=== PATIENT | female | born 1990 | race Two or more races ===

== ENCOUNTER 2020-10-04 15:09 | Emergency (ER) | payer OTHER, SELFPAY ==
[2020-10-04 15:13] VITALS: BP 160/100; PULSE 127; RESP 18; TEMP 36.7; O2SAT 100; BMI 36.6
--- NOTE | 2020-10-04 16:27 | ED.GENADULT ---
HPI - General Adult General Chief complaint: General Medical Stated complaint: High blood pressure/Headache Time Seen by Provider: 10/04/20 16:17 Source: patient Mode of arrival: ambulatory Limitations: no limitations History of Present Illness HPI narrative: Patient history of anxiety does not have any medication for last 1 month feeling anxious today checked her blood pressure was 160/100 usual blood pressure is 120/80 also patient drinks coffee which she had prior to arrival Patient denies any palpitation or chest pain has mild headache no nausea or vomiting or shortness of breath Onset (ago): day(s) Related Data Previous Rx's Medication Instructions Recorded lorazepam [Ativan] 0.5 mg PO BEDTIME PRN #14 tab 10/04/20 Allergies Allergy/AdvReac Type Severity Reaction Status Date / Time No Known Allergies Allergy Unverified 05/02/20 19:40 [No Known Allergies*] Review of Systems Review of Systems: Constitutional : No Weight loss, No Fever, No Chills ENT/Mouth : No sore throat, No Rhinorrhea Eyes: No Eye Pain, No Swelling Cardiovascular : No Chest Pain, no palpitations Respiratory : No Cough, No Sputum, no shortness of breath Gastrointestinal : no Nausea, No Vomiting, No Diarrhea, No abdominal Pain, no black stools Genitourinary : No Dysuria, No Urinary Frequency Musculoskeletal : No joint pain, No Myalgias, No Joint Swelling Skin : No Skin Lesions, No rash Neuro : No Weakness, No Numbness, No Dizziness, + Headache Psych : + Anxiety/Panic, No Depression Heme/Lymph: No Bruising, No Lymphadenopathy Endocrine : No Polyuria, No Polydipsia All other systems reviewed and are negative [facility] Past Medical History Medical History (Updated 10/04/20 @ 17:03 by Sylvain Ramos MD) Anxiety Hypothyroidism Social History Social History Advance Directives: No Advance Directives Information Provided: No Physical Exam Vital Signs: Vital Signs: Last Vital Signs Temp 98.9 F 10/04/20 16:43 Pulse 90 10/04/20 16:43 Resp 18 10/04/20 16:43 BP 158/103 H 10/04/20 16:43 Pulse Ox 99 10/04/20 16:43 Body Mass Index 36.6 Appearance: Alert. Oriented X3. No acute distress. Anxious+ Eyes: Pupils equal, round and reactive to light. ENT: Pharynx normal. Neck: Normal inspection. Neck supple. CVS: Normal heart rate and rhythm. Pulses normal. Respiratory: No respiratory distress. Breath sounds normal. Abdomen: Soft and nontender. Bowel sounds are present, no mass palpable, no CVA tenderness Skin: Skin warm and dry. Normal skin color. Normal skin turgor. Extremities: No lower extremity edema. Neuro: Oriented X 3. No motor deficit. No sensory deficit. Medical Decision Making MDM Narrative Medical decision making narrative: Patient with anxiety transient increased blood pressure 158/103 patient does not have any history of hypertension usual blood pressure is 120/80 when she is at home elevated blood pressures likely from anxiety and white coat hypertension. Patient advised to check her blood pressure daily at home and follow with PCP will give a prescription for Ativan for anxiety which she used to take before Discharge Plan Discharge Clinical Impression: Anxiety Patient Disposition: Home, Self-Care Instructions: Anxiety (ED) Prescriptions: New lorazepam [Ativan] 0.5 mg tablet 0.5 mg PO BEDTIME PRN (Reason: anxiety) Qty: 14 RF: 0 Stand Alone Forms: Work/School Release Interventions: ED Discharge Assessment Last Done: 10/04/20 16:57 Discharge Date/Time: 10/04/20 16:58
--- NOTE | 2020-10-04 16:35 | PC.NURSE ---
upon enterning the main ed, pt saying, i do feel a lot better than when i first came in today. no c/o chest pain, sob, or diff breathing.
[2020-10-04 16:43] VITALS: BP 158/103; PULSE 90; RESP 18; TEMP 37.2; O2SAT 99
== END 2020-10-04 16:58 | disposition home or self-care (01) ==
PROVIDERS: Emergency Provider Internal Medicine; PCP Internal Medicine
DX: R51.9 Headache, unspecified (principal); F41.1 Generalized anxiety disorder; F43.0 Acute stress reaction; Z79.899 Other long term (current) drug therapy
CPT/HCPCS: 99283

== ENCOUNTER 2021-12-06 05:55 | Emergency (ER) | payer OTHER, SELFPAY ==
--- NOTE | ~2021-12-06 | XR_ITS ---
EXAMINATION: XR CHEST CLINICAL INFORMATION: Palpitations COMPARISON: None TECHNIQUE: Frontal view of the chest was obtained. FINDINGS: The lungs are well expanded. There is no focal consolidation, edema, or effusion. No pneumothorax. The cardiomediastinal silhouette is within normal limits. No acute osseous abnormality. XR/XR chest 1V IMPRESSION: Clear lungs.
--- NOTE | 2021-12-06 06:04 | ECG_ITS ---
Test Reason : TACHY Blood Pressure : / mmHG Vent. Rate : 126 BPM Atrial Rate : 126 BPM P-R Int : 150 ms QRS Dur : 086 ms QT Int : 300 ms P-R-T Axes : 059 008 008 degrees QTc Int : 434 ms Sinus tachycardia Septal infarct , age undetermined Possible Inferior infarct , age undetermined Abnormal ECG No previous ECGs available Referred By: Generic ED Physician Electronically Signed By:JUAREZ PANIAGUA MD
[2021-12-06 06:19] VITALS: BP 171/94; PULSE 131; RESP 20; TEMP 36.3; O2SAT 100; BMI 34.9
--- NOTE | 2021-12-06 06:53 | ED_ITS ---
HPI - General Adult General Chief complaint: Arrhythmia/Palpitations Stated complaint: gen med Time Seen by Provider: 12/06/21 06:00 Source: patient Mode of arrival: ambulatory Limitations: no limitations History of Present Illness HPI narrative: Very pleasant 37 years old female presented to the emergency department with a chief complaining of anxiety feeling. She states she had few beers last night and this morning she feels palpitation and very anxious. denies any chest pain shortness of breath any vomiting. Patient has history of hypertension but she states that she is not taking her blood pressure medication, she is supposed to be on amlodipine. Onset (ago): hour(s) (4) Location: chest Radiation: non-radiation Severity: mild Pain Consistency: constant Relieving factors: none Exacerbating factors: none Associated symptoms: denies other symptoms Related Data Previous Rx's Medication Instructions Recorded lorazepam 0.5 mg tablet (Ativan) 0.5 mg PO BEDTIME PRN #14 tab 10/04/20 Allergies Allergy/AdvReac Type Severity Reaction Status Date / Time No Known Allergies Allergy Verified 12/06/21 06:19 [No Known Allergies*] Review of Systems Review of Systems: Yes all other systems are reviewed and are negative Constitutional: Constitutional: Denies chills and Denies fatigue Cardiovascular: Cardiovascular: Reports no additional cardiovascular complaints and Denies chest pain Respiratory: Respiratory: Reports no additional respiratory complaints Gastrointestinal: Gastrointestinal: Denies abdominal pain Neurologic: Reports system reviewed and no additional complaints, except as documented Endocrine: Endocrine: Denies fatigue [facility] Past Medical History [facility] Narrative: HTN Medical History Anxiety Hypothyroidism Social History Social History Alcohol intake: current Alcohol intake frequency: holidays/special occasions only Patient Tobacco Use Status: Never used Tobacco Use of substances other than those prescribed or required for medical reasons: No Advance Directives: No Advance Directives Information Provided: Yes Patient : No Physical Exam ED Vital Signs: Vital Signs - 24 hr 12/06/21 06:19 12/06/21 08:00 Temperature 97.3 F Pulse Rate 131 H 105 H Respiratory Rate 20 13 Blood Pressure 171/94 H 161/88 H Pulse Oximetry 100 100 BMI result Body Mass Index 34.9 Const General: cooperative, comfortable, no acute distress, well developed, alert and awake Nutritional Appearance: average body habitus Orientation/consciousness: patient oriented x3 Limitations: no limitations HENMT Head: Yes normal to inspection and Yes normocephalic Ears: hearing grossly normal bilaterally General nose exam: Normal external nose present Face and sinus: Yes normal facial exam Mouth: Normal oral and palatal mucosa present and tongue normal Throat: Yes posterior oropharynx normal Neck Neck: Yes normal visual inspection, Yes full ROM and Yes no lymphadenopathy Chest Chest palpation & inspection: normal inspection of the chest Resp Effort & Inspection: normal respiratory effort, no audible wheezes and not labored Auscultation: clear to auscultation bilaterally Cardio Jugular venous distension: no JVD Rate: regular rate Rhythm: regular rhythm GI Inspection: Yes normal to inspection Palpation (GI): Soft to palpation, not firm, nontender and no guarding Auscultation: normal bowel sounds Skin General skin exam: no rashes or lesions noted Neuro General: patient oriented x3 Cranial nerves: Yes CN's II-XII intact bilaterally Gait exam (Neuro): Normal gait present Course Reevaluation(s) Reevaluation #1: I re-examined the patient this time she is feeling much better urine pending anticipate discharge home Medical Decision Making MDM Narrative Medical decision making narrative: this is a 32 years old female presented to the ED with palpitations/anxiety will check baseline blood work and will do an EKG Lab Data Result diagrams: 12/06/21 06:45 12/06/21 06:45 Labs: Lab Results 12/06/21 12/06/21 12/06/21 Range/Units 06:45 06:45 06:45 WBC 8.5 (4.8-10.8) X10*3/uL RBC 4.45 (4.20-5.50) X10*6/uL Hgb 13.3 (12.0-16.0) g/dl Hct 40.5 (37.0-47.0) % MCV 91.0 (80.0-98.0) fL MCH 29.9 (27.0-33.0) pg MCHC 32.8 (31.0-35.0) g/dl RDW 12.9 (11.0-16.0) % Plt Count 359 (160-400) X10*3/uL MPV 8.5 L (9.4-12.3) fL Immature Gran % (Auto) 0.4 (0.0-0.4) % Neut % (Auto) 59.1 (45-73) % Lymph % (Auto) 35.2 (20-40) % [place] % (Auto) 4.5 (2-11) % Eos % (Auto) 0.7 (0-4) % Baso % (Auto) 0.1 (0-2) % Lymph # (Auto) 3.0 (1.2-4.9) X10*3/uL [place] # (Auto) 0.4 (0.1-1.2) X10*3/uL Eos # (Auto) 0.1 (0.0-0.4) X10*3/uL Baso # (Auto) 0.0 (0.0-0.2) X10*3/uL Abs Immat Gran (auto) 0.03 (0.00-0.03) X10*3/uL Absolute Neuts (auto) 5.0 (2.0-8.3) x10*3/uL Absolute Nucleated RBC 0.000 (0.0-0.012) X10*3/uL Nucleated RBC % (auto) 0.0 (0.0-0.2) /100WBC Sodium 140 (135-145) mmol/L Potassium 4.0 (3.3-5.1) mmol/L Chloride 105 (96-108) mmol/L Carbon Dioxide 25 (22-29) mmol/L Anion Gap 14 (12-20) BUN 16 (9-16) mg/dL Creatinine 0.80 (0.5-1.4) mg/dL Estim Creat Clear Calc 107.1 Estimated GFR > 60 Random Glucose 110 (60-115) mg/dL Calcium 10.3 H (8.4-10.2) mg/dL Troponin I High Sens < 3.5 (<3.5-17.0) ng/L Urine Color Urine Appearance Urine pH (5.0-8.0) Ur Specific [place] (1.005-1.025) Urine Protein (NEG-TRACE) MG/DL Urine Glucose (UA) (NEG) MG/DL Urine Ketones (NEG) MG/DL Urine Blood (NEG) Urine Nitrite (NEG) Ur Leukocyte Esterase (NEG) Urine RBC (0) /HPF Urine WBC (0-4) /HPF Ur Squamous Epith Cells /LPF Urine Bacteria /LPF Urine Mucus /LPF Urine Test (NEGATIVE) Urine Opiates Screen (Not Detect) Urine Fentanyl Screen (Not Detect) Ur Barbiturates Screen (Not Detect) Ur Phencyclidine Scrn (Not Detect) Ur Amphetamines Screen (Not Detect) U Benzodiazepines Scrn (Not Detect) Urine Cocaine Screen (Not Detect) U Marijuana (THC) Screen (Not Detect) Ethyl Alcohol mg/dL 12/06/21 12/06/21 12/06/21 Range/Units 06:45 08:58 08:58 WBC (4.8-10.8) X10*3/uL RBC (4.20-5.50) X10*6/uL Hgb (12.0-16.0) g/dl Hct (37.0-47.0) % MCV (80.0-98.0) fL MCH (27.0-33.0) pg MCHC (31.0-35.0) g/dl RDW (11.0-16.0) % Plt Count (160-400) X10*3/uL MPV (9.4-12.3) fL Immature Gran % (Auto) (0.0-0.4) % Neut % (Auto) (45-73) % Lymph % (Auto) (20-40) % [place] % (Auto) (2-11) % Eos % (Auto) (0-4) % Baso % (Auto) (0-2) % Lymph # (Auto) (1.2-4.9) X10*3/uL [place] # (Auto) (0.1-1.2) X10*3/uL Eos # (Auto) (0.0-0.4) X10*3/uL Baso # (Auto) (0.0-0.2) X10*3/uL Abs Immat Gran (auto) (0.00-0.03) X10*3/uL Absolute Neuts (auto) (2.0-8.3) x10*3/uL Absolute Nucleated RBC (0.0-0.012) X10*3/uL Nucleated RBC % (auto) (0.0-0.2) /100WBC Sodium (135-145) mmol/L Potassium (3.3-5.1) mmol/L Chloride (96-108) mmol/L Carbon Dioxide (22-29) mmol/L Anion Gap (12-20) BUN (9-16) mg/dL Creatinine (0.5-1.4) mg/dL Estim Creat Clear Calc Estimated GFR Random Glucose (60-115) mg/dL Calcium (8.4-10.2) mg/dL Troponin I High Sens (<3.5-17.0) ng/L Urine Color YELLOW Urine Appearance HAZY Urine pH 6.0 (5.0-8.0) Ur Specific [place] 1.010 (1.005-1.025) Urine Protein NEG (NEG-TRACE) MG/DL Urine Glucose (UA) NEG (NEG) MG/DL Urine Ketones NEG (NEG) MG/DL Urine Blood 3+ H (NEG) Urine Nitrite NEG (NEG) Ur Leukocyte Esterase NEG (NEG) Urine RBC 1-4 (0) /HPF Urine WBC 0 (0-4) /HPF Ur Squamous Epith Cells TRACE /LPF Urine Bacteria NONE /LPF Urine Mucus TRACE /LPF Urine Test NEGATIVE (NEGATIVE) Urine Opiates Screen (Not Detect) Urine Fentanyl Screen (Not Detect) Ur Barbiturates Screen (Not Detect) Ur Phencyclidine Scrn (Not Detect) Ur Amphetamines Screen (Not Detect) U Benzodiazepines Scrn (Not Detect) Urine Cocaine Screen (Not Detect) U Marijuana (THC) Screen (Not Detect) Ethyl Alcohol < 10 mg/dL 12/06/21 Range/Units 08:58 WBC (4.8-10.8) X10*3/uL RBC (4.20-5.50) X10*6/uL Hgb (12.0-16.0) g/dl Hct (37.0-47.0) % MCV (80.0-98.0) fL MCH (27.0-33.0) pg MCHC (31.0-35.0) g/dl RDW (11.0-16.0) % Plt Count (160-400) X10*3/uL MPV (9.4-12.3) fL Immature Gran % (Auto) (0.0-0.4) % Neut % (Auto) (45-73) % Lymph % (Auto) (20-40) % [place] % (Auto) (2-11) % Eos % (Auto) (0-4) % Baso % (Auto) (0-2) % Lymph # (Auto) (1.2-4.9) X10*3/uL [place] # (Auto) (0.1-1.2) X10*3/uL Eos # (Auto) (0.0-0.4) X10*3/uL Baso # (Auto) (0.0-0.2) X10*3/uL Abs Immat Gran (auto) (0.00-0.03) X10*3/uL Absolute Neuts (auto) (2.0-8.3) x10*3/uL Absolute Nucleated RBC (0.0-0.012) X10*3/uL Nucleated RBC % (auto) (0.0-0.2) /100WBC Sodium (135-145) mmol/L Potassium (3.3-5.1) mmol/L Chloride (96-108) mmol/L Carbon Dioxide (22-29) mmol/L Anion Gap (12-20) BUN (9-16) mg/dL Creatinine (0.5-1.4) mg/dL Estim Creat Clear Calc Estimated GFR Random Glucose (60-115) mg/dL Calcium (8.4-10.2) mg/dL Troponin I High Sens (<3.5-17.0) ng/L Urine Color Urine Appearance Urine pH (5.0-8.0) Ur Specific [place] (1.005-1.025) Urine Protein (NEG-TRACE) MG/DL Urine Glucose (UA) (NEG) MG/DL Urine Ketones (NEG) MG/DL Urine Blood (NEG) Urine Nitrite (NEG) Ur Leukocyte Esterase (NEG) Urine RBC (0) /HPF Urine WBC (0-4) /HPF Ur Squamous Epith Cells /LPF Urine Bacteria /LPF Urine Mucus /LPF Urine Test (NEGATIVE) Urine Opiates Screen Not Detected (Not Detect) Urine Fentanyl Screen Not Detected (Not Detect) Ur Barbiturates Screen Not Detected (Not Detect) Ur Phencyclidine Scrn Not Detected (Not Detect) Ur Amphetamines Screen Not Detected (Not Detect) U Benzodiazepines Scrn Not Detected (Not Detect) Urine Cocaine Screen Not Detected (Not Detect) U Marijuana (THC) Screen Not Detected (Not Detect) Ethyl Alcohol mg/dL ECG Data Attestation: I personally reviewed and interpreted this ECG as follows: Pacemaker model: EKG shows an sinus tachycardia with a rate of [address]-T changes Discharge Plan Discharge Clinical Impression: Palpitations, Anxiety Patient Disposition: Home, Self-Care Instructions: Heart Palpitations (DC), Anxiety (ED) Additional Instructions: follow-up with your primary care physician return if you worse any concern Prescriptions: No Action lorazepam [Ativan] 0.5 mg tablet 0.5 mg PO BEDTIME PRN (Reason: anxiety) Qty: 14 0RF Referrals: Physician,Unknown J [Primary Care Provider] - Stand Alone Forms: Work/School Release Interventions: ED Discharge Assessment Last Done: 12/06/21 09:57 Discharge Date/Time: 12/06/21 09:58
[2021-12-06 06:56] LABS: MANUAL DIFF FLAG NO
[2021-12-06] MEDS: Ondansetron ODT 4 MG TAB.RAPDIS TRANSLINGU (07:06)
[2021-12-06] MEDS: LORazepam 1 MG TABLET PO (07:06)
[2021-12-06 07:11] LABS: Ethanol < 10 mg/dL
[2021-12-06 07:12] LABS: Anion Gap 14 (12-20); Blood Urea Nitrogen 16 mg/dL (9-16); Calcium 10.3 mg/dL (8.4-10.2); Carbon Dioxide 25 mmol/L (22-29); Chloride 105 mmol/L (96-108); Creatinine Clr Calc Pharmacy 107.1; Estimated Glomerular Filt Rate > 60; Glucose Random 110 mg/dL (60-115); Sodium 140 mmol/L (135-145)
[2021-12-06 07:16] LABS: Basophils Percent Auto 0.1 % (0-2); Eosinophils Absolute Auto 0.1 X10*3/uL (0.0-0.4); Eosinophils Percent Auto 0.7 % (0-4); Hematocrit 40.5 % (37.0-47.0); Hemoglobin 13.3 g/dl (12.0-16.0); Imm Gran Abs Auto 0.03 X10*3/uL (0.00-0.03); Imm Gran Pct Auto 0.4 % (0.0-0.4); Lymphocytes Percent Auto 35.2 % (20-40); Mean Corpuscular HGB Conc 32.8 g/dl (31.0-35.0); Mean Corpuscular Hemoglobin 29.9 pg (27.0-33.0); Mean Platelet Volume 8.5 fL (9.4-12.3); Monocytes Absolute Auto 0.4 X10*3/uL (0.1-1.2); Monocytes Percent Auto 4.5 % (2-11); Neutrophils Percent Auto 59.1 % (45-73); Platelet Count 359 X10*3/uL (160-400); Red Blood Count 4.45 X10*6/uL (4.20-5.50); Red Cell Distribution Width 12.9 % (11.0-16.0); White Blood Count 8.5 X10*3/uL (4.8-10.8)
[2021-12-06 07:43] LABS: Troponin-I High Sensitivity < 3.5 ng/L (<3.5-17.0)
[2021-12-06 08:00] VITALS: BP 161/88; PULSE 105; RESP 13; O2SAT 100
[2021-12-06 09:07] LABS: Appearance Urine HAZY; Color Urine YELLOW; Glucose Urine UA NEG (NEG); Leukocyte Esterase Urine NEG (NEG); Nitrite Urine NEG (NEG); UACC Culture Trigger NO; Urine Blood 3+ (NEG); Urine Ketones NEG (NEG); Urine Protein NEG (NEG-TRACE)
[2021-12-06 09:08] LABS: Urine Pregnancy NEGATIVE (NEGATIVE)
[2021-12-06 09:09] LABS: UPreg QC Valid YES
[2021-12-06 09:21] LABS: Mucus Urine TRACE /LPF; Squamous Epithelial Cell Urine TRACE /LPF; WBC Urine 0 /HPF (0-4)
[2021-12-06 09:23] LABS: Amphetamine Screen Urine Not Detected (Not Detect); Barbiturates, Urine Not Detected (Not Detect); Benzodiazepines Screen Urine Not Detected (Not Detect); Cannabinoid Screen Urine Not Detected (Not Detect); Cocaine Screen Urine Not Detected (Not Detect); Fentanyl, urine Not Detected (Not Detect); Opiate Screen Urine Not Detected (Not Detect); Phencyclidine Screen Urine Not Detected (Not Detect)
== END 2021-12-06 09:58 | disposition home or self-care (01) ==
PROVIDERS: Emergency Provider Emergency Medicine
DX: R00.2 Palpitations (principal); F41.1 Generalized anxiety disorder; F43.0 Acute stress reaction; Z79.899 Other long term (current) drug therapy
CPT/HCPCS: 36415; 71045; 80048; 80307; 81001; 81025; 82077; 84484; 85025; 93005; 99285

== ENCOUNTER → 2022-09-09 10:30 | Outpatient (BNVA) | payer OTHER, SELFPAY | PROVIDERS: PCP Internal Medicine; Visit Provider Physician Assistant Surgical | DX: Z13.89 Encounter for screening for other disorder (principal) ==

== ENCOUNTER → 2022-09-18 14:13 | Outpatient (BNVA) | payer OTHER, SELFPAY | PROVIDERS: PCP Internal Medicine; Visit Provider Physician Assistant Surgical | DX: Z13.89 Encounter for screening for other disorder (principal) ==

== ENCOUNTER → 2022-09-22 14:56 | Outpatient (BNVA) | payer OTHER, SELFPAY | PROVIDERS: PCP Internal Medicine; Visit Provider Physician Assistant Surgical | DX: Z13.89 Encounter for screening for other disorder (principal) ==

== ENCOUNTER 2022-09-22 15:47 | Outpatient (REF) | payer OTHER, SELFPAY ==
[2022-09-23 10:57] LABS: H Pylori Breath Test Negative (Negative)
== END 2022-09-22 15:48 | disposition home or self-care (01) ==
LOC: HO.LNP 15:47
PROVIDERS: Visit Provider Surgery
DX: E66.9 Obesity, unspecified (principal); I10 Essential (primary) hypertension; E03.9 Hypothyroidism, unspecified; Z68.35 Body mass index [BMI] 35.0-35.9, adult; Z11.0 Encounter for screening for intestinal infectious diseases
CPT/HCPCS: 83013

== ENCOUNTER 2022-09-23 08:42 | Outpatient (REF) | payer OTHER, SELFPAY ==
--- NOTE | ~2022-09-23 | XR_ITS ---
EXAMINATION: XR CHEST CLINICAL INFORMATION: Obesity. COMPARISON: Prior chest November 2021 TECHNIQUE: 2 views of the chest were obtained. FINDINGS: No significant abnormality is noted involving the heart, lungs, mediastinum, bony thorax or soft tissues. XR/XR chest 2V IMPRESSION: Unremarkable examination.
--- NOTE | 2022-09-23 08:48 | ECG_ITS ---
Test Reason : e66.9 Blood Pressure : / mmHG Vent. Rate : 078 BPM Atrial Rate : 078 BPM P-R Int : 150 ms QRS Dur : 092 ms QT Int : 360 ms P-R-T Axes : 014 029 010 degrees QTc Int : 410 ms Normal sinus rhythm Normal ECG When compared with ECG of 06-DEC-2021 06:09, Vent. rate has decreased BY 48 BPM Criteria for Septal infarct are no longer Present Borderline criteria for Inferior infarct are no longer Present Referred By: Alfie Stewart Electronically Signed By:JUAREZ PANIAGUA MD
== END 2022-09-23 08:43 | disposition home or self-care (01) ==
LOC: HO.XRAY 08:42
PROVIDERS: PCP Internal Medicine; Visit Provider Surgery
DX: E66.9 Obesity, unspecified (principal); Z68.35 Body mass index [BMI] 35.0-35.9, adult; E03.9 Hypothyroidism, unspecified; I10 Essential (primary) hypertension
CPT/HCPCS: 71046; 93005

== ENCOUNTER 2022-09-28 07:23 | Outpatient (REF) | payer OTHER, SELFPAY ==
[2022-09-28 07:35] LABS: MANUAL DIFF FLAG NO
[2022-09-28 07:59] LABS: Estimated Average Glucose 105 mg/dL; Hemoglobin A1c % 5.3 %
[2022-09-28 08:06] LABS: Basophils Percent Auto 0.2 % (0-2); Eosinophils Absolute Auto 0.1 X10*3/uL (0.0-0.4); Eosinophils Percent Auto 0.9 % (0-4); Hematocrit 37.7 % (37.0-47.0); Hemoglobin 12.5 g/dl (12.0-16.0); Imm Gran Abs Auto 0.04 X10*3/uL (0.00-0.03); Imm Gran Pct Auto 0.5 % (0.0-0.4); Lymphocytes Absolute Auto 3.3 X10*3/uL (1.2-4.9); Mean Corpuscular HGB Conc 33.2 g/dl (31.0-35.0); Mean Corpuscular Hemoglobin 30.2 pg (27.0-33.0); Mean Corpuscular Volume 91.1 fL (80.0-98.0); Mean Platelet Volume 8.8 fL (9.4-12.3); Monocytes Absolute Auto 0.5 X10*3/uL (0.1-1.2); Monocytes Percent Auto 6.3 % (2-11); Neutrophils Absolute Auto 4.6 x10*3/uL (2.0-8.3); Neutrophils Percent Auto 54.1 % (45-73); Platelet Count 390 X10*3/uL (160-400); Red Blood Count 4.14 X10*6/uL (4.20-5.50); White Blood Count 8.6 X10*3/uL (4.8-10.8)
[2022-09-28 08:34] LABS: Alanine Aminotransferase 45 U/L (0-31); Alkaline Phosphatase 102 U/L (39-117); Anion Gap 13 (12-20); Aspartate Amino Transferase 28 U/L (5-31); Bilirubin Total 0.3 mg/dL (0.0-1.0); Blood Urea Nitrogen 13 mg/dL (9-16); C Reactive Protein 0.83 mg/dL (< or = 0.50); Calcium 9.3 mg/dL (8.4-10.2); Carbon Dioxide 25 mmol/L (22-29); Chloride 107 mmol/L (96-108); Cholesterol 151 mg/dL; Estimated Glomerular Filt Rate > 60; Glucose Random 102 mg/dL (60-115); HDL Cholesterol 38 mg/dL; Iron 63 mcg/dL (30-160); LDL Cholesterol Calculated 94 mg/dl; Percent Iron Saturation 19 % (15-50); Potassium 4.3 mmol/L (3.3-5.1); Sodium 141 mmol/L (135-145); Total Iron Binding Capacity 333 mcg/dL (228-428); Total Protein 7.5 g/dL (6.5-8.0); Triglycerides 95 mg/dL; Unsaturated Iron Binding 270 ug/dL
[2022-09-28 08:54] LABS: Ferritin 52 ng/mL (10-122); Folate 9.2 ng/mL (> or = 4.0); Insulin 20 uU/mL (2-29); TSH reflex Free T4 1.42 uIU/mL (0.32-4.0); Vitamin B12 633 pg/mL (200-900); Vitamin D 25-OH Total 22.3 ng/mL (>30)
[2022-09-29 13:39] LABS: Calcium (PTHI) 9.3 mg/dL (8.6-10.2); PTHI 68 pg/mL (16-77)
[2022-10-01 05:49] LABS: Zinc 86 mcg/dL (60-130)
[2022-10-01 17:29] LABS: Vitamin A 36 mcg/dL (38-98)
[2022-10-05 05:13] LABS: Vitamin B1 7 nmol/L (8-30)
== END 2022-09-28 07:24 | disposition home or self-care (01) ==
LOC: HO.LAB 07:23
PROVIDERS: PCP Internal Medicine; Visit Provider Surgery
DX: E66.9 Obesity, unspecified (principal); Z68.35 Body mass index [BMI] 35.0-35.9, adult; E03.9 Hypothyroidism, unspecified; I10 Essential (primary) hypertension
CPT/HCPCS: 36415; 80053; 80061; 82306; 82607; 82728; 82746; 83036; 83525; 83540; 83970; 84425; 84443; 84590; 84630; 85025; 86140

== ENCOUNTER → 2022-10-12 15:05 | Outpatient (BNVA) | payer OTHER, SELFPAY | PROVIDERS: PCP Internal Medicine; Referring Provider Internal Medicine; Visit Provider Physician Assistant Surgical | DX: Z13.89 Encounter for screening for other disorder (principal) ==

== ENCOUNTER → 2022-10-22 15:00 | Outpatient (BNVA) | payer OTHER, SELFPAY | PROVIDERS: Visit Provider Counselor Mental Health | DX: F41.9 Anxiety disorder, unspecified (principal); E66.9 Obesity, unspecified | CPT/HCPCS: 90791 ==

== ENCOUNTER → 2022-10-27 13:08 | Outpatient (BNVA) | payer OTHER, SELFPAY | PROVIDERS: PCP Internal Medicine; Visit Provider Dietitian, Registered | DX: E66.9 Obesity, unspecified (principal); Z68.33 Body mass index [BMI] 33.0-33.9, adult | CPT/HCPCS: 97802 ==

== ENCOUNTER → 2022-11-02 13:12 | Outpatient (BNVA) | payer OTHER, SELFPAY | PROVIDERS: PCP Internal Medicine; Visit Provider Physician Assistant Surgical | DX: Z13.89 Encounter for screening for other disorder (principal) ==

== ENCOUNTER 2023-03-02 10:31 | Outpatient (AMB) | payer OTHER, SELFPAY ==
[2023-03-02 10:33] VITALS: BP 146/80; PULSE 102; TEMP 36.7; O2SAT 99; BMI 35.2
--- NOTE | 2023-03-02 10:33 | A.OFFVIS_ITS ---
Intake VS Expanded 03/02/23 10:33 Height 5 ft 3 in Weight 198 lb 12.8 oz BMI 35.2 BP 146/80 H Blood Pressure Location Lt brachial Blood Pressure Position Sitting Pulse 102 H Pulse Source Pulse Oximeter Temp 98.1 F Temperature Source Temporal Artery Scan Pulse Oximetry 99 Oxygen Delivery Method Room Air Body Fat 75.4 Body Fat Percentage 38.0 Free Fat Mass 123.2 Muscle Mass 117.0 Visceral Mass 8.0 Water Mass 88.4 BMR 1,710 Intake Visit Reasons: (OV) F/U [employer] Res[employer]cher Required: No Allergies No Known Allergies [No Known Allergies*] Allergy (Verified 03/02/23 10:35) Medication List - Last Reconciled 03/02/23 by MECHE Vergara amlodipine 10 mg PO DAILY cholecalciferol (vitamin D3) 125 mcg PO DAILY levothyroxine 75 mcg PO DAILY lorazepam (Ativan) 0.5 mg PO BEDTIME PRN thiamine HCl (vitamin B1) 100 mg PO DAILY vitamin A 1 cap PO DAILY HPI HPI Comments History of Present Illness Details The patient is a pleasant 32 year old female who returns to the clinic for pre-operative surgical weight loss management. They were last seen in the office on 11/02/22, recorded weight at that time was 190.6 pounds, with a BMI of 33.7. Today's weight is 198.8 pounds and BMI is 35.2. There has been a weight loss of 2.6 pounds since initiating the surgical weight loss program on 02/02/22 with a total body weight loss of 1.2 %. She has not been seen in 4 months as she states appts had to be re-scheduled. RD/US/UGI not re-scheduled. She states she had changed jobs and insurance changed too. Currently not following any meal plan. Wants to re-commit Pre op work up completed as follows: SWL classes:? 03/23 BH appts: 10/22/22-needs to be seen again ? ? RD appts: f/u 12/08/22-missed Labs: 09/28/22-low A, B1, D H. pylori: 09/22/22-neg CXR: 09/23/22-nad EK09/23/22-normal ABD U/S: 11/04/22-missed UGI: 11/04/22-missed Current meal plan includes: 2 [employer] shakes, (1 scoop in 8-10 oz low fat unsweetened almond milk each). First shake at 630am-930am Second shake at 11am-1pm 1 protein bar ([employer] bars at [employer], [employer], or [employer]) at 3pm-5pm. Dinner at 7pm (7 forks of protein and 7 forks of salad/vegetables). 96 oz daily Current exercise plan includes: walking 5 days per week, not tracking calories. PFSH Surgical History History of bilateral breast reduction surgery Family History Mother Hypertension Acquired scoliosis Breast cancer Father Hypertension Prostate cancer Brother No problems noted. Sister Hypertension Social History Alcohol intake: current Alcohol intake frequency: holidays/special occasions only Patient Tobacco Use Status: Never used Tobacco Review of Systems Const All systems reviewed & are unremarkable except as noted in HPI and below Physical Exam Vital Signs: BMI result Body Mass Index 35.2 Const General: healthy appearing and no acute distress Resp Effort & Inspection: normal respiratory effort Auscultation: clear to auscultation bilaterally Cardio Rate: regular rate Rhythm: regular rhythm GI Auscultation: normal bowel sounds Extrem General: Yes normal to inspection Assessment & Plan Assessment & Plan (1) Obesity: Code(s): E66.9 - Obesity, unspecified Plan: Given plan to re-start and also encouraged to return to [employer] RTC 1 month and if able to demonstrate commitment then will re-schedule RD/US/UGI. Coding Level of Care Code Est Pt Level 3 (07371) Diagnoses Obesity E66.9
== END 2023-03-02 10:58 | disposition home or self-care (01) ==
PROVIDERS: Visit Provider Physician Assistant Surgical
DX: E66.9 Obesity, unspecified (principal); Z68.35 Body mass index [BMI] 35.0-35.9, adult
CPT/HCPCS: 99213

== ENCOUNTER → 2023-03-02 10:31 | Outpatient (BNVA) | payer SELFPAY | PROVIDERS: Visit Provider Physician Assistant Surgical ==

== ENCOUNTER 2023-03-20 02:34 | Emergency (ER) | payer OTHER, SELFPAY ==
--- NOTE | ~2023-03-20 | CT_ITS ---
EXAMINATION: CT FACIAL BONES CLINICAL INFORMATION: Abscess right face COMPARISON: None TECHNIQUE: CT facial bones axial sagittal and coronal, department's standard protocol. This CT examination was performed using dose optimization techniques as appropriate, variously including the following: *Automated exposure control *Adjustment of mA and/or kV according to patient size (this includes techniques or standardized protocols for targeted exams where dose is matched to indication/reason for exam; i.e. extremities or head) *Use of iterative reconstruction technique FINDINGS : SKULL BASE: Included structures at skull base are normal. BONES: Skull base, orbital bones, nasal bones, maxillary bones, mandibles, zygomatic arches, and included cervical vertebrae are normal. ORBITS: Globes are symmetric. Orbital structures are normal. SALIVARY GLANDS: Unremarkable SINUSES: There is a small retention cyst of the floor of the right maxillary sinus 0.6 cm, sinuses otherwise are clear. There is nasal septal deviation to the left. Lymph nodes: There are enlarged right cervical lymph nodes right side measuring up to 1.7 x 1.5 cm right submandibular lymph node. Other lymph nodes are slightly prominent. This is of uncertain etiology. There is no evidence of abscess. CT/CT facial bones w IV con IMPRESSION: * No CT evidence of abscess. * Enlarged right cervical lymph nodes, largest right submandibular lymph node 1.7 x 1.5 cm. This is of uncertain etiology. Please correlate clinically, follow-up as clinically indicated. * Small retention cyst right maxillary sinus. * Nasal septal deviation to the left.
[2023-03-20 02:49] VITALS: BP 145/85; PULSE 117; RESP 16; TEMP 37.1; O2SAT 99; BMI 34.7
--- NOTE | 2023-03-20 06:53 | ED_ITS ---
HPI - Dental/Oral General Chief complaint: Dental/Oral Stated complaint: Dental Pain Time Seen by Provider: 03/20/23 06:40 Source: patient Mode of arrival: ambulatory Limitations: no limitations History of Present Illness HPI Narrative: 32 yo female with history of anxiety, HTN, hypothyroidism here with complaints of right lower dental pain. Patient reports Wednesday she had a molar removed. She woke up the next day with right sided facial swelling, increasing pain and is having difficulty with opening her mouth. No fevers, chills. Has not notified her dentist. Not currently on antibiotics Related Data Home Medications Medication Instructions Recorded Confirmed levothyroxine 75 mcg tablet 75 mcg PO DAILY 01/29/22 03/02/23 amlodipine 5 mg tablet 10 mg PO DAILY 09/18/22 03/02/23 Previous Rx's Medication Instructions Recorded lorazepam 0.5 mg tablet (Ativan) 0.5 mg PO BEDTIME PRN anxiety #14 10/04/20 tabs thiamine HCl (vitamin B1) 100 mg 100 mg PO DAILY #90 tabs 01/04/23 tablet cholecalciferol (vitamin D3) 125 125 mcg PO DAILY #90 caps 01/07/23 mcg (5,000 unit) capsule vitamin A 3,000 mcg (10,000 unit) 1 cap PO DAILY #90 caps 01/07/23 capsule clindamycin HCl 150 mg capsule 150 mg PO TID #21 caps 03/20/23 ibuprofen 600 mg tablet 600 mg PO Q8H PRN pain #30 tabs 03/20/23 Allergies Allergy/AdvReac Type Severity Reaction Status Date / Time No Known Allergies Allergy Verified 03/02/23 10:35 [No Known Allergies*] Review of Systems Review of Systems: Yes all other systems are reviewed and are negative Constitutional: Constitutional: Reports no additional constitutional complaints, Denies body ache(s), Denies chills, Denies fever(s), Denies headache(s) and Denies weakness Eyes: Eyes: Reports no additional eye complaints and Denies change in vision ENT: Reports system reviewed and no additional complaints, except as documented, Reports dental pain, Denies dizziness, Denies headache(s), Denies nasal congestion, Denies nasal discharge and Denies neck pain Cardiovascular: Cardiovascular: Reports no additional cardiovascular complaints, Denies chest pain, Denies leg edema and Denies dyspnea Respiratory: Respiratory: Reports no additional respiratory complaints, Denies cough and Denies dyspnea Gastrointestinal: Gastrointestinal: Reports no additional gastrointestinal complaints, Denies abdominal pain, Denies diarrhea, Denies nausea and Denies vomiting Genitourinary: Genitourinary: Reports no additional female genitourinary complaints and Denies urinary incontinence Musculoskeletal: Musculoskeletal: Reports no additional musculoskeletal complaints, Denies back pain, Denies arthralgias, Denies joint swelling, Denies neck pain, Denies numbness and Denies tingling Integumentary/Breasts: Skin/Breast: Reports system reviewed and no additional complaints, except as docu and Denies rash Neurologic: Reports system reviewed and no additional complaints, except as documented, Denies Abnormal speech present, Denies dizziness, Denies headache(s), Denies numbness, Denies tingling and Denies weakness PMFSH Past Medical History Attestation statement: The following information was validated with the patient. Source: old records reviewed and nursing notes reviewed Surgical History History of bilateral breast reduction surgery Family History Family History Mother Hypertension Acquired scoliosis Breast cancer Father Hypertension Prostate cancer Brother No problems noted. Sister Hypertension Social History Social History Alcohol intake: current Alcohol intake frequency: does not drink Patient Tobacco Use Status: Never used Tobacco Smoked in Last 30 Days: No Use of substances other than those prescribed or required for medical reasons: No Advance Directives: No Advance Directives Information Provided: No Physical Exam Vital Signs: Vital Signs: Last Vital Signs Temp 98 F 03/20/23 07:15 Pulse 109 H 03/20/23 07:15 Resp 18 03/20/23 07:15 BP 135/87 03/20/23 07:15 Pulse Ox 99 03/20/23 07:15 O2 Del Method Room Air 03/20/23 07:15 BMI result Body Mass Index 34.7 Const: General: cooperative, healthy appearing, comfortable and no acute distress Orientation/consciousness: patient oriented x3 Limitations: no limitations HEENT: Other: Difficulty with opening her mouth, unable to visualize entire dental area There is no obvious abscess seen at the gum line No swelling under the tongue Right facial swelling (lower) with no palpable induration/abscess Head: Yes normal to inspection Ears: hearing grossly normal bilaterally and TM's normal bilaterally General nose exam: Normal external nose present Mouth: Normal oral and palatal mucosa present, lip normal and tongue normal Throat: Yes posterior oropharynx normal, Yes tonsils normal and Yes uvula midline Eyes: General: appearance normal, both eyes and all related structures Pupils: Equal, round and reactive pupils present Neck: Neck: Yes normal visual inspection, Yes full ROM, Yes no lymphadenopathy and Yes no meningeal signs Chest: Chest palpation & inspection: normal inspection of the chest Resp: Effort & Inspection: normal respiratory effort Auscultation: clear to auscultation bilaterally Cardio: Rate: regular rate Rhythm: regular rhythm Peripheral pulses: Peripheral pulses 2+ throughout GI: Inspection: Yes normal to inspection Palpation (GI): Soft to palpation and nontender Auscultation: normal bowel sounds Back/Spine/Pelvis: Thoracic/Lumbar Spine: thoracic and lumbar spine normal to inspection Skin: General skin exam: no rashes or lesions noted Neuro: General: patient oriented x3, no meningeal signs, no focal motor deficits and normal sensation to monofilament Cranial nerves: Yes Equal, round and reactive pupils present Cognition (Neuro): normal cognition Speech: No Abnormal speech present Gait exam (Neuro): Normal gait present Motor exam (neuro): 5/5 motor strength present throughout Extrem: General: Yes normal to inspection Course Course Course Narrative: CT shows no evidence of dental abscess or osteomyelitis. Patient feels improved and is tolerating p.o. with no difficulty. Will discharge home with clindamycin, ibuprofen as needed and dental follow-up. Reviewed worrisome signs and symptoms of when to return to the emergency room. Comfortable plan for discharge home Medications Administered Discontinued Medications Generic Name Dose Route Start Last Admin Trade Name Freq PRN Reason Stop Dose Admin Clindamycin Phosphate 600 mg in 50 mls @ 100 mls/hr 03/20/23 06:44 03/20/23 08:20 Cleocin IV 03/20/23 07:13 100 mls/hr ONCE ONE Administration Iohexol 85 ml 03/20/23 08:16 03/20/23 08:17 Iohexol 350 Mg/Ml 100 Ml Infus..Btl IV 03/20/23 08:17 85 ml ONCE ONE Administration Ketorolac Tromethamine 30 mg 03/20/23 06:44 03/20/23 07:44 Ketorolac Tromethamine 30 Mg/Ml Vial IVPUSH 03/20/23 06:45 30 mg ONCE ONE Administration Medical Decision Making Medical Decision Making [facility] Narrative: 32 yo female here with right facial swelling/pain with waking Wednesday morning after having a right lower molar extracted on Wednesday. On exam patient has right sided facial swelling with mild trismus. Tolerating secrtions well. Posterior oropharynx normal. Unable to visualize the entire dental area but I do not appreciate any obvious dental abscess. No submental swelling. No lymphadenopathy. Will obtain labs, CT facial bones. Will give clindamycin IV, toradol for analgesia, IVF and re-assess. Differential Diagnosis Differential Diagnoses: The differential diagnosis associated with the presentation includes facial cellulitis, dental abscess Low concern for osteomyeltiis, ludwigs angina Lab Data [facility] Lab Attestation statement: I reviewed the patient's lab results. Labs show mild leukocytosis otherwise unremarkable 03/20/23 07:13 03/20/23 07:13 Labs: Lab Results 03/20/23 03/20/23 Range/Units 07:13 07:13 WBC 15.7 H (4.8-10.8) X10*3/uL RBC 4.58 (4.20-5.50) X10*6/uL Hgb 13.3 (12.0-16.0) g/dl Hct 40.8 (37.0-47.0) % MCV 89.1 (80.0-98.0) fL MCH 29.0 (27.0-33.0) pg MCHC 32.6 (31.0-35.0) g/dl RDW 13.3 (11.0-16.0) % Plt Count 426 H (160-400) X10*3/uL MPV 8.5 L (9.4-12.3) fL Immature Gran % (Auto) 0.4 (0.0-0.4) % Neut % (Auto) 76.5 H (45-73) % Lymph % (Auto) 18.6 L (20-40) % [place] % (Auto) 4.3 (2-11) % Eos % (Auto) 0.1 (0-4) % Baso % (Auto) 0.1 (0-2) % Lymph # (Auto) 2.9 (1.2-4.9) X10*3/uL [place] # (Auto) 0.7 (0.1-1.2) X10*3/uL Eos # (Auto) 0.0 (0.0-0.4) X10*3/uL Baso # (Auto) 0.0 (0.0-0.2) X10*3/uL Abs Immat Gran (auto) 0.06 H (0.00-0.03) X10*3/uL Absolute Neuts (auto) 12.0 H (2.0-8.3) x10*3/uL Absolute Nucleated RBC 0.000 (0.0-0.012) X10*3/uL Nucleated RBC % (auto) 0.0 (0.0-0.2) /100WBC Sodium 140 (135-145) mmol/L Potassium 3.9 (3.3-5.1) mmol/L Chloride 105 (96-108) mmol/L Carbon Dioxide 21 L (22-29) mmol/L Anion Gap 18 (12-20) BUN 9 (9-16) mg/dL Creatinine 0.77 (0.5-1.4) mg/dL Estim Creat Clear Calc 105.8 Estimated GFR > 60 Random Glucose 111 (60-115) mg/dL Calcium 10.3 H D (8.4-10.2) mg/dL Beta HCG, Quant < 2 mIU/mL Independent Interpretation I performed an independent interpretation of an: CT Scan Interpretation: I independently reviewed the CT scan with radiology report Radiology Impression Discussion of test interpretation with radiology: I have reviewed the radiologist's reading. Radiologist Impression: [address] [address] [address] Scan Report Signed Patient: Kaylin Tejada MR#: [id number] : 1990 Acct:[id number] Age/Sex: 32 / F ADM Date: 03/20/23 Loc: .ED Attending Dr: Ordering Physician: Katie Ontiveros NP Date of Service: 03/20/23 Procedure(s): CT facial bones w IV con Accession Number(s): [id number] cc: Katie Ontiveros NP~ EXAMINATION: CT FACIAL BONES CLINICAL INFORMATION: Abscess right face COMPARISON: None TECHNIQUE: CT facial bones axial sagittal and coronal, department's standard protocol. This CT examination was performed using dose optimization techniques as appropriate, variously including the following: *Automated exposure control *Adjustment of mA and/or kV according to patient size (this includes techniques or standardized protocols for targeted exams where dose is matched to indication/reason for exam; i.e. extremities or head) *Use of iterative reconstruction technique FINDINGS : SKULL BASE: Included structures at skull base are normal. BONES: Skull base, orbital bones, nasal bones, maxillary bones, mandibles, zygomatic arches, and included cervical vertebrae are normal. ORBITS: Globes are symmetric. Orbital structures are normal. SALIVARY GLANDS: Unremarkable SINUSES: There is a small retention cyst of the floor of the right maxillary sinus 0.6 cm, sinuses otherwise are clear. There is nasal septal deviation to the left. Lymph nodes: There are enlarged right cervical lymph nodes right side measuring up to 1.7 x 1.5 cm right submandibular lymph node. Other lymph nodes are slightly prominent. This is of uncertain etiology. There is no evidence of abscess. CT/CT facial bones w IV con IMPRESSION: ? *? No CT evidence of abscess. ? *? Enlarged right cervical lymph nodes, largest right submandibular lymph node 1.7 x 1.5 cm. This is of uncertain etiology. Please correlate clinically, follow-up as clinically indicated. ? *? Small retention cyst right maxillary sinus. ? *? Nasal septal deviation to the left. ? Discharge Plan Discharge Clinical Impression: Dental infection Patient Disposition: Home, Self-Care Instructions: Dental Abscess (ED) Additional Instructions: Salt water gargle Soft foods Follow-up with your dentist next week Return for worsening symptoms Start your antibiotic tomorrow Prescriptions: New clindamycin HCl 150 mg capsule 150 mg PO TID Qty: 21 0RF ibuprofen 600 mg tablet 600 mg PO Q8H PRN (Reason: pain) Qty: 30 0RF No Action thiamine HCl (vitamin B1) 100 mg tablet 100 mg PO DAILY Qty: 90 0RF cholecalciferol (vitamin D3) 125 mcg (5,000 unit) capsule 125 mcg PO DAILY Qty: 90 0RF vitamin A 3,000 mcg (10,000 unit) capsule 1 cap PO DAILY Qty: 90 0RF lorazepam [Ativan] 0.5 mg tablet 0.5 mg PO BEDTIME PRN (Reason: anxiety) Qty: 14 0RF levothyroxine 75 mcg tablet 75 mcg PO DAILY amlodipine 5 mg tablet 10 mg PO DAILY Referrals: Kalia Sears MD [Primary Care Provider] - 1 week (as needed) Stand Alone Forms: Work/School Release
[2023-03-20 07:15] VITALS: BP 135/87; PULSE 109; RESP 18; TEMP 36.6; O2SAT 99
[2023-03-20 07:20] LABS: MANUAL DIFF FLAG NO
[2023-03-20 07:21] LABS: Basophils Percent Auto 0.1 % (0-2); Eosinophils Percent Auto 0.1 % (0-4); Hematocrit 40.8 % (37.0-47.0); Hemoglobin 13.3 g/dl (12.0-16.0); Imm Gran Abs Auto 0.06 X10*3/uL (0.00-0.03); Imm Gran Pct Auto 0.4 % (0.0-0.4); Lymphocytes Absolute Auto 2.9 X10*3/uL (1.2-4.9); Lymphocytes Percent Auto 18.6 % (20-40); Mean Corpuscular HGB Conc 32.6 g/dl (31.0-35.0); Mean Corpuscular Volume 89.1 fL (80.0-98.0); Mean Platelet Volume 8.5 fL (9.4-12.3); Monocytes Absolute Auto 0.7 X10*3/uL (0.1-1.2); Monocytes Percent Auto 4.3 % (2-11); Neutrophils Percent Auto 76.5 % (45-73); Platelet Count 426 X10*3/uL (160-400); Red Blood Count 4.58 X10*6/uL (4.20-5.50); Red Cell Distribution Width 13.3 % (11.0-16.0); White Blood Count 15.7 X10*3/uL (4.8-10.8)
[2023-03-20 07:40] LABS: Anion Gap 18 (12-20); Blood Urea Nitrogen 9 mg/dL (9-16); Calcium 10.3 mg/dL (8.4-10.2); Carbon Dioxide 21 mmol/L (22-29); Chloride 105 mmol/L (96-108); Creatinine Clr Calc Pharmacy 105.8; Estimated Glomerular Filt Rate > 60; Glucose Random 111 mg/dL (60-115); Potassium 3.9 mmol/L (3.3-5.1); Sodium 140 mmol/L (135-145)
[2023-03-20 07:43] LABS: HCG Quantitative < 2 mIU/mL
[2023-03-20] MEDS: Ketorolac Tromethamine 30 MG/ML VIAL IVPUSH (07:44)
--- NOTE | 2023-03-20 07:50 | PC.NURSE ---
Antibiotic pending for pharmacy to bring up.
[2023-03-20] MEDS: iohexoL 350 MG/ML 100 ML INFUS..BTL 85 ML IV (08:17)
[2023-03-20] MEDS: Clindamycin Phosphate/D5W 600 MG/50 ML PIGGYBACK 100 MG IV (08:20)
== END 2023-03-20 09:15 | disposition home or self-care (01) ==
PROVIDERS: Nurse Practitioner Family; Emergency Provider Emergency Medicine; PCP Internal Medicine
DX: K04.7 Periapical abscess without sinus (principal); K08.89 Other specified disorders of teeth and supporting structures; I10 Essential (primary) hypertension; E03.9 Hypothyroidism, unspecified; Z79.899 Other long term (current) drug therapy
CPT/HCPCS: 36415; 70487; 80048; 84702; 85025; 96374; 99284; J1885; Q9967

== ENCOUNTER 2024-03-18 12:37 | Outpatient (AMB) | payer OTHER, SELFPAY ==
--- OUTSIDE RECORDS SUMMARY | 2024-03-18 12:38 | XMS_ITS | Continuity of Care Document ---
Author Organization [facility] Address [address] [place] [id number]- Care Team Providers Care Tubing Mill Setter Name Role Phone Orion TAPIA, Kalia Primary Care Physician [place]counter [facility] [place] Date(s): 12/30/22 - 01/29/[address] [address]- Allergies, Adverse Reactions, Alerts No Known Medication Allergies Immunizations Given and Recorded Vaccine Date Status Refusal Reason influenza virus vaccine, inactivated 06/30/22 Lopez rded influenza virus vaccine, inactivated 06/26/21 Lopez rded influenza virus vaccine, inactivated 06/14/20 Lopez rded SARS-CoV-2 (COVID-19) mRNA BNT-162b2 vac 01/30/21 Recorded SARS-CoV-2 (COVID-19) mRNA BNT-162b2 vac 01/07/21 Recorded Influenza Virus Vaccine (oldterm) 05/30/20 Recorde d Influenza Virus Vaccine (oldterm) 05/15/20 Recorde d tetanus/diphtheria/pertussis, acel(Tdap) 1 09/01/19 Given Varicella Virus Vaccine 11/09/16 Recorded Varicella Virus Vaccine 10/12/16 Recorded Hepatitis B Vaccine (old term) 03/24/09 Recorded Hepatitis B Vaccine (old term) 02/23/01 Recorded Hepatitis B Vaccine (old term) 01/24/01 Recorded tetanus-diphtheria toxoids (Td) 12/27/05 Recorded Measles/Mumps/Rubella Virus Vaccine 08/08/93 Recor ded Measles/Mumps/Rubella Virus Vaccine 02/11/90 Recor ded Measles/Mumps/Rubella Virus Vaccine 89 Recor ded diphtheria/tetanus/pertussis, acel(DTaP) 07/29/93 Recorded diphtheria/tetanus/pertussis, acel(DTaP) 11/14/90 Recorded diphtheria/tetanus/pertussis, acel(DTaP) 02/11/90 Recorded diphtheria/tetanus/pertussis, acel(DTaP) 89 Recorded diphtheria/tetanus/pertussis, acel(DTaP) 89 Recorded Poliovirus Vaccine, Inactivated 11/14/90 Recorded Poliovirus Vaccine, Inactivated 02/11/90 Recorded Poliovirus Vaccine, Inactivated 89 Recorded Poliovirus Vaccine, Inactivated 89 Recorded Haemophilus B Conj Vaccine (oldterm) 89 Lopez rded 1Result Comment: [facility] [place] [id number] Medications amLODIPine 10 mg oral tablet 10 mg, 1, tablet, By Mouth, Daily, # 90 tablet, Refills 3, Tot. Refills 3, Maintenance, 09/10/22 14:46:00 EST, Route to Pharmacy Electronically, [facility]/pharmacy #[id number], Partial fill upon patient request if the prescription is for a schedule II opioid drug... Start Date: 09/10/22 Status: Ordered levothyroxine 75 mcg (0.075 mg) oral tablet 1 tablet, By Mouth, Daily, # 90 tablet, 1 Refills, Maintenance, 11/10/22 6:54:00 EDT, [facility] STORE [id number], 157, cm, 09/10/22 14:50:00 EST, Height Start Date: 11/10/22 Status: Ordered LORazepam 0.5 mg oral tablet See Instructions, PRN as needed for anxiety, 1/2 tablet By Mouth Daily as needed for anxiety CAREER CENTER ADVISOR reviewed, # 5 tablet, 0 Refills, Maintenance, 08/03/22 17:00:00 EST, Tablet, [facility]/pharmacy #[id number], Partial fill upon patient request if the prescription... Start Date: 08/03/22 Status: Ordered Problem List Condition Confirmation Course Effective Dates Status H ealth Status Informant HTN (hypertension) Confirmed Active Hypothyroidism Confirmed Active Severe obesity (BMI 35.0-39.9) with comorbidity Confirmed Active Social History Social History Type Response Tobacco Other: quit age 27, previously 1/2 ppd x 1 yr. Sex Patient Care team information Care Team Personnel Name: Priti Abraham MD Position: [facility] STUDENT ADMISSIONS CLERK MD Member Role: Lifetime STUDENT ADMISSIONS CLERK Physician Address: Address: [address] [place] [address]- [place] Name: Kalia Sears MD Position: [facility] Physician - Primary Care Member Role: PCP Address: Address: [address] [place] [address] [address] [place] [address]- Care Team Related Persons Name: EUN HOLDEN Address: home [address] [place] [id number]
--- OUTSIDE RECORDS SUMMARY | 2024-03-18 12:38 | XMS_ITS | Continuity of Care Document ---
Author Organization [facility] Address [address] [place] [address]- Care Team Providers Care Panel Cutter Name Role Phone Orion TAPIA, Kalia Primary Care Physician [phone] Encounter [facility] Date(s): 04/09/21 - 05/09/21 [facility] [address] [place] [id number] Allergies, Adverse Reactions, Alerts No Known Medication Allergies Immunizations Given and Recorded Vaccine Date Status Refusal Reason Influenza Virus Vaccine (oldterm) 05/30/20 Recorde d [...] Vaccine (oldterm) 89 Lopez rded 1Result Comment: [facility] [id number] Medications amLODIPine 5 mg oral tablet 5 mg, 1, tablet, By Mouth, Daily, # 90 tablet, Refills 3, Tot. Refills 3, Maintenance, 11/04/20 13:56:00 EDT, Route to Pharmacy Electronically, [facility]/pharmacy #[id number], Partial fill upon patient request if the prescription is for a schedule II opioid drug.... Start Date: 11/04/20 Status: Ordered levothyroxine 75 mcg (0.075 mg) oral tablet 1 tablet = 75 mcg, By Mouth, Daily, # 90 tablet, 1 Refills, Maintenance, 12/06/20 10:08:00 EDT, Tablet, [facility]/pharmacy #[id number], Partial fill upon patient request if the prescription is for a schedule II opioid drug., 158.4, cm, 11/04/20 8:59:00 EDT, Height Start Date: 12/06/20 Stop Date: 06/04/21 Status: Ordered LORazepam 0.5 mg oral tablet 1 tablet = 0.5 mg, By Mouth, Daily, PRN as needed for anxiety, international exchange coordinator reviewed, # 7 tablet, 0 Refills,Maintenance, 12/12/20 14:00:00 EDT, Tablet, [facility]/pharmacy #[id number], Partial fill upon patient request if the prescription is for a schedule II opioid drug.... Start Date: 12/12/20 Status: Ordered Problem List Condition Effective Dates Status Health Status Inform ant HTN (hypertension)(Confirmed) Active Hypothyroidism(Confirmed) Active Social History Social History Type Response Tobacco Other: quit age 27, previously 1/2 ppd x 1 yr. Sex
--- OUTSIDE RECORDS SUMMARY | 2024-03-18 12:38 | XMS_ITS | Continuity of Care Document ---
Author Organization [facility] Address [address] [place] [address] [address] [place] [address]- Care Team Providers Care Pre Sales Systems Engineer Name Role Phone Orion TAPIA, Kalia Primary Care Physician Encounter [facility] Date(s): 06/06/20 - 08/08/[address] [place] [address]- Attending Physician: Radha Salinas MD Referring Physician: Nancy Chaudhry NP Allergies, Adverse Reactions, Alerts No Known Medication Allergies Immunizations Given and Recorded Vaccine Date Status Refusal Reason Influenza Virus Vaccine (oldterm) 05/15/20 Recorde d [...] Vaccine (oldterm) 89 Lopez rded 1Result Comment: [facility] [id number] Medications cyclobenzaprine 10 mg oral tablet See Instructions, # 30 tablet, 1 TABLET BY MOUTH DAILY, NEEDED FOR MUSCLE SPASM, [facility]/pharmacy #[id number] Start Date: 04/28/19 Status: Ordered levothyroxine 75 mcg (0.075 mg) oral tablet 1 tablet = 75 mcg, By Mouth, Daily, # 30 tablet, 1 Refills, Maintenance, 02/14/20 18:12:00 EDT, Tablet Start Date: 02/14/20 Status: Ordered Multivitamins with Folic Acid 1 mg oral tablet 1 tablet, By Mouth, Daily, # 30 tablet, 10 Refills, Maintenance, 08/15/19 10:35:00 EST, Tablet, [facility]/pharmacy #[id number], 1 tablet By Mouth Daily, 158.4, cm, 08/15/19 9:53:00 EST, Height Start Date: 08/15/19 Status: Ordered Social History Social History Type Response Tobacco Other: quit age 27, previously 1/2 ppd x 1 yr. Sex
--- OUTSIDE RECORDS SUMMARY | 2024-03-18 12:38 | XMS_ITS | Continuity of Care Document ---
Author Organization [facility] Address Unknown Care Team Providers Care Facilities Painter Name Role Phone Orion TAPIA, Kalia Primary Care Physician Encounter [facility] Date(s): 09/20/21 - 01/18/22 [facility] Attending Physician: Francisca Mclean MD Allergies, Adverse Reactions, Alerts No Known Medication Allergies Immunizations Given and Recorded Vaccine Date Status Refusal Reason influenza virus vaccine, inactivated 06/26/21 Lopez rded [...] Vaccine (oldterm) 89 Lopez rded 1Result Comment: [facility] [id number] Medications amLODIPine 5 mg oral tablet 1 TABLET BY MOUTH DAILY Start Date: 12/10/21 Status: Ordered amLODIPine 5 mg oral tablet 5 mg, 1, tablet, By Mouth, Daily, # 90 tablet, Refills 3, Tot. Refills 3, Maintenance, 12/10/21 16:44:00 EDT, Route to Pharmacy Electronically, [facility]/pharmacy #[id number], Partial fill upon patient request if the prescription is for a schedule II opioid drug.... Start Date: 12/10/21 Status: Ordered levothyroxine 75 mcg (0.075 mg) oral tablet 1 tablet, By Mouth, Daily, # 90 tablet, 1 Refills, [facility] STORE [id number], 158, cm, 08/29/21 15:54:00 EST,Height Start Date: 11/23/21 Status: Ordered LORazepam 0.5 mg oral tablet See Instructions, PRN as needed for anxiety, 1/2 tablet By Mouth Daily as needed for anxiety DIRECTOR OF FOOD AND NUTRITION SERVICES reviewed, # 5 tablet, 0 Refills, Maintenance, 06/19/21 14:19:00 EDT, Tablet, [facility]/pharmacy #[id number], Partial fill upon patient request if the prescription... Start Date: 06/19/21 Status: Ordered Problem List Condition Effective Dates Status Health Status Inform ant HTN (hypertension)(Confirmed) Active Hypothyroidism(Confirmed) Active Obese class II(Confirmed) Active Social History Social History Type Response Tobacco Other: quit age 27, previously 1/2 ppd x 1 yr. Sex
--- OUTSIDE RECORDS SUMMARY | 2024-03-18 12:39 | XMS_ITS | Continuity of Care Document ---
Author Organization [facility] Adult Address [address] [place] [address]- Care Team Providers Care Spoilage Worker Name Role Phone Kalia Sears MD Primary Care Physician [facility] Date[facility]s): 04/26/20 - 05/26/[address] [facility] Adult [address] [place] [address]- [facility] Allergies, Adverse Reactions, Alerts No Known Medication Allergies Immunizations Given and Recorded Vaccine Date Status Refusal Reason tetanus/diphtheria/pertussis, acel(Tdap) 1 09/01/19 Given Varicella Virus [...] Vaccine (oldterm) 89 Lopez rded 1Result Comment: [facility] [id number] Medications cyclobenzaprine 10 mg oral tablet See Instructions, # 30 tablet, 1 TABLET BY MOUTH DAILY, NEEDED FOR MUSCLE SPASM, [facility]/pharmacy #[id number] Start Date: 04/28/19 Status: Ordered levothyroxine 75 mcg (0.075 mg) oral tablet 1 tablet = 75 mcg, By Mouth, Daily, # 30 tablet, 1 Refills, Maintenance, 02/14/20 18:12:00 EDT, Tablet Start Date: 02/14/20 Status: Ordered Multivitamins with Folic Acid 1 mg oral tablet 1 tablet, By Mouth, Daily, # 30 tablet, 10 Refills, Maintenance, 08/15/19 10:35:00 EST, Tablet, [facility]/pharmacy #2339, 1 tablet By Mouth Daily, 158.4, cm, 08/15/19 9:53:00 EST, Height Start Date: 08/15/19 Status: Ordered Problem List Condition Effective Dates Status Health Status Inform ant COVID-19 virus infection(Confirmed) Active Social History Social History Type Response Tobacco Other: quit age 27, previously 1/2 ppd x 1 yr. Sex
--- OUTSIDE RECORDS SUMMARY | 2024-03-18 12:39 | XMS_ITS | Continuity of Care Document ---
Author Organization [facility] Adult Address [address] [place] [address]- Care Team Providers Care Knit Goods Mender Name Role Phone Orion TAPIA, Ashleymikayla Primary Care Physician [phone] [place] [facility] 09/01/19 - 09/08/19 [facility] Adult [address] [place] [address]- [facility] Attending Physician: Not on Staff, Attending MD Allergies, Adverse Reactions, Alerts No Known Medication Allergies Immunizations Given and Recorded Vaccine Date Status Refusal Reason tetanus/diphtheria/pertussis, acel(Tdap) 1 09/01/19 Given 1Result Comment: [facility] 20085-264-88 Medications cyclobenzaprine 10 mg oral tablet See Instructions, # 30 tablet, 1 TABLET BY MOUTH DAILY, NEEDED FOR MUSCLE SPASM, [id number] Start Date: 04/28/19 Status: Ordered levothyroxine 0.05 mg oral tablet 1 tablet = 50 mcg, By Mouth, Daily, # 30 tablet, 6 Refills, Maintenance, 08/15/19 10:36:00 EST, Tablet, [facility], 158.4, cm, 08/15/19 9:53:00 EST, Height Start Date: 08/15/19 Status: Ordered Multivitamins with Folic Acid 1 mg oral tablet 1 tablet, By Mouth, Daily, # 30 tablet, 10 Refills, Maintenance, 08/15/19 10:35:00 EST, Tablet, [facility], 1 tablet By Mouth Daily, 158.4, cm, 08/15/19 9:53:00 EST, Height Start Date: 08/15/19 Status: Ordered Social History Social History Type Response Tobacco Other: quit age 27, previously 1/2 ppd x 1 yr. Sex
--- OUTSIDE RECORDS SUMMARY | 2024-03-18 12:39 | XMS_ITS | Continuity of Care Document ---
Author Organization [facility] Address [address] [place] [address]- Care Team Providers Care Private Investigator Name Role Phone Orion TAPIA, Kalia Primary Care Physician Encounter [facility] Date(s): 05/04/23 - 06/30/23 [facility] [address] [place] [address]- Attending Physician: Alma TAPIA, Tena Bradshaw Allergies, Adverse Reactions, Alerts No Known Medication Allergies Immunizations Given and Recorded Vaccine Date Status Refusal Reason influenza virus vaccine, inactivated 05/25/23 Give n influenza virus vaccine, inactivated 06/30/22 Lopez rded influenza virus vaccine, inactivated 06/26/21 Lopez rded influenza virus vaccine, inactivated 06/14/20 Lopez rded [id number] 12y+ bivalent booster vax 09/14/22 Recorded SARS-CoV-2 (COVID-19) mRNA BNT-162b2 vac 01/30/21 Recorded [...] Vaccine (oldterm) 89 Lopez rded 1Result Comment: [facility] 67245-389-33 Medications labetalol 200 mg oral tablet 1 tablet = 200 mg, By Mouth, 2 times a day, # 180 tablet, 1 Refills, Maintenance, 06/08/23 11:10:00EDT, Tablet, [facility]/pharmacy #2339, Partial fill upon patient request if the prescription is for a schedule II opioid drug., 157, cm, 06/08/23 10:54:00 ED... Start Date: 06/08/23 Status: Ordered levothyroxine 75 mcg (0.075 mg) oral tablet 1 tablet, By Mouth, Daily, # 90 tablet, 1 Refills, Maintenance, 03/31/23 12:03:00 EDT, [facility], 157, cm, 03/31/23 11:44:00 EDT, Height Start Date: 03/31/23 Status: Ordered LORazepam 0.5 mg oral tablet See Instructions, PRN as needed for anxiety, 1/2 tablet By Mouth Daily as needed for anxiety ADVERTISING WRITER reviewed, # 5 tablet, 0 Refills, Maintenance, 08/03/22 17:00:00 EST, Tablet, [facility], Partial fill upon patient request if the prescription... Start Date: 08/03/22 Status: Ordered Multivitamin 0 Refills, Maintenance, 06/29/23 10:40:00 EST, Partial fill upon patient request if the prescription is for a schedule II opioid drug. Start Date: 06/29/23 Status: Ordered Problem List Condition Confirmation Course Effective Dates Status H ealth Status Informant HTN (hypertension) Confirmed Active Hypothyroidism Confirmed Active Severe obesity (BMI 35.0-39.9) with comorbidity Confirmed Active Social History Social History Type Response Tobacco Other: quit age 27, previously 1/2 ppd x 1 yr. Sex Patient Care team information Care Team Personnel Name: Jarad TAPIA, Priti Gamez Position: [facility] ORDER CALLER MD Member Role: Lifetime ORDER CALLER Physician Address: Address: [address] [place] [address]'s [facility] [employer] [place] [address]- Name: Kalia Sears MD Position: [facility] Physician - Primary Care Member Role: PCP Address: Address: [address] [place] [address] [address] [place] [address]- Care Team Related Persons Name: EUN HOLDEN Address: home [address] [place] [address]
--- OUTSIDE RECORDS SUMMARY | 2024-03-18 12:39 | XMS_ITS | Continuity of Care Document ---
Author Organization [facility] Adult Address [address] [place] [address]- Care Team Providers Care Printer Small Print Shop Name Role Phone Orion TAPIA, Kalia Primary Care Physician [place] [facility] [place] 11/11/20 [facility] Adult [address] [place] [address]- Encounter Diagnosis Well adult exam(Discharge Diagnosis) - 11/04/20 HTN (hypertension)(Discharge Diagnosis) - 11/04/20 Hypothyroidism(Discharge Diagnosis) - 11/06/20 Attending Physician: Kalia Sears MD Allergies, Adverse Reactions, Alerts No Known [...] Vaccine (oldterm) 89 Lopez rded 1Result Comment: [facility] 94405-354-51 Medications amLODIPine 5 mg oral tablet 5 mg, 1, tablet, By Mouth, Daily, # 90 tablet, Refills 3, Tot. Refills 3, Maintenance, 11/04/20 13:56:00 EDT, Route to Pharmacy Electronically, [facility]/pharmacy #2339, Partial fill upon patient request if the prescription is for a schedule II opioid drug.... Start Date: 11/04/20 Status: Ordered levothyroxine 75 mcg (0.075 mg) oral tablet 1 tablet = 75 mcg, By Mouth, Daily, # 30 tablet, 1 Refills, Maintenance, 10/09/20 12:59:00 EST, Tablet, [facility]/pharmacy #2339, Partial fill upon patient request if the prescription is for a schedule II opioid drug., 158.4, cm, 10/08/20 11:22:00 EST, Height Start Date: 10/09/20 Stop Date: 12/08/20 Status: Ordered Problem List Condition Effective Dates Status Health Status Inform ant HTN (hypertension)(Confirmed) Active Hypothyroidism(Confirmed) Active Well adult exam(Confirmed) Active Diagnosis Diagnosis Type Effective Dates Health Status Clinical Service Informant Well adult exam Discharge Diagnosis 11/04/20 HTN (hypertension) Discharge Diagnosis 11/04/20 Hypothyroidism Discharge Diagnosis 11/06/20 Vital Signs Most recent to oldest [Reference Range]: 1 2 Height 158.4 cm (11/04/20 8:59 AM) 158.4 cm (11/04/20 8:53 AM) Weight 98.2 kg (11/04/20 8:53 AM) Oxygen Saturation [94-100 %] 97 % (11/04/20 8:53 AM) Pulse Rate [55-90 bpm] 80 bpm (11/04/20 8:53 AM) Body Mass Index [18.5-24.99] 39.14 *>HHI* (11/04/20 8:53 AM) Blood Pressure [90-138/55-84 mm Hg] 132/ 80mm Hg (11/04/20 8:59 AM) 140/90mm Hg *H* (11/04/20 8:53 AM) Respiratory Rate [16-30 br/min] 18 br/mi n (11/04/20 8:53 AM) Mode of Delivery (Oxygen) Room air (11/04/20 8:53 AM) Blood pressure sites Arm, right (11/04/20 8:59 AM) Arm, right (11/04/20 8:53 AM) Social History Social History Type Response Tobacco Other: quit age 27, previously 1/2 ppd x 1 yr. Sex
--- OUTSIDE RECORDS SUMMARY | 2024-03-18 12:39 | XMS_ITS | Continuity of Care Document ---
Author Organization [facility] Adult Address [address] [place] [address]- Care Team Providers Care Coding Analyst Name Role Phone Kalia Sears MD Primary Care Physician [phone] [facility]counter [facility] Date(s): 04/27/20 - 05/27/20 [facility] Adult [address] [place] [address]- [facility] Allergies, Adverse Reactions, Alerts No Known [...] Vaccine (oldterm) 89 Lopez rded 1Result Comment: [facility] 66508-188-96 Medications cyclobenzaprine 10 mg oral tablet See Instructions, # 30 tablet, 1 TABLET BY MOUTH DAILY, NEEDED FOR MUSCLE SPASM, [facility]/pharmacy #2339 Start Date: 04/28/19 Status: Ordered levothyroxine 75 mcg (0.075 mg) oral tablet 1 tablet = 75 mcg, By Mouth, Daily, # 30 tablet, 1 Refills, Maintenance, 02/14/20 18:12:00 EDT, Tablet Start Date: 02/14/20 Status: Ordered Multivitamins with Folic Acid 1 mg oral tablet 1 tablet, By Mouth, Daily, # 30 tablet, 10 Refills, Maintenance, 08/15/19 10:35:00 EST, Tablet, [facility]/pharmacy #2339, 1 tablet By Mouth Daily, 158.4, cm, 08/15/19 9:53:00 EST, Height Start Date: 08/15/19 Status: Ordered Problem List Condition Effective Dates Status Health Status Inform ant COVID-19 virus infection(Confirmed) Active Social History Social History Type Response Tobacco Other: quit age 27, previously 1/2 ppd x 1 yr. Sex
--- OUTSIDE RECORDS SUMMARY | 2024-03-18 12:39 | XMS_ITS | Continuity of Care Document ---
Author Organization [facility] Address [address] [place] [address]- Care Team Providers Care Keysmith Name Role Phone Orion TAPIA, Kalia Primary Care Physician Encounter [facility] Date(s): 01/26/24 - 02/02/24 [facility] [address] [place] [address]- Attending Physician: Yves Yates MD Referring Physician: Rama TAPIA, Shannon Allergies, Adverse Reactions, Alerts No Known Medication Allergies Immunizations Given and Recorded Vaccine Date Status Refusal Reason influenza virus vaccine, inactivated 05/25/23 Give n influenza virus vaccine, inactivated 06/30/22 Lopez rded influenza virus vaccine, inactivated 06/26/21 Lopez rded influenza virus vaccine, inactivated 06/14/20 Lopez rded [id number] 12y+ bivalent booster vax 09/14/22 Recorded SARS-CoV-2 [...] (oldterm) 89 Lopez rded 1Result Comment: [facility] 70091-584-00 Medications amLODIPine 5 mg oral tablet 5 mg, 1, tablet, By Mouth, Daily, # 90 tablet, Refills 3, Tot. Refills 3, Maintenance, 10/05/23 8:49:00 EST, Route to Pharmacy Electronically, [facility]/pharmacy #2334, Partial fill upon patient request ifthe prescription is for a schedule II opioid drug.,... Start Date: 10/05/23 Status: Ordered labetalol 200 mg oral tablet 1 tablet, By Mouth, 2 times a day, # 180 tablet, 0 Refills, Maintenance, 01/04/24 15:38:00 EDT, [id number], 157, cm, 11/05/23 11:00:00 EDT, Height, 95.1, kg, 06/15/23 8:54:00 EDT, Dry Weight Start Date: 01/04/24 Status: Ordered levothyroxine 75 mcg (0.075 mg) oral tablet 1 tablet, By Mouth, Daily, # 90 tablet, 1 Refills, Maintenance, 11/27/23 10:53:00 EDT, [facility]/pharmacy#2339, 157, cm, 11/05/23 11:00:00 EDT, Height, 95.1, kg, 06/15/23 8:54:00 EDT, Dry Weight Start Date: 11/27/23 Status: Ordered LORazepam 0.5 mg oral tablet See Instructions, PRN as needed for anxiety, 1/2 tablet By Mouth Daily as needed for anxiety HEALTH TYPE TECHNICIAN reviewed, # 5 tablet, 0 Refills, Maintenance, 08/05/23 15:10:00 EST, Tablet, [facility], Partial fill upon patient request if the prescription... Start Date: 08/05/23 Status: Ordered Problem List Condition Confirmation Course Effective Dates Status H ealth Status Informant HTN (hypertension) Confirmed Active Hypothyroidism Confirmed Active Severe obesity (BMI 35.0-39.9) with comorbidity Confirmed Active Vital Signs Most recent to oldest [Reference Range]: 1 Height 157 cm (01/26/24 11:13 AM) Weight 96.4 kg (01/26/24 11:13 AM) Oxygen Saturation [94-100 %] 99 % (01/26/24 11:13 AM) Pulse Rate [55-90 bpm] 78 bpm (01/26/24 11:13 AM) Body Mass Index [18.5-24.99 kg/m2] 39.11 kg/m2 *>HHI* (01/26/24 11:13 AM) Blood Pressure [90-138/55-84 mm Hg] 148/ 89mm Hg *H* (01/26/24 11:13 AM) Respiratory Rate [16-30 br/min] 18 br/mi n (01/26/24 11:13 AM) Mode of Delivery (Oxygen) Room air (01/26/24 11:13 AM) Blood pressure sites Arm, left (01/26/24 11:13 AM) Weight Obtained Via Standing scale (01/26/24 11:13 AM) Social History Social History Type Response Tobacco Other: quit age 27, previously 1/2 ppd x 1 yr. Sex EKG study * Event Display: ECG 12-Lead Authored Date: Please click on pdf link to open report * Event Display: ECG 12-Lead Authored Date: Ventricular Rate: 76 BPM Atrial Rate: 76 BPM P-R Interval: 160 ms QRS Duration: 84 ms Q-T Interval: 382 ms QTC Calculation(Bazett): 429 ms P [place]: 18 degrees R [place]: 10 degrees T [place]: 3 degrees Normal sinus rhythm Cannot rule out Inferior infarct , age undetermined Abnormal ECG No previous ECGs available Confirmed by DANIEL SELLERS MD ([id number]) on 01/26/2024 4:08:24 PM Willis: DANIEL SELLERS MD Patient Care team information Care Team Personnel Name: Jarad TAPIA, Priti Gamez Position: [facility] ARCADE GAME TECHNICIAN MD Member Role: Lifetime ARCADE GAME TECHNICIAN Physician Address: Address: [address] [place] [address]'s [facility] [place] [address]- Name: Kalia Sears MD Position: [facility] Physician - Primary Care Member Role: PCP Address: Address: [address] [place] [address] [address]rd [place] [address]- Care Team Related Persons Name: EUN HOLDEN Address: home [address] [facility] [address] [address]
--- OUTSIDE RECORDS SUMMARY | 2024-03-18 12:39 | XMS_ITS | Continuity of Care Document ---
Author Organization [facility] Adult Address [address] [place] [address]- Care Team Providers Care Emission Specialist Name Role Phone Orion TAIPA, [facility] Primary Care Physician Encounter [facility] Date(s): 11/14/19 - 11/21/19 [facility] Adult [address] [place] [address]- [facility] Encounter Diagnosis Anxiety(Discharge Diagnosis) - 11/14/19 Attending Physician: Dmitriy TAPIA, [facility] Allergies, Adverse Reactions, Alerts No Known Medication [...] 1Result Comment: [facility] 41954-034-95 Medications cyclobenzaprine 10 mg oral tablet See Instructions, # 30 tablet, 1 TABLET BY MOUTH DAILY, NEEDED FOR MUSCLE SPASM, [facility]/pharmacy #2339 Start Date: 04/28/19 Status: Ordered levothyroxine 0.05 mg oral tablet 1 tablet = 50 mcg, By Mouth, Daily, # 30 tablet, 6 Refills, Maintenance, 08/15/19 10:36:00 EST, Tablet, [facility]/pharmacy #2339, 158.4, cm, 08/15/19 9:53:00 EST, Height Start Date: 08/15/19 Status: Ordered Multivitamins with Folic Acid 1 mg oral tablet 1 tablet, By Mouth, Daily, # 30 tablet, 10 Refills, Maintenance, 08/15/19 10:35:00 EST, Tablet, [facility]/pharmacy #2339, 1 tablet By Mouth Daily, 158.4, cm, 08/15/19 9:53:00 EST, Height Start Date: 08/15/19 Status: Ordered Problem List Diagnosis Diagnosis Type Effective Dates Health Status Clini ulises Service Informant Anxiety Discharge Diagnosis 11/14/19 Social History Social History Type Response Tobacco Other: quit age 27, previously 1/2 ppd x 1 yr. Sex
--- OUTSIDE RECORDS SUMMARY | 2024-03-18 12:39 | XMS_ITS | Continuity of Care Document ---
Author Organization [facility] Adult Address [address] [place] [address]- Care Team Providers Care Cargo Vessel Stewardess Name Role Phone Orion TAPIA, Kalia Primary Care Physician Encounter [facility] Date(s): 08/27/23 - 09/26/23 [facility] Adult [address] [place] [address]- Allergies, Adverse Reactions, Alerts No Known Medication Allergies Immunizations Given and Recorded Vaccine Date Status Refusal Reason influenza virus vaccine, inactivated 05/25/23 Give n influenza virus vaccine, inactivated 06/30/22 Lopez rded influenza virus vaccine, inactivated 06/26/21 Lopez rded influenza virus vaccine, inactivated 06/14/20 Lopez rded [id number] 12y+ bivalent booster vax 09/14/22 Recorded SARS-CoV-2 [...] Vaccine (oldterm) 89 Lopez rded 1Result Comment: [facility] 75705-213-20 Medications labetalol 200 mg oral tablet 1 tablet = 200 mg, By Mouth, 2 times a day, # 180 tablet, 1 Refills, Maintenance, 06/08/23 11:10:00EDT, Tablet, [facility], Partial fill upon patient [...] By Mouth Daily as needed for anxiety PEN AND PENCIL REPAIRER reviewed, # 5 tablet, 0 Refills, Maintenance, 08/05/23 15:10:00 EST, Tablet, [facility], Partial fill upon patient request if the prescription... Start Date: 08/05/23 Status: Ordered Multivitamin 0 Refills, Maintenance, 06/29/23 10:40:00 EST, Partial fill upon patient request if the prescription is for a schedule II opioid drug. Start Date: 06/29/23 Status: Ordered Problem List Condition Confirmation Course Effective Dates Status H ealth Status Informant Eating disorder, unspecified Confirmed Active HTN (hypertension) Confirmed Active Hypothyroidism Confirmed Active Severe obesity (BMI 35.0-39.9) with comorbidity Confirmed Active Social History Social History Type Response Tobacco Other: quit age 27, previously 1/2 ppd x 1 yr. Sex Patient Care team information Care Team Personnel Name: Jarad TAPIA, Priti Gamez Position: [facility] INSPECTOR AND HAND PACKAGER MD Member Role: Lifetime INSPECTOR AND HAND PACKAGER Physician Address: Address: [address] [place] [address]'s [facility] [place] [address]- Name: Orion TAPIA, Kalia Position: [facility] Physician - Primary Care Member Role: PCP Address: Address: [address] [facility] 3rd [place] [address]- Care Team Related Persons Name: EUN HOLDEN Address: home [address] [facility] [address] [address]
--- OUTSIDE RECORDS SUMMARY | 2024-03-18 12:39 | XMS_ITS | Continuity of Care Document ---
Author Organization [facility] Adult Address [address] [place] [address]- Care Team Providers Care Head Pastry Chef Name Role Phone Orion TAPIA, Kalia Primary Care Physician [phone] [facility] Date(s): 05/23/20 - 06/22/20 [facility] Adult [address] [place] [address]- Allergies, Adverse Reactions, Alerts No Known Medication [...] (oldterm) 89 Lopez rded 1Result Comment: [facility] 24350-753-47 Medications cyclobenzaprine 10 mg oral tablet See [...] 10 Refills, Maintenance, 08/15/19 10:35:00 EST, Tablet, [facility]/pharmacy #2331, 1 tablet By Mouth Daily, 158.4, cm, 08/15/19 9:53:00 EST, Height Start Date: 08/15/19 Status: Ordered Problem List Condition Effective Dates Status Health Status Inform ant COVID-19 virus infection(Confirmed) Active Social History Social History Type Response Tobacco Other: quit age 27, previously 1/2 ppd x 1 yr. Sex
--- OUTSIDE RECORDS SUMMARY | 2024-03-18 12:39 | XMS_ITS | Continuity of Care Document ---
Author Organization [facility] Adult Address [address] [place] [address]- Care Team Providers Care Senior Compliance Analyst Name Role Phone Orion TAPIA, Kalia Primary Care Physician [facility]counter [facility] Date(s): 02/14/20 - 03/15/20 [facility] Adult [address] [place] [address]- [facility] Allergies, Adverse Reactions, Alerts No [...] Vaccine (oldterm) 89 Lopez rded 1Result Comment: [facility] 26652-108-92 Medications cyclobenzaprine 10 mg oral tablet See Instructions, # 30 tablet, 1 TABLET BY MOUTH DAILY, NEEDED FOR MUSCLE SPASM, [facility]/pharmacy #2339 Start Date: 04/28/19 Status: Ordered levothyroxine 75 mcg (0.075 mg) oral tablet 1 tablet = 75 mcg, By Mouth, Daily, # 30 tablet, 1 Refills, Maintenance, 02/14/20 18:12:00 EDT, Tablet Start Date: 02/14/20 Status: Ordered Multivitamins with Folic Acid 1 mg oral tablet 1 tablet, By Mouth, Daily, # 30 tablet, 10 Refills, Maintenance, 08/15/19 10:35:00 EST, Tablet, [facility]/pharmacy #0579, 1 tablet By Mouth Daily, 158.4, cm, 08/15/19 9:53:00 EST, Height Start Date: 08/15/19 Status: Ordered Problem List Condition Effective Dates Status Health Status Inform ant COVID-19 virus infection(Confirmed) Active Social History Social History Type Response Tobacco Other: quit age 27, previously 1/2 ppd x 1 yr. Sex
--- OUTSIDE RECORDS SUMMARY | 2024-03-18 12:39 | XMS_ITS | Continuity of Care Document ---
Author Organization [facility] Adult Address [address] [place] [address]- Care Team Providers Care Master Planner Name Role Phone Kalia Sears MD Primary Care Physician [phone] Encounter [facility] Date(s): 08/14/21 - 09/13/21 [facility] Adult [address] [place] [address]- Allergies, Adverse Reactions, Alerts No Known Medication [...] 89 Lopez rded 1Result Comment: [facility] 13541-750-22 Medications amLODIPine 5 mg oral tablet 5 mg, 1, tablet, By Mouth, Daily, # 90 tablet, Refills 3, Tot. Refills 3, Maintenance, 11/04/20 13:56:00 EDT, Route to Pharmacy Electronically, [facility]/pharmacy #2339, Partial fill upon patient request if the prescription is for a schedule II opioid drug.... Start Date: 11/04/20 Status: Ordered levothyroxine 75 mcg (0.075 mg) oral tablet 1 tablet, By Mouth, Daily, # 90 tablet, 1 Refills, [facility], 158.4, cm, 12/10/20 14:00:00 EDT, Height Start Date: 05/26/21 Status: Ordered LORazepam 0.5 mg oral tablet See Instructions, PRN as needed for anxiety, 1/2 tablet By Mouth Daily as needed for anxiety PUBLIC SERVICES ASSISTANT reviewed, # 5 tablet, 0 Refills, Maintenance, 06/19/21 14:19:00 EDT, Tablet, [facility]/pharmacy #2339, Partial fill upon patient request if the prescription... Start Date: 06/19/21 Status: Ordered Problem List Condition Effective Dates Status Health Status Inform ant HTN (hypertension)(Confirmed) Active Hypothyroidism(Confirmed) Active Obese class II(Confirmed) Active Social History Social History Type Response Tobacco Other: quit age 27, previously 1/2 ppd x 1 yr. Sex
--- OUTSIDE RECORDS SUMMARY | 2024-03-18 12:39 | XMS_ITS | Continuity of Care Document ---
Author Organization [facility] Adult Address [address] [place] [address]- Care Team Providers Care Scientific Investigator Name Role Phone Kalia Sears MD Primary Care Physician En[place] [facility] [place]): 01/13/23 - 02/12/23 [facility] Adult [address] [place] [address]- Allergies, Adverse Reactions, Alerts No Known Medication [...] 1Result Comment: [facility] 74279-452-99 Medications amLODIPine 10 mg oral tablet 10 mg, 1, tablet, By Mouth, Daily, # 90 tablet, Refills 3, Tot. Refills 3, Maintenance, 09/10/22 14:46:00 EST, Route to Pharmacy Electronically, [facility]/pharmacy #[id number], Partial fill upon patient request if the prescription is for a schedule II opioid drug... Start Date: 09/10/22 Status: Ordered levothyroxine 75 mcg (0.075 mg) oral tablet 1 tablet, By Mouth, Daily, # 90 tablet, 1 Refills, Maintenance, 11/10/22 6:54:00 EDT, [facility], 157, cm, 09/10/22 14:50:00 EST, Height Start Date: 11/10/22 Status: Ordered LORazepam 0.5 mg oral tablet See Instructions, PRN as needed for anxiety, 1/2 tablet By Mouth Daily as needed for anxiety OPERATIONS LEADER reviewed, # 5 tablet, 0 Refills, Maintenance, 08/03/22 17:00:00 EST, Tablet, [facility]/pharmacy #233, Partial fill upon patient request if the [...] Team Personnel Name: Priti Abraham MD Position: S LOCAL SALES MANAGER MD Member Role: Lifetime LOCAL SALES MANAGER Physician Address: Address: [address] [place] [address] [facility] [address]- [place] Name: Orion TAPIA, Kalia Position: [facility] Physician - Primary Care Member Role: PCP Address: Address: [address] [facility] 3rd [place] [address]- Care Team Related Persons Name: EUN HOLDEN Address: home [address] [facility] [address] [place] [address]
--- OUTSIDE RECORDS SUMMARY | 2024-03-18 12:39 | XMS_ITS | Continuity of Care Document ---
Author Organization [facility] Adult Address [address] [place] [address]- Care Team Providers Care Marketing Pr Intern Name Role Phone Kalia Sears MD Primary Care Physician [place] [facility] [place] - 01/31/24 [facility] Adult [address] [place] [address]- Allergies, Adverse Reactions, Alerts No Known Medication Allergies Immunizations Given and Recorded Vaccine Date Status Refusal Reason influenza virus vaccine, inactivated 05/25/23 Give n influenza virus vaccine, inactivated 06/30/22 Lopez rded influenza virus vaccine, inactivated 06/26/21 Lopez rded influenza virus vaccine, inactivated 06/14/20 Lopez rded [id number] 12y+ bivalent booster vax 09/14/22 Recorded SARS-CoV-2 [...] Vaccine (oldterm) 89 Lopez rded 1Result Comment: [facility] 86146-996-40 Medications amLODIPine 5 mg oral tablet 5 mg, 1, tablet, By Mouth, Daily, # 90 tablet, Refills 3, Tot. Refills 3, Maintenance, 10/05/23 8:49:00 EST, Route to Pharmacy Electronically, [facility]/pharmacy #[id number], Partial fill upon patient request ifthe prescription is for a schedule II opioid drug.,... Start Date: 10/05/23 Status: Ordered labetalol 200 mg oral tablet 1 tablet, By Mouth, 2 times a day, # 180 tablet, 0 Refills, Maintenance, 01/04/24 15:38:00 EDT, [facility], 157, cm, 11/05/23 11:00:00 EDT, Height, 95.1, kg, 06/15/23 8:54:00 EDT, Dry Weight Start Date: 01/04/24 Status: Ordered levothyroxine 75 mcg (0.075 mg) oral tablet 1 tablet, By Mouth, Daily, # 90 tablet, 1 Refills, Maintenance, 11/27/23 10:53:00 EDT, [facility]/pharmacy#2339, 157, cm, 11/05/23 11:00:00 EDT, Height, 95.1, kg, 06/15/23 8:54:00 EDT, Dry Weight Start Date: 11/27/23 Status: Ordered LORazepam 0.5 mg oral tablet See Instructions, PRN as needed for anxiety, 1/2 tablet By Mouth Daily as needed for anxiety TICKET CLERK reviewed, # 5 tablet, 0 Refills, Maintenance, [...] Team Personnel Name: Priti Abraham MD Position: [facility] AUTO LEASING MANAGER MD Member Role: Lifetime AUTO LEASING MANAGER Physician Address: Address: [address] [place] [address] [facility] [place] [address]- Name: Kalia Sears MD Position: [facility] Physician - Primary Care Member Role: PCP Address: Address: [address] [place] [address] 3rd [place] [address]- Care Team Related Persons Name: EUN HOLDEN Address: home [address] [place] [address] [address] [place] [address]
--- OUTSIDE RECORDS SUMMARY | 2024-03-18 12:39 | XMS_ITS | Continuity of Care Document ---
Author Organization [facility] Address [address] [place] [address]- Care Team Providers Care Program Director Group Work Name Role Phone Orion TAPIA, [facility] Primary Care Physician Encounter [facility] [place] Date(s): 01/26/24 - 02/25/24 [facility] [address] [place] [address]- Attending Physician: Padmini Carvalho Admitting Physician: Padmini Carvalho Referring Physician: AdmtrPadmini Allergies, Adverse Reactions, Alerts No Known Medication Allergies Immunizations Given and Recorded Vaccine Date Status Refusal Reason influenza virus vaccine, inactivated 05/25/23 Give n influenza virus vaccine, inactivated 06/30/22 Lopez rded influenza virus vaccine, inactivated 06/26/21 Lopez rded influenza virus vaccine, inactivated 06/14/20 Lopez rded [id number] 12y+ bivalent booster vax 09/14/22 Recorded SARS-CoV-2 [...] 1Result Comment: [facility] [id number] Medications acetaminophen 325 mg oral tablet 975 mg, By Mouth, Every 6 hours, Refills 0, Maintenance, 02/10/24 14:43:00 EDT, Partial fill upon patient request if the prescription is for a schedule II opioid drug. Start Date: 02/10/24 Status: Ordered amLODIPine 5 mg oral tablet 5 mg, 1, tablet, By Mouth, Daily, # 90 tablet, Refills 3, Tot. Refills 3, Maintenance, 10/05/23 8:49:00 EST, Route to Pharmacy Electronically, [facility]/pharmacy #[id number], Partial fill upon patient request ifthe prescription is for a schedule II opioid drug.,... Start Date: 10/05/23 Status: Ordered Colace sodium 100 mg oral capsule 100 mg, 1, capsule, By Mouth, 2 times a day, with plenty of water, # 60 capsule, Refills 1, Tot. Refills 1, Maintenance, 02/22/24 9:45:00 EDT, Route to Pharmacy Electronically, [facility]/pharmacy #[id number], Partial fill upon patient request if the prescription... Start Date: 02/22/24 Status: Ordered labetalol 200 mg oral tablet 1 tablet, By Mouth, 2 times a day, # 180 tablet, 0 Refills, Maintenance, 01/04/24 15:38:00 EDT, [facility] [address], 157, cm, 11/05/23 11:00:00 EDT, Height, 95.1, kg, 06/15/23 8:54:00 EDT, Dry Weight Start Date: 01/04/24 Status: Ordered levothyroxine 75 mcg (0.075 mg) oral tablet 1 tablet, By Mouth, Daily, # 90 tablet, 1 Refills, Maintenance, 11/27/23 10:53:00 EDT, [facility]/pharmacy#2339, 157, cm, 11/05/23 11:00:00 EDT, Height, 95.1, kg, 06/15/23 8:54:00 EDT, Dry Weight Start Date: 11/27/23 Status: Ordered LORazepam 0.5 mg oral tablet See Instructions, PRN as needed for anxiety, 1/2 tablet By Mouth Daily as needed for anxiety FLOWER CHENILLER reviewed, # 5 tablet, 0 Refills, Maintenance, 08/05/23 15:10:00 EST, Tablet, [facility]/pharmacy #2339, Partial fill upon patient request if the prescription... Start Date: 08/05/23 Status: Ordered omeprazole 20 mg oral enteric coated capsule 1 capsule = 20 mg, By Mouth, 2 times a day, # 60 capsule, 0 Refills, Maintenance, 02/10/24 14:44:00EDT, EC Capsule, [facility], Partial fill upon patient request if the prescription isfor a schedule II opioid drug., 157.48, cm, ... Start Date: 02/10/24 Status: Ordered oxyCODONE 5 mg oral tablet 5 mg, 1, tablet, By Mouth, Every 6 hours, PRN, # 10 tablet, Refills 0, Tot. Refills 0, Acute 03/17/24 23:59:00 EDT, for pain, 02/14/24 17:01:00 EDT, Route to Pharmacy Electronically, [facility]/pharmacy #[id number], Partial fill upon patient request if the prescri... Start Date: 02/14/24 Stop Date: 03/17/24 Status: Ordered oxyCODONE 5 mg oral tablet 5 mg, 1, tablet, By Mouth, Every 6 hours, PRN, # 12 tablet, Refills 0, Tot. Refills 0, Maintenance,Pain , Moderate, 02/10/24 14:44:00 EDT, Route to Pharmacy Electronically, [facility],Partial fill upon patient request if the prescripti... Start Date: 02/10/24 Status: Ordered Remove Patch 1 each, Topically, Every 72 hours, 0 Refills, Maintenance, Patch Start Date: 02/10/24 Status: Ordered Scopolamine = 1 mg, Topically, Every 72 hours, 0 Refills, Maintenance, 02/10/24 14:44:00 EDT, Patch, Partial fill upon patient request if the prescription is for a schedule II opioid drug. Start Date: 02/10/24 Status: Ordered Problem List Condition Confirmation Course Effective Dates Status H ealth Status Informant Bariatric surgery status Confirmed Active HTN (hypertension) Confirmed Active Hypothyroidism Confirmed Active Severe obesity (BMI 35.0-39.9) with comorbidity Confirmed Active Social History Social History Type Response Tobacco Other: quit age 27, previously 1/2 ppd x 1 yr. Sex Patient Care team information Care Team Personnel Name: Jarad TAPIA, Priti Gamez Position: [facility] MANAGER OF CUSTOMER BILLING MD Member Role: Lifetime MANAGER OF CUSTOMER BILLING Physician Address: Address: [address] [place] [address] Women[facility] Health [place] [address]- Name: Reina Suggs RN Position: [facility] RN Member Role: Primary Care Nurse Name: Johanna Morejon RN Position: [facility] RN Member Role: Primary Care Nurse Name: Kalia Sears MD Position: [facility] Physician - Primary Care Member Role: PCP Address: Address: [address] [place] [address] 3rd [place] [address]- Care Team Related Persons Name: EUN HOLDEN Address: home [address] [facility] [address] [address]
--- OUTSIDE RECORDS SUMMARY | 2024-03-18 12:39 | XMS_ITS | Continuity of Care Document ---
Author Organization [facility] Address [address] [place] [address] [address] [place] [address]- Care Team Providers Care Manager Creative Name Role Phone Orion TAPIA, Kalia Primary Care Physician [phone] Encounter [facility] [place] [place] Date(s): 01/11/24 - 01/18/[address] [place] [address]- Encounter Diagnosis Morbid obesity(Discharge Diagnosis) - 01/06/24 Attending Physician: Rama TAPIA, Shannon Allergies, Adverse Reactions, Alerts No Known Medication Allergies Immunizations Given and Recorded Vaccine Date Status Refusal Reason influenza virus vaccine, inactivated 05/25/23 Give n influenza virus vaccine, inactivated 06/30/22 Lopez rded influenza virus vaccine, inactivated 06/26/21 Lopez rded influenza virus vaccine, inactivated 06/14/20 Lopez rded [id number] 12y+ bivalent booster vax 09/14/22 Recorded SARS-CoV-2 [...] Vaccine (oldterm) 89 Lopez rded 1Result Comment: [facility] 14070-409-86 Medications amLODIPine 5 mg oral tablet 5 mg, 1, tablet, By Mouth, Daily, # 90 tablet, Refills 3, Tot. Refills 3, Maintenance, 10/05/23 8:49:00 EST, Route to Pharmacy Electronically, [facility]/pharmacy #[id number], Partial fill upon patient request ifthe prescription is for a schedule II opioid drug.,... Start Date: 10/05/23 Status: Ordered labetalol 200 mg oral tablet 1 tablet, By Mouth, 2 times a day, # 180 tablet, 0 Refills, Maintenance, 01/04/24 15:38:00 EDT, [facility], 157, cm, 11/05/23 11:00:00 EDT, Height, 95.1, kg, 06/15/23 8:54:00 EDT, Dry Weight Start Date: 01/04/24 Status: Ordered levothyroxine 75 mcg (0.075 mg) oral tablet 1 tablet, By Mouth, Daily, # 90 tablet, 1 Refills, Maintenance, 11/27/23 10:53:00 EDT, [facility]/pharmacy#2339, 157, cm, 11/05/23 11:00:00 EDT, Height, 95.1, kg, 06/15/23 8:54:00 EDT, Dry Weight Start Date: 11/27/23 Status: Ordered LORazepam 0.5 mg oral tablet See Instructions, PRN as needed for anxiety, 1/2 tablet By Mouth Daily as needed for anxiety CORRECTIONAL FOOD SERVICE SUPERVISOR reviewed, # 5 tablet, 0 Refills, Maintenance, 08/05/23 15:10:00 EST, [facility]t, [id number], Partial fill upon patient request if the prescription... Start Date: 08/05/23 Status: Ordered Multivitamin 0 Refills, Maintenance, 06/29/23 10:40:00 EST, Partial fill upon patient request if the prescription is for a schedule II opioid drug. Start Date: 06/29/23 Status: Ordered Vitamin D 17829 iu oral capsule 50,000 International_Units, By Mouth, Daily, Refills 0, Maintenance, 01/11/24 10:28:00 EDT, Partialfill upon patient request if the prescription is for a schedule II opioid drug. Start Date: 01/11/24 Status: Ordered Problem List Condition Confirmation Course Effective Dates Status H ealth Status Informant HTN (hypertension) Confirmed Active Hypothyroidism Confirmed Active Severe obesity (BMI 35.0-39.9) with comorbidity Confirmed Active Diagnosis Diagnosis Type Effective Dates Health Status Cl inical Service Informant Morbid obesity Discharge Diagnosis 01/06/24 Vital Signs Most recent to oldest [Reference Range]: 1 Height 157 cm (01/11/24 10:28 AM) Weight 95.3 kg (01/11/24 10:28 AM) Pulse Rate [55-90 bpm] 78 bpm (01/11/24 10:28 AM) Body Mass Index [18.5-24.99 kg/m2] 38.66 kg/m2 *>HHI* (01/11/24 10:28 AM) Blood Pressure [90-138/55-84 mm Hg] 137/ 82mm Hg (01/11/24 10:28 AM) Temperature [96.8-100.4 DegF] 98.5 DegF (01/11/24 10:28 AM) Blood pressure sites Arm, left (01/11/24 10:28 AM) Temperature Route Temporal (01/11/24 10:28 AM) Social History Social History Type Response Tobacco Other: quit age 27, previously 1/2 ppd x 1 yr. Sex Patient Care team information Care Team Personnel Name: Priti Abraham MD Position: [facility] FIELD STAFF MANAGER MD Member Role: Lifetime FIELD STAFF MANAGER Physician Address: Address: [address] [facility] Women[facility] Health Operations [place] [address]- [place] Name: Kalia Sears MD Position: [facility] Physician - Primary Care Member Role: PCP Address: Address: [address] [facility] 3rd [place] [address]- [place] Care Team Related Persons Name: EUN HOLDEN Address: home [address] [facility] [address] [address]
--- OUTSIDE RECORDS SUMMARY | 2024-03-18 12:39 | XMS_ITS | Continuity of Care Document ---
Author Organization [facility] Adult Address [address] [place] [address]- Care Team Providers Care Director Cardiovascular Name Role Phone Orion TAPIA, Kalia Primary Care Physician Encounter [facility] [place] Date(s): 09/02/22 - 10/02/22 [facility] Adult [address] [place] [address]- Allergies, Adverse Reactions, Alerts No Known Medication [...] Vaccine (oldterm) 89 Lopez rded 1Result Comment: [facility] 67786-006-60 Medications amLODIPine 10 mg oral tablet 10 mg, 1, tablet, By Mouth, Daily, # 90 tablet, Refills 3, Tot. Refills 3, Maintenance, 09/10/22 14:46:00 EST, Route to Pharmacy Electronically, [facility]/pharmacy #[id number], Partial fill upon patient request if the prescription is for a schedule II opioid drug... Start Date: 09/10/22 Status: Ordered levothyroxine 75 mcg (0.075 mg) oral tablet 1 tablet, By Mouth, Daily, # 90 tablet, 1 Refills, Maintenance, 05/23/22 0:34:00 EDT, [facility], 158, cm, 12/10/21 16:01:00 EDT, Height Start Date: 05/23/22 Status: Ordered LORazepam 0.5 mg oral tablet See Instructions, PRN as needed for anxiety, 1/2 tablet By Mouth Daily as needed for anxiety SOLUTIONS MARKET CONSULTANT reviewed, # 5 tablet, 0 Refills, Maintenance, 08/03/22 17:00:00 EST, Tablet, [facility]/pharmacy #2337, Partial fill upon patient request if the [...] Team Personnel Name: Priti Abraham MD Position: [facility] SHODDY MILL WORKER MD Member Role: Lifetime SHODDY MILL WORKER Physician Address: Address: [address] [facility] Women's Health Patient Service [place] [address]- [place] Name: Kalia Sears MD Position: [facility] Primary Care Physician Member Role: PCP Address: Address: [address] [facility] 3rd [place] [address]- [place] Care Team Related Persons Name: EUN HOLDEN Address: home [address] [facility] [address], [place] [address]
--- OUTSIDE RECORDS SUMMARY | 2024-03-18 12:39 | XMS_ITS | Continuity of Care Document ---
Author Organization [facility] Adult Address [address] [place] [address]- Care Team Providers Care Cruise Guide Name Role Phone Orion TAPIA, Kalia Primary Care Physician [phone] Encounter [facility] Date(s): 12/06/20 - 01/05/21 [facility] Adult [address] [place] [address] Allergies, Adverse Reactions, Alerts No Known Medication [...] 1Result Comment: [facility] 18550-395-40 Medications amLODIPine 5 mg oral tablet 5 mg, 1, tablet, By Mouth, Daily, # 90 tablet, Refills 3, Tot. Refills 3, Maintenance, 11/04/20 13:56:00 EDT, Route to Pharmacy Electronically, [facility]/pharmacy #[id number], Partial fill upon patient request if the prescription is for a schedule II opioid drug.... Start Date: 11/04/20 Status: Ordered levothyroxine 75 mcg (0.075 mg) oral tablet 1 tablet = 75 mcg, By Mouth, Daily, # 90 tablet, 1 Refills, Maintenance, 12/06/20 10:08:00 EDT, Tablet, [facility]/pharmacy #2339, Partial fill upon patient request if the prescription is for a schedule II opioid drug., 158.4, cm, 11/04/20 8:59:00 EDT, Height Start Date: 12/06/20 Stop Date: 06/04/21 Status: Ordered LORazepam 0.5 mg oral tablet 1 tablet = 0.5 mg, By Mouth, Daily, PRN as needed for anxiety, unix systems administrator reviewed, # 7 tablet, 0 Refills,Maintenance, 12/12/20 [...]
--- OUTSIDE RECORDS SUMMARY | 2024-03-18 12:39 | XMS_ITS | Continuity of Care Document ---
Author Organization [facility] Adult Address [address] [place] [address]- Care Team Providers Care Veneer Patcher Name Role Phone Orion TAPIA, Kalia Primary Care Physician [phone] Encounter [facility] Date(s): 05/21/20 - 06/20/20 [facility] Adult [address] [place] [address]- Allergies, Adverse Reactions, Alerts No Known Medication [...] Vaccine (oldterm) 89 Lopez rded 1Result Comment: [facility] 69386-048-71 Medications cyclobenzaprine 10 mg oral tablet See [...] 10 Refills, Maintenance, 08/15/19 10:35:00 EST, Tablet, [facility]/pharmacy #2330, 1 tablet By Mouth Daily, 158.4, cm, 08/15/19 9:53:00 EST, Height Start Date: 08/15/19 Status: Ordered Problem List Condition Effective Dates Status Health Status Inform ant COVID-19 virus infection(Confirmed) Active Social History Social History Type Response Tobacco Other: quit age 27, previously 1/2 ppd x 1 yr. Sex
--- OUTSIDE RECORDS SUMMARY | 2024-03-18 12:39 | XMS_ITS | Continuity of Care Document ---
Author Organization [facility] Address [address] [place] [address] [address] [place] [address]- Care Team Providers Care Glove Printer Name Role Phone Orion TAPIA, Kalia Primary Care Physician Encounter [facility] [place] Date(s): 02/14/24 - 03/15/[address] [place] [address]- Allergies, Adverse Reactions, Alerts No Known Medication Allergies Immunizations Given and Recorded Vaccine Date Status Refusal Reason influenza virus vaccine, inactivated 05/25/23 Give n influenza virus vaccine, inactivated 06/30/22 Lopez rded influenza virus vaccine, inactivated 06/26/21 Lopez rded influenza virus vaccine, inactivated 06/14/20 Lopez rded [id number] 12y+ bivalent booster vax 09/14/22 Recorded SARS-CoV-2 [...] (oldterm) 89 Lopez rded 1Result Comment: [facility] 04706-160-85 Medications acetaminophen 325 mg oral tablet 975 mg, By Mouth, Every 6 hours, Refills 0, Maintenance, 02/10/24 14:43:00 EDT, Partial fill upon patient request if the prescription is for a schedule II opioid drug. Start Date: 02/10/24 Status: Ordered Colace sodium 100 mg oral capsule 100 mg, 1, capsule, By Mouth, 2 times a day, with plenty of water, # 60 capsule, Refills 1, Tot. Refills 1, Maintenance, 02/22/24 9:45:00 EDT, Route to Pharmacy Electronically, [facility]/pharmacy #[id number], Partial fill upon patient request if the prescription... Start Date: 02/22/24 Status: Ordered labetalol 200 mg oral tablet 1 tablet, By Mouth, 2 times a day, # 180 tablet, 0 Refills, Maintenance, 01/04/24 15:38:00 EDT, [facility], 157, cm, 11/05/23 11:00:00 EDT, Height, 95.1, kg, 06/15/23 8:54:00 EDT, Dry Weight Start Date: 01/04/24 Status: Ordered levothyroxine 75 mcg (0.075 mg) oral tablet 1 tablet, By Mouth, Daily, # 90 tablet, 1 Refills, Maintenance, 11/27/23 10:53:00 EDT, [facility]/pharmacy#2339, 157, cm, 11/05/23 11:00:00 EDT, Height, 95.1, kg, 06/15/23 8:54:00 EDT, Dry Weight Start Date: 11/27/23 Status: Ordered LORazepam 0.5 mg oral tablet See Instructions, PRN as needed for anxiety, 1/2 tablet By Mouth Daily as needed for anxiety HEEL COVER SOFTENER reviewed, # 5 tablet, 0 Refills, Maintenance, 08/05/23 15:10:00 EST, Tablet, [facility]/pharmacy #2339, Partial fill upon patient request if the prescription... Start Date: 08/05/23 Status: Ordered Multivitamin 0 Refills, Maintenance, 03/03/24 9:35:00 EDT, Partial fill upon patient request if the prescriptionis for a schedule II opioid drug. Start Date: 03/03/24 Status: Ordered omeprazole 20 mg oral enteric coated capsule 1 capsule = 20 mg, By Mouth, 2 times a day, # 60 capsule, 0 Refills, Maintenance, 02/10/24 14:44:00EDT, EC Capsule, [facility], Partial fill upon patient request if the prescription isfor a schedule II opioid drug., 157.48, cm, ... Start Date: 02/10/24 Status: Ordered Problem List [...] Team Personnel Name: Priti Abraham MD Position: [facility] ACUTE CARE OCCUPATIONAL THERAPIST MD Member Role: Lifetime ACUTE CARE OCCUPATIONAL THERAPIST Physician Address: Address: [address] [place] [address] Women's Health [place] [address]- Name: Reina Suggs RN Position: [facility] RN Member Role: Primary Care Nurse Name: Johanna Morejon RN Position: [facility] RN Member Role: Primary Care Nurse Name: Kalia Sears MD Position: [facility] Physician - Primary Care Member Role: PCP Address: Address: [address] [place] [address] 3rd [place] [address]- Care Team Related Persons Name: EUN HOLDEN Address: home [address] [place] [address] [address] [place] [address]
--- OUTSIDE RECORDS SUMMARY | 2024-03-18 12:39 | XMS_ITS | Continuity of Care Document ---
Author Organization [facility] Adult Address [address] [place] [address]- Care Team Providers Care Wrapper Stemmer Hand Name Role Phone Orion TAPIA, Kalia Primary Care Physician Encounter [facility] Date(s): 05/24/23 - 06/23/23 [facility] Adult [address] [place] [address]- Allergies, Adverse Reactions, Alerts No Known Medication Allergies Immunizations Given and Recorded Vaccine Date Status Refusal Reason influenza virus vaccine, inactivated 05/25/23 Give n influenza virus vaccine, inactivated 06/30/22 Lopez rded influenza virus vaccine, inactivated 06/26/21 Lopez rded influenza virus vaccine, inactivated 06/14/20 Lopez rded [id number] 12y+ bivalent booster vax 09/14/22 Recorded SARS-CoV-2 [...] rded 1Result Comment: [facility] 55223-945-06 Medications labetalol 200 mg oral tablet 1 [...] By Mouth Daily as needed for anxiety MATERIALS BUYER reviewed, # 5 tablet, 0 Refills, Maintenance, [...] Team Personnel Name: Priti Abraham MD Position: [facility] STOCK CUTTER MD Member Role: Lifetime STOCK CUTTER Physician Address: Address: [address] [place] [address]'s [facility] [place] [address]- Name: Kalia Sears MD Position: [facility] Physician - Primary Care Member Role: PCP Address: Address: [address] [place] [address] 3rd [place] [address]- Care Team Related Persons Name: EUN HOLDEN Address: home [address] [facility] [address], [place] [address]
--- OUTSIDE RECORDS SUMMARY | 2024-03-18 12:39 | XMS_ITS | Continuity of Care Document ---
Author Organization [facility] Address [address] [place] [address] [address] [place] [address]- Care Team Providers Care Air Brake Worker Name Role Phone Orion TAPIA, Kalia Primary Care Physician [phone] Encounter [facility] Date(s): 11/05/23 - 12/05/23 [facility] [address] [place] [address]- Allergies, Adverse Reactions, Alerts No Known Medication Allergies Immunizations Given and Recorded Vaccine Date Status Refusal Reason influenza virus vaccine, inactivated 05/25/23 Give n influenza virus vaccine, inactivated 06/30/22 Lopez rded influenza virus vaccine, inactivated 06/26/21 Lopez rded influenza virus vaccine, inactivated 06/14/20 Lopez rded [id number] 12y+ bivalent booster vax 09/14/22 Recorded SARS-CoV-2 [...] Lopez rded 1Result Comment: [facility] 60933-629-20 Medications amLODIPine 5 mg oral tablet 5 mg, 1, tablet, By Mouth, Daily, # 90 tablet, Refills 3, Tot. Refills 3, Maintenance, 10/05/23 8:49:00 EST, Route to Pharmacy Electronically, [facility]/pharmacy #[id number], Partial fill upon patient request ifthe prescription is for a schedule II opioid drug.,... Start Date: 10/05/23 Status: Ordered labetalol 200 mg oral tablet 1 tablet = 200 mg, By Mouth, 2 times a day, # 180 tablet, 1 Refills, Maintenance, 06/08/23 11:10:00EDT, Tablet, [facility]/pharmacy #2339, Partial fill upon patient request if the prescription is for a schedule II opioid drug., 157, cm, 06/08/23 10:54:00 ED... 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 MECHANIC HELPER reviewed, # 5 tablet, 0 Refills, Maintenance, [...] Personnel Name: Jarad TAPIA, Priti Gamez Position: [facility] PRESERVATIVE FILLER MACHINE OPERATOR MD Member Role: Lifetime PRESERVATIVE FILLER MACHINE OPERATOR Physician Address: Address: [address] [place] [address] Women[facility] [place] [address]- Name: Kalia Sears MD Position: [facility] Physician - Primary Care Member Role: PCP Address: Address: [address] [place] [address] 3rd [place] [address]- [place] Care Team Related Persons Name: EUN HOLDEN Address: home [address] [facility] [address], [place] [address]
--- OUTSIDE RECORDS SUMMARY | 2024-03-18 12:39 | XMS_ITS | Continuity of Care Document ---
Author Organization [facility] Adult Address [address] [place] [address]- Care Team Providers Care Senior Front End Developer Name Role Phone Kalia Sears MD Primary Care Physician Encounter [facility] Date(s): 11/27/23 - 12/27/23 [facility] Adult [address] [place] [address]- Allergies, Adverse Reactions, Alerts No Known Medication Allergies Immunizations Given and Recorded Vaccine Date Status Refusal Reason influenza virus vaccine, inactivated 05/25/23 Give n influenza virus vaccine, inactivated 06/30/22 Lopez rded influenza virus vaccine, inactivated 06/26/21 Lopez rded influenza virus vaccine, inactivated 06/14/20 Lopez rded [id number] 12y+ bivalent booster vax 09/14/22 Recorded SARS-CoV-2 [...] (oldterm) 89 Lopez rded 1Result Comment: [facility] 04577-427-38 Medications amLODIPine 5 mg oral tablet 5 mg, 1, tablet, By Mouth, Daily, # 90 tablet, Refills 3, Tot. Refills 3, Maintenance, 10/05/23 8:49:00 EST, Route to Pharmacy Electronically, [facility]/pharmacy #[id number], Partial fill upon patient request ifthe prescription is for a schedule II opioid drug.,... Start Date: 10/05/23 Status: Ordered labetalol 200 mg oral tablet 1 tablet = 200 mg, By Mouth, 2 times a day, # 180 tablet, 1 Refills, Maintenance, 06/08/23 11:10:00EDT, Tablet, [facility]/pharmacy #2339, Partial fill upon patient request if the prescription is for a schedule II opioid drug., 157, cm, 06/08/23 10:54:00 ED... Start Date: 06/08/23 Status: Ordered levothyroxine 75 mcg (0.075 mg) oral tablet 1 tablet, By Mouth, Daily, # 90 tablet, 1 Refills, Maintenance, 11/27/23 10:53:00 EDT, [facility]/pharmacy#2339, 157, cm, 11/05/23 11:00:00 EDT, Height, 95.1, kg, 06/15/23 8:54:00 EDT, Dry Weight Start Date: 11/27/23 Status: Ordered LORazepam 0.5 mg oral tablet See Instructions, PRN as needed for anxiety, 1/2 tablet By Mouth Daily as needed for anxiety DESIGN TRANSFERRER reviewed, # 5 tablet, 0 Refills, Maintenance, [...] Personnel Name: Jarad TAPIA, Priti Gamez Position: [facility] ELECTRONICS SCALE TESTER MD Member Role: Lifetime ELECTRONICS SCALE TESTER Physician Address: Address: [address] [place] [address] [facility] [place] [address]- Name: Kalia Sears MD Position: [facility] Physician - Primary Care Member Role: PCP Address: Address: [address] [place] [address] 3rd [place] [address]- Care Team Related Persons Name: EUN HOLDEN Address: home [address] [address]
--- OUTSIDE RECORDS SUMMARY | 2024-03-18 12:39 | XMS_ITS | Continuity of Care Document ---
Author Organization [facility] Adult Address [address] [place] [address]- Care Team Providers Care Leather Shaver Name Role Phone Orion TAPIA, Kalia Primary Care Physician Encounter [facility] Date(s): 11/04/20 - 01/08/21 [facility] Adult [address] [place] [address]- Attending Physician: Kalia Sears MD Allergies, Adverse [...] rded 1Result Comment: [facility] 69794-783-52 Medications amLODIPine 5 mg oral tablet 5 mg, 1, tablet, By Mouth, Daily, # 90 tablet, Refills 3, Tot. Refills 3, Maintenance, 11/04/20 13:56:00 EDT, Route to Pharmacy Electronically, [facility]/pharmacy #[id number], Partial fill upon patient request if the prescription is for a schedule II opioid drug.... Start Date: 11/04/20 Status: Ordered levothyroxine 75 mcg (0.075 mg) oral tablet 1 tablet = 75 mcg, By Mouth, Daily, # 90 tablet, 1 Refills, Maintenance, 12/06/20 10:08:00 EDT, Tablet, [facility]/pharmacy #2339, Partial fill upon patient request if the prescription is for a schedule II opioid drug., 158.4, cm, 11/04/20 8:59:00 EDT, Height Start Date: 12/06/20 Stop Date: 06/04/21 Status: Ordered LORazepam 0.5 mg oral tablet 1 tablet = 0.5 mg, By Mouth, Daily, PRN as needed for anxiety, membership assistant reviewed, # 7 tablet, 0 Refills,Maintenance, 12/12/20 14:00:00 EDT, Tablet, [facility]/pharmacy #2339, Partial fill upon patient request if the prescription is for a schedule II opioid drug.... Start Date: 12/12/20 Status: Ordered Problem List Condition Effective Dates Status Health Status Inform ant HTN (hypertension)(Confirmed) Active Hypothyroidism(Confirmed) Active Social History Social History Type Response Tobacco Other: quit age 27, previously 1/2 ppd x 1 yr. Sex
--- OUTSIDE RECORDS SUMMARY | 2024-03-18 12:39 | XMS_ITS | Continuity of Care Document ---
Author Organization [facility] Adult Address [address] [place] [address]- Care Team Providers Care Steel Checker Name Role Phone Orion TAPIA, Kalia Primary Care Physician Encounter [facility] Date(s): 03/19/22 - 07/17/22 [facility] Adult [address] [place] [address]- Attending Physician: Not on Staff, Attending MD [...] Vaccine (oldterm) 89 Lopez rded 1Result Comment: [facility] 27357-314-45 Medications amLODIPine 5 mg oral tablet 1 TABLET BY MOUTH DAILY Start Date: 12/10/21 Status: Ordered amLODIPine 5 mg oral tablet 5 mg, 1, tablet, By Mouth, Daily, # 90 tablet, Refills 3, Tot. Refills 3, Maintenance, 12/10/21 16:44:00 EDT, Route to Pharmacy Electronically, [facility]/pharmacy #[id number], Partial fill upon patient request if the prescription is for a schedule II opioid drug.... 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 Start Date: 06/19/21 Status: Ordered Problem List Condition Confirmation Course Effective Dates Status Health St atus Informant HTN (hypertension) Confirmed Active Hypothyroidism Confirmed Active Obese class II Confirmed Active Social History Social History Type Response Tobacco Other: quit age 27, previously 1/2 ppd x 1 yr. Sex Patient Care team information Care Team Personnel Name: Priti Abraham MD Position: [facility] ELECTRIC VEHICLE ELECTRICIAN MD Member Role: Lifetime ELECTRIC VEHICLE ELECTRICIAN Physician Address: Address: [address] Apartment [place] [address]- [place] Name: Kalia Sears MD Position: [facility] Primary Care Physician Member Role: PCP Address: Address: [address] [place] [address] 3rd [place] [address]- Care Team Related Persons Name: EUN HOLDEN Address: home [address] [address]
--- OUTSIDE RECORDS SUMMARY | 2024-03-18 12:39 | XMS_ITS | Continuity of Care Document ---
Author Organization [facility] Address [address] [place] [address] [address] [place] [address]- Care Team Providers Care Bindery Machine Operator Name Role Phone Orion TAPIA, Kalia Primary Care Physician [phone] Encounter [facility] Date(s): 05/26/23 - 06/02/23 [facility] [address] [place] [address]- Attending Physician: Knee RD, Rosario Allergies, Adverse Reactions, Alerts No Known Medication Allergies Immunizations Given and Recorded Vaccine Date Status Refusal Reason influenza virus vaccine, inactivated 05/25/23 Give n influenza virus vaccine, inactivated 06/30/22 Lopez rded influenza virus vaccine, inactivated 06/26/21 Lopez rded influenza virus vaccine, inactivated 06/14/20 Lopez rded [id number] 12y+ bivalent booster vax 09/14/22 Recorded SARS-CoV-2 [...] (oldterm) 89 Lopez rded 1Result Comment: [facility] 90139-559-01 Medications labetalol 100 mg oral tablet 1 tablet = 100 mg, By Mouth, 2 times a day, # 180 tablet, 1 Refills, Maintenance, 05/25/23 16:00:00EDT, Tablet, [id number], Partial fill upon patient request if the prescription is for a schedule II opioid drug., 157, cm, 05/25/23 11:47:00 ED... Start Date: 05/25/23 Status: Ordered levothyroxine 75 mcg (0.075 mg) oral tablet 1 tablet, By Mouth, Daily, # 90 tablet, 1 Refills, Maintenance, 03/31/23 12:03:00 EDT, [facility], 157, cm, 03/31/23 11:44:00 EDT, Height Start Date: 03/31/23 Status: Ordered LORazepam 0.5 mg oral tablet See Instructions, PRN as needed for anxiety, 1/2 tablet By Mouth Daily as needed for anxiety CASE HARDENER reviewed, # 5 tablet, 0 Refills, Maintenance, [...] Team Personnel Name: Priti Abraham MD Position: [facility] HEALTH AND WELLNESS MANAGER MD Member Role: Lifetime HEALTH AND WELLNESS MANAGER Physician Address: Address: [address] [place] [address]'s [place] [address]- Name: Kalia Sears MD Position: [facility] Physician - Primary Care Member Role: PCP Address: Address: [address] [place] [address] 3rd [place] [address]- Care Team Related Persons Name: EUN HOLDEN Address: home [address] [facility] [address] [address]
--- OUTSIDE RECORDS SUMMARY | 2024-03-18 12:39 | XMS_ITS | Continuity of Care Document ---
Author Organization [facility] Address [address] [place] [address]- Care Team Providers Care Java Consultant Name Role Phone Orion TAPIA, Kalia Primary Care Physician [place] [facility] [place] 06/15/23 - 06/22/23 [facility] [address] [place] [address]- Attending Physician: Alma TAPIA, Tena Bradshaw Allergies, Adverse Reactions, Alerts No Known Medication Allergies Immunizations Given and Recorded Vaccine Date Status Refusal Reason influenza virus vaccine, inactivated 05/25/23 Give n influenza virus vaccine, inactivated 06/30/22 Lopez rded influenza virus vaccine, inactivated 06/26/21 Lopez rded influenza virus vaccine, inactivated 06/14/20 Lopez rded [id number] 12y+ bivalent booster vax 09/14/22 Recorded SARS-CoV-2 [...] (oldterm) 89 Lopez rded 1Result Comment: [facility] 98336-626-62 Medications labetalol 200 mg oral tablet 1 [...] By Mouth Daily as needed for anxiety RETAIL ZONE SPECIALIST reviewed, # 5 tablet, 0 Refills, Maintenance, [...] oldest [Reference Range]: 1 Height 157 cm (06/15/23 8:54 AM) Weight 95.1 kg (06/15/23 8:54 AM) Body Mass Index [18.5-24.99 kg/m2] 38.58 kg/m2 *>HHI* (06/15/23 8:54 AM) Blood Pressure [90-138/55-84 mm Hg] 134/ 70mm Hg (06/15/23 8:54 AM) Blood pressure sites Arm, left (06/15/23 8:54 AM) Dry Weight 95.1 kg (06/15/23 8:54 AM) Weight Obtained Via Standing scale (06/15/23 8:54 AM) Dry Weight Obtained Via Standing scale (06/15/23 8:54 AM) Social History Social History Type Response Tobacco Other: quit age 27, previously 1/2 ppd x 1 yr. Sex Note * Alma TAPIA, Tena F: PERFORM, SIGN, VERIFY Event Display: Patient Education/Instruction Authored Date: [id number] [facility] *[facility] Clinical Summary Name TORO HOLDEN Age 32 Years 1990 PCP Kalia Sears MD PCP Visit Date 06/15/2023 08:43:00 Additional Instructions: Ginna Martínez by Ric Scheduled Appointments?? Future Appointments ?*Int??Behav??[place] ?Phone:??--?Fax:??-- ?Appt. Date:??06/15/2023?11:00 AM ?Scheduled Provider:??Kristine Patricio ?*[facility] ?[address],??[address] ?Phone:??--?Fax:??-- ?Appt. Date:??06/29/2023?9:55 AM ?Scheduled Provider:??Kalia Sears MD ?*[facility]??Gen??Surg ?Phone:??--?Fax:??-- ?Appt. Date:??07/14/2023?10:30 AM ?Scheduled Provider:??LIONEL Motta Kimberly L Follow-Up Instructions ?? 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 Discuss any questions related to medications with your provider. Medications to Continue with No Changes These medications were not printed or sent to your pharmacy Labetalol (labetalol 200 mg oral tablet) 1 tab(s) Oral twice a day. Refills: 1. Next Dose: Levothyroxine (levothyroxine 75 mcg (0.075 mg) oral tablet) 1 tab(s) Oral Daily. Refills: 1. Next Dose: Lorazepam (LORazepam 0.5 mg oral tablet) 1/2 tablet By Mouth Daily as needed for anxiety RETAIL ZONE SPECIALIST reviewed; as needed as needed for anxiety. Refills: 0. Next Dose: Allergy Info:?? No Known Medication Allergies Medications Given This Visit Future Orders ?No future orders Vital Signs Height 157 cm Weight 95.1 kg BMI 38.58 kg/m2 Blood Pressure 134 mm Hg/70 mm Hg Temperature Pulse Rate Respiratory Rate 02 Sat Mode of Delivery / You can now view a summary of your hospital visit from the comfort of your home through a free online portal called QThru. QThru is a website that allows you to securely view your medical information including discharge summary, medications and follow-up visits. ??You can alsosend a secure electronic message to your doctor???s office to request appointments, renew medications or just ask a question. You can enroll at [email or web address] or register during your next office visit. Disclaimer:?? The information provided is of a general nature and is intended to be used in conjunction with the recommendations and advice of your health care practitioner. ??Every effort has been made to ensure that the information provided is accurate and complete at the time it is provided to you however, as your needs change, or, as new ??information becomes available, different or additional instructions may be required. If you have questions, please consult with your primary care provider or pharmacist, as appropriate. ??This information is not intended to serve as substitution for assessment and evaluation by a qualified health care provider. If you do not have a primary care provider, you may find a [facility] provider by calling [facility] mYwindow Link at [phone]. [facility], in keeping with [facility] guidance, no longer requires face masks for staff, patientsor visitors in most situations. Similar to time spent indoors at other locations, there is the chance that you were exposed to respiratory viruses during your time with us (such as flu or COVID-19).? If you develop symptoms concerning for a viral respiratory infection, please seek testing (and treatment if indicated) from your medical provider or home test kit. For information about the plan of care including goals and instructions for your diagnosis, please see the patient education orders section of this document. Patient Education Materials?? The content of this educational material or handout may have been modified, supplemented, or adapted from its original content and format to support your individualized medical care. Patient Care team information Care Team Personnel Name: Jarad TAPIA, Priti Gamez Position: [facility] CHIMNEY BUILDER MD Member Role: Lifetime CHIMNEY BUILDER Physician Address: Address: [address] [place] [address]'s [facility] [place] [address]- [place] Name: Kalia Sears MD Position: [facility] Physician - Primary Care Member Role: PCP Address: Address: [address] [place] [address] 3rd [place] [address]- Care Team Related Persons Name: EUN HOLDEN Address: home [address] [facility] [address], [place] [address]
--- OUTSIDE RECORDS SUMMARY | 2024-03-18 12:39 | XMS_ITS | Continuity of Care Document ---
Author Organization [facility] Address [address] [place] [address] [address] [place] [address]- Care Team Providers Care Naval Designer Name Role Phone Orion TAPIA, Kalia Primary Care Physician Encounter [facility] Date(s): 10/14/23 - 10/21/[address] [place] [address]- Attending Physician: Ángela MS,RD,LDN, Belle Dueñas Allergies, Adverse Reactions, Alerts No Known Medication Allergies Immunizations Given and Recorded Vaccine Date Status Refusal Reason influenza virus vaccine, inactivated 05/25/23 Give n influenza virus vaccine, inactivated 06/30/22 Lopez rded influenza virus vaccine, inactivated 06/26/21 Lopez rded influenza virus vaccine, inactivated 06/14/20 Lopez rded [id number] 12y+ bivalent booster vax 09/14/22 Recorded SARS-CoV-2 [...] Vaccine (oldterm) 89 Lopez rded 1Result Comment: [facility] 15846-431-38 Medications amLODIPine 5 mg oral tablet 5 mg, 1, tablet, By Mouth, Daily, # 90 tablet, Refills 3, Tot. Refills 3, Maintenance, 10/05/23 8:49:00 EST, Route to Pharmacy Electronically, [facility]/pharmacy #[id number], Partial fill upon patient request ifthe prescription is for a schedule II opioid drug.,... Start Date: 10/05/23 Status: Ordered labetalol 200 mg oral tablet 1 tablet = 200 mg, By Mouth, 2 times a day, # 180 tablet, 1 Refills, Maintenance, 06/08/23 11:10:00EDT, Tablet, [facility]/pharmacy #[id number], Partial fill upon patient request if the prescription is for a schedule II opioid drug., 157, cm, 06/08/23 10:54:00 ED... Start Date: 06/08/23 Status: Ordered levothyroxine 75 mcg (0.075 mg) oral tablet 1 tablet, By Mouth, Daily, # 90 tablet, 1 Refills, Maintenance, 03/31/23 12:03:00 EDT, 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 reviewed, # 5 tablet, 0 Refills, Maintenance, [...] Care Team Personnel Name: Jarad TAPIA, Priti Gaemz Position: [facility] INSULATOR APPRENTICE MD Member Role: Lifetime INSULATOR APPRENTICE Physician Address: Address: [address] [place] [address] [facility] [place] [address]- Name: Kalia Sears MD Position: [facility] Physician - Primary Care Member Role: PCP Address: Address: [address] [place] [address] 3rd [place] [address]- Care Team Related Persons Name: EUN HOLDEN Address: home [address] [address]
--- OUTSIDE RECORDS SUMMARY | 2024-03-18 12:39 | XMS_ITS | Continuity of Care Document ---
Author Organization [facility] Adult Address [address] [place] [address]- Care Team Providers Care Compliance Lead Name Role Phone Kalia Sears MD Primary Care Physician [facility] Date(s): 04/26/20 - 05/26/20 [facility] Adult [address] [place] [address]- [facility] Allergies, Adverse Reactions, Alerts No Known [...] Comment: [facility] 44780-311-68 Medications cyclobenzaprine 10 mg oral tablet See Instructions, # 30 tablet, 1 TABLET BY MOUTH DAILY, NEEDED FOR MUSCLE SPASM, [facility]/pharmacy #2339 Start Date: 04/28/19 Status: Ordered levothyroxine 75 mcg (0.075 mg) oral tablet 1 tablet = 75 mcg, By Mouth, Daily, # 30 tablet, 1 Refills, Maintenance, 02/14/20 18:12:00 EDT, Tablet Start Date: 02/14/20 Status: Ordered Multivitamins with Folic Acid 1 mg oral tablet 1 tablet, By Mouth, Daily, # 30 tablet, 10 Refills, Maintenance, 08/15/19 10:35:00 EST, Tablet, [facility]/pharmacy #2339, 1 tablet By Mouth Daily, 158.4, cm, 08/15/19 9:53:00 EST, Height Start Date: 08/15/19 Status: Ordered Problem List Condition Effective Dates Status Health Status Inform ant COVID-19 virus infection(Confirmed) Active Social History Social History Type Response Tobacco Other: quit age 27, previously 1/2 ppd x 1 yr. Sex
--- OUTSIDE RECORDS SUMMARY | 2024-03-18 12:39 | XMS_ITS | Continuity of Care Document ---
Author Organization [facility] Adult Address [address] [place] [address]- Care Team Providers Care Pc Maintenance Technician Name Role Phone Orion TAPIA, Kalia Primary Care Physician Encounter [facility] Date(s): 03/31/23 - 04/30/23 [facility] Adult [address] [place] [address]- Allergies, Adverse Reactions, Alerts No Known Medication Allergies Immunizations Given and Recorded Vaccine Date Status Refusal Reason [id number] 12y+ bivalent booster vax 09/14/22 Recorded influenza virus vaccine, inactivated 06/30/22 Lopez rded [...] Lopez rded 1Result Comment: [facility] 40084-279-01 Medications amLODIPine 10 mg oral tablet 10 mg, 1, tablet, By Mouth, Daily, # 90 tablet, Refills 3, Tot. Refills 3, Maintenance, 03/31/23 12:03:00 EDT, Route to Pharmacy Electronically, [facility]/pharmacy #2339, Partial fill upon patient request if the prescription is for a schedule II opioid drug... Start Date: 03/31/23 Status: Ordered levothyroxine 75 mcg (0.075 mg) oral tablet 1 tablet, By Mouth, Daily, # 90 tablet, 1 Refills, Maintenance, 03/31/23 12:03:00 EDT, [facility]/pharmacy#2339, 157, cm, 03/31/23 11:44:00 EDT, Height Start Date: 03/31/23 Status: Ordered LORazepam 0.5 mg oral tablet See Instructions, PRN as needed for anxiety, 1/2 tablet By Mouth Daily as needed for anxiety MUTUAL FUNDS AGENT reviewed, # 5 tablet, 0 Refills, Maintenance, [...] Personnel Name: Jarad TAPIA, Priti Gamez Position: [facility] HEAD PACKAGER MD Member Role: Lifetime HEAD PACKAGER Physician Address: Address: [address] [place] [address]'s [facility] [place] [address]- [place] Name: Kalia Sears MD Position: [facility] Physician - Primary Care Member Role: PCP Address: Address: [address] [place] [address] 3rd [place] [address]- [place] Care Team Related Persons Name: EUN HOLDEN Address: home [address] [address]
--- OUTSIDE RECORDS SUMMARY | 2024-03-18 12:39 | XMS_ITS | Continuity of Care Document ---
Author Organization [facility] Address [address] [place] [address]- Care Team Providers Care Supervisor Cytology Name Role Phone Kalia Sears MD Primary Care Physician [phone] Encounter [facility] Date(s): 08/06/21 - 09/05/21 [facility] [address] [place] [address]- Allergies, Adverse Reactions, Alerts No Known Medication [...] 1Result Comment: [facility] 51752-509-85 Medications amLODIPine 5 mg oral tablet 5 mg, 1, tablet, By Mouth, Daily, # 90 tablet, Refills 3, Tot. Refills 3, Maintenance, 11/04/20 13:56:00 EDT, Route to Pharmacy Electronically, [facility]/pharmacy #2339, Partial fill upon patient request if the prescription is for a schedule II opioid drug.... 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 Start Date: 06/19/21 Status: Ordered MiraLax oral powder for reconstitution = 17 Gm, By Mouth, Daily, for 14 days, dissolve in water before taking, # 527 Gm, 0 Refills, Acute 09/12/21 15:55:00 EST, 08/29/21 15:55:00 EST, REC Powder, [facility]/pharmacy #2339, Partial fill upon patient request if the prescription is for a schedule II... Start Date: 08/29/21 Stop Date: 09/12/21 Status: Ordered Problem List Condition Effective Dates Status Health Status Inform ant HTN (hypertension)(Confirmed) Active Hypothyroidism(Confirmed) Active Obese class II(Confirmed) Active Social History Social History Type Response Tobacco Other: quit age 27, previously 1/2 ppd x 1 yr. Sex
--- OUTSIDE RECORDS SUMMARY | 2024-03-18 12:40 | XMS_ITS | Continuity of Care Document ---
Author Organization [facility] Address [address] [place] [address] Dr [address] [place] [address]- Care Team Providers Care Pigment Supplier Name Role Phone Orion TAPIA, Kalia Primary Care Physician Encounter [facility] Date(s): 05/26/23 - 06/25/[address] [place] [address]- Attending Physician: Padmini Carvalho Admitting Physician: Padmini Carvalho Referring Physician: AdmtrPadmini Allergies, Adverse Reactions, Alerts No Known Medication Allergies Immunizations Given and Recorded Vaccine Date Status Refusal Reason influenza virus vaccine, inactivated 05/25/23 Give n influenza virus vaccine, inactivated 06/30/22 Lopez rded influenza virus vaccine, inactivated 06/26/21 Lopez rded influenza virus vaccine, inactivated 06/14/20 Lopez rded [id number] 12y+ bivalent booster vax 09/14/22 Recorded SARS-CoV-2 [...] 1Result Comment: [facility] 84258-082-51 Medications labetalol 200 mg oral tablet 1 [...] By Mouth Daily as needed for anxiety 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 STATION EQUIPMENT MECHANIC reviewed, # 5 tablet, 0 Refills, Maintenance, [...] Team Personnel Name: Priti Abraham MD Position: [facility] ENTRY LEVEL RECEPTIONIST MD Member Role: Lifetime ENTRY LEVEL RECEPTIONIST Physician Address: Address: [address] [place] [address]'s [facility] [place] [address]- Name: Kalia Sears MD Position: [facility] Physician - Primary Care Member Role: PCP Address: Address: [address] [place] [address] 3rd [place] [address]- Care Team Related Persons Name: EUN HOLDEN Address: home [address] [facility] [address] [address]
--- OUTSIDE RECORDS SUMMARY | 2024-03-18 12:40 | XMS_ITS | Continuity of Care Document ---
Author Organization [facility] Adult Address [address] [place] [address]- Care Team Providers Care Business Development Representative Name Role Phone Kalia Sears MD Primary Care Physician [place] [facility] [place] 08/28/21 - 09/27/21 [facility] Adult [address] [place] [address]- Allergies, Adverse Reactions, Alerts No Known Medication [...] 89 Lopez rded 1Result Comment: [facility] 92982-911-58 Medications amLODIPine 5 mg oral tablet 5 mg, 1, tablet, By Mouth, Daily, # 90 tablet, Refills 3, Tot. Refills 3, Maintenance, 11/04/20 13:56:00 EDT, Route to Pharmacy Electronically, [facility]/pharmacy #2339, Partial fill upon patient request if the prescription is for a schedule II opioid drug.... Start Date: 11/04/20 Status: Ordered levothyroxine 75 mcg (0.075 mg) oral tablet 1 tablet, By Mouth, Daily, # 90 tablet, 1 Refills, [facility] STORE 20467, 158.4, cm, 12/10/20 14:00:00 EDT, Height Start Date: 05/26/21 Status: Ordered LORazepam 0.5 mg oral tablet See Instructions, PRN as needed for anxiety, 1/2 tablet By Mouth Daily as needed for anxiety HOLISTIC PULSER reviewed, # 5 tablet, 0 Refills, Maintenance, 06/19/21 14:19:00 EDT, Tablet, [facility]/pharmacy #2339, Partial fill upon patient request if the prescription... Start Date: 06/19/21 Status: Ordered Problem List Condition Effective Dates Status Health Status Inform ant HTN (hypertension)(Confirmed) Active Hypothyroidism(Confirmed) Active Obese class II(Confirmed) Active Social History Social History Type Response Tobacco Other: quit age 27, previously 1/2 ppd x 1 yr. Sex
--- OUTSIDE RECORDS SUMMARY | 2024-03-18 12:40 | XMS_ITS | Continuity of Care Document ---
Author Organization [facility] Adult Address [address] [place] [address]- Care Team Providers Care Chemical Plant Worker Name Role Phone Orion TAPIA, Kalia Primary Care Physician [phone] Encounter [facility] Date(s): 10/08/20 - 10/15/20 [facility] Adult [address] [place] [address]- Encounter Diagnosis Anxiety(Discharge Diagnosis) - 10/08/20 Tachycardia(Discharge Diagnosis) - 10/08/20 Hypothyroid(Discharge Diagnosis) - 10/08/20 Attending Physician: Krista Wiley NP Allergies, Adverse Reactions, Alerts No Known [...] (oldterm) 89 Lopez rded 1Result Comment: [facility] 02608-675-80 Medications levothyroxine 75 mcg (0.075 mg) oral tablet 1 tablet = 75 mcg, By Mouth, Daily, # 30 tablet, 1 Refills, Maintenance, 10/09/20 12:59:00 EST, Tablet, [facility]/pharmacy #2339, Partial fill upon patient request if the prescription is for a schedule II opioid drug., 158.4, cm, 10/08/20 11:22:00 EST, Height Start Date: 10/09/20 Stop Date: 12/08/20 Status: Ordered Problem List Diagnosis Diagnosis Type Effective Dates Health Status Clini ulises Service Informant Anxiety Discharge Diagnosis 10/08/20 Tachycardia Discharge Diagnosis 10/08/20 Hypothyroid Discharge Diagnosis 10/08/20 Vital Signs Most recent to oldest [Reference Range]: 1 2 Height 158.4 cm (10/08/20 11:22 AM) 158.4 cm (10/08/20 8:23 AM) Weight 90.9 kg (10/08/20 8:23 AM) Pulse Rate [55-90 bpm] 78 bpm (10/08/20 11:22 AM) Body Mass Index [18.5-24.99] 36.23 *>HHI* (10/08/20 8:23 AM) Blood Pressure [90-138/55-84 mm Hg] 117/ 80mm Hg (10/08/20 11:22 AM) Weight Obtained Via Patient/family state d (10/08/20 8:23 AM) Social History Social History Type Response Tobacco Other: quit age 27, previously 1/2 ppd x 1 yr. Sex
--- OUTSIDE RECORDS SUMMARY | 2024-03-18 12:40 | XMS_ITS | Continuity of Care Document ---
Author Organization [facility] Adult Address [address] [place] [address]- Care Team Providers Care Material Processor Name Role Phone Orion TAPIA, Kalia Primary Care Physician [phone] Encounter [facility] Date(s): 06/17/22 - 07/17/22 [facility] Adult [address] [place] [address]- Attending Physician: Padmini Carvalho Admitting Physician: Padmini [...] 89 Lopez rded 1Result Comment: [facility] [id number] Medications amLODIPine 5 mg oral tablet 1 TABLET BY MOUTH DAILY Start Date: 12/10/21 Status: Ordered amLODIPine 5 mg oral tablet 5 mg, 1, tablet, By Mouth, Daily, # 90 tablet, Refills 3, Tot. Refills 3, Maintenance, 12/10/21 16:44:00 EDT, Route to Pharmacy Electronically, [facility]/pharmacy #2339, Partial fill upon patient request if the prescription is for a schedule II opioid drug.... Start Date: 12/10/21 Status: Ordered levothyroxine 75 mcg (0.075 mg) oral tablet 1 tablet, By Mouth, Daily, # 90 tablet, 1 Refills, Maintenance, 05/23/22 0:34:00 EDT, [facility], 158, cm, 12/10/21 16:01:00 EDT, Height Start Date: 05/23/22 Status: Ordered LORazepam 0.5 mg oral tablet See Instructions, PRN as needed for anxiety, 1/2 tablet By Mouth Daily as needed for anxiety TRAVEL CONSULTANT reviewed, # 5 tablet, 0 Refills, Maintenance, 06/19/21 14:19:00 EDT, Tablet, [facility]/pharmacy #2339, Partial fill upon patient request if the prescription... Start Date: 06/19/21 Status: Ordered Problem List Condition Confirmation Course Effective Dates Status Health St atus Informant HTN (hypertension) Confirmed Active Hypothyroidism Confirmed Active Obese class II Confirmed Active Social History Social History Type Response Tobacco Other: quit age 27, previously 1/2 ppd x 1 yr. Sex Note * Event Display: Immunology Report Authored Date: * Event Display: Non BH Lab Results Authored Date: * Event Display: Non BH Lab Results Authored Date: * Event Display: Ultrasound Pelvis, Non-BH Authored Date: Patient Care team information Care Team Personnel Name: Jarad TAPIA, Priti Gamez Position: [facility] CAR REPAIRER MD Member Role: Lifetime CAR REPAIRER Physician Address: Address: [address] [place] [address]'s [facility] [place] [facility] [place] [address]- [place] Name: Kalia Sears MD Position: [facility] Primary Care Physician Member Role: PCP Address: Address: [address] [place] [address] 3rd [place] [address]- Care Team Related Persons Name: EUN HOLDEN Address: home [address] [place] [address] [address] [address]
--- OUTSIDE RECORDS SUMMARY | 2024-03-18 12:40 | XMS_ITS | Continuity of Care Document ---
Author Organization [facility] Adult Address [address] [place] [address]- Care Team Providers Care Scheduler Name Role Phone Orion TAPIA, Kalia Primary Care Physician [phone] Encounter [facility] Date(s): 02/15/20 - 03/16/20 [facility] Adult [address] [place] [address]- [facility] Attending Physician: Padmini Carvalho Admitting Physician: Padmini [...] (oldterm) 89 Lopez rded 1Result Comment: [facility] 34192-669-61 Medications cyclobenzaprine 10 mg oral tablet See Instructions, # 30 tablet, 1 TABLET BY MOUTH DAILY, NEEDED FOR MUSCLE SPASM, [facility] Start Date: 04/28/19 Status: Ordered levothyroxine 75 mcg (0.075 mg) oral tablet 1 tablet = 75 mcg, By Mouth, Daily, # 30 tablet, 1 Refills, Maintenance, 02/14/20 18:12:00 EDT, Tablet Start Date: 02/14/20 Status: Ordered Multivitamins with Folic Acid 1 mg oral tablet 1 tablet, By Mouth, Daily, # 30 tablet, 10 Refills, Maintenance, 08/15/19 10:35:00 EST, Tablet, [facility]/pharmacy #5676, 1 tablet By Mouth Daily, 158.4, cm, 08/15/19 9:53:00 EST, Height Start Date: 08/15/19 Status: Ordered Problem List Condition Effective Dates Status Health Status Inform ant COVID-19 virus infection(Confirmed) Active Social History Social History Type Response Tobacco Other: quit age 27, previously 1/2 ppd x 1 yr. Sex
--- OUTSIDE RECORDS SUMMARY | 2024-03-18 12:40 | XMS_ITS | Continuity of Care Document ---
Author Organization [facility] Address [address] [place] [address] [address] [place] [address]- Care Team Providers Care Pattern Illustrator Name Role Phone Orion TAPIA, Kalia Primary Care Physician [place] [facility] [place] 02/22/24 - 02/29/[address] [place] [address]- Encounter Diagnosis S/P laparoscopic sleeve gastrectomy(Discharge Diagnosis) - 02/15/24 Attending Physician: Rama TAPIA, Shannon Allergies, Adverse Reactions, Alerts No Known Medication Allergies Immunizations Given and Recorded Vaccine Date Status Refusal Reason influenza virus vaccine, inactivated 05/25/23 Give n influenza virus vaccine, inactivated 06/30/22 Lopez rded influenza virus vaccine, inactivated 06/26/21 Lopez rded influenza virus vaccine, inactivated 06/14/20 Lopez rded [id number] 12y+ bivalent booster vax 09/14/22 Recorded SARS-CoV-2 [...] Vaccine (oldterm) 89 Lopez rded 1Result Comment: [facility] 93200-501-77 Medications acetaminophen 325 mg oral tablet 975 [...] 8:49:00 EST, Route to Pharmacy Electronically, [facility]/pharmacy #2339, Partial fill upon patient request ifthe prescription is for a schedule II opioid drug.,... Start Date: 10/05/23 Status: Ordered Colace sodium 100 mg oral capsule 100 mg, 1, capsule, By Mouth, 2 times a day, with plenty of water, # 60 capsule, Refills 1, Tot. Refills 1, Maintenance, 02/22/24 9:45:00 EDT, Route to Pharmacy Electronically, [facility]/pharmacy #2339, Partial fill upon patient request if the prescription... Start Date: 02/22/24 Status: Ordered labetalol 200 mg oral tablet 1 tablet, By Mouth, 2 times a day, # 180 tablet, 0 Refills, Maintenance, 01/04/24 15:38:00 EDT, [facility] 78419, 157, cm, 11/05/23 11:00:00 EDT, Height, 95.1, kg, 06/15/23 8:54:00 EDT, Dry Weight Start Date: 01/04/24 Status: Ordered levothyroxine 75 mcg (0.075 mg) oral tablet 1 tablet, By Mouth, Daily, # 90 tablet, 1 Refills, Maintenance, 11/27/23 10:53:00 EDT, [facility]/pharmacy#2339, 157, cm, 11/05/23 11:00:00 EDT, Height, 95.1, kg, 06/15/23 8:54:00 EDT, Dry Weight Start Date: 11/27/23 Status: Ordered LORazepam 0.5 mg oral tablet See Instructions, PRN as needed for anxiety, 1/2 tablet By Mouth Daily as needed for anxiety ICU STAFF NURSE reviewed, # 5 tablet, 0 Refills, Maintenance, 08/05/23 15:10:00 EST, Tablet, [facility]/pharmacy #2339, Partial fill upon patient request if the prescription... Start Date: 08/05/23 Status: Ordered omeprazole 20 mg oral enteric coated capsule 1 capsule = 20 mg, By Mouth, 2 times a day, # 60 capsule, 0 Refills, Maintenance, 02/10/24 14:44:00EDT, EC Capsule, [facility], Partial fill upon patient request if the prescription isfor a schedule II opioid drug., 157.48, cm, ... Start Date: 02/10/24 Status: Ordered oxyCODONE 5 mg oral tablet 5 mg, 1, tablet, By Mouth, Every 6 hours, PRN, # 10 tablet, Refills 0, Tot. Refills 0, Acute 03/17/24 23:59:00 EDT, for pain, 02/14/24 17:01:00 EDT, Route to Pharmacy Electronically, [facility]/pharmacy #2339, Partial fill upon patient request if the prescri... Start Date: 02/14/24 Stop Date: 03/17/24 Status: Ordered oxyCODONE 5 mg oral tablet 5 mg, 1, tablet, By Mouth, Every 6 hours, PRN, # 12 tablet, Refills 0, Tot. Refills 0, Maintenance,Pain , Moderate, 02/10/24 14:44:00 EDT, Route to Pharmacy Electronically, [facility],Partial fill upon patient request if [...] Effective Dates Health Status Clinical Service Informant S/P laparoscopic sleeve gastrectomy Discharge Diagnosis 02/15/24 Vital Signs Most recent to oldest [Reference Range]: 1 2 Height 157.48 cm (02/22/24 9:22 AM) 157.48 cm (02/22/24 9:22 AM) Weight 89.5 kg (02/22/24 9:22 AM) Pulse Rate [55-90 bpm] 80 bpm (02/22/24 9:22 AM) Body Mass Index [18.5-24.99 kg/m2] 36.09 kg/m2 *>HHI* (02/22/24 9:22 AM) Blood Pressure [90-138/55-84 mm Hg] 118/ 75mm Hg (02/22/24 9:22 AM) Temperature [96.8-100.4 DegF] 97.7 DegF (02/22/24 9:22 AM) Blood pressure sites Arm, left (02/22/24 9:22 AM) Temperature Route Temporal (02/22/24 9:22 AM) Social History Social History Type Response Tobacco Other: quit age 27, previously 1/2 ppd x 1 yr. Sex Patient Care team information Care Team Personnel Name: Priti Abraham MD Position: S SAND MILL OPERATOR CORE SAND Member Role: Lifetime SAND MILL OPERATOR CORE SAND Physician Address: Address: [address] [place] [address] [facility] [place] [address]- [place] Name: Reina Suggs RN Position: [facility] RN Member Role: Primary Care Nurse Name: Johanna Morejon RN Position: [facility] RN Member Role: Primary Care Nurse Name: Kalia Sears MD Position: [facility] Physician - Primary Care Member Role: PCP Address: Address: [address] [place] [address] [address]rd [place] [address]- Care Team Related Persons Name: EUN HOLDEN Address: home [address] [place] [address] [place] [address]
--- OUTSIDE RECORDS SUMMARY | 2024-03-18 12:40 | XMS_ITS | Continuity of Care Document ---
Author Organization [facility] Adult Address [address] [place] [address]- Care Team Providers Care Security Operations Center Operator Name Role Phone Kalia Sears MD Primary Care Physician [place] [facility] [place] 09/10/22 - 10/24/22 [facility] Adult [address] [place] [address]- Attending Physician: Not on Staff, Attending MD [...] Vaccine (oldterm) 89 Lopez rded 1Result Comment: [facility] [id number] Medications amLODIPine 10 mg oral tablet 10 mg, 1, tablet, By Mouth, Daily, # 90 tablet, Refills 3, Tot. Refills 3, Maintenance, 09/10/22 14:46:00 EST, Route to Pharmacy Electronically, [facility]/pharmacy #2339, Partial fill upon patient request if the prescription is for a schedule II opioid drug... Start Date: 09/10/22 Status: Ordered levothyroxine 75 mcg (0.075 mg) oral tablet 1 tablet, By Mouth, Daily, # 90 tablet, 1 Refills, Maintenance, 05/23/22 0:34:00 EDT, [facility], 158, cm, 12/10/21 16:01:00 EDT, Height Start Date: 05/23/22 Status: Ordered LORazepam 0.5 mg oral tablet See Instructions, PRN as needed for anxiety, 1/2 tablet By Mouth Daily as needed for anxiety INFORMATION ASSURANCE ENGINEER reviewed, # 5 tablet, 0 Refills, Maintenance, 08/03/22 17:00:00 EST, Tablet, [facility]/pharmacy #2336, Partial fill upon patient request [...] Team Personnel Name: Priti Abraham MD Position: [facility] HAT BINDER MD Member Role: Lifetime HAT BINDER Physician Address: Address: [address]'s [facility] [place] [address]- [place] Name: Kalia Sears MD Position: [facility] Primary Care Physician Member Role: PCP Address: Address: [address] [facility] 3rd [place] [address]- [place] Care Team Related Persons Name: EUN HOLDEN Address: home [address] [facility] [address] [address]
--- OUTSIDE RECORDS SUMMARY | 2024-03-18 12:40 | XMS_ITS | Continuity of Care Document ---
Author Organization [facility] Address Unknown Care Team Providers Care Cutter Wet Machine Name Role Phone Orion TAPIA, Kalia Primary Care Physician Encounter [facility] Date(s): 12/19/21 - 01/18/22 [facility] Attending Physician: Padmini Carvalho Admitting Physician: Padmini [...] Vaccine (oldterm) 89 Lopez rded 1Result Comment: [facility] [place] 42077-750-67 Medications amLODIPine 5 mg oral tablet 1 TABLET BY MOUTH DAILY Start Date: 12/10/21 Status: Ordered amLODIPine 5 mg oral tablet 5 mg, 1, tablet, By Mouth, Daily, # 90 tablet, Refills 3, Tot. Refills 3, Maintenance, 12/10/21 16:44:00 EDT, Route to Pharmacy Electronically, [facility]/pharmacy #[id number], Partial fill upon patient request if the prescription is for a schedule II opioid drug.... Start Date: 12/10/21 Status: Ordered levothyroxine 75 mcg (0.075 mg) oral tablet 1 tablet, By Mouth, Daily, # 90 tablet, 1 Refills, [facility] STORE 90151, 158, cm, 08/29/21 15:54:00 EST,Height Start Date: 11/23/21 Status: Ordered LORazepam 0.5 mg oral tablet See Instructions, PRN as needed for anxiety, 1/2 tablet By Mouth Daily as needed for anxiety PATIENT RELATIONS COORDINATOR reviewed, # 5 tablet, 0 Refills, Maintenance, 06/19/21 14:19:00 EDT, Tablet, [facility]/pharmacy #2339, Partial fill upon patient request if the prescription... Start Date: 06/19/21 Status: Ordered Problem List Condition Effective Dates Status Health Status Inform ant HTN (hypertension)(Confirmed) Active Hypothyroidism(Confirmed) Active Obese class II(Confirmed) Active Social History Social History Type Response Tobacco Other: quit age 27, previously 1/2 ppd x 1 yr. Sex
--- OUTSIDE RECORDS SUMMARY | 2024-03-18 12:40 | XMS_ITS | Continuity of Care Document ---
Author Organization [facility] Adult Address [address] [place] [address]- Care Team Providers Care Cash Accounting Clerk Name Role Phone Orion TAPIA, Kalia Primary Care Physician [place] [facility] [place] 08/28/21 - 09/28/21 [facility] Adult [address] [place] [address]- Attending Physician: Kalia Sears MD Allergies, Adverse [...] rded 1Result Comment: [facility] 95496-693-62 Medications amLODIPine 5 mg oral tablet 5 mg, 1, tablet, By Mouth, Daily, # 90 tablet, Refills 3, Tot. Refills 3, Maintenance, 11/04/20 13:56:00 EDT, Route to Pharmacy Electronically, [facility]/pharmacy #[id number], Partial fill upon patient request if the prescription is for a schedule II opioid drug.... Start Date: 11/04/20 Status: Ordered levothyroxine 75 mcg (0.075 mg) oral tablet 1 tablet, By Mouth, Daily, # 90 tablet, 1 Refills, [facility] STORE 62062, 158.4, cm, 12/10/20 14:00:00 EDT, Height Start Date: 05/26/21 Status: Ordered LORazepam 0.5 mg oral tablet See Instructions, PRN as needed for anxiety, 1/2 tablet By Mouth Daily as needed for anxiety LICENSING COORDINATOR reviewed, # 5 tablet, 0 Refills, [...]
--- OUTSIDE RECORDS SUMMARY | 2024-03-18 12:40 | XMS_ITS | Continuity of Care Document ---
Author Organization [facility] Address [address] [place] [address]- Care Team Providers Care Order Control Clerk Blood Bank Name Role Phone Orion TAPIA, Kalia Primary Care Physician Encounter [facility] Date(s): 08/01/21 - 08/31/21 [facility] [address] [place] [address]- Attending Physician: Padmini Carvalho Admitting Physician: Padmini [...] Vaccine (oldterm) 89 Lopez rded 1Result Comment: [facility] 33773-083-01 Medications amLODIPine 5 mg oral tablet 5 mg, 1, tablet, By Mouth, Daily, # 90 tablet, Refills 3, Tot. Refills 3, Maintenance, 11/04/20 13:56:00 EDT, Route to Pharmacy Electronically, [facility]/pharmacy #[id number], Partial fill upon patient request if the prescription is for a schedule II opioid drug.... Start Date: 11/04/20 Status: Ordered levothyroxine 75 mcg (0.075 mg) oral tablet 1 tablet, By Mouth, Daily, # 90 tablet, 1 Refills, [facility] STORE 85641, 158.4, cm, 12/10/20 14:00:00 EDT, Height Start Date: 05/26/21 Status: Ordered LORazepam 0.5 mg oral tablet See Instructions, PRN as needed for anxiety, 1/2 tablet By Mouth Daily as needed for anxiety SILK SCREEN PRINTER reviewed, # 5 tablet, 0 Refills, Maintenance, 06/19/21 14:19:00 EDT, Tablet, [facility]/pharmacy #2339, Partial fill upon patient request if the prescription... Start Date: 06/19/21 Status: Ordered MiraLax oral powder for reconstitution = 17 Gm, By Mouth, Daily, for 14 days, dissolve in water before taking, # 527 Gm, 0 Refills, Acute 09/12/21 15:55:00 EST, 08/29/21 15:55:00 EST, REC Powder, [facility]/pharmacy #[id number], Partial fill upon patient request [...]
--- OUTSIDE RECORDS SUMMARY | 2024-03-18 12:40 | XMS_ITS | Continuity of Care Document ---
Author Organization [facility] Adult Address [address] [place] [address]- Care Team Providers Care Rum Processing Operator Name Role Phone Orion TAPIA, Kalia Primary Care Physician Encounter [facility] Date(s): 05/12/23 - 06/11/23 [facility] Adult [address] [place] [address]- Allergies, Adverse Reactions, Alerts No Known Medication Allergies Immunizations Given and Recorded Vaccine Date Status Refusal Reason influenza virus vaccine, inactivated 05/25/23 Give n influenza virus vaccine, inactivated 06/30/22 Lopez rded influenza virus vaccine, inactivated 06/26/21 Lopez rded influenza virus vaccine, inactivated 06/14/20 Lopez rded [id number] 12y+ bivalent booster vax 09/14/22 Recorded SARS-CoV-2 [...] Lopez rded 1Result Comment: [facility] 97674-014-34 Medications labetalol 200 mg oral tablet 1 [...] By Mouth Daily as needed for anxiety PLAN COORDINATOR reviewed, # 5 tablet, 0 Refills, [...] Team Personnel Name: Priti Abraham MD Position: [facility] SUPERVISOR RIDES MD Member Role: Lifetime SUPERVISOR RIDES Physician Address: Address: [address] [place] [address]'s [facility] [place] [address]- Name: Kalia Sears MD Position: [facility] Physician - Primary Care Member Role: PCP Address: Address: [address] [place] [address] 3rd [place] [address]- Care Team Related Persons Name: EUN HOLDEN Address: home [address] [facility] [address] [address]
--- OUTSIDE RECORDS SUMMARY | 2024-03-18 12:40 | XMS_ITS | Continuity of Care Document ---
Author Organization [facility] Address [address] [facility] [address] [facility], 4t [address] [place] [address]- Care Team Providers Care Drugless Doctor Name Role Phone Orion TAPIA, Kalia Primary Care Physician Encounter [facility] Date(s): 08/15/19 - 08/25/19 [facility] [address], 4th [address] [place] [address]- [facility] Attending Physician: Padmini Carvalho Admitting Physician: Padmini Carvalho Referring Physician: AdmtrPadmini Allergies, Adverse Reactions, Alerts No Known Medication Allergies Medications cyclobenzaprine 10 mg oral tablet See [...]
--- OUTSIDE RECORDS SUMMARY | 2024-03-18 12:40 | XMS_ITS | Continuity of Care Document ---
Author Organization [facility] Adult Address [address] [place] [address]- Care Team Providers Care Product Communications Manager Name Role Phone Orion TAPIA, Kalia Primary Care Physician [phone] Encounter [facility] Date(s): 04/07/21 - 05/07/21 [facility] Adult [address] [place] [address] Allergies, Adverse Reactions, Alerts No Known [...] (oldterm) 89 Lopez rded 1Result Comment: [facility] 23076-486-45 Medications amLODIPine 5 mg oral tablet 5 mg, 1, tablet, By Mouth, Daily, # 90 tablet, Refills 3, Tot. Refills 3, Maintenance, 11/04/20 13:56:00 EDT, Route to Pharmacy Electronically, [facility]/pharmacy #[id number], Partial fill upon patient request if the prescription is for a schedule II opioid drug.... Start Date: 11/04/20 Status: Ordered levothyroxine 75 mcg (0.075 mg) oral tablet 1 tablet = 75 mcg, By Mouth, Daily, # 90 tablet, 1 Refills, Maintenance, 12/06/20 10:08:00 EDT, Tablet, [facility]/pharmacy #[id number], Partial fill upon patient request if the prescription is for a schedule II opioid drug., 158.4, cm, 11/04/20 8:59:00 EDT, Height Start Date: 12/06/20 Stop Date: 06/04/21 Status: Ordered LORazepam 0.5 mg oral tablet 1 tablet = 0.5 mg, By Mouth, Daily, PRN as needed for anxiety, hand reamer reviewed, # 7 tablet, 0 Refills,Maintenance, 12/12/20 [...]
--- OUTSIDE RECORDS SUMMARY | 2024-03-18 12:40 | XMS_ITS | Continuity of Care Document ---
Author Organization [facility] Adult Address [address] [place] [address]- Care Team Providers Care Nurse Emergency Name Role Phone Orion TAPIA, [facility] Primary Care Physician [phone] Encounter [facility] Date(s): 11/05/23 - 11/12/23 [facility] Adult [address] [place] [address]- Attending Physician: Not on Staff, Attending MD Allergies, Adverse Reactions, Alerts No Known Medication Allergies Immunizations Given and Recorded Vaccine Date Status Refusal Reason influenza virus vaccine, inactivated 05/25/23 Give n influenza virus vaccine, inactivated 06/30/22 Lopez rded influenza virus vaccine, inactivated 06/26/21 Lopez rded influenza virus vaccine, inactivated 06/14/20 Lopez rded [id number] 12y+ bivalent booster vax 09/14/22 Recorded SARS-CoV-2 [...] Vaccine (oldterm) 89 Lopez rded 1Result Comment: [facility] [id number] Medications amLODIPine 5 mg oral tablet 5 mg, 1, tablet, By Mouth, Daily, # 90 tablet, Refills 3, Tot. Refills 3, Maintenance, 10/05/23 8:49:00 EST, Route to Pharmacy Electronically, [facility]/pharmacy #[id number], Partial fill upon patient request ifthe prescription is for a schedule II opioid drug.,... Start Date: 10/05/23 Status: Ordered labetalol 200 mg oral tablet 1 tablet = 200 mg, By Mouth, 2 times a day, # 180 tablet, 1 Refills, Maintenance, 06/08/23 11:10:00EDT, Tablet, [facility]/pharmacy #[id number], Partial fill upon patient request if the prescription is for a schedule II opioid drug., 157, cm, 06/08/23 10:54:00 ED... Start Date: 06/08/23 Status: Ordered levothyroxine 75 mcg (0.075 mg) oral tablet 1 tablet, By Mouth, Daily, # 90 tablet, 1 Refills, Maintenance, 03/31/23 12:03:00 EDT, [facility]/pharmacy#2339, 157, cm, 03/31/23 11:44:00 EDT, Height Start Date: 03/31/23 Status: Ordered LORazepam 0.5 mg oral tablet See Instructions, PRN as needed for anxiety, 1/2 tablet By Mouth Daily as needed for anxiety COKE DRAWER reviewed, # 5 tablet, 0 Refills, Maintenance, [...] to oldest [Reference Range]: 1 2 Height 157 cm (11/05/23 10:56 AM) 157 cm (11/05/23 10:48 AM) Pulse Rate [55-90 bpm] 82 bpm (11/05/23 10:48 AM) Blood Pressure [90-138/55-84 mm Hg] 122/ 73mm Hg (11/05/23 10:56 AM) 142/84mm Hg *H* (11/05/23 10:48 AM) Blood pressure sites Arm, left (11/05/23 10:56 AM) Arm, left (11/05/23 10:48 AM) Social History Social History Type Response Tobacco Other: quit age 27, previously 1/2 ppd x 1 yr. Sex Patient Care team information Care Team Personnel Name: Jarad TAPIA, Priti Gamez Position: [facility] DINING CHAIR SEAT CUSHION TRIMMER MD Member Role: Lifetime DINING CHAIR SEAT CUSHION TRIMMER Physician Address: Address: [address] [place] [address] Women's [facility] [place] [address]- Name: Kalia Sears MD Position: [facility] Physician - Primary Care Member Role: PCP Address: Address: [address] [facility] 3rd [place] [address]- Care Team Related Persons Name: EUN HOLDEN Address: home [address] [address]
--- OUTSIDE RECORDS SUMMARY | 2024-03-18 12:40 | XMS_ITS | Continuity of Care Document ---
Author Organization [facility] Address [address] [place] [address] [address] [place] [address]- Care Team Providers Care Package Pick Up Name Role Phone Orion TAPIA, Kalia Primary Care Physician En[facility] [id number] Date(s): 05/21/23 - 06/20/23 [facility] [address] [place] [address]- Attending Physician: Not on Staff, Attending MD Allergies, Adverse Reactions, Alerts No Known Medication Allergies Immunizations Given and Recorded Vaccine Date Status Refusal Reason influenza virus vaccine, inactivated 05/25/23 Give n influenza virus vaccine, inactivated 06/30/22 Lopez rded influenza virus vaccine, inactivated 06/26/21 Lopez rded influenza virus vaccine, inactivated 06/14/20 Lopez rded [id number] 12y+ bivalent booster vax 09/14/22 Recorded SARS-CoV-2 [...] (oldterm) 89 Lopez rded 1Result Comment: [facility] 43153-199-62 Medications labetalol 200 mg oral tablet 1 [...] By Mouth Daily as needed for anxiety GROUNDS CLEANER reviewed, # 5 tablet, 0 Refills, Maintenance, [...] Team Personnel Name: Priti Abraham MD Position: [facility] FOUNTAIN ATTENDANT MD Member Role: Lifetime FOUNTAIN ATTENDANT Physician Address: Address: [address] [place] [address] Women[facility] [place] [address]- Name: Kalia Sears MD Position: [facility] Physician - Primary Care Member Role: PCP Address: Address: [address] [place] [address] 3rd [place] [address]- Care Team Related Persons Name: EUN HOLDEN Address: home [address] [facility] [address] [address]
--- OUTSIDE RECORDS SUMMARY | 2024-03-18 12:40 | XMS_ITS | Continuity of Care Document ---
Author Organization [facility] Adult Address [address] [place] [address]- Care Team Providers Care Deputy Harbormaster Name Role Phone Orion TAPIA, Kalia Primary Care Physician [phone] Encounter [facility] Date(s): 04/18/20 - 05/18/20 [facility] Adult [address] [place] [address]- [facility] Allergies, Adverse Reactions, Alerts No Known [...] Vaccine (oldterm) 89 Lopez rded 1Result Comment: [facility] 64953-981-57 Medications cyclobenzaprine 10 mg oral tablet See [...] 10 Refills, Maintenance, 08/15/19 10:35:00 EST, Tablet, [facility]/pharmacy #[id number], 1 tablet By Mouth Daily, 158.4, cm, 08/15/19 9:53:00 EST, Height Start Date: 08/15/19 Status: Ordered Problem List Condition Effective Dates Status Health Status Inform ant COVID-19 virus infection(Confirmed) Active Social History Social History Type Response Tobacco Other: quit age 27, previously 1/2 ppd x 1 yr. Sex
--- OUTSIDE RECORDS SUMMARY | 2024-03-18 12:40 | XMS_ITS | Continuity of Care Document ---
Author Organization [facility] Adult Address [address] [place] [address]- Care Team Providers Care Tour Consultant Name Role Phone Orion TAPIA, Kalia Primary Care Physician [phone] Encounter [facility] Date(s): 08/04/23 - 09/03/23 [facility] Adult [address] [place] [address]- Allergies, Adverse Reactions, Alerts No Known Medication Allergies Immunizations Given and Recorded Vaccine Date Status Refusal Reason influenza virus vaccine, inactivated 05/25/23 Give n influenza virus vaccine, inactivated 06/30/22 Lopez rded influenza virus vaccine, inactivated 06/26/21 Lopez rded influenza virus vaccine, inactivated 06/14/20 Lopez rded [id number] 12y+ bivalent booster vax 09/14/22 Recorded SARS-CoV-2 [...] Vaccine (oldterm) 89 Lopez rded 1Result Comment: [facility] 41332-244-34 Medications labetalol 200 mg oral tablet 1 [...] By Mouth Daily as needed for anxiety BILLING SPEC reviewed, # 5 tablet, 0 Refills, Maintenance, 08/05/23 15:10:00 EST, Tablet, [facility]/pharmacy #[id number], Partial fill upon patient request if the prescription... Start Date: 08/05/23 Status: Ordered Multivitamin 0 Refills, Maintenance, 06/29/23 10:40:00 EST, Partial fill upon patient request if the prescription is for a schedule II opioid drug. Start Date: 11/14/23 Status: Ordered Problem List Condition Confirmation Course Effective Dates Status H ealth Status Informant HTN (hypertension) Confirmed Active Hypothyroidism Confirmed Active Severe obesity (BMI 35.0-39.9) with comorbidity Confirmed Active Social History Social History Type Response Tobacco Other: quit age 27, previously 1/2 ppd x 1 yr. Sex Patient Care team information Care Team Personnel Name: Jarad TAPIA, Priti Gamez Position: [facility] CRIMINAL JUDGE MD Member Role: Lifetime CRIMINAL JUDGE Physician Address: Address: [address] [place] [address]'s [facility] [place] [address]- Name: Kalia Sears MD Position: [facility] Physician - Primary Care Member Role: PCP Address: Address: [address] [facility] [address] 3rd [place] [address]- Care Team Related Persons Name: EUN HOLDEN Address: home [address] [facility] [address] [place] [address]
--- OUTSIDE RECORDS SUMMARY | 2024-03-18 12:40 | XMS_ITS | Continuity of Care Document ---
Author Organization [facility] Address [address] [place] [address] [address] [place] [address]- Care Team Providers Care Energy Operations Vice President Name Role Phone Orion TAPIA, Kalia Primary Care Physician [phone] Encounter [facility] Date(s): 10/28/23 - 11/27/23 [facility] [address] [place] [address]- Allergies, Adverse Reactions, Alerts No Known Medication Allergies Immunizations Given and Recorded Vaccine Date Status Refusal Reason influenza virus vaccine, inactivated 05/25/23 Give n influenza virus vaccine, inactivated 06/30/22 Lopez rded influenza virus vaccine, inactivated 06/26/21 Lopez rded influenza virus vaccine, inactivated 06/14/20 Lopez rded [id number] 12y+ bivalent booster vax 09/14/22 Recorded SARS-CoV-2 [...] Vaccine (oldterm) 89 Lopez rded 1Result Comment: [facility] 19945-659-28 Medications amLODIPine 5 mg oral tablet 5 mg, 1, tablet, By Mouth, Daily, # 90 tablet, Refills 3, Tot. Refills 3, Maintenance, 10/05/23 8:49:00 EST, Route to Pharmacy Electronically, [facility]/pharmacy #[id number], Partial fill upon patient request ifthe prescription is for a schedule II opioid drug.,... Start Date: 10/05/23 Status: Ordered labetalol 200 mg oral tablet 1 tablet = 200 mg, By Mouth, 2 times a day, # 180 tablet, 1 Refills, Maintenance, 06/08/23 11:10:00EDT, Tablet, [facility]/pharmacy #2339, Partial fill upon patient request if the prescription is for a schedule II opioid drug., 157, cm, 06/08/23 10:54:00 ED... Start Date: 06/08/23 Status: Ordered levothyroxine 75 mcg (0.075 mg) oral tablet 1 tablet, By Mouth, Daily, # 90 tablet, 1 Refills, Maintenance, 11/27/23 10:53:00 EDT, [facility]/pharmacy#2339, 157, cm, 11/05/23 11:00:00 EDT, Height, 95.1, kg, 06/15/23 8:54:00 EDT, Dry Weight Start Date: 11/27/23 Status: Ordered LORazepam 0.5 mg oral tablet See Instructions, PRN as needed for anxiety, 1/2 tablet By Mouth Daily as needed for anxiety ROTARY PEEL OVEN TENDER reviewed, # 5 tablet, 0 Refills, Maintenance, [...] Personnel Name: Jarad TAPIA, Priti Gamez Position: [facility] SALES PLANNING MANAGER MD Member Role: Lifetime SALES PLANNING MANAGER Physician Address: Address: [address] [place] [address] Women's [place] [address]- Name: Kalia Sears MD Position: [facility] Physician - Primary Care Member Role: PCP Address: Address: [address] [place] [address] 3rd [place] [address]- [place] Care Team Related Persons Name: EUN HOLDEN Address: home [address] [facility] 3[place] [address]
--- OUTSIDE RECORDS SUMMARY | 2024-03-18 12:40 | XMS_ITS | Continuity of Care Document ---
Author Organization [facility] Adult Address [address] [place] [address]- Care Team Providers Care Wall Taper Helper Name Role Phone Orion TAPIA, Kalia Primary Care Physician [phone] Encounter [facility] Date(s): 11/14/19 - 11/24/19 [facility] Adult [address] [place] [address] [facility] Attending Physician: Padmini Carvalho Admitting Physician: Padmini [...] Lopez rded 1Result Comment: [facility] 85721-024-87 Medications cyclobenzaprine 10 mg oral tablet See Instructions, # 30 tablet, 1 TABLET BY MOUTH DAILY, NEEDED FOR MUSCLE SPASM, [facility]/pharmacy #2339 Start Date: 04/28/19 Status: Ordered levothyroxine 0.05 mg oral tablet 1 tablet = 50 mcg, By Mouth, Daily, # 30 tablet, 6 Refills, Maintenance, 08/15/19 10:36:00 EST, Tablet, [facility]/pharmacy #2339, 158.4, cm, 08/15/19 9:53:00 EST, Height Start Date: 08/15/19 Status: Ordered Multivitamins with Folic Acid 1 mg oral tablet 1 tablet, By Mouth, Daily, # 30 tablet, 10 Refills, Maintenance, 08/15/19 10:35:00 EST, Tablet, [facility]/pharmacy #2339, 1 tablet By Mouth Daily, 158.4, cm, 08/15/19 9:53:00 EST, Height Start Date: 08/15/19 Status: Ordered Social History Social History Type Response Tobacco Other: quit age 27, previously 1/2 ppd x 1 yr. Sex
--- OUTSIDE RECORDS SUMMARY | 2024-03-18 12:40 | XMS_ITS | Continuity of Care Document ---
Author Organization [facility] Adult Address [address] [place] [address]- Care Team Providers Care Sales Representative Cash Registers Name Role Phone Orion TAPIA, Kalia Primary Care Physician Encounter [facility] Date(s): 02/15/20 - 02/22/20 [facility] Adult [address] [place] [address] [facility] Attending Physician: Not on Staff, Attending MD [...] rded 1Result Comment: [facility] [id number] Medications cyclobenzaprine 10 mg oral tablet See Instructions, # 30 tablet, 1 TABLET BY MOUTH DAILY, NEEDED FOR MUSCLE SPASM, [facility]/pharmacy #2339 Start Date: 04/28/19 Status: Ordered levothyroxine 75 mcg (0.075 mg) oral tablet 1 tablet = 75 mcg, By Mouth, Daily, # 30 tablet, 1 Refills, Maintenance, 02/14/20 18:12:00 EDT, Tablet Start Date: 02/14/20 Status: Ordered Multivitamins with Folic Acid 1 mg oral tablet 1 tablet, By Mouth, Daily, # 30 tablet, 10 Refills, Maintenance, 08/15/19 10:35:00 EST, Tablet, [facility]/pharmacy #8539, 1 tablet By Mouth Daily, 158.4, cm, 08/15/19 9:53:00 EST, Height Start Date: 08/15/19 Status: Ordered Problem List Condition Effective Dates Status Health Status Inform ant COVID-19 virus infection(Confirmed) Active Social History Social History Type Response Tobacco Other: quit age 27, previously 1/2 ppd x 1 yr. Sex
--- OUTSIDE RECORDS SUMMARY | 2024-03-18 12:40 | XMS_ITS | Continuity of Care Document ---
Author Organization [facility] Address [address] [place] [address]- Care Team Providers Care Tech Intern Name Role Phone Orion TAPIA, Kalia Primary Care Physician Encounter [facility] Date(s): 12/19/19 - 12/26/19 [facility] [address] [place] [id number] Encounter Diagnosis COVID-19(Discharge Diagnosis) - 12/19/19 Attending Physician: Not on Staff, Attending MD [...] (oldterm) 89 Lopez rded 1Result Comment: [facility] [id number] Medications codeine-guaifenesin 10 mg-100 mg/5 mL oral syrup 5 mL, By Mouth, Every 4 hours, PRN for cough, for 10 days, # 300 mL, 2 Refills, Acute 01/18/20 8:38:00 EDT, 12/19/19 8:38:00 EDT, Syrup, [id number], 5 mL By Mouth Every 4 hours,x10 days,PRN:for cough, 158.4, cm, 08/15/19 9:53:00 EST, Height Start Date: 12/19/19 Stop Date: 01/18/20 Status: Ordered cyclobenzaprine 10 mg oral tablet See Instructions, [...] Status Inform ant COVID-19 virus infection(Confirmed) Active Diagnosis Diagnosis Type Effective Dates Health Status Clini ulises Service Informant COVID-19 Discharge Diagnosis 12/19/19 Social History Social History Type Response Tobacco Other: quit age 27, previously 1/2 ppd x 1 yr. Sex
--- OUTSIDE RECORDS SUMMARY | 2024-03-18 12:40 | XMS_ITS | Continuity of Care Document ---
Author Organization [facility] Address [address] [place] [address]- Care Team Providers Care Grinding And Polishing Laborer Name Role Phone Kalia Sears MD Primary Care Physician [place] [facility] 09/23/23 - 10/23/23 [facility] [address] [place] [address]- Allergies, Adverse Reactions, Alerts No Known Medication Allergies Immunizations Given and Recorded Vaccine Date Status Refusal Reason influenza virus vaccine, inactivated 05/25/23 Give n influenza virus vaccine, inactivated 06/30/22 Lopez rded influenza virus vaccine, inactivated 06/26/21 Lopez rded influenza virus vaccine, inactivated 06/14/20 Lopez rded [id number] 12y+ bivalent booster vax 09/14/22 Recorded SARS-CoV-2 [...] 89 Lopez rded 1Result Comment: [facility] [id number] Medications amLODIPine 5 mg oral tablet 5 mg, 1, tablet, By Mouth, Daily, # 90 tablet, Refills 3, Tot. Refills 3, Maintenance, 10/05/23 8:49:00 EST, Route to Pharmacy Electronically, [facility][id number], Partial fill upon patient request ifthe prescription is for a schedule II opioid drug.,... Start Date: 10/05/23 Status: Ordered labetalol 200 mg oral tablet 1 tablet = 200 mg, By Mouth, 2 times a day, # 180 tablet, 1 Refills, Maintenance, 06/08/23 11:10:00EDT, Tablet, [facility] #[id number], Partial fill upon patient request if the prescription is for a schedule II opioid drug., 157, cm, 06/08/23 10:54:00 ED... Start Date: 06/08/23 Status: Ordered levothyroxine 75 mcg (0.075 mg) oral tablet 1 tablet, By Mouth, Daily, # 90 tablet, 1 Refills, Maintenance, 03/31/23 12:03:00 EDT, [facility]/pharmacy#[id number], 157, cm, 03/31/23 11:44:00 EDT, Height Start Date: 03/31/23 Status: Ordered LORazepam 0.5 mg oral tablet See Instructions, PRN as needed for anxiety, 1/2 tablet By Mouth Daily as needed for anxiety [employer] reviewed, # 5 tablet, 0 Refills, Maintenance, [...] Personnel Name: Jarad TAPIA, Priti Gamez Position: [facility] MH TEACHER MD Member Role: Lifetime MH TEACHER Physician Address: Address: [address] [place] [address]'s [facility] [place] [address]- Name: Kalia Sears MD Position: [facility] Physician - Primary Care Member Role: PCP Address: Address: [address] [place] [address] [address] [place] [address]- Care Team Related Persons Name: EUN HOLDEN Address: home [address] [address] [address]
--- OUTSIDE RECORDS SUMMARY | 2024-03-18 12:40 | XMS_ITS | Continuity of Care Document ---
Author Organization [facility] ter Address [address] [place] [id number]- Care Team Providers Care Ocular Pathologist Name Role Phone Kalia Sears MD Primary Care Phys[place] [facility] [place] 02/10/[address] [address] Discharge Disposition: A-D/C Home Attending Physician: Shannon Ontiveros MD Admitting Physician: Shannon Ontiveros MD Referring Physician: Shannon Ontiveros MD Allergies, Adverse Reactions, Alerts No Known Medication Allergies Immunizations Given and Recorded Vaccine Date Status Refusal Reason influenza virus vaccine, inactivated 05/25/23 Give n influenza virus vaccine, inactivated 06/30/22 Lopez rded influenza virus vaccine, inactivated 06/26/21 Lopez rded influenza virus vaccine, inactivated 06/14/20 Lopez rded [id number] 12y+ bivalent booster vax 09/14/22 Recorded SARS-CoV-2 [...] 89 Lopez rded 1Result Comment: [facility] [id number] Medications acetaminophen 325 mg oral tablet 975 [...] 10/05/23 8:49:00 EST, Route to Pharmacy Electronically, [facility]/pharmacy #[id number], Partial fill upon patient request ifthe prescription is for a schedule II opioid drug.,... Start Date: 10/05/23 Status: Ordered amLODIPine 5 mg oral tablet 5 mg, Tablet, By Mouth, 02/10/24 9:00:00 EDT Start Date: 02/10/24 Stop Date: 02/10/24 Status: Completed Colace sodium 100 mg oral capsule 100 mg, 1, capsule, By Mouth, 2 times a day, with plenty of water, # 20 capsule, Refills 0, Tot. Refills 0, Maintenance, 02/10/24 14:43:00 EDT, Route to Pharmacy Electronically, [facility], Partial fill upon patient request if the prescr... Start Date: 02/10/24 Status: Ordered labetalol 200 mg oral tablet 1 tablet, By Mouth, 2 times a day, # 180 tablet, 0 Refills, Maintenance, 01/04/24 15:38:00 EDT, [id number], 157, cm, 11/05/23 11:00:00 EDT, Height, 95.1, kg, 06/15/23 8:54:00 EDT, Dry Weight Start Date: 01/04/24 Status: Ordered labetalol 200 mg oral tablet 200 mg, Tablet, By Mouth, 02/10/24 9:00:00 EDT Start Date: 02/10/24 Stop Date: 02/10/24 Status: Completed levothyroxine 75 mcg (0.075 mg) oral tablet 1 tablet, By Mouth, Daily, # 90 tablet, 1 Refills, Maintenance, 11/27/23 10:53:00 EDT, [facility]/pharmacy#[id number], 157, cm, 11/05/23 11:00:00 EDT, Height, 95.1, kg, 06/15/23 8:54:00 EDT, Dry Weight Start Date: 11/27/23 Status: Ordered LORazepam 0.5 mg oral tablet See Instructions, PRN as needed for anxiety, 1/2 tablet By Mouth Daily as needed for anxiety [employer] reviewed, # 5 tablet, 0 Refills, Maintenance, 08/05/23 15:10:00 EST, Tablet, [facility]/pharmacy #[id number], Partial fill upon patient request if the prescription... Start Date: 08/05/23 Status: Ordered omeprazole 20 mg oral enteric coated capsule 1 capsule = 20 mg, By Mouth, 2 times a day, # 60 capsule, 0 Refills, Maintenance, 02/10/24 14:44:00EDT, EC Capsule, [facility], Partial fill upon patient request if the prescription isfor a schedule II opioid drug., 157.48, cm, ... Start Date: 02/10/24 Status: Ordered oxyCODONE 5 mg oral tablet 5 mg, Tablet, By Mouth, Every 4 hours, PRN for Pain , Moderate, Routine, 02/10/24 9:12:00 EDT Start Date: 02/10/24 Stop Date: 02/11/24 Status: Discontinued oxyCODONE 5 mg oral tablet 5 mg, 1, tablet, By Mouth, Every 6 hours, PRN, # 12 tablet, Refills 0, Tot. Refills 0, Maintenance,Pain , Moderate, 02/10/24 14:44:00 EDT, Route to Pharmacy Electronically, [facility],Partial fill upon patient request if [...] recent to oldest [Reference Range]: 1 2 3 Height 157.48 cm (02/09/24 4:03 PM) 157.48 cm (02/09/24 9:57 AM) Weight 96.2 kg (02/09/24 4:03 PM) 96.2 kg (02/09/24 9:57 AM) Oxygen Saturation [94-100 %] 100 % (02/10/24 11:00 AM) 100 % (02/10/24 7:00 AM) 98 % (02/10/24 4:11 AM) Pulse Rate [55-90 bpm] 78 bpm (02/10/24 11:00 AM) 88 bpm (02/10/24 8:09 AM) 88 bpm (02/10/24 7:00 AM) Body Mass Index [18.5-24.99 kg/m2] 38.79 kg/m2 *>HHI* (02/09/24 4:03 PM) 38.79 kg/m2 *>HHI* (02/09/24 9:57 AM) Blood Pressure [90-138/55-84 mm Hg] 129/73mm Hg (02/10/24 11:00 AM) 125/70mm Hg (02/10/24 8:09 AM) 125/70mm Hg (02/10/24 8:09 AM) Respiratory Rate [16-30 br/min] 16 br/min (02/10/24 2:58 PM) 16 br/min (02/10/24 11:00 AM) 16 br/min (02/10/24 10:51 AM) Temperature [96.8-100.4 DegF] 98.2 DegF (02/10/24 11:00 AM) 98.6 DegF (02/10/24 7:00 AM) 98.3 DegF (02/10/24 4:11 AM) Liters per Minute 6 L/min (02/09/24 1:15 PM) 6 L/min (02/09/24 1:00 PM) Mode of Delivery (Oxygen) Room air (02/10/24 11:00 AM) Room air (02/10/24 7:00 AM) Room air (02/10/24 4:11 AM) Blood pressure sites Arm, right (02/10/24 11:00 AM) Arm, right (02/10/24 7:00 AM) Arm, right (02/10/24 4:11 AM) Temperature Route Oral (02/10/24 11:00 AM) Oral (02/10/24 7:00 AM) Oral (02/10/24 4:11 AM) Dry Weight 96.2 kg (02/09/24 4:03 PM) 96.2 kg (02/09/24 9:57 AM) Weight Obtained Via Standing scale (02/09/24 9:57 AM) Dry Weight Obtained Via Standing scale (02/09/24 9:57 AM) Social History Social History Type Response Tobacco Other: quit age 27, previously 1/2 ppd x 1 yr. Sex History and physical note * Event Display: History and Physical Hospital Authored Date: Hospital Progress note * Tiffanie Dhaliwal RN: VERIFY, PERFORM, SIGN Event Display: Progress Note Hospital Authored Date: Patient: TORO HOLDEN Age: 33 years Sex: Female : 1990 Associated Diagnoses: None Author: Brown RN, Tiffanie Findings Problem Related to Alteration in Gastrointestinal : Alteration in Gastrointestinal Func/new 02/10/2024 9:00 EDT Alteration in GI status Related to Other: lap sleeve Goals & Outcomes, Gastrointestinal Establish a regular pattern of elimination for pt, Nutritional intake is adequate for metabolic needs, Pt will achieve normal/improved fluid balance, Pt will have a bowel movement prior to discharge, Pt will maintain adequate GI function appropriate for pt, Ptwill maintain normal elimination patterns, Pt will resume/maintain adequate hemodynamic status, Pt w ill tolerate age appropriate diet prior to discharge Interventions, Gastrointestinal Assess/monitor abdomen for distention, tenderness, Assess/monitor abdominal girth & bowel function, Assess/monitor bowel pattern, bowel sounds, flatus, Assess/monitor number of bowel movements, Assess/monitor color, quantity, quality, consistency of stoo, Assess/monitor pt for nausea, vomiting, Assess/monitor effects of re-hydration, Assess/monitor intake &output, Assess if pt tolerating diet, DVT prophylaxis as ordered, Teach/encourage deep breath &cough exercises, Teach/encourage use of incentive spirometer BH Goals/Interventions, Gastrointestinal Yes Gastrointestinal, Problem Start 02/09/2024 17:42 Reviewed plan with, Gastrointestinal Patient Patient Progression, Gastrointestinal Pt progressing according to plan . Evaluation Patient alert and oriented x 4, reporting moderate pain this morning. Pain regimen reviewed with patient. Lungs clear on room air, patient partcipitating in incentive spirometer use. Positive pulses,no edema. Abdomen soft, tender to palpation with hypoactive bowel sounds. Voiding clear yellow urine in bathroom. Ambulating with standby assistance with steady gait. Skin intact ex for 5 lap sites with bandaids. Bed in lowest locked position with call harris in reach. * Soren TAPIA, Lisa Ely: PERFORM Event Display: Progress Note Hospital Authored Date: [id number] Patient: ??TORO HOLDEN ? Age:??33 Years?Sex:??Female?:??1990?? Subjective Pain controlled. Reports 3 episodes of small-volume emesis yesterday after she tried eating some ice. Patient described the vomit as clear with tinge of blood . No other episodes of vomiting. Has not tried consuming any liquids yet.??Urinating. Ambulating. Passing flatus. Denies current nausea,??any BMs, fever, chills, chest pain, SOB. Physical Exam Vitals & Measurements T:??98.6?F?? HR:??88??(Peripheral)?? RR:??16?? BP:??125/70?? SpO2:??100%?? HT:??157.48??cm?? WT:??96.2??kg?? BMI:??38.79?? General - NAD, alert and awake Cardiac - RRR Respiratory -?? non labored?? Abdomen - soft, obese, tenderness norah-incisions with band-aids c/d/i over lap port sites Neuro - alert and oriented x3? Assessment/Plan ?? Patient is a 33 year old female??s/p lap sleeve gastrectomy with Dr. Ontiveros on 02/09/24. Tolerated the procedure well without complications. Some leukocytosis, likely reactive. Emesis is within expectations post lap sleeve gastrectomy. ?? PLAN: - Stage 2 diet - Nutrition consult appreciated - IVFs until discharge - Pain and nausea??control as needed - PPI - SCDs, LMWH, Ambulate - Discharge later today as long as she tolerates her advanced diet ?? Case discussed with Dr. Tam. Questions, [place] [phone] ?? Note prepared with assistance of Marcelo Martins, MS3. Intake and Output Intake and Output Results?? This visit (24 hour periods starting at 07:00 EDT)? 02/10/24 *?? 02/09/24?? 02/08/24?? Total Summary?Intake mL?? --?? 2,325?? --?Output mL?? --?? 3,750?? --?Fluid Balance ?? --?? -1,425?? --?? Intake (2)?Dextrose 5% in Lactated Ringers Inject 1,000 mL mL?? --?? 2,250?? --?Oral Fluids mL?? --?? 75?? --?Total?? --?? 2,325?? --?? Output (1)?Urine Voided mL?? --?? 3,750?? --?Total?? --?? 3,750?? --?? Counts (2)?Oral Fluids mL?? --?? 75?? --?Urine Voided mL?? --?? 3,750?? --? * This column has not completed the indicated time period.?? Labs Last 24 Hours BLOOD COUNT & DIFF ? Event Name?? Event Result?? Date/Time?? WBC 17.1 k/mm3??High 02/10/24 00:53:00 RBC 3.73 m/mm3??Low 02/10/24 00:53:00 Hgb 11.4 Gm/dL??Low 02/10/24 00:53:00 Hct 33.9 %??Low 02/10/24 00:53:00 MCV 90.9 femtoliters 02/10/24 00:53:00 MCH 30.6 pg 02/10/24 00:53:00 MCHC 33.6 g/dL 02/10/24 00:53:00 Platelet Count 320 k/mm3 02/10/24 00:53:00 MPV 8.9 femtoliters??Low 02/10/24 00:53:00 Nucleated RBC (Automated) 0 #/100 WBC'S 02/10/24 00:53:00 ? CHEM GENERAL ? Event Name?? Event Result?? Date/Time?? Sodium 137 mmol/L 02/10/24 00:53:00 Chloride 101 mmol/L 02/10/24 00:53:00 Bicarbonate Level 22 mmol/L 02/10/24 00:53:00 Anion Gap 14 02/10/24 00:53:00 Glucose Level 164 mg/dL??High 02/10/24 00:53:00 BUN 7 mg/dL 02/10/24 00:53:00 Creatinine-Blood 0.56 mg/dL 02/10/24 00:53:00 Calcium, Ionized pH Corrected 1.23 mmol/L 02/10/24 00:53:00 Phosphorus 3 mg/dL 02/10/24 00:53:00 Magnesium 1.9 mg/dL 02/10/24 00:53:00 ? * Danuta Morales: PERFORM Event Display: Progress Note Hospital Authored Date: Patient was doing well this PM and tolerating her protein shakes with adequate PO intake. She was discharged to home with instructions and Rx. Dr. Tam saw and cleared patient for discharge as well. * Johanna Morejon RN: PERFORM, SIGN, VERIFY Event Display: Progress Note Hospital Authored Date: Patient: TORO HOLDEN Age: 33 years Sex: Female : 1990 Associated Diagnoses: None Author: Johanna Morejon RN Findings Problem Related to Alteration in Gastrointestinal : Alteration in Gastrointestinal Func/new 02/09/2024 22:59 EDT Alteration in GI status Related to Other: lap sleeve Goals & Outcomes, Gastrointestinal Establish a regular pattern of elimination for pt, Nutritional intake is adequate for metabolic needs, Pt will achieve normal/improved fluid balance, Pt will have a bowel movement prior to discharge, Pt will maintain adequate GI function appropriate for pt, Ptwill maintain normal elimination patterns, Pt will resume/maintain adequate hemodynamic status, Pt w ill tolerate age appropriate diet prior to discharge Interventions, Gastrointestinal Assess/monitor abdomen for distention, tenderness, Assess/monitor bowel pattern, bowel sounds, flatus, Assess/monitor number of bowel movements, Assess/monitor pt for nausea, vomiting, Assess/monitor intake & output, Assess if pt tolerating diet, DVT prophylaxis as ordered, Teach Pt/caregiver re: nutritional intake & dietary restrict, Teach/encourage deep breath & cough exercises, Teach/encourage use of incentive spirometer Goals/Interventions, Gastrointestinal Yes Gastrointestinal, Problem Start 02/09/2024 17:42 Reviewed plan with, Gastrointestinal Patient Patient Progression, Gastrointestinal Pt progressing according to plan . Evaluation P: Alteration in Gastrointestinal function I: See nursing care plan for interventions E: Patient is alert and oriented xs3, Vss, Lungs clear, denies sob or chest pain, instructed on theuse of incentive spirometer and is able to reach 500.Pt encouraged to use incentive, Abd soft, tender, hypo bs. nauseated with dry heaves, medicated with Benadryl with good effect, Abd with 5 lap sites with bandages dry and intact, tolerating chips of ice, voiding clear yellow urine, Iv fluids as ordered, Ambulated around unit with steady gait, Dilaudid and Toradol with 5/10 pain control. Bed in low and locked position, call harris in reach, No further needs at this time, Note * Tiffanie Dhaliwal RN: PERFORM Event Display: Discharge/Transfer Note Hospital Authored Date: [id number] Nursing Discharge Note Entered On: 02/10/2024 15:09 EDT Performed On: 02/10/2024 15:09 EDT by Tiffanie Dhaliwal RN Nursing Discharge Note 2 Discharge Time : 02/10/2024 15:20 EDT Tiffanie Dhaliwal RN - 02/10/2024 15:27 EDT Discharge Level of Care at Discharge : Home/Fci/[facility]oster Care Patient Left Unit Via : Wheelchair Patient Accompanied Off Unit with : Significant other DC Instructions Provided & Signed by Pt : Yes Patient Understands D/C Instructions : Yes Patient Instructions Discharge Signed : Yes Discharge Comments : Verbalizes understanding of all discharge instructions Did Pt have Specialty Bed or Wound Vac : No Tiffanie Dhaliwal RN - 02/10/2024 15:09 EDT * Tiffanie Dhaliwal RN: PERFORM Event Display: Patient Education/Instruction Authored Date: [id number] Inpatient Adult Discharge Instructions. [address] [address] Name: TORO HOLDEN : 1990?? Visit: 02/09/2024 08:48?? Current Date: 02/10/2024 14:53 ?? Account: [id number]?? Inpatient Adult Discharge Instructions We would like to thank you for allowing us to assist you with your healthcare needs. The following includes patient education materials and information regarding your injury/illness. Our entire staffstrives to provide an excellent experience for our patients and their families. PLEASE ENSURE YOU FOLLOW-UP PER THE INSTRUCTIONS BELOW! ?? YOUR OPINION IS IMPORTANT TO US! Please complete the survey you may receive by mail or email. Your feedback will be used to make improvements to the healthcare experiences of our patients and their families. Surveys are administered by [employer] ?? If further treatment with your primary care physician or another doctor is recommended, it is important for you to keep the appointment. Call your primary care physician or return to the Emergency Department immediately if your condition worsens, fails to improve, or new symptoms develop. If you need to find a doctor, you can call [facility] [employer] for a referral at [phone] or toll free at [phone]) or log in to [email or web address].. ?? [facility], in keeping with [facility] guidance, no longer requires face masks for staff, patientsor visitors in most situations. Similiar to time spent indoors at other locations, there is the chance that you were exposed to repiratory viruses during your time with us (such as flu or COVID-19). If you develop symptoms concerning for a viral respiratory infection, please seek testing (and treatment if indicated) from your medical provider or home test kit. ?? You can view and manage your care through the patient portal or by using a health care christiano of your choosing. [employer] is a website that allows you to securely view your medical information including your hospital discharge summary, office visit summaries, medications and follow-up visits. You can also request appointments, renew medications, and request access to your medical information using a health care christiano of your choosing, or just ask a question. You can enroll at [email or web address] or register during your next office visit. You have been discharged from [facility], Patient Care Unit: SW6??. If you have any questions regarding these instructions, including results of studies pending, afteryou leave, please call us and we will be happy to assist you 08/03. [facility] Your Care Team Attending Physician Shannon Ontiveros MD?? Consulting Providers Shannon Ontiveros MD?? Discharging Providers Danuta Morales Your Diagnosis Bariatric surgery status Tests Performed Below is a partial list of the tests performed during your hospitalization. You may have had other tests and procedures not included in this list. Please discuss all test results with your provider. BUN CBC w/ Differential Creatinine Electrolytes Glucose Level Ionized Calcium Magnesium Level Phosphorus Level Pathology Tissue Request ()?? Primary Care Provider Kalia Sears MD? Advance Directive Health Care Proxy on File Yes - Health Care Proxy Caregiver Relationship: Spouse Name of Caregiver: eun Patient has a Designated Caregiver: Yes Discharge Vitals Temperature: 98.2 DegF Height: 157.48 cm Pulse Rate: 78 bpm Weight: 96.2 kg Respiratory Rate: 16 br/min Body Mass Index:??38.79 kg/m2??Critical Systolic Blood Pressure: 129 mm Hg Body surface area: 2.05 Diastolic Blood Pressure: 73 mm Hg ?? Oxygen Saturation: 100 % ?? Studies Pending All studies ordered during this hospital stay have been completed unless listed below. Please discuss all pending results with your provider listed above in these instructions. ?? Pathology Tissue Request ()?? What to do next Instructions From Your Doctor Discharge Instructions: Bariatric Surgery ?? [facility] General Surgery Stephan Tam M.D. Rm Campbell M.D. Shannon Ontiveros M.D.? YOUR ONE WEEK FOLLOW-UP NURSE VISIT:?Keep appt scheduled YOUR 2-WEEK POST-OP SURGEON APPT.:?Keep appt scheduled ? ONCE YOU RETURN HOME AFTER YOUR SURGERY? Diet: 1.??Be sure to follow the post-op diet the brush clearer surveying has prescribed for you, to the letter. ??Ifyou have misplaced your?Dietary Guidelines?booklet (from Nutrition), request a copy of it before you leave the hospital. 2.??It is absolutely crucial that you do not stray from your diet, not even a little bit, especially in the liquid phase. ??Cheating with even a little bite of solid food during this time can not only make you feel ill, but could actually cause an infection or ulceration of your internal incisions.??The same goes for drinking alcohol or smoking cigarettes. 3.??Drink ALL of the protein you are recommended daily, and ALL of the fluids you are allowed to drink daily. ??This may be a challenge- remember to go slowly. ??If you are having more than a little difficulty, call your brush clearer surveying. 4.??Drinking/eating too much or too quickly, and eating or drinking sugary foods can now cause you to have?dumping syndrome?? , signs of which can be nausea, vomiting, diarrhea, abdominal cramping, rapid pulse, flushing, sweating and the shakes. ??This can be largely avoided by following all ofyour brush clearer surveying???s post op diet recommendations, and if it does happen to you, you can get some r elief by lying down for at least 30 minutes. ? Activity: ?? 1.??Avoid any activity that causes discomfort. ??Normal daily activities are safe. ??Take time to rest frequently throughout the day. ??Though you may look fine on the outside, you still had major surgery, and it takes several weeks to a few months to feel normal again, depending on your body???s own unique response to surgery. 2.??Avoid straining, vigorous sports or lifting anything more than 5-10 pounds for 4 weeks, or as directed by your surgeon. 3.??After your first day home, you may drive whenever comfortable, but do not go alone the first time and do not drive after taking pain medications. 4.??You may usually return to work between 4 to 8 weeks, depending on what you do for a living, andas long as you are feeling up to it. 5.??Get up from seated or lying positions slowly and change positions carefully. ??If you have to cough or sneeze (and have enough warning time) hold a pillow firmly to your most tender incision areas while you are doing this. ?? Dressings and Wound care: 1.?You may remove your bandages or bandaids (if you have one in place) starting 48 hours after the surgery, and shower (but no soaking in a tub, pool, or hot tub.) ??If you have steri-strips (little white strips of tape), maeve, or?glue?holding your incision, it???s okay if the area happens to get wet, but be sure to pat dry with a clean towel as soon as you get out. ?? 2.?It is very important to keep your incision area clean and dry. ??You may apply fresh bandaidsto your incision areas if you are having any oozing, or for your own comfort, but try to leave the areas uncovered as soon as you can, and whenever you can. Do not apply any ointment or lotion to your incisions while they are still healing (unless one was prescribed by your surgeon.)?? 3.?If you have maeve, these will be removed about a week after your surgery by the nurse, at your one week follow up visit. ??Steri-strips will start curling up and drying out over several days.??They may start to drop off by themselves, and this is all right. ??Glue will dissolve by itself over several days to a few weeks. ?? Medications: 1.?Pain: ??You will be given a prescription for pain at the time of discharge, usually??Oxycodone.??Follow the instructions for taking these medications. ??If the pain you are experiencing is mild, extra-strength Tylenol products [id number] will likely take care of it. ? 2.?Stool softener: ??The effects of anesthesia, narcotic pain medication, low activity levels, and the liquid diet can all combine to cause constipation. ??You will be prescribed??Colace 100 mg orits generic form??DOCUSATE tablet by mouth twice a day as directed. This should be taken until you no longer need the narcotic pain pills, and until you have resumed regular bowel movements. If you have chronic diarrhea or inflammatory bowel disease, you should not take stool softener unless you are constipated. ?? 3.?Proton Pump Inhibitor (PPI): ??You will be prescribed a PPI when you leave the hospital, usually Prilosec (the generic form is Omeprazole) 20 mg tablets or capsules, to be taken twice daily. ??You will need to take these long-term, usually for at least one year, often for several years, and sometimes for the rest of your life. ??This type of medication helps reduce the amount of stomach acid you produce, to help protect your new, smaller stomach from damage. ?? 4.?Home Medications: The doctor who discharges you will tell you which medications to resume. ??Once you get home, you will need to contact your primary care physician and other prescribers to letthem know of any changes in your medications or dosages. ? 5.?Special Medication Considerations: ??DIABETIC PATIENTS: ??Be sure to check your blood sugar even more often than normal in the first weeks following your surgery, and be alert for dizziness, sweating, paleness, shakiness, or other symptoms of low blood sugar (which you would treat immediatelyas you normally would, and call your physician or seek emergency medical treatment if necessary.) ??With rapid weight loss and the dietary changes, it may be necessary for your doctor to reduce, change, or discontinue your diabetic medications, even in the first week post-op. ??PATIENTS WITH HIGH BLOOD PRESSURE: ??Be especially sure to notify your prescribing physician of your surgery and the dosage of medication you were sent home on, whether or not it has changed. Be alert for attacks of dizziness or sudden weakness and fatigue: ??If this is happening, do not take your medication, and call your prescribing doctor immediately. ??If the dizziness is accompanied by shortness of breath, severe headache, chest pain, or any other life-threatening symptoms, seek emergency medical treatment. ?? 6.?Antibiotics: If one is prescribed for you at discharge, be sure to take it until there are nomore pills left.? You may experience the following: ?? 1.??Some oozing of blood to the bandage in the first 24 hours. 2.??Fatigue, especially in the first 24 hours. 3.??Nausea or vomiting can occur in the first 24 hours following any surgery, and should be resolved by the time you are discharged home. ??If it starts up (or comes back) after you???ve returned home, take nothing by mouth for 2 hours, then try sips of water, and if this goes well, sips of proteinshake. ??If still having trouble, call us. 4.??Pain or discomfort, which will lessen as time passes. ??Since your surgery was done laparoscopically, you could have abdominal, shoulder, or collarbone pains. ??These will disappear gradually over several days. ??Frequent walking helps. 5.??Constipation is a possibility, especially if narcotic pain relievers are needed. ??Take your stool softener as directed. ??Daily exercise (walking) and staying hydrated are also helpful. It may take several days to a week after your surgery to resume having bowel movements. ??If you become uncomfortable after 3 to 4 days, or if you have not had a bowel movement after 6 days, continue to take your stool softeners, and add your [id number] laxative of choice. ??A good option is Miralax, or its generic equivalent, a tasteless fine powder which can be added to water, juice, or your protein shake nightly. ? Call the office or answering service immediately if any of the following occur: ?? 1.??Severe pain not relieved by pain medication. 2.??Uncontrollable bleeding/ bleeding that saturates your dressing. 3.??Any bright redness, red streaking, or swelling around your incision, or any bad odor, or pus-like drainage coming from an incision. 4.??Temperature more than??101 F (38 C). 5.??Repeated nausea and vomiting or inability to tolerate or hold down fluids. ?? 6.??Constipation accompanied by nausea, inability to pass gas, or a hard, swollen belly. 7.??Inability to urinate. ?? Problems or Questions: ?? You can call the answering service at . ?? 1.??If you cannot reach our office and your problem truly requires emergency attention, go to??[facility] Emergency Room??or the nearest emergency room. ?? Orders? 02/10/24 14:46:00 EDT?? Prescriptions??, ??02/10/24 14:46:00 EDT?? Scheduled Follow-Up Appointments Wednesday 9:10 AM EDT ?? With: Shannon Ontiveros MD Where: [facility] General Surgery [address] [place] [address] Drive [address] [place] [address]- Status: Pending Wednesday 3:30 PM EDT ?? With: Krista Wiley NP Where: [facility] [address] [place] [address]- Status: Pending Wednesday 10:30 AM EDT ?? With: Knee Rosario SIDDIQUI Where: [address] [place] [address]- Status: Pending You Need to Schedule the Following Appointments Follow Up with??Rama TAPIA, Shannon When:??Within 1 to 2 weeks Why: Please call to make an appointment Where: [address] [place] [address]- Discharge Medications TORO HOLDEN :1990 Visit Date:02/09/2024 Medications: Please continue your medications until treatment is completed or stopped by your provider. Medications not listed below should be discontinued. Discuss any questions related to medications with your provider. What How Much When Instructions Next Dose New Acetaminophen (acetaminophen 325 mg oral tablet) 975 Milligram Oral Every 6 hours 4 pm 02/09 New Docusate (Colace sodium 100 mg oral capsule) 1 capsule Oral Twice a day with plenty of water ?? Pickup at [facility] 3 02/09 9 pm New Omeprazole (omeprazole 20 mg oral enteric coated capsule) 1 capsule Oral Twice a day Pickup at [facility] 3 02/09 9 pm New Oxycodone (oxyCODONE 5 mg oral tablet) 1 tab(s) Oral Every 6 hours as needed for Pain , Moderate Pickup at [facility] 3 as needed New Remove Patch (Remove Patch) 1 Each Topically Every 72 hours remove Wednesday Unchanged Amlodipine (amLODIPine 5 mg oral tablet) 1 tab(s) Oral Daily 02/10 9 am Unchanged Labetalol (labetalol 200 mg oral tablet) 1 tab(s) Oral Twice a day 02/09 9 pm Unchanged Levothyroxine (levothyroxine 75 mcg (0.075 mg) oral tablet) 1 tab(s) Oral Daily 02/10 Unchanged Lorazepam (LORazepam 0.5 mg oral tablet) See instructions 1/ 2 tablet By Mouth Daily as needed for anxiety ?? PRINTED CIRCUIT BOARDS PLASMA ETCHER reviewed, As needed for as needed for anxiety ?? Pharmacy Information [facility] 3: [address] [place], [place] [id number] [phone] Prescription Given During Visit Docusate (Colace sodium 100 mg oral capsule) - 1 capsule = 100 mg, By Mouth, 2 times a day, # 20 capsule, 0 Refills, with plenty of water, [facility] [address] [address] [phone]?? Omeprazole (omeprazole 20 mg oral enteric coated capsule) - 1 capsule = 20 mg, By Mouth, 2 times a day, # 60 capsule, 0 Refills, [facility] [address] [id number]?? Oxycodone (oxyCODONE 5 mg oral tablet) - 1 tablet = 5 mg, By Mouth, Every 6 hours, # 12 tablet, 0 Refills, [address] [address] [id number]?? Laboratory Results Below is a partial list of the most recent Laboratory test results done prior to this discharge. You may have had other tests and procedures not included in this list. Please discuss all test resultswith your provider. Est Creatinine Clearance - 111.95 mL/min (02/10/2024) BUN (02/10/2024) ???BUN - 7 mg/dL CBC w/ Differential (02/10/2024) ???WBC - 17.1 k/mm3???RBC - 3.73 m/mm3???Hgb - 11.4 Gm/dL???Hct - 33.9 %???MCV - 90.9 femtoliters???MCH - 30.6 pg???MCHC - 33.6 g/dL???Platelet Count - 320 k/mm3???RDW-SD - 41.8 femtoliters???MPV - 8.9 femtoliters???Nucleated RBC (Automated) - 0.0 #/100 WBC'S???Abs. NRBC - 0.0 k/mm3???Abs. Neut - 14.6 k/mm3???Abs. Lymph - 1.5 k/mm3???Abs. [place] - 0.8 k/mm3???Abs. Eo - 0.0 k/mm3???Abs. Baso - 0.0 k/mm3???Neut % - 85.5 %???Lymph % - 9.0 %???[place] % - 4.7 %???Eos % - 0.0 %???Baso % - 0.1 %???Imm Gran - 0.7 %???Abs. Imm Gran - 0.1 k/mm3 Creatinine (02/10/2024) ???Creatinine-Blood - 0.56 mg/dL???Estimated GFR Creatinine - 123 ML/MIN/1.73 M2 Electrolytes (02/10/2024) ???Sodium - 137 mmol/L???Potassium - 4.2 mmol/L???Chloride - 101 mmol/L???Bicarbonate Level - 22 mmol/L???Anion Gap - 14 Glucose Level (02/10/2024) ???Glucose Level - 164 mg/dL Ionized Calcium (02/10/2024) ???Calcium, Ionized pH Corrected - 1.23 mmol/L Magnesium Level (02/10/2024) ???Magnesium - 1.9 mg/dL Phosphorus Level (02/10/2024) ???Phosphorus - 3.0 mg/dL Allergies (NKA means No Known Allergies) No Known Medication Allergies Problems Active Problems??(4) Bariatric surgery status?? HTN (hypertension)?? Hypothyroidism?? Severe obesity (BMI 35.0-39.9) with comorbidity?? Education Materials Below is the list of Educational Leaflet Providered with your Discharge Instructions. Valuables and Belongings I fully understand and agree that [facility] accepts no responsibility for all my personal property including clothing, toilet articles, radios, jewelry, dentures, hearing aids, rings, money, or any other property that is in my possession or is brought to me after admission. I understand certain valuables may be placed in a hospital safe for a short period of time. I understand that the hospital is not liable for loss or damage due to accident, fire, or other natural occurrence while said property is in the safe. I accept full responsibility for any personal property that I keep with me, and will not hold the hospital responsible in case of loss or disappearance. I acknowledge that i have been encouraged to send valuables and belongings home. ?? Review of Valuable and Belonging List: With patient Disposition of Belongings: Valuables Locked Possessions released to: purse taken by Date for Pt to Sign Valuables/Belongings: 02/09/24 16:03:00 ?? Other Discharge Information ? Pulmonary Rehab Status?? Pulmonary Rehab Discharge Status?? Respiratory Rate: 16 br/min ? Common Emergency Awareness Tips IS IT A STROKE? Act FAST and Check for these signs: FACE Does the face look uneven? ARM Does one arm drift down? SPEECH Does their speech sound strange? TIME Call at any sign of stroke ?? Heart Attack Signs Chest discomfort: Most heart attacks involve discomfort in the center of the chest and lasts more than a few minutes, or goes away and comes back. It can feel like uncomfortable pressure, squeezing, fullness or pain. Discomfort in upper body: Symptoms can include pain or discomfort in one or both arms, back, neck, jaw or stomach. Shortness of breath: With or without discomfort. Other signs: Breaking out in a cold sweat, nausea, or lightheaded. Remember, MINUTES DO MATTER. If you experience any of these heart attack warning signs, call to get immediate medical attention! ?? Smoking can increase your chances of developing chronic health problems and can cause harmful effects to other family members in your house. If you smoke, you are strongly encouraged to quit. Please call [facility] [employer] at [phone] or [phone]-[employer] ([phone]) or log in to [email or web address] for referrals to smoking cessation programs. ?? 003 Suicide & Crisis Lifeline is available 08/03 if you or someone you know needs to find a reason to keep living. By calling 383 you'll be connected to a skilled, trained counselor at a crisis center in your area. INPATIENT DISCHARGE INSTRUCTIONS SIGNATURE PAGE TORO HOLDEN Location:[facility] Registration Date and Time:02/09/2024 08:48 EDT Primary Care Physician: Kalia Sears MD, Attending Physician: Rama TAPIA, Shannon, I TORO HOLDEN, have received the above patient education materials/instructions and have verbalized understanding. If ambulance or transport services are being used I further acknowledge being given a choice of service. ?? If you need to contact me, please call me at this number: . Patient/Mulling Machine Operator Name: Patient/Mulling Machine Operator Signature: Relationship to Patient: Witness Name/Signature: Date: Patient Care team information Care Team Personnel Name: Jarad TAPIA, Priti Gamez Position: [facility] MANAGEMENT SME MD Member Role: [employer] MANAGEMENT SME Physician Address: Address: [address] [place] [address]'s Health Screw [place] [address]- Name: Reina Suggs RN Position: S RN Member Role: Primary Care Nurse Name: Johanna Morejon RN Position: S RN Member Role: Primary Care Nurse Name: Kalia Sears MD Position: [facility] Physician - Primary Care Member Role: PCP Address: Address: [address] [facility] 3rd [place] [address]- Care Team Related Persons Name: EUN HOLDEN Address: [address], [place] [address]
--- OUTSIDE RECORDS SUMMARY | 2024-03-18 12:40 | XMS_ITS | Continuity of Care Document ---
Author Organization [facility] Adult Address [address] [place] [address]- Care Team Providers Care Transitions Rn Care Coordinator Name Role Phone Orion TAPIA, Kalia Primary Care Physician Encounter [facility] Date(s): 09/02/22 - 10/02/22 [facility] Adult [address] [place] [address]- Allergies, Adverse Reactions, Alerts No Known Medication [...] Lopez rded 1Result Comment: [facility] 29641-299-60 Medications amLODIPine 10 mg oral tablet 10 mg, 1, tablet, By Mouth, Daily, # 90 tablet, Refills 3, Tot. Refills 3, Maintenance, 09/10/22 14:46:00 EST, Route to Pharmacy Electronically, [facility]/pharmacy #[id number], Partial fill upon patient request if the prescription is for a schedule II opioid drug... 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 [place] [address]- [place] Name: Kalia Sears MD Position: [facility] Primary Care Physician Member Role: PCP Address: Address: [address] [facility] 3rd [place] [address]- [place] Care Team Related Persons Name: EUN HOLDEN Address: home [address] [facility] [address] [address]
--- OUTSIDE RECORDS SUMMARY | 2024-03-18 12:40 | XMS_ITS | Continuity of Care Document ---
Author Organization [facility] Adult Address [address] [place] [address]- Care Team Providers Care Building Official Name Role Phone Orion TAPIA, Kalia Primary Care Physician Encounter [facility] Date(s): 01/04/20 - 02/03/20 [facility] Adult [address] [place] [address]- [facility] Attending Physician: Padmini Carvalho Admitting Physician: Padmini [...] Vaccine (oldterm) 89 Lopez rded 1Result Comment: [facility] 92131-012-77 Medications cyclobenzaprine 10 mg oral tablet See Instructions, # 30 tablet, 1 TABLET BY MOUTH DAILY, NEEDED FOR MUSCLE SPASM, [facility]/pharmacy #[id number] Start Date: 04/28/19 Status: Ordered levothyroxine 0.05 mg oral tablet 1 tablet = 50 mcg, By Mouth, Daily, # 30 tablet, 6 Refills, Maintenance, 08/15/19 10:36:00 EST, Tablet, [facility]/pharmacy #2339, 158.4, cm, 08/15/19 9:53:00 EST, Height Start Date: 08/15/19 Status: Ordered Multivitamins with Folic Acid 1 mg oral tablet 1 tablet, By Mouth, Daily, # 30 tablet, 10 Refills, Maintenance, 08/15/19 10:35:00 EST, Tablet, [facility]/pharmacy #2339, 1 tablet By Mouth Daily, 158.4, cm, 08/15/19 9:53:00 EST, Height Start Date: 08/15/19 Status: Ordered Problem List Condition Effective Dates Status Health Status Inform ant COVID-19 virus infection(Confirmed) Active Social History Social History Type Response Tobacco Other: quit age 27, previously 1/2 ppd x 1 yr. Sex
--- OUTSIDE RECORDS SUMMARY | 2024-03-18 12:40 | XMS_ITS | Continuity of Care Document ---
Author Organization [facility] Adult Address [address] [place] [address]- Care Team Providers Care Dentistry Professor Name Role Phone Orion TAPIA, Kalia Primary Care Physician [phone] Encounter [facility] Date(s): 04/08/21 - 05/08/21 [facility] [address] [place] [address] Allergies, Adverse Reactions, Alerts No Known [...] Lopez rded 1Result Comment: [facility] [id number] Medications amLODIPine 5 mg oral tablet 5 mg, 1, tablet, By Mouth, Daily, # 90 tablet, Refills 3, Tot. Refills 3, Maintenance, 11/04/20 13:56:00 EDT, Route to Pharmacy Electronically, [facility]/pharmacy #[id number], Partial fill upon patient request if the prescription is for a schedule II opioid drug.... Start Date: 11/04/20 Status: Ordered levothyroxine 75 mcg (0.075 mg) oral tablet 1 tablet = 75 mcg, By Mouth, Daily, # 90 tablet, 1 Refills, Maintenance, 12/06/20 10:08:00 EDT, Tablet, [facility]/pharmacy #[id number], Partial fill upon patient request if the prescription is for a schedule II opioid drug., 158.4, cm, 11/04/20 8:59:00 EDT, Height Start Date: 12/06/20 Stop Date: 06/04/21 Status: Ordered LORazepam 0.5 mg oral tablet 1 tablet = 0.5 mg, By Mouth, Daily, PRN as needed for anxiety, dietary services manager reviewed, # 7 tablet, 0 Refills,Maintenance, 12/12/20 [...]
--- OUTSIDE RECORDS SUMMARY | 2024-03-18 12:40 | XMS_ITS | Continuity of Care Document ---
Author Organization [facility] Address [address] [place] [address] [address] [place] [address]- Care Team Providers Care Metal Pourer Name Role Phone Orion TAPIA, Kalia Primary Care Physician Encounter [facility] Date(s): 12/16/23 - 12/23/[address] [place] [address]- Attending Physician: Knee RD, Rosario Allergies, Adverse Reactions, Alerts No Known Medication Allergies Immunizations Given and Recorded Vaccine Date Status Refusal Reason influenza virus vaccine, inactivated 05/25/23 Give n influenza virus vaccine, inactivated 06/30/22 Lopez rded influenza virus vaccine, inactivated 06/26/21 Lopez rded influenza virus vaccine, inactivated 06/14/20 Lopez rded [id number] 12y+ bivalent booster vax 09/14/22 Recorded SARS-CoV-2 [...] (oldterm) 89 Lopez rded 1Result Comment: [facility] 58782-754-26 Medications amLODIPine 5 mg oral tablet 5 mg, 1, tablet, By Mouth, Daily, # 90 tablet, Refills 3, Tot. Refills 3, Maintenance, 10/05/23 8:49:00 EST, Route to Pharmacy Electronically, [facility]/pharmacy #[id number], Partial fill upon patient request ifthe prescription is for a schedule II opioid drug.,... Start Date: 10/05/23 Status: Ordered labetalol 200 mg oral tablet 1 tablet = 200 mg, By Mouth, 2 times a day, # 180 tablet, 1 Refills, Maintenance, 06/08/23 11:10:00EDT, Tablet, [facility]/pharmacy #2339, Partial fill upon patient request if the prescription is for a schedule II opioid drug., 157, cm, 06/08/23 10:54:00 ED... Start Date: 06/08/23 Status: Ordered levothyroxine 75 mcg (0.075 mg) oral tablet 1 tablet, By Mouth, Daily, # 90 tablet, 1 Refills, Maintenance, 11/27/23 10:53:00 EDT, [facility]/pharmacy#2339, 157, cm, 11/05/23 11:00:00 EDT, Height, 95.1, kg, 06/15/23 8:54:00 EDT, Dry Weight Start Date: 11/27/23 Status: Ordered LORazepam 0.5 mg oral tablet See Instructions, PRN as needed for anxiety, 1/2 tablet By Mouth Daily as needed for anxiety COOK HELPER reviewed, # 5 tablet, 0 Refills, Maintenance, 08/05/23 15:10:00 EST, Tablet, [facility], Partial fill upon patient request if the [...] Team Personnel Name: Priti Abraham MD Position: [facility] GETTERING FILAMENT MACHINE OPERATOR MD Member Role: Lifetime GETTERING FILAMENT MACHINE OPERATOR Physician Address: Address: [address] [place] [address] [facility] Disaster [place] [address]- Name: Kalia Sears MD Position: [facility] Physician - Primary Care Member Role: PCP Address: Address: [address] [place] [address] [address] [place] [address]- Care Team Related Persons Name: EUN HOLDEN Address: home [address] [place] [address] [place], [place] [address]
--- OUTSIDE RECORDS SUMMARY | 2024-03-18 12:40 | XMS_ITS | Continuity of Care Document ---
Author Organization [facility] Adult Address [address] [place] [address]- Care Team Providers Care Client Reporting Associate Name Role Phone Orion TAPIA, Kalia Primary Care Physician [phone] [place] [facility] Date(s): 09/11/22 - 10/11/22 [facility] Adult [address] [place] [address]- Allergies, Adverse Reactions, Alerts No Known Medication [...] 1Result Comment: [facility] 37228-568-05 Medications amLODIPine 10 mg oral tablet 10 mg, 1, tablet, By Mouth, Daily, # 90 tablet, Refills 3, Tot. Refills 3, Maintenance, 09/10/22 14:46:00 EST, Route to Pharmacy Electronically, [facility]/pharmacy #2339, Partial fill upon patient request if the prescription is for a schedule II opioid drug... Start Date: 09/10/22 Status: Ordered levothyroxine 75 mcg (0.075 mg) oral tablet 1 tablet, By Mouth, Daily, # 90 tablet, 1 Refills, Maintenance, 05/23/22 0:34:00 EDT, [facility], 158, cm, 12/10/21 16:01:00 EDT, Height Start Date: 05/23/22 Status: Ordered LORazepam 0.5 mg oral tablet See Instructions, PRN as needed for anxiety, 1/2 tablet By Mouth Daily as needed for anxiety AMBULANCE DRIVER reviewed, # 5 tablet, 0 Refills, Maintenance, 08/03/22 17:00:00 EST, Tablet, [facility]/pharmacy #2332, Partial fill upon patient request if [...] Priti Abraham MD Position: [facility] CUSTOMER SERVICE DISPATCHER MD Member Role: Lifetime CUSTOMER SERVICE DISPATCHER Physician Address: Address: [address] [facility] Women's [place] [address]- [place] Name: Kalia Sears MD Position: [facility] Primary Care Physician Member Role: PCP Address: Address: [address] [facility] 3rd [place] [address]- [place] Care Team Related Persons Name: EUN HOLDEN Address: home [address] [address] [address]
--- OUTSIDE RECORDS SUMMARY | 2024-03-18 12:40 | XMS_ITS | Continuity of Care Document ---
Author Organization [facility] Address [address] [place] [address]- Care Team Providers Care Real Estate Administrative Assistant Name Role Phone Orion TAPIA, Kalia Primary Care Physician Encounter [facility] Date(s): 04/12/21 - 08/10/21 [facility] [address] [place] [address]- Attending Physician: Aram Douglas MD Allergies, Adverse Reactions, Alerts No Known Medication Allergies Immunizations Given and Recorded Vaccine Date Status Refusal Reason SARS-CoV-2 (COVID-19) mRNA BNT-162b2 vac 01/30/21 Recorded SARS-CoV-2 (COVID-19) mRNA BNT-162b2 vac 01/07/21 Recorded influenza virus vaccine, inactivated 06/14/20 Lopez rded Influenza Virus Vaccine (oldterm) 05/30/20 Recorde d [...] Vaccine (oldterm) 89 Lopez rded 1Result Comment: [facility] 31313-524-30 Medications amLODIPine 5 mg oral tablet 5 mg, 1, tablet, By Mouth, Daily, # 90 tablet, Refills 3, Tot. Refills 3, Maintenance, 11/04/20 13:56:00 EDT, Route to Pharmacy Electronically, [facility]/pharmacy #2339, Partial fill upon patient request if the prescription is for a schedule II opioid drug.... 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 Start Date: 06/19/21 Status: Ordered Problem List Condition Effective Dates Status Health Status Inform ant HTN (hypertension)(Confirmed) Active Hypothyroidism(Confirmed) Active Obese class II(Confirmed) Active Social History Social History Type Response Tobacco Other: quit age 27, previously 1/2 ppd x 1 yr. Sex
--- OUTSIDE RECORDS SUMMARY | 2024-03-18 12:40 | XMS_ITS | Continuity of Care Document ---
Author Organization [facility] Adult Address [address] [place] [address]- Care Team Providers Care Car Washer Name Role Phone Kalia Sears MD Primary Care Physician [phone] Encounter [facility] [place] Date(s): 08/29/21 - 09/05/21 [facility] Adult [address] [place] [address]- Encounter Diagnosis Constipation(Discharge Diagnosis) - 08/29/21 Gas pain(Discharge Diagnosis) - 08/29/21 Rib pain on left side(Discharge Diagnosis) - 08/29/21 Attending Physician: Not on Staff, Attending MD [...] (oldterm) 89 Lopez rded 1Result Comment: [facility] [id number] Medications amLODIPine 5 mg oral tablet 5 mg, 1, tablet, By Mouth, Daily, # 90 tablet, Refills 3, Tot. Refills 3, Maintenance, 11/04/20 13:56:00 EDT, Route to Pharmacy Electronically, [facility]/pharmacy #[id number], Partial fill upon patient request if the prescription is for a schedule II opioid drug.... Start Date: 11/04/20 Status: Ordered levothyroxine 75 mcg (0.075 mg) oral tablet 1 tablet, By Mouth, Daily, # 90 tablet, 1 Refills, [facility] STORE 62022, 158.4, cm, 12/10/20 14:00:00 EDT, Height Start Date: 05/26/21 Status: Ordered LORazepam 0.5 mg oral tablet See Instructions, PRN as needed for anxiety, 1/2 tablet By Mouth Daily as needed for anxiety MULTICULTURAL INTERNSHIP reviewed, # 5 tablet, 0 Refills, Maintenance, 06/19/21 14:19:00 EDT, Tablet, [facility]/pharmacy #2339, Partial fill upon patient request if the prescription... Start Date: 06/19/21 Status: Ordered MiraLax oral powder for reconstitution = 17 Gm, By Mouth, Daily, for 14 days, dissolve in water before taking, # 527 Gm, 0 Refills, Acute 09/12/21 15:55:00 EST, 08/29/21 15:55:00 EST, REC Powder, [facility]/pharmacy #2339, Partial fill upon patient request if the prescription is for a schedule II... Start Date: 08/29/21 Stop Date: 09/12/21 Status: Ordered Problem List Condition Effective Dates Status Health Status Inform ant HTN (hypertension)(Confirmed) Active Hypothyroidism(Confirmed) Active Obese class II(Confirmed) Active Diagnosis Diagnosis Type Effective Dates Health Status Clinical Service Informant Constipation Discharge Diagnosis 08/29/21 Gas pain Discharge Diagnosis 08/29/21 Rib pain on left side Discharge Diagnosis 08/29/21 Vital Signs Most recent to oldest [Reference Range]: 1 2 3 Height 158 cm (08/29/21 3:54 PM) 158 cm (08/29/21 3:36 PM) 158 cm (08/29/21 3:30 PM) Weight 89 kg (08/29/21 3:30 PM) Oxygen Saturation [94-100 %] 100 % (08/29/21 3:30 PM) Pulse Rate [55-90 bpm] 80 bpm (08/29/21 3:30 PM) Body Mass Index [18.5-24.99] 35.65 *>HHI* (08/29/21 3:30 PM) Blood Pressure [90-138/55-84 mm Hg] 128/80mm Hg (08/29/21 3:54 PM) 159/83mm Hg *H* (08/29/21 3:36 PM) 157/89mm Hg *H* (08/29/21 3:30 PM) Mode of Delivery (Oxygen) Room air (08/29/21 3:30 PM) Blood pressure sites Arm, left (08/29/21 3:54 PM) Arm, left (08/29/21 3:36 PM) Arm, left (08/29/21 3:30 PM) Weight Obtained Via Patient/family state d (08/29/21 3:30 PM) Social History Social History Type Response Tobacco Other: quit age 27, previously 1/2 ppd x 1 yr. Sex
--- OUTSIDE RECORDS SUMMARY | 2024-03-18 12:40 | XMS_ITS | Continuity of Care Document ---
Author Organization [facility] Address [address] [place] [address] [address] [place] [address]- Care Team Providers Care Insurance Customer Service Specialist Name Role Phone Orion TAPIA, Kalia Primary Care Physician Encounter [facility] Date(s): 03/03/24 - 03/10/[address] [place] [address]- Attending Physician: Knee RD, Rosario Allergies, Adverse Reactions, Alerts No Known Medication Allergies Immunizations Given and Recorded Vaccine Date Status Refusal Reason influenza virus vaccine, inactivated 05/25/23 Give n influenza virus vaccine, inactivated 06/30/22 Lopez rded influenza virus vaccine, inactivated 06/26/21 Lopez rded influenza virus vaccine, inactivated 06/14/20 Lopez rded [id number] 12y+ bivalent booster vax 09/14/22 Recorded SARS-CoV-2 [...] Vaccine (oldterm) 89 Lopez rded 1Result Comment: [facility] 10014-056-09 Medications acetaminophen 325 mg oral tablet 975 [...] 02/22/24 9:45:00 EDT, Route to Pharmacy Electronically, [facility]/pharmacy #[id number], Partial fill upon patient request if the prescription... Start Date: 02/22/24 Status: Ordered labetalol 200 mg oral tablet 1 tablet, By Mouth, 2 times a day, # 180 tablet, 0 Refills, Maintenance, 01/04/24 15:38:00 EDT, [facility], 157, cm, 11/05/23 11:00:00 EDT, Height, 95.1, kg, 06/15/23 8:54:00 EDT, Dry Weight Start Date: 01/04/24 Status: Ordered levothyroxine 75 mcg (0.075 mg) oral tablet 1 tablet, By Mouth, Daily, # 90 tablet, 1 Refills, Maintenance, 11/27/23 10:53:00 EDT, [facility]/pharmacy#2339, 157, cm, 11/05/23 11:00:00 EDT, Height, 95.1, kg, 06/15/23 8:54:00 EDT, Dry Weight Start Date: 11/27/23 Status: Ordered LORazepam 0.5 mg oral tablet See Instructions, PRN as needed for anxiety, 1/2 tablet By Mouth Daily as needed for anxiety BRAIDING OPERATOR reviewed, # 5 tablet, 0 Refills, Maintenance, 08/05/23 15:10:00 EST, Tablet, [facility]/pharmacy #2339, Partial fill upon patient request if [...] 0 Refills, Maintenance, 02/10/24 14:44:00EDT, EC Capsule, [facility] 3, Partial fill upon patient request [...] recent to oldest [Reference Range]: 1 Height 157.48 cm (03/03/24 11:00 AM) Weight 87.5 kg (03/03/24 11:00 AM) Body Mass Index [18.5-24.99 kg/m2] 35.28 kg/m2 *>HHI* (03/03/24 11:00 AM) Social History Social History Type Response Tobacco Other: quit age 27, previously 1/2 ppd x 1 yr. Sex Patient Care team information Care Team Personnel Name: Priti Abraham MD Position: [facility] PORK CUTLET MAKER Member Role: Lifetime PORK CUTLET MAKER Physician Address: Address: [address] [place] [address] Women's Health Barrel Plater - [address] Name: Reina Suggs RN Position: [facility] RN Member Role: Primary Care Nurse Name: Johanna Morejon RN Position: [facility] RN Member Role: Primary Care Nurse Name: Orion TAPIA, Kalia Position: [facility] Physician - Primary Care Member Role: PCP Address: Address: [address] [place] [address] 3rd [place] [address]- Care Team Related Persons Name: EUN HODLEN Address: home [address] [facility] [address] [place] [address]
--- OUTSIDE RECORDS SUMMARY | 2024-03-18 12:40 | XMS_ITS | Continuity of Care Document ---
Author Organization [facility] Adult Address [address] [place] [address]- Care Team Providers Care Clinical Pharmacy Specialist Name Role Phone Orion TAPIA, Kalia Primary Care Physician [facility]counter [facility] Date(s): 12/06/20 - 01/05/21 [facility] Adult [address] [place] [address]- Allergies, Adverse Reactions, Alerts No Known Medication [...] Vaccine (oldterm) 89 Lopez rded 1Result Comment: [facility] 43599-947-22 Medications amLODIPine 5 mg oral tablet 5 mg, 1, tablet, By Mouth, Daily, # 90 tablet, Refills 3, Tot. Refills 3, Maintenance, 11/04/20 13:56:00 EDT, Route to Pharmacy Electronically, [facility]/pharmacy #[id number], Partial fill upon patient request if the prescription is for a schedule II opioid drug.... Start Date: 11/04/20 Status: Ordered levothyroxine 75 mcg (0.075 mg) oral tablet 1 tablet = 75 mcg, By Mouth, Daily, # 90 tablet, 1 Refills, Maintenance, 12/06/20 10:08:00 EDT, Tablet, [facility]/pharmacy #[id number], Partial fill upon patient request if the prescription is for a schedule II opioid drug., 158.4, cm, 11/04/20 8:59:00 EDT, Height Start Date: 12/06/20 Stop Date: 06/04/21 Status: Ordered LORazepam 0.5 mg oral tablet 1 tablet = 0.5 mg, By Mouth, Daily, PRN as needed for anxiety, wrapper counter reviewed, # 7 tablet, 0 Refills,Maintenance, 12/12/20 [...]
--- OUTSIDE RECORDS SUMMARY | 2024-03-18 12:40 | XMS_ITS | Continuity of Care Document ---
Author Organization [facility] Adult Address [address] [place] [address]- Care Team Providers Care Addiction Professional Name Role Phone Orion TAPIA, Kalia Primary Care Physician [facility]counter [facility] Date(s): 03/20/21 - 04/19/21 [facility] Adult [address] [place] [email or web address] Allergies, Adverse Reactions, Alerts No Known Medication [...] (oldterm) 89 Lopez rded 1Result Comment: [facility] 95192-515-62 Medications amLODIPine 5 mg oral tablet 5 mg, 1, tablet, By Mouth, Daily, # 90 tablet, Refills 3, Tot. Refills 3, Maintenance, 11/04/20 13:56:00 EDT, Route to Pharmacy Electronically, [facility]/pharmacy #2339, Partial fill upon patient request if the prescription is for a schedule II opioid drug.... Start Date: 11/04/20 Status: Ordered levothyroxine 75 mcg (0.075 mg) oral tablet 1 tablet = 75 mcg, By Mouth, Daily, # 90 tablet, 1 Refills, Maintenance, 12/06/20 10:08:00 EDT, Tablet, [facility]/pharmacy #2339, Partial fill upon patient request if the prescription is for a schedule II opioid drug., 158.4, cm, 11/04/20 8:59:00 EDT, Height Start Date: 12/06/20 Stop Date: 06/04/21 Status: Ordered LORazepam 0.5 mg oral tablet 1 tablet = 0.5 mg, By Mouth, Daily, PRN as needed for anxiety, hospice/home health aide reviewed, # 7 tablet, 0 Refills,Maintenance, 12/12/20 [...]
--- OUTSIDE RECORDS SUMMARY | 2024-03-18 12:41 | XMS_ITS | Continuity of Care Document ---
Author Organization [facility] Adult Address [address] [place] [address]- Care Team Providers Care Product Planner Name Role Phone Kalia Sears MD Primary Care Physician [phone] Encounter [facility] [place] Date(s): 09/03/21 - 10/03/21 [facility] Adult [address] [place] [address]- Allergies, Adverse Reactions, Alerts No Known Medication [...] Comment: [facility] 40345-734-20 Medications amLODIPine 5 mg oral tablet 5 mg, 1, tablet, By Mouth, Daily, # 90 tablet, Refills 3, Tot. Refills 3, Maintenance, 11/04/20 13:56:00 EDT, Route to Pharmacy Electronically, [facility]/pharmacy #[id number], Partial fill upon patient request if the prescription is for a schedule II opioid drug.... Start Date: 11/04/20 Status: Ordered levothyroxine 75 mcg (0.075 mg) oral tablet 1 tablet, By Mouth, Daily, # 90 tablet, 1 Refills, [facility] STORE 18410, 158.4, cm, 12/10/20 14:00:00 EDT, Height Start Date: 05/26/21 Status: Ordered LORazepam 0.5 mg oral tablet See Instructions, PRN as needed for anxiety, 1/2 tablet By Mouth Daily as needed for anxiety MOLD UNLOADER reviewed, # 5 tablet, 0 Refills, Maintenance, 06/19/21 14:19:00 EDT, Tablet, [facility]/pharmacy #2339, Partial fill upon patient request if the prescription... Start Date: 06/19/21 Status: Ordered Problem List Condition Effective Dates Status Health Status Inform ant HTN (hypertension)(Confirmed) Active Hypothyroidism(Confirmed) Active Obese class II(Confirmed) Active Social History Social History Type Response Tobacco Other: quit age 27, previously 1/2 ppd x 1 yr. Sex
--- OUTSIDE RECORDS SUMMARY | 2024-03-18 12:41 | XMS_ITS | Continuity of Care Document ---
Author Organization [facility] Address [address] [place] [address] ve [address] [place] [address]- Care Team Providers Care President Sales And Marketing Name Role Phone Kalia Sears MD Primary Care Physician [phone] [place] [facility] [id number] Date(s): 09/01/23 - 09/08/[address] [place] [address]- Attending Physician: Ángela MS,RD,LDN, Belle Dueñas Referring Physician: Kalia Sears MD Allergies, Adverse Reactions, Alerts No Known Medication Allergies Immunizations Given and Recorded Vaccine Date Status Refusal Reason influenza virus vaccine, inactivated 05/25/23 Give n influenza virus vaccine, inactivated 06/30/22 Lopez rded influenza virus vaccine, inactivated 06/26/21 Lopez rded influenza virus vaccine, inactivated 06/14/20 Lopez rded [id number] 12y+ bivalent booster vax 09/14/22 Recorded SARS-CoV-2 [...] Vaccine (oldterm) 89 Lopez rded 1Result Comment: [facility] 66428-684-86 Medications labetalol 200 mg oral tablet 1 [...] By Mouth Daily as needed for anxiety AERIAL PHOTOGRAMMETRIST reviewed, # 5 tablet, 0 Refills, Maintenance, [...] Team Personnel Name: Priti Abraham MD Position: [facility] QUALITY ASSURANCE SUPERVISOR TRIM MD Member Role: Lifetime QUALITY ASSURANCE SUPERVISOR TRIM Physician Address: Address: [address] [place] [address] [facility] [place] [address]- Name: Kalia Sears MD Position: [facility] Physician - Primary Care Member Role: PCP Address: Address: [address] [place] [address] 3rd [place] [address]- Care Team Related Persons Name: EUN HOLDEN Address: home [address] [place] [address]
--- OUTSIDE RECORDS SUMMARY | 2024-03-18 12:41 | XMS_ITS | Continuity of Care Document ---
Author Organization [facility] Adult Address [address] [place] [address]- Care Team Providers Care Burnisher Name Role Phone Kalia Sears MD Primary Care Physician Encounter [facility] [place] Date(s): 04/24/22 - 05/24/22 [facility] Adult [address] [place] [address]- Allergies, Adverse Reactions, Alerts No Known Medication [...] Vaccine (oldterm) 89 Lopez rded 1Result Comment: [facility] 35473-558-49 Medications amLODIPine 5 mg oral tablet 1 TABLET BY MOUTH DAILY Start Date: 12/10/21 Status: Ordered amLODIPine 5 mg oral tablet 5 mg, 1, tablet, By Mouth, Daily, # 90 tablet, Refills 3, Tot. Refills 3, Maintenance, 12/10/21 16:44:00 EDT, Route to Pharmacy Electronically, [facility]/pharmacy #[id number], Partial fill upon patient request if the prescription is for a schedule II opioid drug.... Start Date: 12/10/21 Status: Ordered levothyroxine 75 mcg (0.075 mg) oral tablet 1 tablet, By Mouth, Daily, # 90 tablet, 1 Refills, Maintenance, 05/23/22 0:34:00 EDT, [facility], 158, cm, 12/10/21 16:01:00 EDT, Height Start Date: 05/23/22 Status: Ordered LORazepam 0.5 mg oral tablet See Instructions, PRN as needed for anxiety, 1/2 tablet By Mouth Daily as needed for anxiety MICA MINER BLASTING reviewed, # 5 tablet, 0 Refills, Maintenance, 06/19/21 14:19:00 EDT, Tablet, [facility]/pharmacy #2339, Partial fill upon patient request if the prescription... Start Date: 06/19/21 Status: Ordered Problem List Condition Confirmation Course Effective Dates Status Health St atus Informant HTN (hypertension) Confirmed Active Hypothyroidism Confirmed Active Obese class II Confirmed Active Social History Social History Type Response Tobacco Other: quit age 27, previously 1/2 ppd x 1 yr. Sex Patient Care team information Personnel Name: Kalia Sears MD Address: Address: [address] [place] [address] [address] [place], [place] [address]
--- OUTSIDE RECORDS SUMMARY | 2024-03-18 12:41 | XMS_ITS | Continuity of Care Document ---
Author Organization [facility] Address [address] [place] [address]- Care Team Providers Care Production Cloth Cutter Name Role Phone Orion TAPIA, Kalai Primary Care Physician Encounter [facility] [place] ACCT R [id number] Date(s): 06/15/23 - 07/15/23 [facility] [address] [place] [address]- Attending Physician: Padmini Carvalho Admitting Physician: Padmini Carvalho Referring Physician: AdmtrPadmini Allergies, Adverse Reactions, Alerts No Known Medication Allergies Immunizations Given and Recorded Vaccine Date Status Refusal Reason influenza virus vaccine, inactivated 05/25/23 Give n influenza virus vaccine, inactivated 06/30/22 Lopez rded influenza virus vaccine, inactivated 06/26/21 Lopez rded influenza virus vaccine, inactivated 06/14/20 Lopez rded [id number] 12y+ bivalent booster vax 09/14/22 Recorded SARS-CoV-2 [...] Lopez rded 1Result Comment: [facility] [id number] Medications labetalol 200 mg oral tablet 1 tablet = 200 mg, By Mouth, 2 times a day, # 180 tablet, 1 Refills, Maintenance, 06/08/23 11:10:00EDT, Tablet, [facility]/pharmacy #[id number], Partial fill upon patient [...] By Mouth Daily as needed for anxiety BIOLOGY LECTURER reviewed, # 5 tablet, 0 Refills, Maintenance, [...] Team Personnel Name: Priti Abraham MD Position: [facility] SALESPERSON MEN'S AND BOYS' CLOTHING MD Member Role: Lifetime SALESPERSON MEN'S AND BOYS' CLOTHING Physician Address: Address: [address] [place] [address]'s [facility] Emb[place]ded [place] [address]- Name: Kalia Sears MD Position: [facility] Physician - Primary Care Member Role: PCP Address: Address: [address] [place] [address] 3rd [place] [address]- Care Team Related Persons Name: EUN HOLDEN Address: home [address] [place] [id number]
--- OUTSIDE RECORDS SUMMARY | 2024-03-18 12:41 | XMS_ITS | Continuity of Care Document ---
Author Organization [facility] Adult Address [address] [place] [address]- Care Team Providers Care Home Office Claims Examiner Name Role Phone Orion TAPIA, Kalia Primary Care Physician [place] [facility] [place] Date(s): 08/24/23 - 09/23/23 [facility] Adult [address] [place] [address]- Allergies, Adverse Reactions, Alerts No Known Medication Allergies Immunizations Given and Recorded Vaccine Date Status Refusal Reason influenza virus vaccine, inactivated 05/25/23 Give n influenza virus vaccine, inactivated 06/30/22 Lopez rded influenza virus vaccine, inactivated 06/26/21 Lopez rded influenza virus vaccine, inactivated 06/14/20 Lopez rded [id number] 12y+ bivalent booster vax 09/14/22 Recorded SARS-CoV-2 [...] Vaccine (oldterm) 89 Lopez rded 1Result Comment: [facility] 39078-577-36 Medications labetalol 200 mg oral tablet 1 [...] By Mouth Daily as needed for anxiety AQUARIUM SPECIALIST reviewed, # 5 tablet, 0 Refills, [...] Personnel Name: Jarad TAPIA, Priti Gamez Position: [facility] SCHOOL LIBRARY MEDIA SPECIALIST MD Member Role: Lifetime SCHOOL LIBRARY MEDIA SPECIALIST Physician Address: Address: [address] [place] [address]'s [facility] [place] [address]- Name: Orion TAPIA, Kalia Position: [facility] Physician - Primary Care Member Role: PCP Address: Address: [address] [facility] 3rd [place] [address]- Care Team Related Persons Name: EUN HOLDEN Address: home [address] [facility] [address] [address]
--- OUTSIDE RECORDS SUMMARY | 2024-03-18 12:41 | XMS_ITS | Continuity of Care Document ---
Author Organization [facility] Adult Address [address] [place] [address]- Care Team Providers Care Graphics Artist Name Role Phone Kalia Sears MD Primary Care Physician [place] [facility] [place] Date(s): 11/05/23 - 12/05/23 [facility] Adult [address] [place] [address]- Attending Physician: Padmini Carvalho Admitting Physician: AdmPadmini ashley Referring Physician: AdmtrPadmini Allergies, Adverse Reactions, Alerts No Known Medication Allergies Immunizations Given and Recorded Vaccine Date Status Refusal Reason influenza virus vaccine, inactivated 05/25/23 Give n influenza virus vaccine, inactivated 06/30/22 Lopez rded influenza virus vaccine, inactivated 06/26/21 Lopez rded influenza virus vaccine, inactivated 06/14/20 Lopez rded [id number] 12y+ bivalent booster vax 09/14/22 Recorded SARS-CoV-2 [...] Lopez rded 1Result Comment: [facility] [id number] Medications amLODIPine 5 mg oral tablet 5 mg, 1, tablet, By Mouth, Daily, # 90 tablet, Refills 3, Tot. Refills 3, Maintenance, 10/05/23 8:49:00 EST, Route to Pharmacy Electronically, [facility]/pharmacy #[id number], Partial fill upon patient request ifthe prescription is for a schedule II opioid drug.,... Start Date: 10/05/23 Status: Ordered labetalol 200 mg oral tablet 1 tablet = 200 mg, By Mouth, 2 times a day, # 180 tablet, 1 Refills, Maintenance, 06/08/23 11:10:00EDT, Tablet, [facility]/pharmacy #2339, Partial fill upon patient request if the prescription is for a schedule II opioid drug., 157, cm, 06/08/23 10:54:00 ED... Start Date: 06/08/23 Status: Ordered levothyroxine 75 mcg (0.075 mg) oral tablet 1 tablet, By Mouth, Daily, # 90 tablet, 1 Refills, Maintenance, 11/27/23 10:53:00 EDT, [facility]/pharmacy#2339, 157, cm, 11/05/23 11:00:00 EDT, Height, 95.1, kg, 06/15/23 8:54:00 EDT, Dry Weight Start Date: 11/27/23 Status: Ordered LORazepam 0.5 mg oral tablet See Instructions, PRN as needed for anxiety, 1/2 tablet By Mouth Daily as needed for anxiety SOA INTEGRATION ARCHITECT reviewed, # 5 tablet, 0 Refills, Maintenance, 08/05/23 15:10:00 EST, [facility]t, [facility], Partial fill upon patient request if the [...] previously 1/2 ppd x 1 yr. Sex Laboratory * Event Display: Immunology Report Authored Date: * Event Display: Non BH Lab Results Authored Date: * Event Display: Non BH Lab Results Authored Date: Radiology * Event Display: Ultrasound Pelvis, Non-BH Authored Date: Patient Care team information Care Team Personnel Name: Jarad TAPIA, Priti Gamez Position: [facility] CHIEF CONSTRUCTION INSPECTOR MD Member Role: Lifetime CHIEF CONSTRUCTION INSPECTOR Physician Address: Address: [address] [place] [address] [facility] [place] [address]- Name: Kalia Sears MD Position: [facility] Physician - Primary Care Member Role: PCP Address: Address: [address] [place] [address] [address] [place] [address]- Care Team Related Persons Name: EUN HOLDEN Address: home [address] [address]
--- OUTSIDE RECORDS SUMMARY | 2024-03-18 12:41 | XMS_ITS | Continuity of Care Document ---
Author Organization [facility] Adult Address [address] [place] [address]- Care Team Providers Care Dry Cell And Battery Assembler Name Role Phone Orion TAPIA, Kalia Primary Care Physician [place] [facility] [place](s): 12/25/19 - 01/01/20 [facility] Adult [address] [place] [address] [facility] Encounter Diagnosis COVID-19 virus infection(Discharge Diagnosis) - 12/26/19 Attending Physician: Kalia Sears MD Allergies, Adverse [...] 1Result Comment: [facility] [id number] Medications codeine-guaifenesin 10 mg-100 mg/5 mL oral syrup 5 mL, By Mouth, Every 4 hours, PRN for cough, for 10 days, # 300 mL, 2 Refills, Acute 01/18/20 8:38:00 EDT, 12/19/19 8:38:00 EDT, Syrup, [facility]/pharmacy #2339, 5 mL By Mouth Every 4 [...] Dates Health Status Cl inical Service Informant COVID-19 virus infection Discharge Diagnosis 12/26/19 Vital Signs Most recent to oldest [Reference Range]: 1 Height 158.4 cm (12/25/19 1:26 PM) Social History Social History Type Response Tobacco Other: quit age 27, previously 1/2 ppd x 1 yr. Sex
--- OUTSIDE RECORDS SUMMARY | 2024-03-18 12:41 | XMS_ITS | Continuity of Care Document ---
Author Organization [facility] Address [address] [place] [address] ve [address] [place] [address]- Care Team Providers Care Drilling Field Professional Name Role Phone Orion TAPIA, Kalia Primary Care Physician Encounter [facility] [place] Date(s): 10/19/23 - 11/18/[address] [place] [address]- Allergies, Adverse Reactions, Alerts No Known Medication Allergies Immunizations Given and Recorded Vaccine Date Status Refusal Reason influenza virus vaccine, inactivated 05/25/23 Give n influenza virus vaccine, inactivated 06/30/22 Lopez rded influenza virus vaccine, inactivated 06/26/21 Lopez rded influenza virus vaccine, inactivated 06/14/20 Lopez rded [id number] 12y+ bivalent booster vax 09/14/22 Recorded SARS-CoV-2 [...] 89 Lopez rded 1Result Comment: [facility] 56191-284-22 Medications amLODIPine 5 mg oral tablet 5 mg, 1, tablet, By Mouth, Daily, # 90 tablet, Refills 3, Tot. Refills 3, Maintenance, 10/05/23 8:49:00 EST, Route to Pharmacy Electronically, [facility]/pharmacy #[id number], Partial fill upon patient request ifthe prescription is for a schedule II opioid drug.,... Start Date: 10/05/23 Status: Ordered labetalol 200 mg oral tablet 1 tablet = 200 mg, By Mouth, 2 times a day, # 180 tablet, 1 Refills, Maintenance, 06/08/23 11:10:00EDT, Tablet, [facility]/pharmacy #2339, Partial fill upon patient request if the prescription is for a schedule II opioid drug., 157, cm, 06/08/23 10:54:00 ED... Start Date: 06/08/23 Status: Ordered levothyroxine 75 mcg (0.075 mg) oral tablet 1 tablet, By Mouth, Daily, # 90 tablet, 1 Refills, Maintenance, 03/31/23 12:03:00 EDT, [facility]/pharmacy#2339, 157, cm, 03/31/23 11:44:00 EDT, Height Start Date: 03/31/23 Status: Ordered LORazepam 0.5 mg oral tablet See Instructions, PRN as needed for anxiety, 1/2 tablet By Mouth Daily as needed for anxiety ELECTROPLATING SALES REPRESENTATIVE reviewed, # 5 tablet, 0 Refills, Maintenance, [...] Team Personnel Name: Priti Abraham MD Position: [facility] PROGRAM MANAGEMENT INTERN MD Member Role: Lifetime PROGRAM MANAGEMENT INTERN Physician Address: Address: [address] [place] [address]'s [facility] Press And [place]low [place] [address]- Name: Kalia Sears MD Position: [facility] Physician - Primary Care Member Role: PCP Address: Address: [address] [place] [address] 3rd [place] [address]- Care Team Related Persons Name: EUN HOLDEN Address: home [address] [address]
--- OUTSIDE RECORDS SUMMARY | 2024-03-18 12:41 | XMS_ITS | Continuity of Care Document ---
Author Organization [facility] Address [address], 4t [address] [place] [address]- Care Team Providers Care Filtering Machine Tender Helper Name Role Phone Orion TAPIA, Kalia Primary Care Physician [phone] Encounter [facility] Date(s): 08/15/19 - 08/22/19 [facility] [address], 4th [address] [place] [address]- [facility] Attending Physician: Francisca Mclean MD Referring Physician: Priti Abraham MD Allergies, Adverse Reactions, Alerts No Known [...] EST, Height Start Date: 08/15/19 Status: Ordered Provera 10 mg oral tablet 10 mg, 1, tablet, By Mouth, Daily, for 10 days, # 10 tablet, Refills 0, Tot. Refills 0, Acute 08/25/19 10:35:00 EST, 08/15/19 10:35:00 EST, Route to Pharmacy Electronically, [facility]/pharmacy #[id number], 158.4, cm, 08/15/19 9:53:00 EST, Height Start Date: 08/15/19 Stop Date: 08/25/19 Status: Ordered Vital Signs Most recent to oldest [Reference Range]: 1 Height 158.4 cm (08/15/19 9:53 AM) Weight 89.6 kg (08/15/19 9:53 AM) Pulse Rate [55-90 bpm] 90 bpm (08/15/19 9:53 AM) Body Mass Index [18.5-24.99] 35.71 *>HHI* (08/15/19 9:53 AM) Blood Pressure [90-138/55-84 mm Hg] 146/ 85mm Hg *H* (08/15/19 9:53 AM) Social History Social History Type Response Tobacco Other: quit age 27, previously 1/2 ppd x 1 yr. Sex
--- OUTSIDE RECORDS SUMMARY | 2024-03-18 12:41 | XMS_ITS | Continuity of Care Document ---
Author Organization [facility] Surgical As [facility] Address [address] [place] [address] [address] [place] [address]- Care Team Providers Care Airline Managerial Supervisor Name Role Phone Orion TAPIA, Kalia Primary Care Physician Encounter [facility] [id number] Date(s): 05/21/23 - 05/28/[address] [place] [address]- Attending Physician: Stephan Tam MD Referring Physician: Dayne Mendes MD Allergies, Adverse Reactions, Alerts No Known Medication Allergies Immunizations Given and Recorded Vaccine Date Status Refusal Reason influenza virus vaccine, inactivated 05/25/23 Give n influenza virus vaccine, inactivated 06/30/22 Lopez rded influenza virus vaccine, inactivated 06/26/21 Lopez rded influenza virus vaccine, inactivated 06/14/20 Lopez rded [id number] 12y+ bivalent booster vax 09/14/22 Recorded SARS-CoV-2 [...] (oldterm) 89 Lopez rded 1Result Comment: [facility] 68285-694-08 Medications labetalol 100 mg oral tablet 1 [...] By Mouth Daily as needed for anxiety HAND MOLDER MEAT reviewed, # 5 tablet, 0 Refills, Maintenance, [...] oldest [Reference Range]: 1 Height 157 cm (05/21/23 1:36 PM) Weight 92.2 kg (05/21/23 1:36 PM) Pulse Rate [55-90 bpm] 88 bpm (05/21/23 1:36 PM) Body Mass Index [18.5-24.99 kg/m2] 37.41 kg/m2 *>HHI* (05/21/23 1:36 PM) Blood Pressure [90-138/55-84 mm Hg] 151/ 94mm Hg *H* (05/21/23 1:36 PM) Temperature [96.8-100.4 DegF] 96.5 DegF *L* (05/21/23 1:36 PM) Blood pressure sites Arm, left (05/21/23 1:36 PM) Temperature Route Temporal (05/21/23 1:36 PM) Social History Social History Type Response Tobacco Other: quit age 27, previously 1/2 ppd x 1 yr. Sex Patient Care team information Care Team Personnel Name: Jarad TAPIA, Priti Gamez Position: [facility] FABRIC INSPECTOR MD Member Role: Lifetime FABRIC INSPECTOR Physician Address: Address: [address] [facility] [place] [address]- Name: Orion TAPIA, Kalia Position: [facility] Physician - Primary Care Member Role: PCP Address: Address: [address] [facility] [facility] [address] 3rd [place] [address]- [place] Care Team Related Persons Name: EUN HOLDEN Address: home [address] [facility] [address], [place] [address]
--- OUTSIDE RECORDS SUMMARY | 2024-03-18 12:41 | XMS_ITS | Continuity of Care Document ---
Author Organization [facility] Address [address] [place] [address]- Care Team Providers Care Clock And Watch Hands Painter Name Role Phone Orion TAPIA, Kalia Primary Care Physician Encounter [facility] Date(s): 12/15/19 - 01/17/20 [facility] [address] [place] [address] Attending Physician: Kalia Sears MD Allergies, Adverse [...] Vaccine (oldterm) 89 Lopez rded 1Result Comment: [facility] 89288-361-39 Medications codeine-guaifenesin 10 mg-100 mg/5 mL oral syrup 5 mL, By Mouth, Every 4 hours, PRN for cough, for 10 days, # 300 mL, 2 Refills, Acute 01/18/20 8:38:00 EDT, 12/19/19 8:38:00 EDT, Syrup, [facility]/pharmacy #2339, 5 mL By Mouth Every 4 hours,x10 days,PRN:for cough, 158.4, cm, 08/15/19 9:53:00 EST, Height Start Date: 12/19/19 Stop Date: 01/18/20 Status: Ordered cyclobenzaprine 10 mg oral tablet See Instructions, # 30 tablet, 1 TABLET BY MOUTH DAILY, NEEDED FOR MUSCLE SPASM, [id number] Start Date: 04/28/19 Status: Ordered hydrOXYzine hydrochloride 25 mg oral tablet 1 tablet = 25 mg, By Mouth, 4 times a day, PRN for anxiety, for 14 days, # 56 tablet, 1 Refills, Acute 02/01/20 15:20:00 EDT, 01/04/20 15:20:00 EDT, Tablet, [facility]/pharmacy #2339, 158.4, cm, 01/04/20 13:56:00 EDT, Height Start Date: 01/04/20 Stop Date: 02/01/20 Status: Ordered levothyroxine 0.05 mg oral tablet [...]
--- OUTSIDE RECORDS SUMMARY | 2024-03-18 12:41 | XMS_ITS | Continuity of Care Document ---
Author Organization [facility] Adult Address [address] [place] [address]- Care Team Providers Care Pattern Perforating Machine Operator Name Role Phone Orion TAPIA, Kalia Primary Care Physician Encounter [facility] Date(s): 02/14/24 - 03/15/24 [facility] Adult [address] [place] [address]- Allergies, Adverse Reactions, Alerts No Known Medication Allergies Immunizations Given and Recorded Vaccine Date Status Refusal Reason influenza virus vaccine, inactivated 05/25/23 Give n influenza virus vaccine, inactivated 06/30/22 Lopez rded influenza virus vaccine, inactivated 06/26/21 Lopez rded influenza virus vaccine, inactivated 06/14/20 Lopez rded [id number] 12y+ bivalent booster vax 09/14/22 Recorded SARS-CoV-2 [...] (oldterm) 89 Lopez rded 1Result Comment: [facility] 82642-940-37 Medications acetaminophen 325 mg oral tablet 975 [...] 02/22/24 9:45:00 EDT, Route to Pharmacy Electronically, [facility]/pharmacy #2339, Partial fill upon patient request if the prescription... Start Date: 02/22/24 Status: Ordered labetalol 200 mg oral tablet 1 tablet, By Mouth, 2 times a day, # 180 tablet, 0 Refills, Maintenance, 01/04/24 15:38:00 EDT, [facility], 157, cm, 11/05/23 11:00:00 EDT, Height, 95.1, kg, 06/15/23 8:54:00 EDT, Dry Weight Start Date: 01/04/24 Status: Ordered levothyroxine 75 mcg (0.075 mg) oral tablet 1 tablet, By Mouth, Daily, # 90 tablet, 1 Refills, Maintenance, 11/27/23 10:53:00 EDT, [facility]/pharmacy#2339, 157, cm, 11/05/23 11:00:00 EDT, Height, 95.1, kg, 06/15/23 8:54:00 EDT, Dry Weight Start Date: 11/27/23 Status: Ordered LORazepam 0.5 mg oral tablet See Instructions, PRN as needed for anxiety, 1/2 tablet By Mouth Daily as needed for anxiety INSPECTION ENGINEER reviewed, # 5 tablet, 0 Refills, Maintenance, 08/05/23 15:10:00 EST, Tablet, [facility]/pharmacy #2339, Partial fill upon [...] 0 Refills, Maintenance, 02/10/24 14:44:00EDT, EC Capsule, [facility], Partial fill upon patient [...] Team Personnel Name: Priti Abraham MD Position: [facility] BASE MANAGER MD Member Role: Lifetime BASE MANAGER Physician Address: Address: [address] [place] [address] [place] [address]- Name: Reina Suggs RN Position: [facility] RN Member Role: Primary Care Nurse Name: Johanna Morejon RN Position: [facility] RN Member Role: Primary Care Nurse Name: Kalia Sears MD Position: [facility] Physician - Primary Care Member Role: PCP Address: Address: [address] [place] [address] 3rd [place] [address]- Care Team Related Persons Name: EUN HOLDEN Address: home [address] [place] [address] [address] [address]
--- OUTSIDE RECORDS SUMMARY | 2024-03-18 12:41 | XMS_ITS | Continuity of Care Document ---
Author Organization [facility] Adult Address [address] [place] [address]- Care Team Providers Care Electronic Plotting System Operator Name Role Phone Orion TAPIA, Kalia Primary Care Physician Encounter [facility] Date(s): 05/03/20 - 06/05/20 [facility] Adult [address] [place] [address]- [facility] Attending Physician: Royce Izaguirre MD Allergies, Adverse Reactions, Alerts No Known [...] Vaccine (oldterm) 89 Lopez rded 1Result Comment: [facility] 45205-740-90 Medications cyclobenzaprine 10 mg oral tablet See [...] 10 Refills, Maintenance, 08/15/19 10:35:00 EST, Tablet, [facility]/pharmacy #2331, 1 tablet By Mouth Daily, 158.4, cm, 08/15/19 9:53:00 EST, Height Start Date: 08/15/19 Status: Ordered Problem List Condition Effective Dates Status Health Status Inform ant COVID-19 virus infection(Confirmed) Active Social History Social History Type Response Tobacco Other: quit age 27, previously 1/2 ppd x 1 yr. Sex
--- OUTSIDE RECORDS SUMMARY | 2024-03-18 12:41 | XMS_ITS | Continuity of Care Document ---
Author Organization [facility] Adult Address [address] [place] [address]- Care Team Providers Care Aerospace Stress Engineer Name Role Phone Kalia Sears MD Primary Care Physician [phone] [place] [facility] [place] 09/23/23 - 10/23/23 [facility] [address] [place] [address]- Allergies, Adverse Reactions, Alerts No Known Medication Allergies Immunizations Given and Recorded Vaccine Date Status Refusal Reason influenza virus vaccine, inactivated 05/25/23 Give n influenza virus vaccine, inactivated 06/30/22 Lopez rded influenza virus vaccine, inactivated 06/26/21 Lopez rded influenza virus vaccine, inactivated 06/14/20 Lopez rded [id number] 12y+ bivalent booster vax 09/14/22 Recorded SARS-CoV-2 [...] (oldterm) 89 Lopez rded 1Result Comment: [facility] 10092-978-66 Medications amLODIPine 5 mg oral tablet 5 mg, 1, tablet, By Mouth, Daily, # 90 tablet, Refills 3, Tot. Refills 3, Maintenance, 10/05/23 8:49:00 EST, Route to Pharmacy Electronically, [facility]/pharmacy #2339, Partial fill upon patient request ifthe prescription is for a schedule II opioid drug.,... Start Date: 10/05/23 Status: Ordered labetalol 200 mg oral tablet 1 tablet = 200 mg, By Mouth, 2 times a day, # 180 tablet, 1 Refills, Maintenance, 06/08/23 11:10:00EDT, Tablet, [facility]/pharmacy #2339, Partial fill upon patient request if the prescription is for a schedule II opioid drug., 157, cm, 06/08/23 10:54:00 ED... Start Date: 06/08/23 Status: Ordered levothyroxine 75 mcg (0.075 mg) oral tablet 1 tablet, By Mouth, Daily, # 90 tablet, 1 Refills, Maintenance, 03/31/23 12:03:00 EDT, [facility]/pharmacy#2339, 157, cm, 03/31/23 11:44:00 EDT, Height Start Date: 03/31/23 Status: Ordered LORazepam 0.5 mg oral tablet See Instructions, PRN as needed for anxiety, 1/2 tablet By Mouth Daily as needed for anxiety MANAGER OF ENGINEERING reviewed, # 5 tablet, 0 Refills, Maintenance, [...] Personnel Name: Jarad TAPIA, Priti Gamez Position: [facility] RESIDENTIAL SOLAR CONSULTANT MD Member Role: Lifetime RESIDENTIAL SOLAR CONSULTANT Physician Address: Address: [address] [place] [address]'s [facility] Emergency Management [place] [address]- Name: Kalia Sears MD Position: [facility] Physician - Primary Care Member Role: PCP Address: Address: [address] [place] [address] 3rd [place] [address]- Care Team Related Persons Name: EUN HOLDEN Address: home [address] [facility] [address] [address]
--- OUTSIDE RECORDS SUMMARY | 2024-03-18 12:41 | XMS_ITS | Continuity of Care Document ---
Author Organization [facility] Adult Address [address] [place] [address]- Care Team Providers Care Adjustment Clerk Name Role Phone Orion TAPIA, Kalia Primary Care Physician [place] [facility] [place]): 12/10/21 - 12/17/21 [facility] [address] [place] [address]- Encounter Diagnosis Alcohol use(Discharge Diagnosis) - 12/10/21 Attending Physician: Not on Staff, Attending MD Referring Physician: Kalia Sears MD Allergies, Adverse [...] 1Result Comment: [facility] [id number] Medications amLODIPine 5 mg oral tablet 1 TABLET BY MOUTH DAILY Start Date: 12/10/21 Status: Ordered amLODIPine 5 mg oral tablet 5 mg, 1, tablet, By Mouth, Daily, # 90 tablet, Refills 3, Tot. Refills 3, Maintenance, 12/10/21 16:44:00 EDT, Route to Pharmacy Electronically, [facility]/pharmacy #2339, Partial fill upon patient request if the prescription is for a schedule II opioid drug.... Start Date: 12/10/21 Status: Ordered levothyroxine 75 mcg (0.075 mg) oral tablet 1 tablet, By Mouth, Daily, # 90 tablet, 1 Refills, [facility], 158, cm, 08/29/21 15:54:00 EST,Height Start Date: 11/23/21 Status: Ordered LORazepam 0.5 mg oral tablet See Instructions, PRN as needed for anxiety, 1/2 tablet By Mouth Daily as needed for anxiety CLINICAL BUSINESS ANALYST reviewed, # 5 tablet, 0 Refills, Maintenance, 06/19/21 14:19:00 EDT, Tablet, [facility]/pharmacy #2339, Partial fill upon patient request if the prescription... Start Date: 06/19/21 Status: Ordered Problem List Condition Effective Dates Status Health Status Inform ant HTN (hypertension)(Confirmed) Active Hypothyroidism(Confirmed) Active Obese class II(Confirmed) Active Diagnosis Diagnosis Type Effective Dates Health Status Clini ulises Service Informant Alcohol use Discharge Diagnosis 12/10/21 Vital Signs Most recent to oldest [Reference Range]: 1 Height 158 cm (12/10/21 4:01 PM) Weight 90.1 kg (12/10/21 4:01 PM) Oxygen Saturation [94-100 %] 98 % (12/10/21 4:01 PM) Pulse Rate [55-90 bpm] 97 bpm *H* (12/10/21 4:01 PM) Body Mass Index [18.5-24.99] 36.09 *>HHI* (12/10/21 4:01 PM) Blood Pressure [90-138/55-84 mm Hg] 137/ 84mm Hg (12/10/21 4:01 PM) Temperature [96.8-100.4 DegF] 98.1 DegF (12/10/21 4:01 PM) Mode of Delivery (Oxygen) Room air (12/10/21 4:01 PM) Blood pressure sites Arm, left (12/10/21 4:01 PM) Temperature Route Oral (12/10/21 4:01 PM) Social History Social History Type Response Tobacco Other: quit age 27, previously 1/2 ppd x 1 yr. Sex
--- OUTSIDE RECORDS SUMMARY | 2024-03-18 12:41 | XMS_ITS | Continuity of Care Document ---
Author Organization [facility] Adult Address [address] [place] [address]- Care Team Providers Care Motor Vehicle License Clerk Name Role Phone Orion TAPIA, Kalia Primary Care Physician Encounter [facility] Date(s): 09/03/20 - 10/03/20 [facility] Adult [address] [place] [address]- Allergies, Adverse Reactions, Alerts No Known Medication [...] rded 1Result Comment: [facility] 25675-294-08 Medications cyclobenzaprine 10 mg oral tablet See [...] 10:35:00 EST, Tablet, [facility]/pharmacy #2333, 1 tablet By Mouth Daily, 158.4, cm, 08/15/19 9:53:00 EST, Height Start Date: 08/15/19 Status: Ordered Social History Social History Type Response Tobacco Other: quit age 27, previously 1/2 ppd x 1 yr. Sex
--- OUTSIDE RECORDS SUMMARY | 2024-03-18 12:41 | XMS_ITS | Continuity of Care Document ---
Author Organization [facility] Adult Address [address] [place] [address]- Care Team Providers Care Server Software Engineer Name Role Phone Kalia Sears MD Primary Care Physician [phone] [place] [facility] [place] 08/28/21 - 09/27/21 [facility] [address] [place] [address]- Allergies, Adverse Reactions, Alerts No Known Medication [...] Lopez rded 1Result Comment: [facility] 00969-640-86 Medications amLODIPine 5 mg oral tablet 5 mg, 1, tablet, By Mouth, Daily, # 90 tablet, Refills 3, Tot. Refills 3, Maintenance, 11/04/20 13:56:00 EDT, Route to Pharmacy Electronically, [facility]/pharmacy #2339, Partial fill upon patient request if the prescription is for a schedule II opioid drug.... Start Date: 11/04/20 Status: Ordered levothyroxine 75 mcg (0.075 mg) oral tablet 1 tablet, By Mouth, Daily, # 90 tablet, 1 Refills, [facility], 158.4, cm, 12/10/20 14:00:00 EDT, Height Start Date: 05/26/21 Status: Ordered LORazepam 0.5 mg oral tablet See Instructions, PRN as needed for anxiety, 1/2 tablet By Mouth Daily as needed for anxiety INSURANCE CLAIMS ASSISTANT reviewed, # 5 tablet, 0 Refills, Maintenance, 06/19/21 14:19:00 EDT, Tablet, [facility]/pharmacy #2339, Partial fill upon patient request if the prescription... Start Date: 06/19/21 Status: Ordered Problem List Condition Effective Dates Status Health Status Inform ant HTN (hypertension)(Confirmed) Active Hypothyroidism(Confirmed) Active Obese class II(Confirmed) Active Social History Social History Type Response Tobacco Other: quit age 27, previously 1/2 ppd x 1 yr. Sex
--- OUTSIDE RECORDS SUMMARY | 2024-03-18 12:41 | XMS_ITS | Continuity of Care Document ---
Author Organization [facility] Address [address] [place] [address]- Care Team Providers Care Dry Cleaner Hand Name Role Phone Orion TAPIA, Kalia Primary Care Physician [phone] [place] [facility] Date(s): 08/01/21 - 08/08/21 [facility] [address] [place] [address]- Attending Physician: Aram Douglas MD Allergies, Adverse [...] Lopez rded 1Result Comment: [facility] 35698-654-08 Medications amLODIPine 5 mg oral tablet 5 [...] [facility] 15285, 158.4, cm, 12/10/20 14:00:00 EDT, Height Start Date: 05/26/21 Status: Ordered LORazepam 0.5 mg oral tablet See Instructions, PRN as needed for anxiety, 1/2 tablet By Mouth Daily as needed for anxiety WEBSPHERE CONSULTANT reviewed, # 5 tablet, 0 Refills, Maintenance, 06/19/21 14:19:00 EDT, Tablet, [facility]/pharmacy #2339, Partial fill upon patient request if the prescription... Start Date: 06/19/21 Status: Ordered Problem List Condition Effective Dates Status Health Status Inform ant HTN (hypertension)(Confirmed) Active Hypothyroidism(Confirmed) Active Obese class II(Confirmed) Active Vital Signs Most recent to oldest [Reference Range]: 1 Height 158.4 cm (08/01/21 9:52 AM) Weight 89.7 kg (08/01/21 9:52 AM) Body Mass Index [18.5-24.99] 35.75 *>HHI* (08/01/21 9:52 AM) Blood Pressure [90-138/55-84 mm Hg] 134/ 82mm Hg (08/01/21 9:52 AM) Blood pressure sites Arm, left (08/01/21 9:52 AM) Weight Obtained Via Standing scale (08/01/21 9:52 AM) Social History Social History Type Response Tobacco Other: quit age 27, previously 1/2 ppd x 1 yr. Sex
--- OUTSIDE RECORDS SUMMARY | 2024-03-18 12:41 | XMS_ITS | Continuity of Care Document ---
Author Organization [facility] Adult Address [address] [place] [address]- Care Team Providers Care Dollyman Name Role Phone Orion TAPIA, Kalia Primary Care Physician Encounter [facility] Date(s): 03/18/21 - 04/17/21 [facility] [address] [place] [address] Allergies, Adverse Reactions, Alerts No Known Medication [...] Vaccine (oldterm) 89 Lopez rded 1Result Comment: [facility] 36640-889-35 Medications amLODIPine 5 mg oral tablet 5 mg, 1, tablet, By Mouth, Daily, # 90 tablet, Refills 3, Tot. Refills 3, Maintenance, 11/04/20 13:56:00 EDT, Route to Pharmacy Electronically, [facility]/pharmacy #2339, Partial fill upon patient request if the prescription is for a schedule II opioid drug.... Start Date: 11/04/20 Status: Ordered levothyroxine 75 mcg (0.075 mg) oral tablet 1 tablet = 75 mcg, By Mouth, Daily, # 90 tablet, 1 Refills, Maintenance, 12/06/20 10:08:00 EDT, Tablet, [facility]/pharmacy #2339, Partial fill upon patient request if the prescription is for a schedule II opioid drug., 158.4, cm, 11/04/20 8:59:00 EDT, Height Start Date: 12/06/20 Stop Date: 06/04/21 Status: Ordered LORazepam 0.5 mg oral tablet 1 tablet = 0.5 mg, By Mouth, Daily, PRN as needed for anxiety, county sheriff reviewed, # 7 tablet, 0 Refills,Maintenance, 12/12/20 [...]
--- OUTSIDE RECORDS SUMMARY | 2024-03-18 12:41 | XMS_ITS | Continuity of Care Document ---
Author Organization [facility] Adult Address [address] [place] [address]- Care Team Providers Care Stock Preparation Operator Name Role Phone Orion TAPIA, Kalia Primary Care Physician [phone] [facility] Date[facility]): [facility]20 - 11/14/20 [facility] Adult [address] [place] [address]- Allergies, Adverse Reactions, Alerts No Known Medication [...] Lopez rded 1Result Comment: [facility] 56596-403-52 Medications amLODIPine 5 mg oral tablet 5 mg, 1, tablet, By Mouth, Daily, # 90 tablet, Refills 3, Tot. Refills 3, Maintenance, 11/04/20 13:56:00 EDT, Route to Pharmacy Electronically, [facility]/pharmacy #[id number], Partial fill upon patient request if the prescription is for a schedule II opioid drug.... Start Date: 11/04/20 Status: Ordered levothyroxine 75 mcg (0.075 mg) oral tablet 1 tablet = 75 mcg, By Mouth, Daily, # 30 tablet, 1 Refills, Maintenance, 10/09/20 12:59:00 EST, Tablet, [facility]/pharmacy #[id number], Partial fill upon patient request if the prescription is for a schedule II opioid drug., 158.4, cm, 10/08/20 11:22:00 EST, Height Start Date: 10/09/20 Stop Date: 12/08/20 Status: Ordered Problem List Condition Effective Dates Status Health Status Inform ant HTN (hypertension)(Confirmed) Active Hypothyroidism(Confirmed) Active Well adult exam(Confirmed) Active Social History Social History Type Response Tobacco Other: quit age 27, previously 1/2 ppd x 1 yr. Sex
--- OUTSIDE RECORDS SUMMARY | 2024-03-18 12:41 | XMS_ITS | Continuity of Care Document ---
Author Organization [facility] Adult Address [address] [place] [address]- Care Team Providers Care Arm Rest Builder Name Role Phone Kalia Sears MD Primary Care Physician [phone] Encounter [facility] Date(s): 10/05/23 - 10/12/23 [facility] Adult [address] [place] [address]- Encounter Diagnosis Annual physical exam(Discharge Diagnosis) - 10/05/23 HTN (hypertension)(Discharge Diagnosis) - 10/05/23 Hypothyroidism(Discharge Diagnosis) - 10/05/23 Severe obesity (BMI 35.0-39.9) with comorbidity(Discharge Diagnosis) - 10/05/23 Attending Physician: Kalia Sears MD Allergies, Adverse Reactions, Alerts No Known Medication Allergies Immunizations Given and Recorded Vaccine Date Status Refusal Reason influenza virus vaccine, inactivated 05/25/23 Give n influenza virus vaccine, inactivated 06/30/22 Lopez rded influenza virus vaccine, inactivated 06/26/21 Lopez rded influenza virus vaccine, inactivated 06/14/20 Lopez rded [id number] 12y+ bivalent booster vax 09/14/22 Recorded SARS-CoV-2 [...] Comment: [facility] 87365-161-60 Medications amLODIPine 5 mg oral tablet 5 mg, 1, tablet, By Mouth, Daily, # 90 tablet, Refills 3, Tot. Refills 3, Maintenance, 10/05/23 8:49:00 EST, Route to Pharmacy Electronically, [facility]/pharmacy #[id number], Partial fill upon patient request ifthe prescription is for a schedule II opioid drug.,... Start Date: 10/05/23 Status: Ordered labetalol 200 mg oral tablet 1 tablet = 200 mg, By Mouth, 2 times a day, # 180 tablet, 1 Refills, Maintenance, 06/08/23 11:10:00EDT, Tablet, [facility]/pharmacy #[id number], Partial fill upon patient request if the prescription is for a schedule II opioid drug., 157, cm, 06/08/23 10:54:00 ED... Start Date: 06/08/23 Status: Ordered levothyroxine 75 mcg (0.075 mg) oral tablet 1 tablet, By Mouth, Daily, # 90 tablet, 1 Refills, Maintenance, 03/31/23 12:03:00 EDT, [facility]/pharmacy#[id number], 157, cm, 03/31/23 11:44:00 EDT, Height Start Date: 03/31/23 Status: Ordered LORazepam 0.5 mg oral tablet See Instructions, PRN as needed for anxiety, 1/2 tablet By Mouth Daily as needed for anxiety INSTRUMENT TECHNICIAN APPRENTICE reviewed, # 5 tablet, 0 Refills, Maintenance, [...] Effective Dates Health Status Clinical Service Informant Annual physical exam Discharge Diagnosis 10/05/23 HTN (hypertension) Discharge Diagnosis 10/05/23 Hypothyroidism Discharge Diagnosis 10/05/23 Severe obesity (BMI 35.0-39.9) with comorbidity Discharge Diagnosis 10/05/23 Vital Signs Most recent to oldest [Reference Range]: 1 2 Height 157 cm (10/05/23 8:26 AM) 157 cm (10/05/23 8:16 AM) Weight 92 kg (10/05/23 8:16 AM) Oxygen Saturation [94-100 %] 99 % (10/05/23 8:16 AM) Pulse Rate [55-90 bpm] 75 bpm (10/05/23 8:16 AM) Body Mass Index [18.5-24.99 kg/m2] 37.32 kg/m2 *>HHI* (10/05/23 8:16 AM) Blood Pressure [90-138/55-84 mm Hg] 142/ 89mm Hg *H* (10/05/23 8:26 AM) 149/83mm Hg *H* (10/05/23 8:16 AM) Temperature [96.8-100.4 DegF] 98.4 DegF (10/05/23 8:16 AM) Mode of Delivery (Oxygen) Room air (10/05/23 8:16 AM) Blood pressure sites Arm, left (10/05/23 8:26 AM) Arm, left (10/05/23 8:16 AM) Temperature Route Oral (10/05/23 8:16 AM) Weight Obtained Via Standing scale (10/05/23 8:16 AM) Social History Social History Type Response Tobacco Other: quit age 27, previously 1/2 ppd x 1 yr. Sex Note * Dawn Hyde: PERFORM, SIGN, VERIFY Event Display: Patient Education/Instruction Authored Date: [id number] [facility] Clinical Summary Name TORO HOLDEN Age 33 Years 1990 PCP Orion TAPIA, Kalia PCP Visit Date 10/05/2023 08:11:00 Additional Instructions: Scheduled Appointments?? Future Appointments ?*[facility]??Adult ?[address],??[address] ?Phone:??--?Fax:??-- ?Appt. Date:??10/11/2023?11:00 AM ?Scheduled Provider:??Kuldeep Lawrence ?*[facility]??Gen??Surg ?Phone:??--?Fax:??-- ?Appt. Date:??10/14/2023?1:30 PM ?Scheduled Provider:??Ángela, LIONEL, Belle Dueañs ?*[facility] ?Phone:??--?Fax:??-- ?Appt. Date:??11/05/2023?10:30 AM ?Scheduled Provider:??[facility] Clinical Follow-Up Instructions ?? With: Address: When: Kalia Sears MD Comments: nv??1 month bp check fu january??annual 1 yr Diagnosis Essential (primary) hypertension; Encounter for general adult medical examination without abnormal findings; Hypothyroidism, unspecified; Morbid (severe) obesity due to excess calories Medications: Please continue your medications until treatment is completed or stopped by your provider. Discuss any questions related to medications with your provider. New Medications [id number], [address] [place] [phone], [phone] Amlodipine (amLODIPine 5 mg oral tablet) 1 tab(s) Oral Daily. Refills: 3. Next Dose: Medications to Continue with No Changes These medications were not printed or sent to your pharmacy Labetalol (labetalol 200 mg oral tablet) 1 tab(s) Oral twice a day. Refills: 1. Next Dose: Levothyroxine (levothyroxine 75 mcg (0.075 mg) oral tablet) 1 tab(s) Oral Daily. Refills: 1. Next Dose: Lorazepam (LORazepam 0.5 mg oral tablet) 1/2 tablet By Mouth Daily as needed for anxiety INSTRUMENT TECHNICIAN APPRENTICE reviewed; as needed as needed for anxiety. Refills: 0. Next Dose: Multivitamin Next Dose: Allergy Info:?? No Known Medication Allergies Medications Given This Visit Future Orders ?Comprehensive Metabolic Panel? Order Date:10/05/23?- Complete on or after?10/05/23 ?TSH with T4 Reflex (Adults Only)? Order Date:10/05/23?- Complete on or after?10/05/23 Vital Signs Height 157 cm Weight 92 kg BMI 37.32 kg/m2 Blood Pressure 142 mm Hg/89 mm Hg Temperature 98.4 DegF Pulse Rate 75 bpm Respiratory Rate 02 Sat Mode of Delivery 99 %/Room air You can now view a summary of your hospital visit from the comfort of your home through a free online portal called [employer]. [employer] is a website that allows you to securely view your medical information including discharge summary, medications and follow-up visits. ??You can alsosend a secure electronic message to your doctor???s office to request appointments, renew medications or just ask a question. You can enroll at [email or web address] or register during your next office visit. [...] primary care provider, you may find a [facility] provider by calling [facility] [employer] Link at [phone]. [facility], in keeping with [facility] guidance, no longer requires face [...] Personnel Name: Jarad TAPIA, Priti Gamez Position: [facility] CAMERA ENGINEER MD Member Role: Lifetime CAMERA ENGINEER Physician Address: Address: [address] [place] [address]'s [facility] [place] [address]- Name: Kalia Sears MD Position: [facility] Physician - Primary Care Member Role: PCP Address: Address: [address] [facility] 3rd [place] [address]- Care Team Related Persons Name: EUN HOLDEN Address: home [address] [facility] [address] [place] [address]
--- OUTSIDE RECORDS SUMMARY | 2024-03-18 12:41 | XMS_ITS | Continuity of Care Document ---
Author Organization [facility] Adult Address [address] [place] [address]- Care Team Providers Care Brake Engineer Name Role Phone Orion TAPIA, Kalia Primary Care Physician [facility] Date(s): 10/15/20 - 11/14/20 [facility] Adult [address] [place] [address]- Allergies, Adverse Reactions, Alerts No Known Medication [...] rded 1Result Comment: [facility] [id number] Medications amLODIPine 5 mg oral tablet 5 mg, 1, tablet, By Mouth, Daily, # 90 tablet, Refills 3, Tot. Refills 3, Maintenance, 11/04/20 13:56:00 EDT, Route to Pharmacy Electronically, [facility]/pharmacy #[id number], Partial fill upon patient request if the prescription is for a schedule II opioid drug.... Start Date: 11/04/20 Status: Ordered levothyroxine 75 mcg (0.075 mg) oral tablet 1 tablet = 75 mcg, By Mouth, Daily, # 30 tablet, 1 Refills, Maintenance, 10/09/20 12:59:00 EST, Tablet, [facility]/pharmacy #[id number], Partial fill upon patient request if [...]
--- OUTSIDE RECORDS SUMMARY | 2024-03-18 12:41 | XMS_ITS | Continuity of Care Document ---
Author Organization [facility] Adult Address [address] [place] [address]- Care Team Providers Care Bilingual Sales Consultant Name Role Phone Orion TAPIA, Kalia Primary Care Physician [phone] Encounter [facility] Date(s): 06/29/23 - 07/06/23 [facility] Adult [address] [place] [address]- Encounter Diagnosis HTN (hypertension)(Discharge Diagnosis) - 06/29/23 Hypothyroidism(Discharge Diagnosis) - 06/29/23 Mass of right hand(Discharge Diagnosis) - 06/29/23 Attending Physician: Orion TAPIA, Kalia Allergies, Adverse Reactions, Alerts No Known Medication Allergies Immunizations Given and Recorded Vaccine Date Status Refusal Reason influenza virus vaccine, inactivated 05/25/23 Give n influenza virus vaccine, inactivated 06/30/22 Lopez rded influenza virus vaccine, inactivated 06/26/21 Lopez rded influenza virus vaccine, inactivated 06/14/20 Lopez rded [id number] 12y+ bivalent booster vax 09/14/22 Recorded SARS-CoV-2 [...] 1Result Comment: [facility] 41430-652-30 Medications labetalol 200 mg oral tablet 1 tablet = 200 mg, By Mouth, 2 times a day, # 180 tablet, 1 Refills, Maintenance, 06/08/23 11:10:00EDT, Tablet, [facility]/pharmacy #[id number], Partial fill upon [...] By Mouth Daily as needed for anxiety MUSEUM ATTENDANT reviewed, # 5 tablet, 0 Refills, Maintenance, [...] Effective Dates Health Status Clinical Service Informant HTN (hypertension) Discharge Diagnosis 06/29/23 Hypothyroidism Discharge Diagnosis 06/29/23 Mass of right hand Discharge Diagnosis 06/29/23 Vital Signs Most recent to oldest [Reference Range]: 1 Height 157 cm (06/29/23 10:33 AM) Weight 94.8 kg (06/29/23 10:33 AM) Oxygen Saturation [94-100 %] 98 % (06/29/23 10:33 AM) Pulse Rate [55-90 bpm] 74 bpm (06/29/23 10:33 AM) Body Mass Index [18.5-24.99 kg/m2] 38.46 kg/m2 *>HHI* (06/29/23 10:33 AM) Blood Pressure [90-138/55-84 mm Hg] 135/ 75mm Hg (06/29/23 10:33 AM) Mode of Delivery (Oxygen) Room air (06/29/23 10:33 AM) Blood pressure sites Arm, left (06/29/23 10:33 AM) Social History Social History Type Response Tobacco Other: quit age 27, previously 1/2 ppd x 1 yr. Sex Note * Herminio Juarez: PERFORM, SIGN, VERIFY Event Display: Patient Education/Instruction Authored Date: [id number] [facility] *[facility] Clinical Summary Name TORO HOLDEN Age 32 Years 1990 PCP Kalia Sears MD PCP Visit Date 06/29/2023 09:49:00 Additional Instructions: Scheduled Appointments?? Future Appointments ?*[facility]??Gen??Surg ?Phone:??--?Fax:??-- ?Appt. Date:??07/14/2023?10:30 AM ?Scheduled Provider:??LIONEL Motta Kimberly L Follow-Up Instructions ?? With: Address: When[facility] Comments: fu 3 months Diagnosis Essential (primary) hypertension; Hypothyroidism, unspecified Medications: Please continue your medications until treatment [...] By Mouth Daily as needed for anxiety MUSEUM ATTENDANT reviewed; as needed as needed for anxiety. Refills: 0. Next Dose: Multivitamin Next Dose: Allergy Info:?? No Known Medication Allergies Medications Given This Visit Future Orders ?No future orders Vital Signs Height 157 cm Weight 94.8 kg BMI 38.46 kg/m2 Blood Pressure 135 mm Hg/75 mm Hg Temperature Pulse Rate 74 bpm Respiratory Rate 02 Sat Mode of Delivery 98 %/Room air You can now view a summary of your hospital visit from the comfort of your home through a free online portal called [employer]. [employer] is a website that allows you to securely view your medical information including discharge summary, medications and follow-up visits. ??You can alsosend a secure electronic message to your doctor???s office to request appointments, renew medications or just ask a question. You can enroll at [email or web address] or register during your next office [...] primary care provider, you may find a [facility] provider by calling [facility] [employer] Link at [phone]. [facility], in keeping with [facility] guidance, no longer requires face masks [...] Team Personnel Name: Priti Abraham MD Position: [facility] CULTURE MANAGER Member Role: Lifetime CULTURE MANAGER Physician Address: Address: [address] [place] [address]'s Health Right Of Way Manager - [address] Name: Kalia Sears MD Position: [facility] Physician - Primary Care Member Role: PCP Address: Address: [address] [facility] 3rd [place] [address]- Care Team Related Persons Name: EUN HOLDEN Address: home [address] [facility] [address] [address]
--- OUTSIDE RECORDS SUMMARY | 2024-03-18 12:41 | XMS_ITS | Continuity of Care Document ---
Author Organization [facility] Address [address] [place] [address] ve [address] [place] [address]- Care Team Providers Care Radiologic Electronic Specialist Name Role Phone Kalia Sears MD Primary Care Physician [phone] Encounter [facility] Date(s): 07/14/23 - 07/21/[address] [place] [address]- Attending Physician: Ángela MS,RD,LDN, Belle Dueñas Referring Physician: Kalia Sears MD Allergies, Adverse Reactions, Alerts No Known Medication Allergies Immunizations Given and Recorded Vaccine Date Status Refusal Reason influenza virus vaccine, inactivated 05/25/23 Give n influenza virus vaccine, inactivated 06/30/22 Lopez rded influenza virus vaccine, inactivated 06/26/21 Lopez rded influenza virus vaccine, inactivated 06/14/20 Lopez rded [id number] 12y+ bivalent booster vax 09/14/22 Recorded SARS-CoV-2 [...] Vaccine (oldterm) 89 Lopez rded 1Result Comment: [facility] [id number] Medications labetalol 200 mg oral tablet 1 tablet = 200 mg, By Mouth, 2 times a day, # 180 tablet, 1 Refills, Maintenance, 06/08/23 11:10:00EDT, Tablet, [facility]/pharmacy #[id number], Partial fill upon patient request if [...] By Mouth Daily as needed for anxiety BRANCH OFFICE MANAGER reviewed, # 5 tablet, 0 Refills, Maintenance, [...] Team Personnel Name: Priti Abraham MD Position: [facility] PRESIDENT CEO & FOUNDER MD Member Role: Lifetime PRESIDENT CEO & FOUNDER Physician Address: Address: [address] [place] [address]'s [facility] [place] [address]- Name: Kalia Sears MD Position: [facility] Physician - Primary Care Member Role: PCP Address: Address: [address] [place] [address] 3rd [place] [address]- Care Team Related Persons Name: EUN HOLDEN Address: home [address] [place] [address]
--- OUTSIDE RECORDS SUMMARY | 2024-03-18 12:41 | XMS_ITS | Continuity of Care Document ---
Author Organization [facility] Address [address] [facility] [place] [address]- Care Team Providers Care Special Procedures Tech Name Role Phone Kalia Sears MD Primary Care Physician [phone] [facility] Date(s): 08/27/22 - 09/26/22 [facility] [address] [facility] [place], [place] [address] Allergies, Adverse Reactions, Alerts No Known Medication [...] Vaccine (oldterm) 89 Lopez rded 1Result Comment: [facility] 05185-727-56 Medications amLODIPine 10 mg oral tablet 10 mg, 1, tablet, By Mouth, Daily, # 90 tablet, Refills 3, Tot. Refills 3, Maintenance, 09/10/22 14:46:00 EST, Route to Pharmacy Electronically, [facility]/pharmacy #[id number], Partial fill upon patient request if the prescription is for a schedule II opioid drug... Start Date: 09/10/22 Status: Ordered levothyroxine 75 mcg (0.075 mg) oral tablet 1 tablet, By Mouth, Daily, # 90 tablet, 1 Refills, Maintenance, 05/23/22 0:34:00 EDT, [facility] STORE 38856, 158, cm, 12/10/21 16:01:00 EDT, Height Start Date: 05/23/22 Status: Ordered LORazepam 0.5 mg oral tablet See Instructions, PRN as needed for anxiety, 1/2 tablet By Mouth Daily as needed for anxiety CHECKER STOCKER reviewed, # 5 tablet, 0 Refills, Maintenance, 08/03/22 17:00:00 EST, Tablet, [facility]/pharmacy #2339, Partial [...] Abraham MD Position: [facility] CATEGORY DEVELOPMENT ANALYST MD Member Role: Lifetime CATEGORY DEVELOPMENT ANALYST Physician Address: Address: [address] [place] [address]- [place] Name: Kalia Sears MD Position: [facility] Primary Care Physician Member Role: PCP Address: Address: [address] [place] [address] 3rd [place] [address]- Care Team Related Persons Name: EUN HOLDEN Address: home [address] [facility] [address] [place] [address]
--- OUTSIDE RECORDS SUMMARY | 2024-03-18 12:41 | XMS_ITS | Continuity of Care Document ---
Author Organization [facility] Adult Address [address] [place] [address]- Care Team Providers Care Ear Nose Throat Surgeon Name Role Phone Kalia Sears MD Primary Care Physician [phone] Encounter [facility] Date(s): 09/11/23 - 10/11/23 [facility] Adult [address] [place] [address]- Allergies, Adverse Reactions, Alerts No Known Medication Allergies Immunizations Given and Recorded Vaccine Date Status Refusal Reason influenza virus vaccine, inactivated 05/25/23 Give n influenza virus vaccine, inactivated 06/30/22 Lopez rded influenza virus vaccine, inactivated 06/26/21 Lopez rded influenza virus vaccine, inactivated 06/14/20 Lopez rded [id number] 12y+ bivalent booster vax 09/14/22 Recorded SARS-CoV-2 [...] 89 Lopez rded 1Result Comment: [facility] 65087-962-97 Medications amLODIPine 5 mg oral tablet 5 mg, 1, tablet, By Mouth, Daily, # 90 tablet, Refills 3, Tot. Refills 3, Maintenance, 10/05/23 8:49:00 EST, Route to Pharmacy Electronically, [facility]/pharmacy #[id number], Partial fill upon patient request ifthe prescription is for a schedule II opioid drug.,... Start Date: 10/05/23 Status: Ordered labetalol 200 mg oral tablet 1 tablet = 200 mg, By Mouth, 2 times a day, # 180 tablet, 1 Refills, Maintenance, 06/08/23 11:10:00EDT, Tablet, [facility]/pharmacy #[id number], Partial fill upon patient request if the prescription is for a schedule II opioid drug., 157, cm, 06/08/23 10:54:00 ED... Start Date: 06/08/23 Status: Ordered levothyroxine 75 mcg (0.075 mg) oral tablet 1 tablet, By Mouth, Daily, # 90 tablet, 1 Refills, Maintenance, 03/31/23 12:03:00 EDT, [facility]/pharmacy#2339, 157, cm, 03/31/23 11:44:00 EDT, Height Start Date: 03/31/23 Status: Ordered LORazepam 0.5 mg oral tablet See Instructions, PRN as needed for anxiety, 1/2 tablet By Mouth Daily as needed for anxiety PEDIATRIC ASSISTANT reviewed, # 5 tablet, 0 Refills, [...] Personnel Name: Jarad TAPIA, Priti Gamez Position: [facility] TELEMARKETING REPRESENTATIVE MD Member Role: Lifetime TELEMARKETING REPRESENTATIVE Physician Address: Address: [address] [place] [address] [facility] [place] [address]- Name: Kalia Sears MD Position: [facility] Physician - Primary Care Member Role: PCP Address: Address: [address] [place] [address] 3rd [place] [address]- Care Team Related Persons Name: EUN HOLDEN Address: home [address] [facility] [address] [address]
--- OUTSIDE RECORDS SUMMARY | 2024-03-18 12:41 | XMS_ITS | Continuity of Care Document ---
Author Organization [facility] Adult Address [address] [place] [address]- Care Team Providers Care Process Development Manager Name Role Phone Orion TAPIA, Kalia Primary Care Physician Encounter [facility] Date(s): 09/07/22 - 10/07/22 [facility] Adult [address] [place] [address]- Allergies, Adverse Reactions, Alerts No Known Medication [...] Lopez rded 1Result Comment: [facility] [id number] Medications amLODIPine 10 mg oral tablet 10 mg, 1, tablet, By Mouth, Daily, # 90 tablet, Refills 3, Tot. Refills 3, Maintenance, 09/10/22 14:46:00 EST, Route to Pharmacy Electronically, [facility]/pharmacy #[id number], Partial fill upon patient request if the prescription is for a schedule II opioid drug... Start Date: 09/10/22 Status: Ordered levothyroxine 75 mcg (0.075 mg) oral tablet 1 tablet, By Mouth, Daily, # 90 tablet, 1 Refills, Maintenance, 05/23/22 0:34:00 EDT, [facility], 158, cm, 12/10/21 16:01:00 EDT, Height Start Date: 05/23/22 Status: Ordered LORazepam 0.5 mg oral tablet See Instructions, PRN as needed for anxiety, 1/2 tablet By Mouth Daily as needed for anxiety COMMUNITY RELATIONS LIAISON reviewed, # 5 tablet, 0 Refills, Maintenance, 08/03/22 17:00:00 EST, Tablet, [facility]/pharmacy #2331, Partial fill upon patient request if [...] Team Personnel Name: Priti Abraham MD Position: [facility] HUMAN RESOURCES PROJECT MANAGER MD Member Role: Lifetime HUMAN RESOURCES PROJECT MANAGER Physician Address: Address: [address]'s [facility] [place] [address]- [place] Name: Kalia Sears MD Position: [facility] Primary Care Physician Member Role: PCP Address: Address: [address] [facility] 3rd [place] [address]- [place] Care Team Related Persons Name: EUN HOLDEN Address: home [address] [facility] [address] [address]
--- OUTSIDE RECORDS SUMMARY | 2024-03-18 12:41 | XMS_ITS | Continuity of Care Document ---
Author Organization [facility] Adult Address [address] [place] [address]- Care Team Providers Care Shop Service Technician Name Role Phone Orion TAPIA, Kalia Primary Care Physician [place] [facility] [place] 06/[place]/23 [facility] Adult [address] [place] [address]- Allergies, Adverse Reactions, Alerts No Known Medication Allergies Immunizations Given and Recorded Vaccine Date Status Refusal Reason influenza virus vaccine, inactivated 05/25/23 Give n influenza virus vaccine, inactivated 06/30/22 Lopez rded influenza virus vaccine, inactivated 06/26/21 Lopez rded influenza virus vaccine, inactivated 06/14/20 Lopez rded [id number] 12y+ bivalent booster vax 09/14/22 Recorded SARS-CoV-2 [...] 89 Lopez rded 1Result Comment: [facility] 88895-755-08 Medications labetalol 200 mg oral tablet 1 [...] By Mouth Daily as needed for anxiety BUNDLE WRAPPER reviewed, # 5 tablet, 0 Refills, Maintenance, [...] Team Personnel Name: Priti Abraham MD Position: [facility] ELECTRICAL MAINTENANCE WORKER MD Member Role: Lifetime ELECTRICAL MAINTENANCE WORKER Physician Address: Address: [address] [place] [address]'s [facility] Senior [place] [address]- Name: Kalia Sears MD Position: [facility] Physician - Primary Care Member Role: PCP Address: Address: [address] [place] [address] 3rd [place] [address]- Care Team Related Persons Name: EUN HOLDEN Address: home [address] [facility] [address], [place] [address]
--- OUTSIDE RECORDS SUMMARY | 2024-03-18 12:41 | XMS_ITS | Continuity of Care Document ---
Author Organization [facility] Adult Address [address] [place] [address]- Care Team Providers Care Consulting Actuary Name Role Phone Orion TAPIA, Kalia Primary Care Physician [place] [facility] [place] 01/04/20 - 01/11/20 [facility] Adult [address] [place] [address] [facility] Encounter Diagnosis Anxiety disorder(Discharge Diagnosis) - 01/04/20 Abnormal thyroid blood test(Discharge Diagnosis) - 01/04/20 Attending Physician: Lauren Ryan NP Allergies, Adverse Reactions, Alerts No Known [...] Lopez rded 1Result Comment: [facility] 71073-336-33 Medications codeine-guaifenesin 10 mg-100 mg/5 mL oral syrup 5 mL, By Mouth, Every 4 hours, PRN for cough, for 10 days, # 300 mL, 2 Refills, Acute 01/18/20 8:38:00 EDT, 12/19/19 8:38:00 EDT, Syrup, [facility]/pharmacy #2339, 5 mL By Mouth Every 4 [...] 02/01/20 15:20:00 EDT, 01/04/20 15:20:00 EDT, Tablet, [facility], 158.4, cm, 01/04/20 13:56:00 EDT, Height [...] Dates Health Status Cl inical Service Informant Anxiety disorder Discharge Diagnosis 01/04/20 Abnormal thyroid blood test Discharge Diagnosis 01/04/20 Vital Signs Most recent to oldest [Reference Range]: 1 Height 158.4 cm (01/04/20 1:56 PM) Social History Social History Type Response Tobacco Other: quit age 27, previously 1/2 ppd x 1 yr. Sex
--- OUTSIDE RECORDS SUMMARY | 2024-03-18 12:41 | XMS_ITS | Continuity of Care Document ---
Author Organization [facility] Adult Address [address] [place] [address]- Care Team Providers Care Partnership Development Manager Name Role Phone Orion TAPIA, Kalia Primary Care Physician [facility]counter [facility] Date(s): 06/05/20 - 06/12/20 [facility] Adult [address] [place] [address] [facility] Encounter Diagnosis Scalp lump(Discharge Diagnosis) - 06/05/20 Lump of right breast(Discharge Diagnosis) - 06/05/20 Attending Physician: Nancy Chaudhry NP Allergies, Adverse Reactions, [...] 1Result Comment: [facility] 02071-487-23 Medications cyclobenzaprine 10 mg oral tablet See Instructions, # 30 tablet, 1 TABLET BY MOUTH DAILY, NEEDED FOR MUSCLE SPASM, [facility]/pharmacy #2339 Start Date: 04/28/19 Status: Ordered levothyroxine 75 mcg (0.075 mg) oral tablet 1 tablet = 75 mcg, By Mouth, Daily, # 30 tablet, 1 Refills, Maintenance, 02/14/20 18:12:00 EDT, Tablet Start Date: 02/14/20 Status: Ordered Multivitamins with Folic Acid 1 mg oral tablet 1 tablet, By Mouth, Daily, # 30 tablet, 10 Refills, Maintenance, 08/15/19 10:35:00 EST, Tablet, [facility]/pharmacy #2339, 1 tablet By Mouth Daily, 158.4, cm, 08/15/19 9:53:00 EST, Height Start Date: 08/15/19 Status: Ordered Problem List Condition Effective Dates Status Health Status Inform ant COVID-19 virus infection(Confirmed) Active Diagnosis Diagnosis Type Effective Dates Health Status Cl inical Service Informant Scalp lump Discharge Diagnosis 06/05/20 Lump of right breast Discharge Diagnosis 06/05/20 Vital Signs Most recent to oldest [Reference Range]: 1 Height 158.4 cm (06/05/20 9:25 AM) Weight 91.0 kg (06/05/20 9:25 AM) Oxygen Saturation [94-100 %] 99 % (06/05/20 9:25 AM) Pulse Rate [55-90 bpm] 88 bpm (06/05/20 9:25 AM) Body Mass Index [18.5-24.99] 36.27 *>HHI* (06/05/20 9:25 AM) Blood Pressure [90-138/55-84 mm Hg] 122/ 86mm Hg (06/05/20 9:25 AM) Respiratory Rate [16-30 br/min] 16 br/mi n (06/05/20 9:25 AM) Mode of Delivery (Oxygen) Room air (06/05/20 9:25 AM) Blood pressure sites Arm, left (06/05/20 9:25 AM) Weight Obtained Via Standing scale (06/05/20 9:25 AM) Social History Social History Type Response Tobacco Other: quit age 27, previously 1/2 ppd x 1 yr. Sex
--- OUTSIDE RECORDS SUMMARY | 2024-03-18 12:41 | XMS_ITS | Continuity of Care Document ---
Author Organization [facility] Adult Address [address] [place] [address]- Care Team Providers Care Supply Analyst Name Role Phone Orion TAPIA, Kalia Primary Care Physician Encounter [facility] Date(s): 12/06/20 - 01/05/21 [facility] Adult [address] [place] [address]- Allergies, Adverse Reactions, Alerts No Known Medication [...] Vaccine (oldterm) 89 Lopez rded 1Result Comment: [facility][NOTE 3] 31247-636-04 Medications amLODIPine 5 mg oral tablet 5 [...] Mouth, Daily, PRN as needed for anxiety, marketing systems analyst reviewed, # 7 tablet, 0 Refills,Maintenance, 12/12/20 [...]
--- OUTSIDE RECORDS SUMMARY | 2024-03-18 12:41 | XMS_ITS | Continuity of Care Document ---
Author Organization [facility] Adult Address [address] [place] [address]- Care Team Providers Care Host/Hostess Restaurant Name Role Phone Orion TAPIA, Kalia Primary Care Physician [place] [facility] [place]s): 09/06/21 - 01/04/22 [facility] Adult [address] [place] [address]- Attending Physician: Kalia Sears MD Allergies, Adverse [...] Comment: [facility] 79808-769-15 Medications amLODIPine 5 mg oral tablet 1 TABLET BY MOUTH DAILY Start Date: 12/10/21 Status: Ordered amLODIPine 5 mg oral tablet 5 mg, 1, tablet, By Mouth, Daily, # 90 tablet, Refills 3, Tot. Refills 3, Maintenance, 12/10/21 16:44:00 EDT, Route to Pharmacy Electronically, [facility]/pharmacy #[id number], Partial fill upon patient request if the prescription is for a schedule II opioid drug.... Start Date: 12/10/21 Status: Ordered levothyroxine 75 mcg (0.075 mg) oral tablet 1 tablet, By Mouth, Daily, # 90 tablet, 1 Refills, [facility] STORE 23921, 158, cm, 08/29/21 15:54:00 EST,Height Start Date: 11/23/21 Status: Ordered LORazepam 0.5 mg oral tablet See Instructions, PRN as needed for anxiety, 1/2 tablet By Mouth Daily as needed for anxiety CHORAL DIRECTOR reviewed, # 5 tablet, 0 Refills, Maintenance, 06/19/21 14:19:00 EDT, Tablet, [facility]/pharmacy #2339, Partial fill upon patient request if the prescription... Start Date: 06/19/21 Status: Ordered Problem List Condition Effective Dates Status Health Status Inform ant HTN (hypertension)(Confirmed) Active Hypothyroidism(Confirmed) Active Obese class II(Confirmed) Active Social History Social History Type Response Tobacco Other: quit age 27, previously 1/2 ppd x 1 yr. Sex
--- OUTSIDE RECORDS SUMMARY | 2024-03-18 12:41 | XMS_ITS | Continuity of Care Document ---
Author Organization [facility] Address [address] [place] [address]- Care Team Providers Care Exercise Teacher Name Role Phone Orion TAPIA, Kalia Primary Care Physician [phone] Encounter [facility] Date(s): 10/19/22 - 11/18/22 [facility] [address] [place] [address]- Allergies, Adverse Reactions, Alerts No Known Medication [...] 1Result Comment: [facility] [id number] Medications amLODIPine 10 mg oral tablet 10 mg, 1, tablet, By Mouth, Daily, # 90 tablet, Refills 3, Tot. Refills 3, Maintenance, 09/10/22 14:46:00 EST, Route to Pharmacy Electronically, [facility]/pharmacy #2339, Partial fill upon patient request if the prescription is for a schedule II opioid drug... Start Date: 09/10/22 Status: Ordered levothyroxine 75 mcg (0.075 mg) oral tablet 1 tablet, By Mouth, Daily, # 90 tablet, 1 Refills, Maintenance, 11/10/22 6:54:00 EDT, [facility] STORE 34338, 157, cm, 09/10/22 14:50:00 EST, Height Start Date: 11/10/22 Status: Ordered LORazepam 0.5 mg oral tablet See Instructions, PRN as needed for anxiety, 1/2 tablet By Mouth Daily as needed for anxiety SIX COLOR PRESS OPERATOR reviewed, # 5 tablet, 0 Refills, Maintenance, 08/03/22 17:00:00 EST, Tablet, [facility]/pharmacy #2331, Partial fill upon patient request if [...] Personnel Name: Priti Abraham MD Position: S SERVER MD Member Role: Lifetime SERVER Physician Address: Address: [address] [facility] [employer] [place] [address]- [place] Name: Orion TAPIA, Kalia Position: [facility] Primary Care Physician Member Role: PCP Address: Address: [address] [facility] 3rd [place] [address]- Care Team Related Persons Name: EUN HOLDEN Address: home [address] [facility] [address] [place] [address]
--- OUTSIDE RECORDS SUMMARY | 2024-03-18 12:41 | XMS_ITS | Continuity of Care Document ---
Author Organization [facility] Adult Address [address] [place] [address]- Care Team Providers Care Assistant To The President Name Role Phone Kalia Sears MD Primary Care Physician [place] [facility] [place] 09[place]20/21 [facility] Adult [address] [place] [address]- Allergies, Adverse Reactions, Alerts No Known Medication [...] 1Result Comment: [facility] 33927-187-73 Medications amLODIPine 5 mg oral tablet 5 mg, 1, tablet, By Mouth, Daily, # 90 tablet, Refills 3, Tot. Refills 3, Maintenance, 11/04/20 13:56:00 EDT, Route to Pharmacy Electronically, [facility]/pharmacy #2339, Partial fill upon patient request if the prescription is for a schedule II opioid drug.... Start Date: 11/04/20 Status: Ordered levothyroxine 75 mcg (0.075 mg) oral tablet 1 tablet, By Mouth, Daily, # 90 tablet, 1 Refills, [facility] STORE 53110, 158.4, cm, 12/10/20 14:00:00 EDT, Height Start Date: 05/26/21 Status: Ordered LORazepam 0.5 mg oral tablet See Instructions, PRN as needed for anxiety, 1/2 tablet By Mouth Daily as needed for anxiety RESPIRATORY TECH reviewed, # 5 tablet, 0 Refills, Maintenance, 06/19/21 14:19:00 EDT, Tablet, [facility]/pharmacy #2339, Partial fill upon patient request if the prescription... Start Date: 06/19/21 Status: Ordered Problem List Condition Effective Dates Status Health Status Inform ant HTN (hypertension)(Confirmed) Active Hypothyroidism(Confirmed) Active Obese class II(Confirmed) Active Social History Social History Type Response Tobacco Other: quit age 27, previously 1/2 ppd x 1 yr. Sex
--- OUTSIDE RECORDS SUMMARY | 2024-03-18 12:42 | XMS_ITS | Continuity of Care Document ---
Author Organization [facility] Adult Address [address] [place] [address]- Care Team Providers Care Cotton Grader Name Role Phone Kalia Sears MD Primary Care Physician [place] [facility] [place] 08/27/21 - 09/26/21 [facility] Adult [address] [place] [address]- Allergies, Adverse Reactions, Alerts No Known Medication [...] [facility] 17736-466-15 Medications amLODIPine 5 mg oral tablet 5 mg, 1, tablet, By Mouth, Daily, # 90 tablet, Refills 3, Tot. Refills 3, Maintenance, 11/04/20 13:56:00 EDT, Route to Pharmacy Electronically, [facility]/pharmacy #2339, Partial fill upon patient request if the prescription is for a schedule II opioid drug.... Start Date: 11/04/20 Status: Ordered levothyroxine 75 mcg (0.075 mg) oral tablet 1 tablet, By Mouth, Daily, # 90 tablet, 1 Refills, [facility] STORE 84492, 158.4, cm, 12/10/20 14:00:00 EDT, Height Start Date: 05/26/21 Status: Ordered LORazepam 0.5 mg oral tablet See Instructions, PRN as needed for anxiety, 1/2 tablet By Mouth Daily as needed for anxiety PIPE FITTINGS MOLDER reviewed, # 5 tablet, 0 Refills, Maintenance, 06/19/21 14:19:00 EDT, Tablet, [facility]/pharmacy #2339, Partial fill upon patient request if the prescription... Start Date: 06/19/21 Status: Ordered Problem List Condition Effective Dates Status Health Status Inform ant HTN (hypertension)(Confirmed) Active Hypothyroidism(Confirmed) Active Obese class II(Confirmed) Active Social History Social History Type Response Tobacco Other: quit age 27, previously 1/2 ppd x 1 yr. Sex
--- OUTSIDE RECORDS SUMMARY | 2024-03-18 12:42 | XMS_ITS | Continuity of Care Document ---
Author Organization [facility] Adult Address [address] [place] [address]- Care Team Providers Care Litigation Services Manager Name Role Phone Orion TAPIA, Kalia Primary Care Physician [phone] [place] [facility] [place] 09/01/19 - 09/11/19 [facility] Adult [address] [place] [address]- [facility] Attending Physician: Padmini Carvalho Admitting Physician: Padmini Carvalho Referring Physician: AdmtrPadmini Allergies, Adverse Reactions, Alerts No Known Medication Allergies Immunizations Given and Recorded Vaccine Date Status Refusal Reason tetanus/diphtheria/pertussis, acel(Tdap) 1 09/01/19 Given 1Result Comment: [facility] 28228-922-62 Medications cyclobenzaprine 10 mg oral tablet See [...]
--- OUTSIDE RECORDS SUMMARY | 2024-03-18 12:42 | XMS_ITS | Continuity of Care Document ---
Author Organization [facility] Adult Address [address] [place] [address]- Care Team Providers Care Health Plan Manager Name Role Phone Orion TAPIA, Kalia Primary Care Physician [place] [facility] [place] 03/19/23 - 04/18/23 [facility] Adult [address] [place] [address]- Allergies, Adverse Reactions, Alerts No Known Medication [...] 1Result Comment: [facility] 18568-317-00 Medications amLODIPine 10 mg oral tablet 10 mg, 1, tablet, By Mouth, Daily, # 90 tablet, Refills 3, Tot. Refills 3, Maintenance, 03/31/23 12:03:00 EDT, Route to Pharmacy Electronically, [facility]/pharmacy #2339, Partial fill upon patient request if the prescription is for a schedule II opioid drug... Start Date: 03/31/23 Status: Ordered levothyroxine 75 mcg (0.075 mg) oral tablet 1 tablet, By Mouth, Daily, # 90 tablet, 1 Refills, Maintenance, 03/31/23 12:03:00 EDT, [facility]/pharmacy#2339, 157, cm, 03/31/23 11:44:00 EDT, Height Start Date: 03/31/23 Status: Ordered LORazepam 0.5 mg oral tablet See Instructions, PRN as needed for anxiety, 1/2 tablet By Mouth Daily as needed for anxiety SIGNING AGENT reviewed, # 5 tablet, 0 Refills, Maintenance, 08/03/22 17:00:00 EST, Tablet, [facility]/pharmacy #2339, Partial fill upon patient request if [...] Team Personnel Name: Priti Abraham MD Position: [facility] TON CONTAINER SHIPPER MD Member Role: Lifetime TON CONTAINER SHIPPER Physician Address: Address: [address] [place] [address]- [place] Name: Kalia Sears MD Position: [facility] Physician - Primary Care Member Role: PCP Address: Address: [address] [place] [address] 3rd [place] [address]- Care Team Related Persons Name: EUN HOLDEN Address: home [address] [facility] [address], [place] [address]
--- OUTSIDE RECORDS SUMMARY | 2024-03-18 12:42 | XMS_ITS | Continuity of Care Document ---
Author Organization [facility] Adult Address [address] [place] [address]- Care Team Providers Care Nba Player Name Role Phone Orion TAPIA, Kalia Primary Care Physician [place] [facility] [place]10[place]20 - 12/17/20 [facility] Adult [address] [place] [address]- Encounter Diagnosis Sore throat(Discharge Diagnosis) - 12/14/20 Anxiety(Discharge Diagnosis) - 12/14/20 Hypothyroidism(Discharge Diagnosis) - 12/10/20 HTN (hypertension)(Discharge Diagnosis) - 12/10/20 Attending Physician: Kalia Sears MD Allergies, Adverse [...] Vaccine (oldterm) 89 Lopez rded 1Result Comment: [facility] 20916-414-03 Medications amLODIPine 5 mg oral tablet 5 mg, 1, tablet, By Mouth, Daily, # 90 tablet, Refills 3, Tot. Refills 3, Maintenance, 11/04/20 13:56:00 EDT, Route to Pharmacy Electronically, [facility]/pharmacy #2339, Partial fill upon patient request if the prescription is for a schedule II opioid drug.... Start Date: 11/04/20 Status: Ordered levothyroxine 75 mcg (0.075 mg) oral tablet 1 tablet = 75 mcg, By Mouth, Daily, # 90 tablet, 1 Refills, Maintenance, 12/06/20 10:08:00 EDT, Tablet, [facility]/pharmacy #2339, Partial fill upon patient request if the prescription is for a schedule II opioid drug., 158.4, cm, 11/04/20 8:59:00 EDT, Height Start Date: 12/06/20 Stop Date: 06/04/21 Status: Ordered LORazepam 0.5 mg oral tablet 1 tablet = 0.5 mg, By Mouth, Daily, PRN as needed for anxiety, thermometer production worker reviewed, # 7 tablet, 0 Refills,Maintenance, 12/12/20 14:00:00 EDT, Tablet, [facility], Partial fill upon patient request if the prescription is for a schedule II opioid drug.... Start Date: 12/12/20 Status: Ordered Problem List Condition Effective Dates Status Health Status Inform ant HTN (hypertension)(Confirmed) Active Hypothyroidism(Confirmed) Active Diagnosis Diagnosis Type Effective Dates Health Status Clinical Service Informant HTN (hypertension) Discharge Diagnosis 12/10/20 Hypothyroidism Discharge Diagnosis 12/10/20 Sore throat Discharge Diagnosis 12/14/20 Anxiety Discharge Diagnosis 12/14/20 Vital Signs Most recent to oldest [Reference Range]: 1 Height 158.4 cm (12/10/20 2:00 PM) Weight 93.8 kg (12/10/20 2:00 PM) Oxygen Saturation [94-100 %] 100 % (12/10/20 2:00 PM) Pulse Rate [55-90 bpm] 92 bpm *H* (12/10/20 2:00 PM) Body Mass Index [18.5-24.99] 37.38 *>HHI* (12/10/20 2:00 PM) Blood Pressure [90-138/55-84 mm Hg] 130/ 86mm Hg (12/10/20 2:00 PM) Respiratory Rate [16-30 br/min] 16 br/mi n (12/10/20 2:00 PM) Mode of Delivery (Oxygen) Room air (12/10/20 2:00 PM) Blood pressure sites Arm, left (12/10/20 2:00 PM) Weight Obtained Via Standing scale (12/10/20 2:00 PM) Social History Social History Type Response Tobacco Other: quit age 27, previously 1/2 ppd x 1 yr. Sex
--- OUTSIDE RECORDS SUMMARY | 2024-03-18 12:42 | XMS_ITS | Continuity of Care Document ---
Author Organization [facility] Address [address] [place] [address] [address] [place] [address]- Care Team Providers Care Revenue Accounting Manager Name Role Phone Orion TAPIA, Kalia Primary Care Physician Encounter [facility] Date(s): 07/09/20 - 08/08/[address] [place] [address]- Attending Physician: Padmini Carvalho Admitting Physician: Padmini [...] Vaccine (oldterm) 89 Lopez rded 1Result Comment: [facility] 31794-484-21 Medications cyclobenzaprine 10 mg oral tablet See Instructions, # 30 tablet, 1 TABLET BY MOUTH DAILY, NEEDED FOR MUSCLE SPASM, [facility]/pharmacy #2339 Start Date: 04/28/19 Status: Ordered levothyroxine 75 mcg (0.075 mg) oral tablet 1 tablet = 75 mcg, By Mouth, Daily, # 30 tablet, 1 Refills, Maintenance, 02/14/20 18:12:00 EDT, Tablet Start Date: 02/14/20 Status: Ordered Multivitamins with Folic Acid 1 mg oral tablet 1 tablet, By Mouth, Daily, # 30 tablet, 10 Refills, Maintenance, 08/15/19 10:35:00 EST, Tablet, [facility]/pharmacy #2339, 1 tablet By Mouth Daily, 158.4, cm, 08/15/19 9:53:00 EST, Height Start Date: 08/15/19 Status: Ordered Social History Social History Type Response Tobacco Other: quit age 27, previously 1/2 ppd x 1 yr. Sex
--- OUTSIDE RECORDS SUMMARY | 2024-03-18 12:42 | XMS_ITS | Continuity of Care Document ---
Author Organization [facility] Adult Address [address] [place] [address]- Care Team Providers Care Sanitary Plumber Name Role Phone Kalia Sears MD Primary Care Physician En[place] [facility] [place](s): 08/27/21 - 09/26/21 [facility] Adult [address] [place] [address]- Allergies, Adverse Reactions, Alerts No Known Medication [...] rded 1Result Comment: [facility] 61879-526-57 Medications amLODIPine 5 mg oral tablet 5 mg, 1, tablet, By Mouth, Daily, # 90 tablet, Refills 3, Tot. Refills 3, Maintenance, 11/04/20 13:56:00 EDT, Route to Pharmacy Electronically, [facility]/pharmacy #[id number], Partial fill upon patient request if the prescription is for a schedule II opioid drug.... Start Date: 11/04/20 Status: Ordered levothyroxine 75 mcg (0.075 mg) oral tablet 1 tablet, By Mouth, Daily, # 90 tablet, 1 Refills, [facility] STORE 55658, 158.4, cm, 12/10/20 14:00:00 EDT, Height Start Date: 05/26/21 Status: Ordered LORazepam 0.5 mg oral tablet See Instructions, PRN as needed for anxiety, 1/2 tablet By Mouth Daily as needed for anxiety PIPE FITTER MAINTENANCE reviewed, # 5 tablet, 0 Refills, Maintenance, 06/19/21 14:19:00 EDT, Tablet, [facility]/pharmacy #2339, Partial fill upon patient request if the prescription... Start Date: 06/19/21 Status: Ordered Problem List Condition Effective Dates Status Health Status Inform ant HTN (hypertension)(Confirmed) Active Hypothyroidism(Confirmed) Active Obese class II(Confirmed) Active Social History Social History Type Response Tobacco Other: quit age 27, previously 1/2 ppd x 1 yr. Sex
--- OUTSIDE RECORDS SUMMARY | 2024-03-18 12:42 | XMS_ITS | Continuity of Care Document ---
Author Organization [facility] Adult Address [address] [place] [address]- Care Team Providers Care Manager Transportation Name Role Phone Orion TAPIA, Kalia Primary Care Physician [phone] Encounter [facility] [place] Date(s): 08/19/22 - 09/18/22 [facility] Adult [address] [place] [address]- Allergies, Adverse Reactions, Alerts No Known Medication [...] Comment: [facility] [place] 06501-752-02 Medications amLODIPine 10 mg oral tablet 10 mg, 1, tablet, By Mouth, Daily, # 90 tablet, Refills 3, Tot. Refills 3, Maintenance, 09/10/22 14:46:00 EST, Route to Pharmacy Electronically, [facility]/pharmacy #[id number], Partial fill upon patient request if the prescription is for a schedule II opioid drug... Start Date: 09/10/22 Status: Ordered levothyroxine 75 mcg (0.075 mg) oral tablet 1 tablet, By Mouth, Daily, # 90 tablet, 1 Refills, Maintenance, 05/23/22 0:34:00 EDT, [facility], 158, cm, 12/10/21 16:01:00 EDT, Height Start Date: 05/23/22 Status: Ordered LORazepam 0.5 mg oral tablet See Instructions, PRN as needed for anxiety, 1/2 tablet By Mouth Daily as needed for anxiety TABLET TESTER reviewed, # 5 tablet, 0 Refills, Maintenance, 08/03/22 17:00:00 EST, Tablet, [facility]/pharmacy #[id number], Partial fill upon patient request if [...] Team Personnel Name: Priti Abraham MD Position: [facility] CARPENTER/LABOR MD Member Role: Lifetime CARPENTER/LABOR Physician Address: Address: [address] [facility] Women's [place] [address]- [place] Name: Kalia Sears MD Position: [facility] Primary Care Physician Member Role: PCP Address: Address: [address] [facility] 3rd [place] [address]- [place] Care Team Related Persons Name: EUN HOLDEN Address: home [address] [facility] [place], [place] [address]
--- OUTSIDE RECORDS SUMMARY | 2024-03-18 12:42 | XMS_ITS | Continuity of Care Document ---
Author Organization [facility] Adult Address [address] [place] [address]- Care Team Providers Care Certified Detention Deputy Name Role Phone Orion TAPIA, Kalia Primary Care Physician [phone] Encounter [facility] [place] Date(s): 07/21/23 - 08/20/23 [facility] Adult [address] [place] [address]- Allergies, Adverse Reactions, Alerts No Known Medication Allergies Immunizations Given and Recorded Vaccine Date Status Refusal Reason influenza virus vaccine, inactivated 05/25/23 Give n influenza virus vaccine, inactivated 06/30/22 Lopez rded influenza virus vaccine, inactivated 06/26/21 Lopez rded influenza virus vaccine, inactivated 06/14/20 Lopez rded [id number] 12y+ bivalent booster vax 09/14/22 Recorded SARS-CoV-2 [...] 1Result Comment: [facility] 49362-046-99 Medications labetalol 200 mg oral tablet 1 [...] By Mouth Daily as needed for anxiety POST ACUTE CARE NURSE PRACTITIONER reviewed, # 5 tablet, 0 Refills, Maintenance, [...] Personnel Name: Jarad TAPIA, Priti Gamez Position: [facility] MANAGER EDUCATIONAL MD Member Role: Lifetime MANAGER EDUCATIONAL Physician Address: Address: [address] [place] [address]'s [facility] Production [place] [address]- Name: Kalia Sears MD Position: [facility] Physician - Primary Care Member Role: PCP Address: Address: [address] [facility] 3rd [place] [address]- Care Team Related Persons Name: EUN HOLDEN Address: home [address] [facility] [address] [place] [address]
--- OUTSIDE RECORDS SUMMARY | 2024-03-18 12:42 | XMS_ITS | Continuity of Care Document ---
Author Organization [facility] Adult Address [address] [place] [address]- Care Team Providers Care Still Worker Helper Name Role Phone Orion TAPIA, Kalia Primary Care Physician Encounter [facility] Date(s): 10/15/20 - 11/14/20 [facility] Adult [address] [place] [address]- Allergies, Adverse Reactions, Alerts No Known Medication [...] Vaccine (oldterm) 89 Lopez rded 1Result Comment: [facility] [id number] Medications amLODIPine 5 mg oral tablet 5 mg, 1, tablet, By Mouth, Daily, # 90 tablet, Refills 3, Tot. Refills 3, Maintenance, 11/04/20 13:56:00 EDT, Route to Pharmacy Electronically, [facility]/pharmacy #[id number], Partial fill upon patient request if the prescription is for a schedule II opioid drug.... Start Date: 11/04/20 Status: Ordered levothyroxine 75 mcg (0.075 mg) oral tablet 1 tablet = 75 mcg, By Mouth, Daily, # 30 tablet, 1 Refills, Maintenance, 10/09/20 12:59:00 EST, Tablet, [facility]/pharmacy #[id number], Partial fill upon patient [...]
--- OUTSIDE RECORDS SUMMARY | 2024-03-18 12:42 | XMS_ITS | Continuity of Care Document ---
Author Organization [facility] Adult Address [address] [place] [address]- Care Team Providers Care Kidney Puller Name Role Phone Orion TAPIA, Kalia Primary Care Physician [phone] Encounter [facility] Date(s): 12/11/20 - 01/10/21 [facility] Adult [address] [place] [address]- Allergies, Adverse Reactions, Alerts No Known Medication [...] rded 1Result Comment: [facility] 36218-696-44 Medications amLODIPine 5 mg oral tablet 5 mg, 1, tablet, By Mouth, Daily, # 90 tablet, Refills 3, Tot. Refills 3, Maintenance, 11/04/20 13:56:00 EDT, Route to Pharmacy Electronically, [facility]/pharmacy #[id number], Partial fill upon patient request if the prescription is for a schedule II opioid drug.... Start Date: 11/04/20 Status: Ordered levothyroxine 75 mcg (0.075 mg) oral tablet 1 tablet = 75 mcg, By Mouth, Daily, # 90 tablet, 1 Refills, Maintenance, 12/06/20 10:08:00 EDT, Tablet, [facility]/pharmacy #[id number], Partial fill upon patient request if the prescription is for a schedule II opioid drug., 158.4, cm, 11/04/20 8:59:00 EDT, Height Start Date: 12/06/20 Stop Date: 06/04/21 Status: Ordered LORazepam 0.5 mg oral tablet 1 tablet = 0.5 mg, By Mouth, Daily, PRN as needed for anxiety, assembler tubing reviewed, # 7 tablet, 0 Refills,Maintenance, 12/12/20 14:00:00 EDT, Tablet, [facility]/pharmacy #[id number], Partial fill upon patient request if the prescription is for a schedule II opioid drug.... Start Date: 12/12/20 Status: Ordered Problem List Condition Effective Dates Status Health Status Inform ant HTN (hypertension)(Confirmed) Active Hypothyroidism(Confirmed) Active Social History Social History Type Response Tobacco Other: quit age 27, previously 1/2 ppd x 1 yr. Sex
--- OUTSIDE RECORDS SUMMARY | 2024-03-18 12:42 | XMS_ITS | Continuity of Care Document ---
Author Organization [facility] Adult Address [address] [place] [address]- Care Team Providers Care Photo Colorer Name Role Phone Orion TAPIA, Kalia Primary Care Physician Encounter [facility] [place] Date(s): 09/07/22 - 10/07/22 [facility] Adult [address] [place] [address]- Allergies, Adverse Reactions, Alerts No Known Medication [...] 1Result Comment: [facility] [id number] Medications amLODIPine 10 mg oral tablet 10 mg, 1, tablet, By Mouth, Daily, # 90 tablet, Refills 3, Tot. Refills 3, Maintenance, 09/10/22 14:46:00 EST, Route to Pharmacy Electronically, [facility]/pharmacy #[id number], Partial fill upon patient request if the prescription is for a schedule II opioid drug... Start Date: 09/10/22 Status: Ordered levothyroxine 75 mcg (0.075 mg) oral tablet 1 tablet, By Mouth, Daily, # 90 tablet, 1 Refills, Maintenance, 05/23/22 0:34:00 EDT, [facility], 158, cm, 12/10/21 16:01:00 EDT, Height Start Date: 05/23/22 Status: Ordered LORazepam 0.5 mg oral tablet See Instructions, PRN as needed for anxiety, 1/2 tablet By Mouth Daily as needed for anxiety MILL OPERATOR HEAD reviewed, # 5 tablet, 0 Refills, Maintenance, 08/03/22 17:00:00 EST, Tablet, [facility]/pharmacy #[id number], Partial fill upon patient request [...] Priti Abraham MD Position: [facility] MAGAZINE JOURNALIST MD Member Role: Lifetime MAGAZINE JOURNALIST Physician Address: Address: [address]'s [facility] [place] [address]- [place] Name: Kalia Sears MD Position: [facility] Primary Care Physician Member Role: PCP Address: Address: [address] [facility] 3rd [place] [address]- [place] Care Team Related Persons Name: EUN HOLDEN Address: home [address] [facility] [place] [address]
--- OUTSIDE RECORDS SUMMARY | 2024-03-18 12:42 | XMS_ITS | Continuity of Care Document ---
Author Organization [facility] Adult Address [address] [place] [address]- Care Team Providers Care Shagger Name Role Phone Kalia Sears MD Primary Care Physician En[place] [facility] [place] Date(s): 09/24/22 - 10/24/22 [facility] Adult [address] [place] [address]- Attending Physician: Padmini Carvalho Admitting Physician: AdmtrPadmini Referring Physician: Admtr, Ar8 Allergies, Adverse Reactions, Alerts No Known Medication [...] (oldterm) 89 Lopez rded 1Result Comment: [facility] [id number] Medications amLODIPine 10 mg oral tablet 10 mg, 1, tablet, By Mouth, Daily, # 90 tablet, Refills 3, Tot. Refills 3, Maintenance, 09/10/22 14:46:00 EST, Route to Pharmacy Electronically, [facility]/pharmacy #[id number], Partial fill upon patient request if the prescription is for a schedule II opioid drug... Start Date: 09/10/22 Status: Ordered levothyroxine 75 mcg (0.075 mg) oral tablet 1 tablet, By Mouth, Daily, # 90 tablet, 1 Refills, Maintenance, 05/23/22 0:34:00 EDT, [facility], 158, cm, 12/10/21 16:01:00 EDT, Height Start Date: 05/23/22 Status: Ordered LORazepam 0.5 mg oral tablet See Instructions, PRN as needed for anxiety, 1/2 tablet By Mouth Daily as needed for anxiety TRACKMAN reviewed, # 5 tablet, 0 Refills, Maintenance, 08/03/22 17:00:00 EST, Tablet, [facility]/pharmacy #[id number], Partial fill upon patient [...] Personnel Name: Jarad TAPIA, Priti Gamez Position: [facility] ORTHOPEDIC TECH MD Member Role: Lifetime ORTHOPEDIC TECH Physician Address: Address: [address] [place] [address]'s [facility] Hardware [place]ation [place] [address]- [place] Name: Orion TAPIA, Kalia Position: [facility] Primary Care Physician Member Role: PCP Address: Address: [address] [place] [address] 3[address] [place] [address]- Care Team Related Persons Name: EUN HOLDEN Address: home [address] [facility] [address], [place] [address]
--- OUTSIDE RECORDS SUMMARY | 2024-03-18 12:42 | XMS_ITS | Continuity of Care Document ---
Author Organization [facility] Adult Address [address] [place] [address]- Care Team Providers Care Dry Cleaning Manager Name Role Phone Orion TAPIA, Kalia Primary Care Physician [phone] Encounter [facility] [place] Date(s): 09/10/22 - 09/17/22 [facility] Adult [address] [place] [address]- Encounter Diagnosis Well adult exam(Discharge Diagnosis) - 09/10/22 HTN (hypertension)(Discharge Diagnosis) - 09/10/22 Hypothyroidism(Discharge Diagnosis) - 09/10/22 Severe obesity (BMI 35.0-39.9) with comorbidity(Discharge Diagnosis) - 09/10/22 Attending Physician: Kalia Sears MD Allergies, Adverse [...] Vaccine (oldterm) 89 Lopez rded 1Result Comment: [facility] 53659-439-40 Medications amLODIPine 10 mg oral tablet 10 mg, 1, tablet, By Mouth, Daily, # 90 tablet, Refills 3, Tot. Refills 3, Maintenance, 09/10/22 14:46:00 EST, Route to Pharmacy Electronically, [facility]/pharmacy #2335, Partial fill upon patient request if the prescription is for a schedule II opioid drug... Start Date: 09/10/22 Status: Ordered levothyroxine 75 mcg (0.075 mg) oral tablet 1 tablet, By Mouth, Daily, # 90 tablet, 1 Refills, Maintenance, 05/23/22 0:34:00 EDT, [facility] 29[facility], 158, cm, 12/10/21 16:01:00 EDT, Height Start Date: 05/23/22 Status: Ordered LORazepam 0.5 mg oral tablet See Instructions, PRN as needed for anxiety, 1/2 tablet By Mouth Daily as needed for anxiety ASSOCIATE PROFESSOR OF SOCIOLOGY reviewed, # 5 tablet, 0 Refills, Maintenance, 08/03/22 17:00:00 EST, Tablet, [facility]/pharmacy #[id number], Partial fill upon patient request if the prescription... Start Date: 08/03/22 Status: Ordered Problem List Condition Confirmation Course Effective Dates Status H ealth Status Informant HTN (hypertension) Confirmed Active Hypothyroidism Confirmed Active Severe obesity (BMI 35.0-39.9) with comorbidity Confirmed Active Diagnosis Diagnosis Type Effective Dates Health Status Clinical Service Informant Well adult exam Discharge Diagnosis 09/10/22 HTN (hypertension) Discharge Diagnosis 09/10/22 Hypothyroidism Discharge Diagnosis 09/10/22 Severe obesity (BMI 35.0-39.9) with comorbidity Discharge Diagnosis 09/10/22 Vital Signs Most recent to oldest [Reference Range]: 1 2 Height 157 cm (09/10/22 2:50 PM) 157 cm (09/10/22 2:24 PM) Weight 89.1 kg (09/10/22 2:24 PM) Pulse Rate [55-90 bpm] 97 bpm *H* (09/10/22 2:24 PM) Body Mass Index [18.5-24.99 kg/m2] 36.15 kg/m2 *>HHI* (09/10/22 2:24 PM) Blood Pressure [90-138/55-84 mm Hg] 142/ 95mm Hg *H* (09/10/22 2:50 PM) 149/89mm Hg *H* (09/10/22 2:24 PM) Temperature [96.8-100.4 DegF] 99 DegF (09/10/22 2:24 PM) Mode of Delivery (Oxygen) Room air (09/10/22 2:24 PM) Blood pressure sites Arm, left (09/10/22 2:50 PM) Arm, left (09/10/22 2:24 PM) Temperature Route Oral (09/10/22 2:24 PM) Social History Social History Type Response Tobacco Other: quit age 27, previously 1/2 ppd x 1 yr. Sex Note * Prior , Parisa: PERFORM, SIGN, VERIFY Event Display: Patient Education/Instruction Authored Date: [id number] [facility] *[facility] Clinical Summary Name TORO HOLDEN Age 32 Years 1990 PCP Orion TAPIA, Kalia PCP Visit Date 09/10/2022 14:18:00 Additional Instructions: Scheduled Appointments?? Future Appointments ?*[facility] ?Phone:??--?Fax:??-- ?Appt. Date:??09/24/2022?2:45 PM ?Scheduled Provider:??[facility] Clinical Follow-Up Instructions ?? Diagnosis Essential (primary) hypertension; Hypothyroidism, unspecified; Encounter for general adult medical examination without abnormal findings; Morbid (severe) obesity due to excess calories Medications: Please continue your medications until treatment is completed or stopped by your provider. Discuss any questions related to medications with your provider. Medications to Continue Taking That Have [facility]anged [id number] [address] [id number], [phone] - Amlodipine (amLODIPine 10 mg oral tablet) 1 tab(s) Oral Daily. Refills: 3. Next Dose: Medications to Continue with No Changes These medications were not printed or sent to your pharmacy Levothyroxine (levothyroxine 75 mcg (0.075 mg) oral tablet) 1 tab(s) Oral Daily. Refills: 1. Next Dose: Lorazepam (LORazepam 0.5 mg oral tablet) 1/2 tablet By Mouth Daily as needed for anxiety ASSOCIATE PROFESSOR OF SOCIOLOGY reviewed; as needed as needed for anxiety. Refills: 0. Next Dose: Allergy Info:?? No Known Medication Allergies Medications Given This Visit Future Orders ?No future orders Vital Signs Height 157 cm Weight 89.1 kg BMI 36.15 kg/m2 Blood Pressure 142 mm Hg/95 mm Hg Temperature 99 DegF Pulse Rate 97 bpm Respiratory Rate 02 Sat Mode of Delivery /Room air You can now view a summary of your hospital visit from the comfort of your home through a free online portal called [facility]. [facility] is a website that allows you to securely view your medical information including discharge summary, medications and follow-up visits. ??You can alsosend a secure electronic message to your doctor???s office to request appointments, renew medications or just ask a question. You can enroll at [email or web address] or register during your next office [...] primary care provider, you may find a [facility] provider by calling [facility] at [phone]. For information about the plan of care [...] Personnel Name: Jarad TAPIA, Priti Gamez Position: [facility] BATCH PLANT SUPERVISOR MD Member Role: Lifetime BATCH PLANT SUPERVISOR Physician Address: Address: [address] [facility] [place] [address]- [place] Name: Kalia Sears MD Position: [facility] Primary Care Physician Member Role: PCP Address: Address: [address] [place] [address] 3rd [place] [address]- Care Team Related Persons Name: EUN HOLDEN Address: home [address] [place] [address] [place], [place] [address]
--- OUTSIDE RECORDS SUMMARY | 2024-03-18 12:42 | XMS_ITS | Continuity of Care Document ---
Author Organization [facility] Adult Address [address] [place] [address]- Care Team Providers Care Industrial Garage Servicer Name Role Phone Kalia Sears MD Primary Care Physician Encounter [facility] [place] [place] Date(s): 08/27/21 - 09/26/21 [facility] Adult [address] [place] [address]- Allergies, Adverse Reactions, Alerts No Known Medication [...] rded 1Result Comment: [facility] 17855-187-51 Medications amLODIPine 5 mg oral tablet 5 mg, 1, tablet, By Mouth, Daily, # 90 tablet, Refills 3, Tot. Refills 3, Maintenance, 11/04/20 13:56:00 EDT, Route to Pharmacy Electronically, [facility]/pharmacy #[id number], Partial fill upon patient request if the prescription is for a schedule II opioid drug.... Start Date: 11/04/20 Status: Ordered levothyroxine 75 mcg (0.075 mg) oral tablet 1 tablet, By Mouth, Daily, # 90 tablet, 1 Refills, [facility] STORE 16683, 158.4, cm, 12/10/20 14:00:00 EDT, Height Start Date: 05/26/21 Status: Ordered LORazepam 0.5 mg oral tablet See Instructions, PRN as needed for anxiety, 1/2 tablet By Mouth Daily as needed for anxiety CREDENTIALING ANALYST reviewed, # 5 tablet, 0 Refills, Maintenance, 06/19/21 14:19:00 EDT, Tablet, [facility]/pharmacy #[id number], Partial fill upon patient request if the prescription... Start Date: 06/19/21 Status: Ordered Problem List Condition Effective Dates Status Health Status Inform ant HTN (hypertension)(Confirmed) Active Hypothyroidism(Confirmed) Active Obese class II(Confirmed) Active Social History Social History Type Response Tobacco Other: quit age 27, previously 1/2 ppd x 1 yr. Sex
--- OUTSIDE RECORDS SUMMARY | 2024-03-18 12:42 | XMS_ITS | Continuity of Care Document ---
Author Organization [facility] Adult Address [address] [place] [address]- Care Team Providers Care Integrity Engineer Name Role Phone Kalia Sears MD Primary Care Physician Encounter [facility] [place] Date(s): 11/27/23 - 12/27/23 [facility] Adult [address] [place] [address]- Allergies, Adverse Reactions, Alerts No Known Medication Allergies Immunizations Given and Recorded Vaccine Date Status Refusal Reason influenza virus vaccine, inactivated 05/25/23 Give n influenza virus vaccine, inactivated 06/30/22 Lopez rded influenza virus vaccine, inactivated 06/26/21 Lopez rded influenza virus vaccine, inactivated 06/14/20 Lopez rded [id number] 12y+ bivalent booster vax 09/14/22 Recorded SARS-CoV-2 [...] (oldterm) 89 Lopez rded 1Result Comment: [facility] 16212-256-81 Medications amLODIPine 5 mg oral tablet 5 [...] tablet, 1 Refills, Maintenance, 06/08/23 11:10:00EDT, Tablet, [facility]/pharmacy #[id number], Partial fill [...] By Mouth Daily as needed for anxiety SUSTAINABILITY OFFICER reviewed, # 5 tablet, 0 Refills, Maintenance, [...] Personnel Name: Jarad TAPIA, Priti Gamez Position: [facility] SERVICE STATION ATTENDANT MD Member Role: Lifetime SERVICE STATION ATTENDANT Physician Address: Address: [address] [place] [address] [facility] [place] [address]- Name: Kalia Sears MD Position: [facility] Physician - Primary Care Member Role: PCP Address: Address: [address] [place] [address] 3rd [place] [address]- Care Team Related Persons Name: EUN HOLDEN Address: home [address] [address]
--- OUTSIDE RECORDS SUMMARY | 2024-03-18 12:42 | XMS_ITS | Continuity of Care Document ---
Author Organization [facility] Adult Address [address] [place] [address]- Care Team Providers Care Hotel Concierge Name Role Phone Kalia Sears MD Primary Care Physician Encounter [facility] Date(s): 08/24/22 - 08/31/22 [facility] Adult [address] [place] [address]- Encounter Diagnosis Left flank pain(Discharge Diagnosis) - 08/24/22 HTN (hypertension)(Discharge Diagnosis) - 08/24/22 Hypothyroidism(Discharge Diagnosis) - 08/24/22 Attending Physician: Kalia Sears MD Allergies, Adverse [...] Lopez rded 1Result Comment: [facility] 56537-764-36 Medications amLODIPine 5 mg oral tablet 5 mg, 1, tablet, By Mouth, Daily, # 90 tablet, Refills 3, Tot. Refills 3, Maintenance, 12/10/21 16:44:00 EDT, Route to Pharmacy Electronically, [facility]/pharmacy #[id number], Partial fill upon patient request if the prescription is for a schedule II opioid drug.... Start Date: 12/10/21 Status: Ordered levothyroxine 75 mcg (0.075 mg) oral tablet 1 tablet, By Mouth, Daily, # 90 tablet, 1 Refills, Maintenance, 05/23/22 0:34:00 EDT, [facility], 158, cm, 12/10/21 16:01:00 EDT, Height Start Date: 05/23/22 Status: Ordered LORazepam 0.5 mg oral tablet See Instructions, PRN as needed for anxiety, 1/2 tablet By Mouth Daily as needed for anxiety LEVER OPERATOR reviewed, # 5 tablet, 0 Refills, Maintenance, 08/03/22 17:00:00 EST, Tablet, [facility]/pharmacy #2339, Partial fill upon patient request if the prescription... Start Date: 08/03/22 Status: Ordered Problem List Condition Confirmation Course Effective Dates Status H ealth Status Informant HTN (hypertension) Confirmed Active Hypothyroidism Confirmed Active Severe obesity (BMI 35.0-39.9) with comorbidity Confirmed Active Diagnosis Diagnosis Type Effective Dates Health Status Clinical Service Informant Left flank pain Discharge Diagnosis 08/24/22 HTN (hypertension) Discharge Diagnosis 08/24/22 Hypothyroidism Discharge Diagnosis 08/24/22 Vital Signs Most recent to oldest [Reference Range]: 1 Height 158 cm (08/24/22 3:23 PM) Weight 88.7 kg (08/24/22 3:23 PM) Oxygen Saturation [94-100 %] 99 % (08/24/22 3:23 PM) Pulse Rate [55-90 bpm] 108 bpm *H* (08/24/22 3:23 PM) Body Mass Index [18.5-24.99 kg/m2] 35.53 kg/m2 *>HHI* (08/24/22 3:23 PM) Temperature [96.8-100.4 DegF] 98.4 DegF (08/24/22 3:23 PM) Mode of Delivery (Oxygen) Room air (08/24/22 3:23 PM) Blood pressure sites Arm, left (08/24/22 3:23 PM) Temperature Route Oral (08/24/22 3:23 PM) Weight Obtained Via Standing scale (08/24/22 3:23 PM) Social History Social History Type Response Tobacco Other: quit age 27, previously 1/2 ppd x 1 yr. Sex Note * Rosario Ramos: PERFORM, SIGN, VERIFY Event Display: Patient Education/Instruction Authored Date: [id number] [facility] *[facility] [place] [facility] Clinical Summary Name TORO HOLDEN Age 32 Years 1990 PCP Orion TAPIA, Kalia PCP Visit Date 08/24/2022 15:21:00 Additional Instructions: Scheduled Appointments?? Future Appointments ?No Future Appointments Scheduled Follow-Up Instructions ?? Diagnosis Medications: Please continue your medications until treatment is completed or stopped by your provider. Discuss any questions related to medications with your provider. Medications to Continue Taking That Have Changed These medications were not printed or sent to your pharmacy - Amlodipine (amLODIPine 5 mg oral tablet) 1 tab(s) Oral Daily. Refills: 3. Next Dose: Medications to Continue with No Changes These medications were not printed or sent to your pharmacy Levothyroxine (levothyroxine 75 mcg (0.075 mg) oral tablet) 1 tab(s) Oral Daily. Refills: 1. Next Dose: Lorazepam (LORazepam 0.5 mg oral tablet) 1/2 tablet By Mouth Daily as needed for anxiety LEVER OPERATOR reviewed; as needed as needed for anxiety. Refills: 0. Next Dose: Allergy Info:?? No Known Medication Allergies Medications Given This Visit Future Orders ?No future orders Vital Signs Height 158 cm Weight 88.7 kg BMI 35.53 kg/m2 Blood Pressure / Temperature 98.4 DegF Pulse Rate 108 bpm Respiratory Rate 02 Sat Mode of Delivery 99 %/Room air You can now view a summary of your hospital visit from the comfort of your home through a free online portal called [employer]. [employer] is a website that allows you to securely view your medical information including discharge summary, medications and follow-up visits. ??You can alsosend a secure electronic message to your doctor???s office to request appointments, renew medications or just ask a question. You can enroll at [email or web address] or register during your next office [...] primary care provider, you may find a [facility] provider by calling [facility] at [phone]. For information about the plan of care [...] Jarad TAPIA, Priti Gamez Position: [facility] SQUIRREL WORKER Member Role: Lifetime SQUIRREL WORKER Physician Address: Address: [address] [place] [address]'s [facility] [place] [address]- Name: Orion TAPIA, Kalia Position: [facility] Primary Care Physician Member Role: PCP Address: Address: [address] [place] [address]- Care Team Related Persons Name: EUN HOLDEN Address: home [address] [facility] [address], [place] [address]
--- OUTSIDE RECORDS SUMMARY | 2024-03-18 12:42 | XMS_ITS | Continuity of Care Document ---
Author Organization [facility] Adult Address [address] [place] [address]- Care Team Providers Care Mannequin Molder Name Role Phone Kalia Sears MD Primary Care Physician Encounter [facility] Date(s): 08/03/22 - 09/02/22 [facility] [address] [place] [address]- Allergies, Adverse Reactions, Alerts No Known Medication [...] 1Result Comment: [facility] 31742-011-06 Medications amLODIPine 5 mg oral tablet 5 mg, 1, tablet, By Mouth, Daily, # 90 tablet, Refills 3, Tot. Refills 3, Maintenance, 12/10/21 16:44:00 EDT, Route to Pharmacy Electronically, [facility]/pharmacy #[id number], Partial fill upon patient request if the prescription is for a schedule II opioid drug.... Start Date: 12/10/21 Status: Ordered levothyroxine 75 mcg (0.075 mg) oral tablet 1 tablet, By Mouth, Daily, # 90 tablet, 1 Refills, Maintenance, 05/23/22 0:34:00 EDT, [facility], 158, cm, 12/10/21 16:01:00 EDT, Height Start Date: 05/23/22 Status: Ordered LORazepam 0.5 mg oral tablet See Instructions, PRN as needed for anxiety, 1/2 tablet By Mouth Daily as needed for anxiety DIRECTOR NETWORK DEVELOPMENT reviewed, # 5 tablet, 0 Refills, Maintenance, 08/03/22 17:00:00 EST, Tablet, [facility]/pharmacy #2334, Partial fill upon patient request if the [...] Personnel Name: Priti Abraham MD Position: S CATTLE CARE WORKER MD Member Role: Lifetime CATTLE CARE WORKER Physician Address: Address: [address] [place] [address] [facility] [place] [address]- [place] Name: Orion TAPIA, Kalia Position: [facility] Primary Care Physician Member Role: PCP Address: Address: [address] [facility] [address]rd [place] [address]- Care Team Related Persons Name: EUN HOLDEN Address: home [address] [facility] [address] [place] [address]
--- OUTSIDE RECORDS SUMMARY | 2024-03-18 12:42 | XMS_ITS | Continuity of Care Document ---
Author Organization [facility] Adult Address [address] [place] [address]- Care Team Providers Care Slubber Operator Name Role Phone Orion TAPIA, Kalia Primary Care Physician [place] [facility] [place](s): 02/13/20 - 02/20/20 [facility] [address] [place] [address]- [facility] Attending Physician: Not on Staff, [...] rded 1Result Comment: [facility] 10968-348-49 Medications cyclobenzaprine 10 mg oral tablet See Instructions, # 30 tablet, 1 TABLET BY MOUTH DAILY, NEEDED FOR MUSCLE SPASM, [facility]/pharmacy #[id number] Start Date: 04/28/19 Status: Ordered levothyroxine 75 mcg (0.075 mg) oral tablet 1 tablet = 75 mcg, By Mouth, Daily, # 30 tablet, 1 Refills, Maintenance, 02/14/20 18:12:00 EDT, Tablet Start Date: 02/14/20 Status: Ordered Multivitamins with Folic Acid 1 mg oral tablet 1 tablet, By Mouth, Daily, # 30 tablet, 10 Refills, Maintenance, 08/15/19 10:35:00 EST, Tablet, [facility]/pharmacy #[id number], 1 tablet By Mouth Daily, 158.4, cm, 08/15/19 9:53:00 EST, Height Start Date: 08/15/19 Status: Ordered Problem List Condition Effective Dates Status Health Status Inform ant COVID-19 virus infection(Confirmed) Active Social History Social History Type Response Tobacco Other: quit age 27, previously 1/2 ppd x 1 yr. Sex
--- OUTSIDE RECORDS SUMMARY | 2024-03-18 12:42 | XMS_ITS | Continuity of Care Document ---
Author Organization [facility] Adult Address [address] [place] [address]- Care Team Providers Care Tour Coordinator Name Role Phone Orion TAPIA, Kalia Primary Care Physician [place] [facility] Date(s): 03/10/23 - 04/09/23 [facility] Adult [address] [place] [address]- Allergies, Adverse Reactions, Alerts No Known Medication [...] Vaccine (oldterm) 89 Lopez rded 1Result Comment: [facility] 90605-628-54 Medications amLODIPine 10 mg oral tablet 10 mg, 1, tablet, By Mouth, Daily, # 90 tablet, Refills 3, Tot. Refills 3, Maintenance, 03/31/23 12:03:00 EDT, Route to Pharmacy Electronically, [facility]/pharmacy #[id number], Partial fill upon patient request if the prescription is for a schedule II opioid drug... Start Date: 03/31/23 Status: Ordered levothyroxine 75 mcg (0.075 mg) oral tablet 1 tablet, By Mouth, Daily, # 90 tablet, 1 Refills, Maintenance, 03/31/23 12:03:00 EDT, [facility]/pharmacy#2339, 157, cm, 03/31/23 11:44:00 EDT, Height Start Date: 03/31/23 Status: Ordered LORazepam 0.5 mg oral tablet See Instructions, PRN as needed for anxiety, 1/2 tablet By Mouth Daily as needed for anxiety SHINGLE CUTTER reviewed, # 5 tablet, 0 Refills, Maintenance, 08/03/22 17:00:00 EST, Tablet, [facility]/pharmacy #2339, Partial fill upon [...] Team Personnel Name: Priti Abraham MD Position: [facility] LEATHER GOODS I ASSEMBLER MD Member Role: Lifetime LEATHER GOODS I ASSEMBLER Physician Address: Address: [address] [place] [address] [facility] [place] [address]- [place] Name: Kalia Sears MD Position: [facility] Physician - Primary Care Member Role: PCP Address: Address: [address] [place] [address] [address]rd [place] [address]- [place] Care Team Related Persons Name: EUN HOLDEN Address: home [address] [facility] [address] [address]
--- OUTSIDE RECORDS SUMMARY | 2024-03-18 12:42 | XMS_ITS | Continuity of Care Document ---
Author Organization [facility] Address [address] [place] [address] [address] [place] [address]- Care Team Providers Care Motorcycle Technician Name Role Phone Orion TAPIA, Kalia Primary Care Physician [place] [facility] Date(s): 04/02/23 - 05/02/23 [facility] [address] [place] [address]- Allergies, Adverse Reactions, Alerts No Known Medication Allergies Immunizations Given and Recorded Vaccine Date Status Refusal Reason [id number] 12y+ bivalent booster vax 09/14/22 Recorded influenza [...] rded 1Result Comment: [facility] 97793-353-59 Medications amLODIPine 10 mg oral tablet 10 mg, 1, tablet, By Mouth, Daily, # 90 tablet, Refills 3, Tot. Refills 3, Maintenance, 03/31/23 12:03:00 EDT, Route to Pharmacy Electronically, [facility]/pharmacy #[id number], Partial fill upon patient request if the prescription is for a schedule II opioid drug... Start Date: 03/31/23 Status: Ordered levothyroxine 75 mcg (0.075 mg) oral tablet 1 tablet, By Mouth, Daily, # 90 tablet, 1 Refills, Maintenance, 03/31/23 12:03:00 EDT, [facility]/pharmacy#2339, 157, cm, 03/31/23 11:44:00 EDT, Height Start Date: 03/31/23 Status: Ordered LORazepam 0.5 mg oral tablet See Instructions, PRN as needed for anxiety, 1/2 tablet By Mouth Daily as needed for anxiety MANAGER STEEL reviewed, # 5 tablet, 0 Refills, Maintenance, [...] Team Personnel Name: Priti Abraham MD Position: [facility] INSPECTOR SCREEN PRINTING MD Member Role: Lifetime INSPECTOR SCREEN PRINTING Physician Address: Address: [address] [place] [address] [facility] [place] [address]- Name: Kalia Sears MD Position: [facility] Physician - Primary Care Member Role: PCP Address: Address: [address] [place] [address] 3rd [place] [address]- Care Team Related Persons Name: EUN HOLDEN Address: home [address] [facility] [address] [address]
--- OUTSIDE RECORDS SUMMARY | 2024-03-18 12:42 | XMS_ITS | Continuity of Care Document ---
Author Organization [facility] Adult Address [address] [place] [address]- Care Team Providers Care Pharmacy Tech Customer Service Name Role Phone Orion TAPIA, Kalia Primary Care Physician Encounter [facility] Date(s): 03/19/21 - 04/18/21 [facility] Adult [address] [place] [address] Allergies, Adverse Reactions, Alerts No Known Medication [...] (oldterm) 89 Lopez rded 1Result Comment: [facility] 73997-293-38 Medications amLODIPine 5 mg oral tablet 5 mg, 1, tablet, By Mouth, Daily, # 90 tablet, Refills 3, Tot. Refills 3, Maintenance, 11/04/20 13:56:00 EDT, Route to Pharmacy Electronically, [facility]/pharmacy #[id number], Partial fill upon patient request if the prescription is for a schedule II opioid drug.... Start Date: 11/04/20 Status: Ordered levothyroxine 75 mcg (0.075 mg) oral tablet 1 tablet = 75 mcg, By Mouth, Daily, # 90 tablet, 1 Refills, Maintenance, 12/06/20 10:08:00 EDT, Tablet, [facility]/pharmacy #[id number], Partial fill upon patient request if the prescription is for a schedule II opioid drug., 158.4, cm, 11/04/20 8:59:00 EDT, Height Start Date: 12/06/20 Stop Date: 06/04/21 Status: Ordered LORazepam 0.5 mg oral tablet 1 tablet = 0.5 mg, By Mouth, Daily, PRN as needed for anxiety, supervisor facepiece line reviewed, # 7 tablet, 0 Refills,Maintenance, 12/12/20 [...]
--- OUTSIDE RECORDS SUMMARY | 2024-03-18 12:42 | XMS_ITS | Continuity of Care Document ---
Author Organization [facility] Address [address] [place] [address] [address] [place] [address]- Care Team Providers Care Cylinder Press Feeder Name Role Phone Orion TAPIA, Kalia Primary Care Physician Encounter [facility] Date(s): 01/21/24 - 01/28/[address] [place] [address]- Attending Physician: Knee RD, Rosario Allergies, Adverse Reactions, Alerts No Known Medication Allergies Immunizations Given and Recorded Vaccine Date Status Refusal Reason influenza virus vaccine, inactivated 05/25/23 Give n influenza virus vaccine, inactivated 06/30/22 Lopez rded influenza virus vaccine, inactivated 06/26/21 Lopez rded influenza virus vaccine, inactivated 06/14/20 Lopez rded [id number] 12y+ bivalent booster vax 09/14/22 Recorded SARS-CoV-2 [...] Vaccine (oldterm) 89 Lopez rded 1Result Comment: [facility] 58420-945-86 Medications amLODIPine 5 mg oral tablet 5 mg, 1, tablet, By Mouth, Daily, # 90 tablet, Refills 3, Tot. Refills 3, Maintenance, 10/05/23 8:49:00 EST, Route to Pharmacy Electronically, [facility]/pharmacy #[id number], Partial fill upon patient request ifthe prescription is for a schedule II opioid drug.,... Start Date: 10/05/23 Status: Ordered labetalol 200 mg oral tablet 1 tablet, By Mouth, 2 times a day, # 180 tablet, 0 Refills, Maintenance, 01/04/24 15:38:00 EDT, [facility], 157, cm, 11/05/23 11:00:00 EDT, Height, 95.1, kg, 06/15/23 8:54:00 EDT, Dry Weight Start Date: 01/04/24 Status: Ordered levothyroxine 75 mcg (0.075 mg) oral tablet 1 tablet, By Mouth, Daily, # 90 tablet, 1 Refills, Maintenance, 11/27/23 10:53:00 EDT, [facility]/pharmacy#2339, 157, cm, 11/05/23 11:00:00 EDT, Height, 95.1, kg, 06/15/23 8:54:00 EDT, Dry Weight Start Date: 11/27/23 Status: Ordered LORazepam 0.5 mg oral tablet See Instructions, PRN as needed for anxiety, 1/2 tablet By Mouth Daily as needed for anxiety LABEL REMOVER reviewed, # 5 tablet, 0 Refills, Maintenance, 08/05/23 15:10:00 EST, Tablet, [facility], Partial fill upon patient request if the prescription... Start Date: 08/05/23 Status: Ordered Problem List Condition Confirmation Course Effective Dates Status H ealth Status Informant HTN (hypertension) Confirmed Active Hypothyroidism Confirmed Active Severe obesity (BMI 35.0-39.9) with comorbidity Confirmed Active Vital Signs Most recent to oldest [Reference Range]: 1 Height 157 cm (01/21/24 2:30 PM) Weight 96.1 kg (01/21/24 2:30 PM) Body Mass Index [18.5-24.99 kg/m2] 38.99 kg/m2 *>HHI* (01/21/24 2:30 PM) Social History Social History Type Response Tobacco Other: quit age 27, previously 1/2 ppd x 1 yr. Sex Patient Care team information Care Team Personnel Name: Jarad TPAIA, Priti Gamez Position: [facility] TRUCK AND TRANSPORT MECHANIC MD Member Role: Lifetime TRUCK AND TRANSPORT MECHANIC Physician Address: Address: [address] [place] [address] [facility] Instrument Lens [place] [address]- [place] Name: Kalia Sears MD Position: [facility] Physician - Primary Care Member Role: PCP Address: Address: [address] [place] [address] 3rd [place] [address]- Care Team Related Persons Name: EUN HOLDEN Address: home [address] [place] [address] [address], [place] [address]
--- OUTSIDE RECORDS SUMMARY | 2024-03-18 12:42 | XMS_ITS | Continuity of Care Document ---
Author Organization [facility] Adult Address [address] [place] [address]- Care Team Providers Care Behavioral Services Tech Name Role Phone Orion TAPIA, Kalia Primary Care Physician [phone] Encounter [facility] Date(s): 10/15/20 - 11/14/20 [facility] Adult [address] [place] [address]- Allergies, Adverse Reactions, Alerts No Known Medication [...] (oldterm) 89 Lopez rded 1Result Comment: [facility] 52421-720-46 Medications amLODIPine 5 mg oral tablet 5 mg, 1, tablet, By Mouth, Daily, # 90 tablet, Refills 3, Tot. Refills 3, Maintenance, 11/04/20 13:56:00 EDT, Route to Pharmacy Electronically, [facility]/pharmacy #[id number], Partial fill upon patient request if the prescription is for a schedule II opioid drug.... Start Date: 11/04/20 Status: Ordered levothyroxine 75 mcg (0.075 mg) oral tablet 1 tablet = 75 mcg, By Mouth, Daily, # 30 tablet, 1 Refills, Maintenance, 10/09/20 12:59:00 EST, Tablet, [facility]/pharmacy #2339, Partial fill upon patient [...]
--- OUTSIDE RECORDS SUMMARY | 2024-03-18 12:42 | XMS_ITS | Continuity of Care Document ---
Author Organization [facility] Address Unknown Care Team Providers Care Medical Sales Representative Name Role Phone Orion TAPIA, Kalia Primary Care Physician Encounter [facility] Date(s): 08/26/21 - 10/23/21 [facility] Attending Physician: Francisca Mclean MD Referring Physician: Aram Douglas MD Allergies, Adverse Reactions, [...] (oldterm) 89 Lopez rded 1Result Comment: [facility] 86932-415-09 Medications amLODIPine 5 mg oral tablet 5 [...] Mouth, Daily, # 90 tablet, 1 Refills, [facility], 158.4, cm, 12/10/20 14:00:00 EDT, Height Start Date: 05/26/21 Status: Ordered LORazepam 0.5 mg oral tablet See Instructions, PRN as needed for anxiety, 1/2 tablet By Mouth Daily as needed for anxiety NURSE ADVOCATE reviewed, # 5 tablet, 0 Refills, Maintenance, 06/19/21 14:19:00 EDT, Tablet, [facility]/pharmacy #2339, [...]
--- OUTSIDE RECORDS SUMMARY | 2024-03-18 12:42 | XMS_ITS | Continuity of Care Document ---
Author Organization [facility] Adult Address [address] [place] [address]- Care Team Providers Care Customer Service Sales Associate Name Role Phone Orion TAPIA, Kalia Primary Care Physician [phone] Encounter [facility] Date(s): 06/19/21 - 06/26/21 [facility] Adult [address] [place] [address]- Encounter Diagnosis HTN (hypertension)(Discharge Diagnosis) - 06/19/21 Hypothyroidism(Discharge Diagnosis) - 06/19/21 Attending Physician: Kalia Sears MD Allergies, Adverse [...] rded 1Result Comment: [facility] [id number] Medications amLODIPine 5 mg oral tablet 5 mg, 1, tablet, By Mouth, Daily, # 90 tablet, Refills 3, Tot. Refills 3, Maintenance, 11/04/20 13:56:00 EDT, Route to Pharmacy Electronically, [facility]/pharmacy #[id number], Partial fill upon patient request if the prescription is for a schedule II opioid drug.... Start Date: 11/04/20 Status: Ordered levothyroxine 75 mcg (0.075 mg) oral tablet 1 tablet, By Mouth, Daily, # 90 tablet, 1 Refills, [facility] 156[facility], 158.4, cm, 12/10/20 14:00:00 EDT, Height Start Date: 05/26/21 Status: Ordered LORazepam 0.5 mg oral tablet See Instructions, PRN as needed for anxiety, 1/2 tablet By Mouth Daily as needed for anxiety MARINE ELECTRONICS TECHNICIAN reviewed, # 5 tablet, 0 Refills, Maintenance, 06/19/21 14:19:00 EDT, Tablet, [facility]/pharmacy #2339, Partial fill upon patient request if the prescription... Start Date: 06/19/21 Status: Ordered Problem List Condition Effective Dates Status Health Status Inform ant HTN (hypertension)(Confirmed) Active Hypothyroidism(Confirmed) Active Diagnosis Diagnosis Type Effective Dates Health Status Clinical Service Informant HTN (hypertension) Discharge Diagnosis 06/19/21 Hypothyroidism Discharge Diagnosis 06/19/21 Vital Signs Most recent to oldest [Reference Range]: 1 Height 158.4 cm (06/19/21 11:32 AM) Weight 88.45 kg (06/19/21 11:32 AM) Body Mass Index [18.5-24.99] 35.25 *>HHI* (06/19/21 11:32 AM) Blood Pressure [90-138/55-84 mm Hg] 120/ 76mm Hg (06/19/21 11:32 AM) Weight Obtained Via Patient/family state d (06/19/21 11:32 AM) Social History Social History Type Response Tobacco Other: quit age 27, previously 1/2 ppd x 1 yr. Sex
--- OUTSIDE RECORDS SUMMARY | 2024-03-18 12:42 | XMS_ITS | Continuity of Care Document ---
Author Organization [facility] Adult Address [address] [place] [address]- Care Team Providers Care Director For Beauty [employer] Name Role Phone Orion TAPIA, Kalia Primary Care Physician [place] [facility] [place]22 - 10/09/22 [facility] Adult [address] [place] [address]- Allergies, Adverse Reactions, Alerts No Known Medication [...] Comment: [facility] 05139-383-04 Medications amLODIPine 10 mg oral tablet 10 mg, 1, tablet, By Mouth, Daily, # 90 tablet, Refills 3, Tot. Refills 3, Maintenance, 09/10/22 14:46:00 EST, Route to Pharmacy Electronically, [facility]/pharmacy #[id number], Partial fill upon patient request if the prescription is for a schedule II opioid drug... Start Date: 09/10/22 Status: Ordered levothyroxine 75 mcg (0.075 mg) oral tablet 1 tablet, By Mouth, Daily, # 90 tablet, 1 Refills, Maintenance, 05/23/22 0:34:00 EDT, [id number], 158, cm, 12/10/21 16:01:00 EDT, Height Start Date: 05/23/22 Status: Ordered LORazepam 0.5 mg oral tablet See Instructions, PRN as needed for anxiety, 1/2 tablet By Mouth Daily as needed for anxiety ADVERTISING INTERN reviewed, # 5 tablet, 0 Refills, Maintenance, 08/03/22 17:00:00 EST, Tablet, [facility]/pharmacy #[id number], Partial fill upon patient request if [...] Priti Abraham MD Position: [facility] INFORMATION DELIVERY ANALYST MD Member Role: Lifetime INFORMATION DELIVERY ANALYST Physician Address: Address: [address] [facility] [place] [facility] Women's [place] [address]- [place] Name: Kalia Sears MD Position: [facility] Primary Care Physician Member Role: PCP Address: Address: [address] [facility] 3rd [place] [address]- [place] Care Team Related Persons Name: EUN HOLDEN Address: home [address] [facility] [address] [address]
--- OUTSIDE RECORDS SUMMARY | 2024-03-18 12:42 | XMS_ITS | Continuity of Care Document ---
Author Organization [facility] Adult Address [address] [place] [address]- Care Team Providers Care Supervisor Wound Name Role Phone Kalia Sears MD Primary Care Physician [phone] Encounter [facility] [place] Date(s): 04/29/20 - 05/29/20 [facility] Adult [address] [place] [address]- [facility] Allergies, Adverse Reactions, Alerts No [...] 1Result Comment: [facility] 85365-054-05 Medications cyclobenzaprine 10 mg oral tablet See [...] EST, Tablet, [facility]/pharmacy #[id number], 1 tablet By Mouth Daily, 158.4, cm, 08/15/19 9:53:00 EST, Height Start Date: 08/15/19 Status: Ordered Problem List Condition Effective Dates Status Health Status Inform ant COVID-19 virus infection(Confirmed) Active Social History Social History Type Response Tobacco Other: quit age 27, previously 1/2 ppd x 1 yr. Sex
--- OUTSIDE RECORDS SUMMARY | 2024-03-18 12:42 | XMS_ITS | Continuity of Care Document ---
Author Organization [facility] Adult Address [address] [place] [address]- Care Team Providers Care Transfer Car Operator Name Role Phone Orion TAPIA, Kalia Primary Care Physician [phone] Encounter [facility] [place] Date(s): 05/25/23 - 06/01/23 [facility] Adult [address] [place] [address]- Encounter Diagnosis HTN (hypertension)(Discharge Diagnosis) - 05/25/23 Attending Physician: Kalia Sears MD Allergies, Adverse Reactions, Alerts No Known Medication Allergies Immunizations Given and Recorded Vaccine Date Status Refusal Reason influenza virus vaccine, inactivated 05/25/23 Give n influenza virus vaccine, inactivated 06/30/22 Lopez rded influenza virus vaccine, inactivated 06/26/21 Lopez rded influenza virus vaccine, inactivated 06/14/20 Lopez rded [id number] 12y+ bivalent booster vax 09/14/22 Recorded SARS-CoV-2 [...] 1Result Comment: [facility] 82738-415-72 Medications labetalol 100 mg oral tablet 1 [...] By Mouth Daily as needed for anxiety CASINO ASSISTANT MANAGER reviewed, # 5 tablet, 0 Refills, [...] Dates Health Status Cl inical Service Informant HTN (hypertension) Discharge Diagnosis 05/25/23 Vital Signs Most recent to oldest [Reference Range]: 1 Height 157 cm (05/25/23 11:47 AM) Weight 92.2 kg (05/25/23 11:47 AM) Oxygen Saturation [94-100 %] 100 % (05/25/23 11:47 AM) Pulse Rate [55-90 bpm] 102 bpm *H* (05/25/23 11:47 AM) Body Mass Index [18.5-24.99 kg/m2] 37.41 kg/m2 *>HHI* (05/25/23 11:47 AM) Blood Pressure [90-138/55-84 mm Hg] 137/ 82mm Hg (05/25/23 11:47 AM) Temperature [96.8-100.4 DegF] 97.8 DegF (05/25/23 11:47 AM) Mode of Delivery (Oxygen) Room air (05/25/23 11:47 AM) Blood pressure sites Arm, left (05/25/23 11:47 AM) Temperature Route Temporal (05/25/23 11:47 AM) Weight Obtained Via Standing scale (05/25/23 11:47 AM) Social History Social History Type Response Tobacco Other: quit age 27, previously 1/2 ppd x 1 yr. Sex Note * Herminio Juarez: PERFORM, SIGN, VERIFY Event Display: Patient Education/Instruction Authored Date: [id number] [facility] *[facility] Clinical Summary Name TORO HOLDEN Age 32 Years 1990 PCP Orion TAPIA, Kalia PCP Visit Date 05/25/2023 11:01:00 Additional Instructions: Scheduled Appointments?? Future Appointments ?*[facility]??Gen??Surg ?[address] ?[place],??[place],??[address] ?Phone:??--?Fax:??-- ?Appt. Date:??05/26/2023?4:30 PM ?Scheduled Provider:??Knee RD , Rosario ?*[facility]OBGYN ?[address]??[place],??[place],??[address] ?Phone:??--?Fax:??-- ?Appt. Date:??05/31/2023?2:20 PM ?Scheduled Provider:??Alma TAPIA, Tena Bradshaw ?*Int??Behav[facility] ?Phone:??--?Fax:??-- ?Appt. Date:??06/15/2023?11:00 AM ?Scheduled Provider:??Kristine Patricio ?*[facility]??Gen??Surg ?Phone:??--?Fax:??-- ?Appt. Date:??07/14/2023?10:30 AM ?Scheduled Provider:??LIONEL Motta Kimberly L Follow-Up Instructions ?? With: Address: When: Ashley Sears MDjayamikayla 05/25/2023 12:00 AM Comments: fu 2-3 wks Diagnosis Essential (primary) hypertension Medications: Please continue your medications until treatment is completed or stopped by your provider. Discuss any questions related to medications with your provider. Medications to Continue with No Changes These medications were not printed or sent to your pharmacy Amlodipine (amLODIPine 10 mg oral tablet) 1 tab(s) Oral Daily. Refills: 3. Next Dose: Levothyroxine (levothyroxine 75 mcg (0.075 mg) oral tablet) 1 tab(s) Oral Daily. Refills: 1. Next Dose: Lorazepam (LORazepam 0.5 mg oral tablet) 1/2 tablet By Mouth Daily as needed for anxiety CASINO ASSISTANT MANAGER reviewed; as needed as needed for anxiety. Refills: 0. Next Dose: Allergy Info:?? No Known Medication Allergies Medications Given This Visit Future Orders ?No future orders Vital Signs Height 157 cm Weight 92.2 kg BMI 37.41 kg/m2 Blood Pressure 137 mm Hg/82 mm Hg Temperature 97.8 DegF Pulse Rate 102 bpm Respiratory Rate 02 Sat Mode of Delivery 100 %/Room air You can now view a summary of your hospital visit from the comfort of your home through a free online portal called [employer]. [employer] is a website that allows you to securely view your medical information including discharge summary, medications and follow-up visits. ??You can alsosend a secure electronic message to your doctor???s office to request appointments, renew medications or just ask a question. You can enroll at [email or web address] or register during your next office visit. [...] primary care provider, you may find a [facility] provider by calling [facility] [employer] at [phone]. [facility], in keeping with [facility] guidance, no longer requires face masks for [...] Name: Priti Abraham MD Position: [facility] NYLON WINDER Member Role: Lifetime NYLON WINDER Physician Address: Address: [address] [facility] Women's Health [place] [address]- [place] Name: Kalia Sears MD Position: [facility] Physician - Primary Care Member Role: PCP Address: Address: [address] [facility] 3rd [place] [address]- Care Team Related Persons Name: EUN HOLDEN Address: home [address] [place] [address] [address] [place] [address]
--- OUTSIDE RECORDS SUMMARY | 2024-03-18 12:42 | XMS_ITS | Continuity of Care Document ---
Author Organization [facility] Adult Address [address] [place] [address]- Care Team Providers Care Endoscopy Technician Name Role Phone Orion TAPIA, Kalia Primary Care Physician Encounter [facility] [place] Date(s): 03/05/23 - 04/04/23 [facility] Adult [address] [place] [address]- Allergies, Adverse Reactions, Alerts No Known Medication [...] rded 1Result Comment: [facility] 24758-165-89 Medications amLODIPine 10 mg oral tablet 10 mg, 1, tablet, By Mouth, Daily, # 90 tablet, Refills 3, Tot. Refills 3, Maintenance, 03/31/23 12:03:00 EDT, Route to Pharmacy Electronically, [facility]/pharmacy #[id number], Partial fill upon patient request if the prescription is for a schedule II opioid drug... Start Date: 03/31/23 Status: Ordered levothyroxine 75 mcg (0.075 mg) oral tablet 1 tablet, By Mouth, Daily, # 90 tablet, 1 Refills, Maintenance, 03/31/23 12:03:00 EDT, [facility]/pharmacy#2339, 157, cm, 03/31/23 11:44:00 EDT, Height Start Date: 03/31/23 Status: Ordered LORazepam 0.5 mg oral tablet See Instructions, PRN as needed for anxiety, 1/2 tablet By Mouth Daily as needed for anxiety ATTENDANCE OFFICER reviewed, # 5 tablet, 0 Refills, [...] recent to oldest [Reference Range]: 1 2 Blood Pressure [90-138/55-84 mm Hg] 129/ 68mm Hg (03/10/23 12:18 PM) 124/80mm Hg (03/09/23 12:18 PM) Social History Social History Type Response Tobacco Other: quit age 27, previously 1/2 ppd x 1 yr. Sex Patient Care team information Care Team Personnel Name: Priti Abraham MD Position: [facility] ROUGH ROUNDER MACHINE MD Member Role: Lifetime ROUGH ROUNDER MACHINE Physician Address: Address: [address] [place] [address]'s [facility] Senior [place] [address]- Name: Kalia Sears MD Position: [facility] Physician - Primary Care Member Role: PCP Address: Address: [address] [place] [address] 3rd [place] [address]- Care Team Related Persons Name: EUN HOLDEN Address: home [address] [facility] [address], [place] [address]
--- OUTSIDE RECORDS SUMMARY | 2024-03-18 12:42 | XMS_ITS | Continuity of Care Document ---
Author Organization [facility] Address [address] [place] [address] [address] [place] [address]- Care Team Providers Care Fringe Weaver Name Role Phone Orion TAPIA, Kalia Primary Care Physician [phone] Encounter [facility] [place] R [id number] Date(s): 09/21/23 - 09/28/[address] [place] [address]- Encounter Diagnosis Morbid obesity(Discharge Diagnosis) - 09/17/23 Attending Physician: Rama TAPIA, Shannon Allergies, Adverse Reactions, Alerts No Known Medication Allergies Immunizations Given and Recorded Vaccine Date Status Refusal Reason influenza virus vaccine, inactivated 05/25/23 Give n influenza virus vaccine, inactivated 06/30/22 Lopez rded influenza virus vaccine, inactivated 06/26/21 Lopez rded influenza virus vaccine, inactivated 06/14/20 Lopez rded [id number] 12y+ bivalent booster vax 09/14/22 Recorded SARS-CoV-2 [...] [facility] 60161-917-72 Medications labetalol 200 mg oral tablet 1 tablet = 200 mg, By Mouth, 2 times a day, # 180 tablet, 1 Refills, Maintenance, 06/08/23 11:10:00EDT, Tablet, [facility]/pharmacy #[id number], Partial fill upon patient request if [...] By Mouth Daily as needed for anxiety LIAISON PLANNER reviewed, # 5 tablet, 0 Refills, Maintenance, [...] inical Service Informant Morbid obesity Discharge Diagnosis 09/17/23 Vital Signs Most recent to oldest [Reference Range]: 1 Height 157 cm (09/21/23 12:59 PM) Weight 92.4 kg (09/21/23 12:59 PM) Pulse Rate [55-90 bpm] 77 bpm (09/21/23 12:59 PM) Body Mass Index [18.5-24.99 kg/m2] 37.49 kg/m2 *>HHI* (09/21/23 12:59 PM) Blood Pressure [90-138/55-84 mm Hg] 174/ 96mm Hg *H* (09/21/23 12:59 PM) Respiratory Rate [16-30 br/min] 18 br/mi n (09/21/23 12:59 PM) Temperature [96.8-100.4 DegF] 98.8 DegF (09/21/23 12:59 PM) Blood pressure sites Arm, left (09/21/23 12:59 PM) Temperature Route Temporal (09/21/23 12:59 PM) Weight Obtained Via Standing scale (09/21/23 12:59 PM) Social History Social History Type Response Tobacco Other: quit age 27, previously 1/2 ppd x 1 yr. Sex Patient Care team information Care Team Personnel Name: Priti Abraham MD Position: [facility] CREDIT PORTFOLIO MANAGER MD Member Role: Lifetime CREDIT PORTFOLIO MANAGER Physician Address: Address: [address] [place] [address] Women's Health [place] [address]- [place] Name: Kalia Sears MD Position: [facility] Physician - Primary Care Member Role: PCP Address: Address: [address] 3rd [place] [address]- [place] Care Team Related Persons Name: EUN HOLDEN Address: home [address] [place] [address]
--- OUTSIDE RECORDS SUMMARY | 2024-03-18 12:42 | XMS_ITS | Continuity of Care Document ---
Author Organization [facility] Adult Address [address] [place] [address]- Care Team Providers Care Litharge Mill Operator Name Role Phone Orion TAPIA, Kalia Primary Care Physician [phone] [place] [facility] [place] 03/31/23 - 04/07/23 [facility] Adult [address] [place] [address]- Encounter Diagnosis HTN (hypertension)(Discharge Diagnosis) - 03/31/23 Hypothyroidism(Discharge Diagnosis) - 03/31/23 Severe obesity (BMI 35.0-39.9) with comorbidity(Discharge Diagnosis) - 03/31/23 Generalized anxiety disorder(Discharge Diagnosis) - 03/31/23 Attending Physician: Arlet Stewart Allergies, Adverse Reactions, Alerts No Known Medication [...] (oldterm) 89 Lopez rded 1Result Comment: [facility] 32908-199-46 Medications amLODIPine 10 mg oral tablet 10 mg, 1, tablet, By Mouth, Daily, # 90 tablet, Refills 3, Tot. Refills 3, Maintenance, 03/31/23 12:03:00 EDT, Route to Pharmacy Electronically, [facility]/pharmacy #[id number], Partial fill upon patient request if the prescription is for a schedule II opioid drug... Start Date: 03/31/23 Status: Ordered levothyroxine 75 mcg (0.075 mg) oral tablet 1 tablet, By Mouth, Daily, # 90 tablet, 1 Refills, Maintenance, 03/31/23 12:03:00 EDT, [facility]/pharmacy#2339, 157, cm, 03/31/23 11:44:00 EDT, Height Start Date: 03/31/23 Status: Ordered LORazepam 0.5 mg oral tablet See Instructions, PRN as needed for anxiety, 1/2 tablet By Mouth Daily as needed for anxiety LUMBER STACKER OPERATOR reviewed, # 5 tablet, 0 Refills, [...] Clinical Service Informant HTN (hypertension) Discharge Diagnosis 03/31/23 Hypothyroidism Discharge Diagnosis 03/31/23 Severe obesity (BMI 35.0-39.9) with comorbidity Discharge Diagnosis 03/31/23 Generalized anxiety disorder Discharge Diagnosis 03/31/23 Vital Signs Most recent to oldest [Reference Range]: 1 2 3 Height 157 cm (03/31/23 12:16 PM) 157 cm (03/31/23 12:15 PM) 157 cm (03/31/23 11:44 AM) Weight 90.5 kg (03/31/23 11:37 AM) Oxygen Saturation [94-100 %] 99 % (03/31/23 11:37 AM) Pulse Rate [55-90 bpm] 101 bpm *H* (03/31/23 11:37 AM) Body Mass Index [18.5-24.99 kg/m2] 36.72 kg/m2 *>HHI* (03/31/23 11:37 AM) Blood Pressure [90-138/55-84 mm Hg] 136/85mm Hg (03/31/23 12:16 PM) 141/78mm Hg *H* (03/31/23 12:15 PM) 147/81mm Hg *H* (03/31/23 11:44 AM) Temperature [96.8-100.4 DegF] 98.9 DegF (03/31/23 11:37 AM) Mode of Delivery (Oxygen) Room air (03/31/23 11:37 AM) Blood pressure sites Arm, left (03/31/23 12:16 PM) Arm, right (03/31/23 12:15 PM) Arm, left (03/31/23 11:44 AM) Temperature Route Temporal (03/31/23 11:37 AM) Weight Obtained Via Standing scale (03/31/23 11:37 AM) Social History Social History Type Response Tobacco Other: quit age 27, previously 1/2 ppd x 1 yr. Sex Note * Rosario Ramos: PERFORM, SIGN, VERIFY Event Display: Patient Education/Instruction Authored Date: [id number] [facility] *[facility] Clinical Summary Name TORO HOLDEN Age 32 Years 1990 PCP Kalia Sears MD PCP Visit Date 03/31/2023 11:36:00 Additional Instructions: Scheduled Appointments?? Future Appointments ?No Future Appointments Scheduled Follow-Up Instructions ?? With: Address: When: Kalia Sears MD 03/31/2023 12:00 AM Comments: PE with PCP 08/2023 Diagnosis Essential (primary) hypertension; Hypothyroidism, unspecified; Generalized anxiety disorder; Morbid(severe) obesity due to excess calories Medications: Please continue your medications until treatment is completed or stopped by your provider. Discuss any questions related to medications with your provider. New Medications [id number], [address] [place] [id number], [phone] Amlodipine (amLODIPine 10 mg oral tablet) 1 tab(s) Oral Daily. Refills: 3. Next Dose: Levothyroxine (levothyroxine 75 mcg (0.075 mg) oral tablet) 1 tab(s) Oral Daily. Refills: 1. Next Dose: Medications to Continue with No Changes These medications were not printed or sent to your pharmacy Lorazepam (LORazepam 0.5 mg oral tablet) 1/2 tablet By Mouth Daily as needed for anxiety LUMBER STACKER OPERATOR reviewed; as needed as needed for anxiety. Refills: 0. Next Dose: Allergy Info:?? No Known Medication Allergies Medications Given This Visit Future Orders ?No future orders Vital Signs Height 157 cm Weight 90.5 kg BMI 36.72 kg/m2 Blood Pressure 136 mm Hg/85 mm Hg Temperature 98.9 DegF Pulse Rate 101 bpm Respiratory Rate 02 Sat Mode of Delivery 99 %/Room air You can now view a summary of your hospital visit from the comfort of your home through a free online portal called [employer]. [employer] is a website that allows you to securely view your medical information including discharge summary, medications and follow-up visits. ??You can alsosend a secure electronic message to your doctor???s office to request appointments, renew medications or just ask a question. You can enroll at [email or web address] or register during your [...] primary care provider, you may find a [facility] provider by calling [facility] Pain Doctor at [phone]. For information about the plan of care [...] TAPIA, Priti Gamez Position: [facility] SENIOR UI UX DEVELOPER MD Member Role: Lifetime SENIOR UI UX DEVELOPER Physician Address: Address: [address] [facility] Women's Health [place] [address]- [place] Name: Kalia Sears MD Position: [facility] Physician - Primary Care Member Role: PCP Address: Address: [address] [facility] 3rd [place] [address]- [place] Care Team Related Persons Name: EUN HOLDEN Address: home [address] [address]
--- OUTSIDE RECORDS SUMMARY | 2024-03-18 12:42 | XMS_ITS | Continuity of Care Document ---
Author Organization [facility] Address [address] [place] [address]- Care Team Providers Care Supervisor Costuming Name Role Phone Orion TAPIA, Kalia Primary Care Physician [place] [facility] [place](s[place] 04/29/23 - 05/29/23 [facility] [address] [place] [address]- Allergies, Adverse Reactions, Alerts No Known Medication Allergies Immunizations Given and Recorded Vaccine Date Status Refusal Reason influenza virus vaccine, inactivated 05/25/23 Give n influenza virus vaccine, inactivated 06/30/22 Lopez rded influenza virus vaccine, inactivated 06/26/21 Lopez rded influenza virus vaccine, inactivated 06/14/20 Lopez rded [id number] 12y+ bivalent booster vax 09/14/22 Recorded SARS-CoV-2 [...] 1Result Comment: [facility] 88902-773-03 Medications labetalol 100 mg oral tablet 1 [...] By Mouth Daily as needed for anxiety STUDENT AFFAIRS DEAN reviewed, # 5 tablet, 0 Refills, Maintenance, [...] Team Personnel Name: Priti Abraham MD Position: [facility] LIVE IN CAREGIVER MD Member Role: Lifetime LIVE IN CAREGIVER Physician Address: Address: [address] [place] [address]'s [facility] [employer] Infrastructure [place] [address]- Name: Kalia Sears MD Position: [facility] Physician - Primary Care Member Role: PCP Address: Address: [address] [place] [address] 3rd [place] [address]- Care Team Related Persons Name: EUN HOLDEN Address: home [address] [facility] [address], [place] [address]
--- OUTSIDE RECORDS SUMMARY | 2024-03-18 12:43 | XMS_ITS | Continuity of Care Document ---
Author Organization [facility] Adult Address [address] [place] [address]- Care Team Providers Care Top Steep Tender Name Role Phone Kalia Sears MD Primary Care Physician [place] [facility] [place]s): 09/05/21 - 10/05/[address] [facility] Adult [address] [place] [address]- Allergies, Adverse Reactions, Alerts No Known Medication [...] Lopez rded 1Result Comment: [facility] 90778-284-56 Medications amLODIPine 5 mg oral tablet 5 mg, 1, tablet, By Mouth, Daily, # 90 tablet, Refills 3, Tot. Refills 3, Maintenance, 11/04/20 13:56:00 EDT, Route to Pharmacy Electronically, [facility]/pharmacy #[id number], Partial fill upon patient request if the prescription is for a schedule II opioid drug.... Start Date: 11/04/20 Status: Ordered levothyroxine 75 mcg (0.075 mg) oral tablet 1 tablet, By Mouth, Daily, # 90 tablet, 1 Refills, [facility] 22204, 158.4, cm, 12/10/20 14:00:00 EDT, Height Start Date: 05/26/21 Status: Ordered LORazepam 0.5 mg oral tablet See Instructions, PRN as needed for anxiety, 1/2 tablet By Mouth Daily as needed for anxiety [employer] RETAILER SALES CONSULTANT reviewed, # 5 tablet, 0 Refills, Maintenance, 06/19/21 14:19:00 EDT, Tablet, [facility]/pharmacy #2339, Partial fill upon patient request if the prescription... Start Date: 06/19/21 Status: Ordered Problem List Condition Effective Dates Status Health Status Inform ant HTN (hypertension)(Confirmed) Active Hypothyroidism(Confirmed) Active Obese class II(Confirmed) Active Social History Social History Type Response Tobacco Other: quit age 27, previously 1/2 ppd x 1 yr. Sex
--- OUTSIDE RECORDS SUMMARY | 2024-03-18 12:43 | XMS_ITS | Continuity of Care Document ---
Author Organization [facility] Adult Address [address] [place] [address]- Care Team Providers Care Specimen Processor Name Role Phone Orion TAPIA, Kalia Primary Care Physician [phone] Encounter [facility] Date(s): 03/03/24 - 03/10/24 [facility] Adult [address] [place] [address]- Encounter Diagnosis HTN (hypertension)(Discharge Diagnosis) - 03/03/24 Hypothyroidism(Discharge Diagnosis) - 03/03/24 Bariatric surgery status(Discharge Diagnosis) - 03/03/24 Severe obesity (BMI 35.0-39.9) with comorbidity(Discharge Diagnosis) - 03/03/24 Screening for endocrine/metabolic/immunity disorders(Discharge Diagnosis) - 03/03/24 Attending Physician: Arlet Shields Referring Physician: Kalia Sears MD Allergies, Adverse Reactions, Alerts No Known Medication Allergies Immunizations Given and Recorded Vaccine Date Status Refusal Reason influenza virus vaccine, inactivated 05/25/23 Give n influenza virus vaccine, inactivated 06/30/22 Lopez rded influenza virus vaccine, inactivated 06/26/21 Lopez rded influenza virus vaccine, inactivated 06/14/20 Lopez rded [id number] 12y+ bivalent booster vax 09/14/22 Recorded SARS-CoV-2 [...] [facility] [id number] Medications acetaminophen 325 mg oral tablet 975 [...] 02/22/24 9:45:00 EDT, Route to Pharmacy Electronically, [facility]/pharmacy #[id number], Partial fill upon patient request if the prescription... Start Date: 02/22/24 Status: Ordered labetalol 200 mg oral tablet 1 tablet, By Mouth, 2 times a day, # 180 tablet, 0 Refills, Maintenance, 01/04/24 15:38:00 EDT, [facility], 157, cm, 11/05/23 11:00:00 EDT, Height, 95.1, kg, 06/15/23 8:54:00 EDT, Dry Weight Start Date: 01/04/24 Status: Ordered levothyroxine 75 mcg (0.075 mg) oral tablet 1 tablet, By Mouth, Daily, # 90 tablet, 1 Refills, Maintenance, 11/27/23 10:53:00 EDT, [facility]/pharmacy#[id number], 157, cm, 11/05/23 11:00:00 EDT, Height, 95.1, kg, 06/15/23 8:54:00 EDT, Dry Weight Start Date: 11/27/23 Status: Ordered LORazepam 0.5 mg oral tablet See Instructions, PRN as needed for anxiety, 1/2 tablet By Mouth Daily as needed for anxiety STRIP POLISHER reviewed, # 5 tablet, 0 Refills, Maintenance, 08/05/23 15:10:00 EST, Tablet, [facility]/pharmacy #[id number], Partial fill upon patient [...] 0 Refills, Maintenance, 02/10/24 14:44:00EDT, EC Capsule, [facility], Partial fill upon patient request [...] Clinical Service Informant HTN (hypertension) Discharge Diagnosis 03/03/24 Hypothyroidism Discharge Diagnosis 03/03/24 Bariatric surgery status Discharge Diagnosis 03/03/24 Severe obesity (BMI 35.0-39.9) with comorbidity Discharge Diagnosis 03/03/24 Screening for endocrine/metabolic/ immunity disorders Discharge Diagnosis 03/03/24 Vital Signs Most recent to oldest [Reference Range]: 1 Height 157.48 cm (03/03/24 9:18 AM) Weight 88.0 kg (03/03/24 9:18 AM) Oxygen Saturation [94-100 %] 98 % (03/03/24 9:18 AM) Pulse Rate [55-90 bpm] 76 bpm (03/03/24 9:18 AM) Body Mass Index [18.5-24.99 kg/m2] 35.48 kg/m2 *>HHI* (03/03/24 9:18 AM) Blood Pressure [90-138/55-84 mm Hg] 108/ 68mm Hg (03/03/24 9:18 AM) Temperature [96.8-100.4 DegF] 98.2 DegF (03/03/24 9:18 AM) Mode of Delivery (Oxygen) Room air (03/03/24 9:18 AM) Blood pressure sites Arm, left (03/03/24 9:18 AM) Temperature Route Temporal (03/03/24 9:18 AM) Weight Obtained Via Standing scale (03/03/24 9:18 AM) Social History Social History Type Response Tobacco Other: quit age 27, previously 1/2 ppd x 1 yr. Sex Note * Jayda Romo: PERFORM Event Display: Patient Education/Instruction Authored Date: Ambulatory Adult Visit Summary [place] [id number] Name: TORO HOLDEN : 1990?? Visit: 03/03/2024 09:16?? Ambulatory Visit Instructions ?? Your Care Team Primary Care Provider Kalia Sears MD? This Visit Provider David MCGREGOR, Arlet Chavez Your Diagnosis HTN (hypertension) Hypothyroidism Bariatric surgery status Severe obesity (BMI 35.0-39.9) with comorbidity Screening for endocrine/metabolic/immunity disorders Vitals Signs Temperature: 98.2 DegF Height: 157.48 cm Pulse Rate: 76 bpm Weight: 88 kg Systolic Blood Pressure: 108 mm Hg Body Mass Index:??35.48 kg/m2??Critical Diastolic Blood Pressure: 68 mm Hg Body surface area: 1.96 Oxygen Saturation: 98 % ?? What to do next Scheduled Follow-Up Appointments Wednesday 11:30 AM EDT ?? With: Shannon Ontiveros MD Where: [address] [place] [address]- Status: Pending 2023 3:30 PM EDT ?? With: Rosario Gibbons RD Where: [address] [place] [address]- Status: Pending Medications The list below reflects the information in our records and provided by you today along with any changes made during this visit. Please continue your medications until treatment is completed or stopped by your provider. If this is different from the information you have or there are other questions,please contact the prescribing provider. What How Much When Instructions Unchanged Acetaminophen (acetaminophen 325 mg oral tablet) 975 Milligram Oral Every 6 hours Unchanged Docusate (Colace sodium 100 mg oral capsule) 1 capsule Oral Twice a day with plenty of water ?? Unchanged Labetalol (labetalol 200 mg oral tablet) 1 tab(s) Oral Twice a day Unchanged Levothyroxine (levothyroxine 75 mcg (0.075 mg) oral tablet) 1 tab(s) Oral Daily Unchanged Lorazepam (LORazepam 0.5 mg oral tablet) See instructions 1/ 2 tablet By Mouth Daily as needed for anxiety ?? STRIP POLISHER reviewed, As needed for as needed for anxiety ?? Unchanged Multivitamin Unchanged Omeprazole (omeprazole 20 mg oral enteric coated capsule) 1 capsule Oral Twice a day ?? What How Much When Comments Stop Taking Oxycodone (oxyCODONE 5 mg oral tablet) 1 tab(s) Oral Every 6 hours as needed for Pain , Moderate Stop Taking Oxycodone (oxyCODONE 5 mg oral tablet) 1 tab(s) Oral Every 6 hours as needed for for pain Stop Taking Remove Patch (Remove Patch) 1 Each Topically Every 72 hours Stop Taking Scopolamine 1 Milligram Topically Every 72 hours Medications and Immunizations Administered Medications Given During Visit No medications given during this visit.?? Allergies (NKA means No Known Allergies) No Known Medication Allergies Common Emergency Awareness Tips IS IT A [...] are strongly encouraged to quit. Please call [facility] at [phone] or [phone] ([phone]) or log in to [email or web address] for referrals to smoking cessation programs. ?? The National Suicide Prevention Hotline is available 08/03 if you or someone you know needs to find a reason to keep living. By calling 7-656-032-WorkVoices (8699) you'll be connected to a skilled, trained counselor at a crisis center in your area. [facility] [employer] Portal You can view and manage your care through the patient portal or by using a health care christiano of your choosing. [employer] is a website that allows you to securely view your medical information including your hospital discharge summary, office visit summaries, medications and follow-up visits. You can also request appointments, renew medications, and request access to your medical information using a health care christiano of your choosing, or just ask a question. You can enroll at [email or web address] or register during your next office visit. [facility], in keeping with [facility] guidance, no longer requires face masks [...] medical provider or home test kit. ?? Disclaimer: The information provided is of a general nature and is intended to be used in conjunction with the recommendations and advice of your health care practitioner. Every effort has been made to ensure that the information provided is accurate and complete at the time it is provided to you however, as your needs change, or, as new information becomes available, different or additional instructions may be required. ?? If you have questions, please consult with your primary care provider or pharmacist, as appropriate. This information is not intended to serve as substitution for assessment and evaluation by a qualified health care provider. If you do not have a primary care provider, you may find a [facility] provider by calling [facility] [employer] [facility] at [phone]. Patient Care team information Care Team Personnel Name: Priti Abraham MD Position: [facility] PUBLICATIONS PRODUCTION SUPERVISOR MD Member Role: [employer]etime PUBLICATIONS PRODUCTION SUPERVISOR Physician Address: Address: [address] [place] [address] [facility] [place] [address]- Name: Reina Suggs RN Position: [facility] RN Member Role: Primary Care Nurse Name: Johanna Morejon RN Position: [facility] RN Member Role: Primary Care Nurse Name: Kalia Sears MD Position: [facility] Physician - Primary Care Member Role: PCP Address: Address: [address] [place] [address] 3rd [place] [address]- Care Team Related Persons Name: EUN HOLDEN Address: [address] [address]
--- OUTSIDE RECORDS SUMMARY | 2024-03-18 12:43 | XMS_ITS | Continuity of Care Document ---
Author Organization [facility] Address [address] [place] [address]- Care Team Providers Care Crowning Inspector Name Role Phone Orion TAPIA, Kalia Primary Care Physician Encounter [facility] Date(s): 04/29/23 - 06/03/23 [facility] [address] [place] [address]- Attending Physician: Alma TAPIA, Tena Bradshaw Allergies, Adverse Reactions, Alerts No Known Medication Allergies Immunizations Given and Recorded Vaccine Date Status Refusal Reason influenza virus vaccine, inactivated 05/25/23 Give n influenza virus vaccine, inactivated 06/30/22 Lopez rded influenza virus vaccine, inactivated 06/26/21 Lopez rded influenza virus vaccine, inactivated 06/14/20 Lopez rded [id number] 12y+ bivalent booster vax 09/14/22 Recorded SARS-CoV-2 [...] 1Result Comment: [facility] 02660-812-59 Medications labetalol 100 mg oral tablet 1 [...] By Mouth Daily as needed for anxiety CLOSED CIRCUIT SCREEN WATCHER reviewed, # 5 tablet, 0 Refills, Maintenance, [...] Priti Abraham MD Position: [facility] MANAGER MATH MD Member Role: Lifetime MANAGER MATH Physician Address: Address: [address] [place] [address]'s [facility] [place] [address]- Name: Kalia Sears MD Position: [facility] Physician - Primary Care Member Role: PCP Address: Address: [address] [place] [address] 3rd [place] [address]- [place] Care Team Related Persons Name: EUN HOLDEN Address: home [address] [address]
--- OUTSIDE RECORDS SUMMARY | 2024-03-18 12:43 | XMS_ITS | Continuity of Care Document ---
Author Organization [facility] Adult Address [address] [place] [address]- Care Team Providers Care Food Processing Chemist Name Role Phone Orion TAPIA, Kalia Primary Care Physician [phone] Encounter [facility] Date(s): 10/09/20 - 11/08/20 [facility] Adult [address] [place] [address]- Allergies, Adverse Reactions, Alerts No Known Medication [...] rded 1Result Comment: [facility] 11205-965-61 Medications amLODIPine 5 mg oral tablet 5 mg, 1, tablet, By Mouth, Daily, # 90 tablet, Refills 3, Tot. Refills 3, Maintenance, 11/04/20 13:56:00 EDT, Route to Pharmacy Electronically, [facility]/pharmacy #[id number], Partial fill upon patient request if the prescription is for a schedule II opioid drug.... Start Date: 11/04/20 Status: Ordered levothyroxine 75 mcg (0.075 mg) oral tablet 1 tablet = 75 mcg, By Mouth, Daily, # 30 tablet, 1 Refills, Maintenance, 10/09/20 12:59:00 EST, Tablet, [facility]/pharmacy #[id number], Partial fill upon patient request [...]
--- OUTSIDE RECORDS SUMMARY | 2024-03-18 12:43 | XMS_ITS | Continuity of Care Document ---
Author Organization [facility] Adult Address [address] [place] [address]- Care Team Providers Care Bottling Room Worker Name Role Phone Orion TAPIA, Kalia Primary Care Physician Encounter [facility] Date(s): 06/08/23 - 06/15/23 [facility] Adult [address] [place] [address]- Encounter Diagnosis HTN (hypertension)(Discharge Diagnosis) - 06/09/23 Attending Physician: Kalia Sears MD Allergies, Adverse Reactions, Alerts No Known Medication Allergies Immunizations Given and Recorded Vaccine Date Status Refusal Reason influenza virus vaccine, inactivated 05/25/23 Give n influenza virus vaccine, inactivated 06/30/22 Lopez rded influenza virus vaccine, inactivated 06/26/21 Lopez rded influenza virus vaccine, inactivated 06/14/20 Lopez rded [id number] 12y+ bivalent booster vax 09/14/22 Recorded SARS-CoV-2 [...] (oldterm) 89 Lopez rded 1Result Comment: [facility] 34695-426-78 Medications labetalol 200 mg oral tablet 1 [...] By Mouth Daily as needed for anxiety CALL CENTER ASSOCIATE reviewed, # 5 tablet, 0 Refills, Maintenance, [...] inical Service Informant HTN (hypertension) Discharge Diagnosis 06/09/23 Vital Signs Most recent to oldest [Reference Range]: 1 2 Height 157 cm (06/08/23 10:54 AM) 157 cm (06/08/23 10:45 AM) Weight 95.1 kg (06/08/23 10:45 AM) Oxygen Saturation [94-100 %] 100 % (06/08/23 10:45 AM) Pulse Rate [55-90 bpm] 79 bpm (06/08/23 10:45 AM) Body Mass Index [18.5-24.99 kg/m2] 38.58 kg/m2 *>HHI* (06/08/23 10:45 AM) Blood Pressure [90-138/55-84 mm Hg] 151/ 86mm Hg *H* (06/08/23 10:54 AM) 163/90mm Hg *H* (06/08/23 10:45 AM) Temperature [96.8-100.4 DegF] 98.1 DegF (06/08/23 10:45 AM) Mode of Delivery (Oxygen) Room air (06/08/23 10:45 AM) Blood pressure sites Arm, left (06/08/23 10:54 AM) Arm, left (06/08/23 10:45 AM) Temperature Route Oral (06/08/23 10:45 AM) Weight Obtained Via Standing scale (06/08/23 10:45 AM) Social History Social History Type Response Tobacco Other: quit age 27, previously 1/2 ppd x 1 yr. Sex Note * Rosario Ramos: PERFORM, SIGN, VERIFY Event Display: Patient Education/Instruction Authored Date: [id number] [facility] Clinical Summary Name TORO HOLDEN Age 32 Years 1990 PCP Orion TAPIA, Kalia PCP Visit Date 06/08/2023 10:44:00 Additional Instructions: Scheduled Appointments?? Future Appointments ?*[facility] ?[address]??[place],??[place],??[address] ?Phone:??--?Fax:??-- ?Appt. Date:??06/15/2023?8:40 AM ?Scheduled Provider:??Alma TAPIA, Tena Bradshaw ?*Int[facility]hav[facility] ?Phone:??--?Fax:??-- ?Appt. Date:??06/15/2023?11:00 AM ?Scheduled Provider:??Landry PEREZ, Kristine A ?*[facility] ?[address],??[place],??[address] ?Phone:??--?Fax:??-- ?Appt. Date:??06/29/2023?9:55 AM ?Scheduled Provider:??Kalia Sears MD ?*BSA??Gen??Surg ?Phone:??--?Fax:??-- ?Appt. Date:??07/14/2023?10:30 AM ?Scheduled Provider:??LIONEL Motta Kimberly L Follow-Up Instructions ?? With: Address: When: Kalia Sears MD 06/08/2023 12:00 AM Comments: fu 2-3 wks Diagnosis Medications: Please continue your medications until treatment is completed or stopped by your provider. Discuss any questions related to medications with your provider. Medications to Continue Taking That Have Changed [facility]/pharmacy #[id number], [address] [place] [phone], [phone] - Labetalol (labetalol 200 mg oral tablet) 1 tab(s) Oral twice a day. Refills: 1. Next Dose: Medications to Continue with No Changes These medications were not printed or sent to your pharmacy Levothyroxine (levothyroxine 75 mcg (0.075 mg) oral tablet) 1 tab(s) Oral Daily. Refills: 1. Next Dose: Lorazepam (LORazepam 0.5 mg oral tablet) 1/2 tablet By Mouth Daily as needed for anxiety CALL CENTER ASSOCIATE reviewed; as needed as needed for anxiety. Refills: 0. Next Dose: Allergy Info:?? No Known Medication Allergies Medications Given This Visit Future Orders ?No future orders Vital Signs Height 157 cm Weight 95.1 kg BMI 38.58 kg/m2 Blood Pressure 151 mm Hg/86 mm Hg Temperature 98.1 DegF Pulse Rate 79 bpm Respiratory Rate 02 Sat Mode of Delivery 100 %/Room air You can now view a summary of your hospital visit from the comfort of your home through a free online portal called [employer] [facility] [employer] [employer]. [employer] [facility] [employer] [employer] is a website that allows you to securely view your medical information including discharge summary, medications and follow-up visits. ??You can alsosend a secure electronic message to your doctor???s office to request appointments, renew medications or just ask a question. You can enroll at [email or web address] or register during your next office [...] primary care provider, you may find a [facility] provider by calling [facility] Link at [phone]. [facility], in keeping with [facility] guidance, no longer requires face [...] Team Personnel Name: Priti Abraham MD Position: [facility] GEOLOGICAL TECHNICIAN Member Role: Lifetime GEOLOGICAL TECHNICIAN Physician Address: Address: [address] [place] [address]'s Health Criminal Legal Assistant - [place], [place] [address] Name: Kalia Sears MD Position: [facility] Physician - Primary Care Member Role: PCP Address: Address: [address] [facility] 3rd [place] [address]- Care Team Related Persons Name: NAVINBRONSON PROAR Address: home [address] [address]
--- OUTSIDE RECORDS SUMMARY | 2024-03-18 12:43 | XMS_ITS | Continuity of Care Document ---
Author Organization [facility] Adult Address [address] [place] [address]- Care Team Providers Care Director Of Billing Name Role Phone Orion TAPIA, Kalia Primary Care Physician [phone] [place] [facility] Date(s): 12/08/21 - 01/07/22 [facility] Adult [address] [place] [address]- Allergies, Adverse Reactions, Alerts No Known Medication [...] 1Result Comment: [facility] 42704-904-09 Medications amLODIPine 5 mg oral tablet 1 [...] Mouth, Daily, # 90 tablet, 1 Refills, [facility], 158, cm, 08/29/21 15:54:00 EST,Height Start Date: 11/23/21 Status: Ordered LORazepam 0.5 mg oral tablet See Instructions, PRN as needed for anxiety, 1/2 tablet By Mouth Daily as needed for anxiety CARPENTRY SUPERVISOR reviewed, # 5 tablet, 0 Refills, [...]
--- OUTSIDE RECORDS SUMMARY | 2024-03-18 12:43 | XMS_ITS | Continuity of Care Document ---
Author Organization [facility] Address [address] [place] [address] [address] [place] [address]- Care Team Providers Care Reconciliation Coordinator Name Role Phone Orion TAPIA, Kalia Primary Care Physician [phone] Encounter [facility] Date(s): 02/14/24 - 03/15/[address] [place] [address]- Allergies, Adverse Reactions, Alerts No Known Medication Allergies Immunizations Given and Recorded Vaccine Date Status Refusal Reason influenza virus vaccine, inactivated 05/25/23 Give n influenza virus vaccine, inactivated 06/30/22 Lopez rded influenza virus vaccine, inactivated 06/26/21 Lopez rded influenza virus vaccine, inactivated 06/14/20 Lopez rded [id number] 12y+ bivalent booster vax 09/14/22 Recorded SARS-CoV-2 [...] Lopez rded 1Result Comment: [facility] 28556-992-88 Medications acetaminophen 325 mg oral tablet 975 [...] 02/22/24 9:45:00 EDT, Route to Pharmacy Electronically, [facility]/pharmacy #[id number], Partial fill upon patient request if the prescription... Start Date: 02/22/24 Status: Ordered labetalol 200 mg oral tablet 1 tablet, By Mouth, 2 times a day, # 180 tablet, 0 Refills, Maintenance, 01/04/24 15:38:00 EDT, [facility], 157, cm, 11/05/23 11:00:00 EDT, Height, 95.1, kg, 06/15/23 8:54:00 EDT, Dry Weight Start Date: 01/04/24 Status: Ordered levothyroxine 75 mcg (0.075 mg) oral tablet 1 tablet, By Mouth, Daily, # 90 tablet, 1 Refills, Maintenance, 11/27/23 10:53:00 EDT, [facility]/pharmacy#2339, 157, cm, 11/05/23 11:00:00 EDT, Height, 95.1, kg, 06/15/23 8:54:00 EDT, Dry Weight Start Date: 11/27/23 Status: Ordered LORazepam 0.5 mg oral tablet See Instructions, PRN as needed for anxiety, 1/2 tablet By Mouth Daily as needed for anxiety SPARE PARTS CLERK reviewed, # 5 tablet, 0 Refills, Maintenance, 08/05/23 15:10:00 EST, Tablet, [facility]/pharmacy #2339, Partial fill [...] 0 Refills, Maintenance, 02/10/24 14:44:00EDT, EC Capsule, [facility], Partial fill upon patient request [...] Team Personnel Name: Priti Abraham MD Position: [facility] CLINICAL SAFETY SPECIALIST MD Member Role: Lifetime CLINICAL SAFETY SPECIALIST Physician Address: Address: [address] [place] [address] Women's Health Embossing [place] [address]- Name: Reina Suggs RN Position: [facility] RN Member Role: Primary Care Nurse Name: Johanna Morejon RN Position: [facility] RN Member Role: Primary Care Nurse Name: Kalia Sears MD Position: [facility] Physician - Primary Care Member Role: PCP Address: Address: [address] [place] [address] 3rd [place] [address]- Care Team Related Persons Name: EUN HOLDEN Address: home [address] [place] [address] [address] [address]
--- OUTSIDE RECORDS SUMMARY | 2024-03-18 12:43 | XMS_ITS | Continuity of Care Document ---
Author Organization [facility] Address [address] [place] [address] [address] [place] [address]- Care Team Providers Care Hand Bindery Assembly Worker Name Role Phone Orion TAPIA, Kalia Primary Care Physician [phone] [place] [facility] Date(s): 07/14/23 - 09/19/[address] [place] [address]- Attending Physician: Ángela MS,RD,LDN, Belle Dueñas Allergies, Adverse Reactions, Alerts No Known Medication Allergies Immunizations Given and Recorded Vaccine Date Status Refusal Reason influenza virus vaccine, inactivated 05/25/23 Give n influenza virus vaccine, inactivated 06/30/22 Lopez rded influenza virus vaccine, inactivated 06/26/21 Lopez rded influenza virus vaccine, inactivated 06/14/20 Lopez rded [id number] 12y+ bivalent booster vax 09/14/22 Recorded SARS-CoV-2 [...] 1Result Comment: [facility] 36895-377-63 Medications labetalol 200 mg oral tablet 1 [...] By Mouth Daily as needed for anxiety LEAD PRINCIPAL TECHNICAL ARCHITECT reviewed, # 5 tablet, 0 Refills, [...] Personnel Name: Jarad TAPIA, Priti Gamez Position: [facility] SHIP WORKER MD Member Role: Lifetime SHIP WORKER Physician Address: Address: [address] [place] [address]'s [place] [address]- Name: Kalia Sears MD Position: [facility] Physician - Primary Care Member Role: PCP Address: Address: [address] [place] [address] 3rd [place] [address]- Care Team Related Persons Name: EUN HOLDEN Address: home [address] [facility] [address], [place] [address]
--- OUTSIDE RECORDS SUMMARY | 2024-03-18 12:43 | XMS_ITS | Continuity of Care Document ---
Author Organization [facility] Address [address] [place] [address]- Care Team Providers Care Snuff Grinder Name Role Phone Orion TAPIA, Kalia Primary Care Physician [facility]counter [facility] Date(s): 12/12/20 - 01/11/21 [facility] [address] [place], [place] [address] Allergies, Adverse Reactions, Alerts No Known Medication [...] rded 1Result Comment: [facility] [id number] Medications amLODIPine 5 mg oral tablet 5 [...] Mouth, Daily, PRN as needed for anxiety, photocopying equipment repairer reviewed, # 7 tablet, 0 Refills,Maintenance, 12/12/20 [...]
--- OUTSIDE RECORDS SUMMARY | 2024-03-18 12:43 | XMS_ITS | Continuity of Care Document ---
Author Organization [facility] Address [address] [place] [address]- Care Team Providers Care Cable Assembler And Swager Name Role Phone Orion TAPIA, Kalia Primary Care Physician [phone] Encounter [facility] Date(s): 02/06/20 - 03/10/20 [facility] [address] [place] [address]- [facility] Attending Physician: Kalia Sears MD Allergies, Adverse [...] 89 Lopez rded 1Result Comment: [facility] [id number] Medications cyclobenzaprine 10 mg oral tablet See Instructions, # 30 tablet, 1 TABLET BY MOUTH DAILY, NEEDED FOR MUSCLE SPASM, [facility]/pharmacy #[id number] Start Date: 04/28/19 Status: Ordered levothyroxine 75 mcg (0.075 mg) oral tablet 1 tablet = 75 mcg, By Mouth, Daily, # 30 tablet, 1 Refills, Maintenance, 02/14/20 18:12:00 EDT, Tablet Start Date: 02/14/20 Status: Ordered Multivitamins with Folic Acid 1 mg oral tablet 1 tablet, By Mouth, Daily, # 30 tablet, 10 Refills, Maintenance, 08/15/19 10:35:00 EST, Tablet, [facility]/pharmacy #[id number], 1 tablet By Mouth Daily, 158.4, cm, 08/15/19 9:53:00 EST, Height Start Date: 08/15/19 Status: Ordered Problem List Condition Effective Dates Status Health Status Inform ant COVID-19 virus infection(Confirmed) Active Social History Social History Type Response Tobacco Other: quit age 27, previously 1/2 ppd x 1 yr. Sex
--- OUTSIDE RECORDS SUMMARY | 2024-03-18 12:43 | XMS_ITS | Continuity of Care Document ---
Author Organization [facility] Address [address] [place] [address]- Care Team Providers Care Supply Chain Analyst Name Role Phone Orion TAPIA, Kalia Primary Care Physician Encounter [facility] Date(s): 09/02/22 - 10/02/22 [facility] [address] [place] [address]- Allergies, Adverse Reactions, Alerts No Known Medication [...] Vaccine (oldterm) 89 Lopez rded 1Result Comment: [facility] [id number] Medications amLODIPine 10 mg oral tablet 10 mg, 1, tablet, By Mouth, Daily, # 90 tablet, Refills 3, Tot. Refills 3, Maintenance, 09/10/22 14:46:00 EST, Route to Pharmacy Electronically, [facility]/pharmacy #[id number], Partial fill upon patient request if the prescription is for a schedule II opioid drug... Start Date: 09/10/22 Status: Ordered levothyroxine 75 mcg (0.075 mg) oral tablet 1 tablet, By Mouth, Daily, # 90 tablet, 1 Refills, Maintenance, 05/23/22 0:34:00 EDT, [id number], 158, cm, 12/10/21 16:01:00 EDT, Height Start Date: 05/23/22 Status: Ordered LORazepam 0.5 mg oral tablet See Instructions, PRN as needed for anxiety, 1/2 tablet By Mouth Daily as needed for anxiety GAMING ASSOCIATE reviewed, # 5 tablet, 0 Refills, Maintenance, 08/03/22 17:00:00 EST, Tablet, [facility]/pharmacy #[id number], Partial fill upon patient request if [...] Team Personnel Name: Priti Abraham MD Position: [facility] LOAD DISPATCHER MD Member Role: Lifetime LOAD DISPATCHER Physician Address: Address: [address] [place] [address]- [place] Name: Kalia Sears MD Position: [facility] Primary Care Physician Member Role: PCP Address: Address: [address] [place] [address] [address] [place] [address]- Care Team Related Persons Name: EUN HOLDEN Address: home [address] [address]
--- OUTSIDE RECORDS SUMMARY | 2024-03-18 12:43 | XMS_ITS | Continuity of Care Document ---
Author Organization [facility] Address [address] [place] [address]- Care Team Providers Care Assistant Store Manager Trainee Name Role Phone Kalia Sears MD Primary Care Physician Encounter [facility] Date(s): 04/06/19 - 08/04/19 [facility] [address] [place] [address]- [facility] Attending Physician: Kalia Sears MD Allergies, Adverse Reactions, Alerts No Known Medication Allergies Medications Benadryl 25 mg oral capsule 1 capsule = 25 mg, By Mouth, PRN, 0 Refills, Maintenance, 04/12/19 15:18:16 EDT Start Date: 04/12/19 Status: Ordered cyclobenzaprine 10 mg oral tablet See Instructions, # 30 tablet, 1 TABLET BY MOUTH DAILY, NEEDED FOR MUSCLE SPASM, [id number] Start Date: 04/28/19 Status: Ordered levothyroxine 0.025 mg oral tablet 1 tablet = 25 mcg, By Mouth, Daily, # 30 tablet, 11 Refills, Maintenance, 04/12/19 15:51:48 EDT, Tablet Start Date: 04/12/19 Stop Date: 04/06/20 Status: Ordered Naprosyn 500 mg oral tablet 1 tablet = 500 mg, By Mouth, 2 times a day, # 60 tablet, 0 Refills, Maintenance, 05/18/19 13:18:16 EDT, Tablet Start Date: 05/18/19 Stop Date: 06/17/19 Status: Ordered Multivitamins with Vitamin B Complex, Vitamin C, Minerals and L- Methylfolate oral capsule 1 capsule, By Mouth, Daily, # 90 capsule, 3 Refills, Maintenance, 04/12/19 15:52:21 EDT, Capsule, 1capsule By Mouth Daily,x90 days Start Date: 04/12/19 Stop Date: 04/06/20 Status: Ordered Social History Social History Type Response Tobacco Other: quit age 27, previously 1/2 ppd x 1 yr. Sex
--- OUTSIDE RECORDS SUMMARY | 2024-03-18 12:43 | XMS_ITS | Continuity of Care Document ---
Author Organization [facility] Address [address] [place] [address]- Care Team Providers Care Business Applications Manager Name Role Phone Orion TAPIA, Kalia Primary Care Physician Encounter [facility] Date(s): 03/19/23 - 04/18/23 [facility] [address] [place] [address]- Allergies, Adverse Reactions, Alerts No Known Medication [...] Comment: [facility] [id number] Medications amLODIPine 10 mg oral tablet 10 mg, 1, tablet, By Mouth, Daily, # 90 tablet, Refills 3, Tot. Refills 3, Maintenance, 03/31/23 12:03:00 EDT, Route to Pharmacy Electronically, [facility]/pharmacy #[id number], Partial fill upon patient request if the prescription is for a schedule II opioid drug... Start Date: 03/31/23 Status: Ordered levothyroxine 75 mcg (0.075 mg) oral tablet 1 tablet, By Mouth, Daily, # 90 tablet, 1 Refills, Maintenance, 03/31/23 12:03:00 EDT, [facility]/pharmacy#[id number], 157, cm, 03/31/23 11:44:00 EDT, Height Start Date: 03/31/23 Status: Ordered LORazepam 0.5 mg oral tablet See Instructions, PRN as needed for anxiety, 1/2 tablet By Mouth Daily as needed for anxiety ANGLESMITH HELPER reviewed, # 5 tablet, 0 Refills, Maintenance, 08/03/22 17:00:00 EST, Tablet, [facility]/pharmacy #[id number], Partial [...] Team Personnel Name: Priti Abraham MD Position: [facility] FRUIT I FARMWORKER MD Member Role: Lifetime FRUIT I FARMWORKER Physician Address: Address: [address] [place] [address] [facility] [place] [address]- [place] Name: Kalia Sears MD Position: [facility] Physician - Primary Care Member Role: PCP Address: Address: [address] [place] [address] [address] [place] [address]- [place] Care Team Related Persons Name: EUN HOLDEN Address: home [address] [facility] [address], [place] [address]
[2024-03-18 13:51] VITALS: BP 126/80; PULSE 71; TEMP 37.1; O2SAT 98; BMI 35.1
--- NOTE | 2024-03-18 13:51 | MHC.OFFWIV ---
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 She attributes symptoms worsening when she started using a new panty liner. She had started using a vaginal anti yeast medication for vulvovaginal yeast infection, and reports that the itching has subsided. She denies hematuria, urinary frequency, fever or chills, abdominal pain, back pain, flank pain, weakness or dizziness, headache, myalgias or malaise, vaginal discharge, vaginal bleeding, or other significant associated symptoms. She denies , high-risk intercourse, STD likelihood. Declined STD testing. [facility] Surgical History History of bilateral breast reduction surgery Family History Mother Hypertension Acquired scoliosis Breast cancer Father Hypertension Prostate cancer Brother No problems noted. Sister Hypertension Social History Alcohol intake: current Alcohol intake frequency: does not drink Patient Tobacco Use Status: Never used Tobacco Review of Systems Const All systems reviewed & are unremarkable except as noted in HPI and below Physical Exam Vital Signs: Last Vital Signs Temp 98.8 F 03/18/24 13:51 Pulse 71 03/18/24 13:51 BP 126/80 03/18/24 13:51 Pulse Ox 98 03/18/24 13:51 Oxygen Delivery Method Room Air 03/18/24 13:51 BMI result Body Mass Index 35.1 Const General: cooperative, healthy appearing, comfortable, no acute distress, alert, awake, Physically active and well groomed; No anxious, diaphoretic, ill appearing, intoxicated appearing, poor hygiene or tired appearing Nutritional Appearance: average body habitus Orientation/consciousness: oriented to person Limitations: no limitations Resp Effort & Inspection: normal respiratory effort Cardio Rate: regular rate GI Palpation (GI): Soft to palpation, not firm, nontender, no guarding, not rigid, No hepatosplenomegaly present and no masses General: Yes no CVA tenderness Back/Spine/Pelvis Back: no CVA tenderness Skin Other: Good color, warm and dry Neuro General: oriented to person Psych Appearance: grossly normal Mental Status: mental status grossly normal Speech and movement: Normal speech and movement present Affect: normal affect Attitude: cooperative Thought process: Normal thought process present Insight: Good insight present (Psych) Judgement: Good judgement present (Psych) Results AMB Urinalysis, Automated UA Leukoctes 70 Katie/uL Last Edit by Melany Knight CMA on 03/18/24 14:01 UA Nitrite Negative Last Edit by Melany Knight CMA on 03/18/24 14:01 UA Urobilinogen 0.2 mg/dL Last Edit by Melany Knight CMA on 03/18/24 14:01 UA Protein 0 mg/dL Last Edit by Melany Knight CMA on 03/18/24 14:01 UA pH 6.0 Last Edit by Melany Knight CMA on 03/18/24 14:01 UA Blood 80 Jairo/uL Last Edit by Melany Knight CMA on 03/18/24 14:01 UA Specific [place] 1.010 Last Edit by Melany Knight CMA on 03/18/24 14:01 UA Ketone Negative Last Edit by Melany Knight CMA on 03/18/24 14:01 UA Bilirubin 0 mg/dL Last Edit by Melany Knight CMA on 03/18/24 14:01 UA Glucose 0 mg/dL Last Edit by Melany Knight CMA on 03/18/24 14:01 Results Reviewed Results Reviewed: Laboratory Last Values Urine pH (Auto) 6.0 03/18/24 13:50 Specific [place] (Auto) 1.010 03/18/24 13:50 Urine Protein (Auto) 0 mg/dL 03/18/24 13:50 Glucose (UA)(Auto) 0 mg/dL 03/18/24 13:50 Urine Ketones (Auto) Negative 03/18/24 13:50 Urine Blood (Auto) 80 Jairo/uL 03/18/24 13:50 Urine Nitrite (Auto) Negative 03/18/24 13:50 Urine Bilirubin (Auto) 0 mg/dL 03/18/24 13:50 Urine Urobilinogen (Auto) 0.2 mg/dL 03/18/24 13:50 Leukocyte Esterase (Auto) 70 Katie/uL 03/18/24 13:50 Assessment & Plan Assessment & Plan (1) Dysuria: Code(s): R30.0 - Dysuria Plan: Patient is a 2-year-old female complaining of dysuria and vaginal itching since having a gastric sleeve procedure recently. She had started a topical yeast infection regimen, which improved the itching. She reports some urinary hesitancy also, which might do to the vaginal discomfort. She denies . Her urine is remarkable for leuks and blood however, and I think it is safest to treat her for a possible lower urinary tract infection or urethritis/cystitis. Especially in the setting of her recent surgical procedure. I wrote her for Macrobid, advised adequate fluid intake. Due to her vaginitis symptoms, I offered to do a panel, which is pending. She knows to follow up if symptoms persist or worsen, or go to the emergency department with any worrisome symptoms. Orders: Orders AMB Urinalysis Automated 03/18/24 Z13.9 - Encounter for screening, unspecified Bacterial Vaginosis Panel 03/18/24 N76.0 - Acute vaginitis, B96.89 - Other specified bacterial agents as the cause of diseases classified elsewhere Medications: New nitrofurantoin monohyd/m-cryst 100 mg (Macrobid) must administer with a meal/food 100 mg PO Q12H 10 caps 0RF 5 days N39.0 - Urinary tract infection, site not specified Coding Level of Care Code New Pt Level 4 (78151) Diagnoses Dysuria R30.0
== END 2024-03-18 14:56 | disposition home or self-care (01) ==
PROVIDERS: PCP Internal Medicine; Visit Provider Physician Assistant Medical
DX: R30.0 Dysuria (principal)
CPT/HCPCS: 81003; 99204

== ENCOUNTER 2024-03-18 14:41 | Outpatient (REF) | payer OTHER, SELFPAY | END 2024-03-18 14:42 | disposition home or self-care (01) | LOC: HO.LAB 14:41 | PROVIDERS: Visit Provider Physician Assistant Medical | DX: Z13.89 Encounter for screening for other disorder (principal) ==

== ENCOUNTER 2024-03-18 16:12 | Outpatient (REF) | payer OTHER, SELFPAY ==
[2024-03-19 08:48] LABS: Bacterial Vaginosis PCR NEGATIVE (Negative); Candida Group PCR DETECTED (Not Detect); Candida glab krusei PCR NOT DETECTED (Not Detect); Trichomonas vaginalis PCR NOT DETECTED (Not Detect)
== END 2024-03-18 16:13 | disposition home or self-care (01) ==
LOC: HO.CHCLNP 16:12
PROVIDERS: Visit Provider Physician Assistant Medical
DX: N76.0 Acute vaginitis (principal); B96.89 Other specified bacterial agents as the cause of diseases classified elsewhere
CPT/HCPCS: 0352U